=== PATIENT | female | born 1935 | race American Indian/Alaskan Native ===

== ENCOUNTER 2018-02-15 08:33 | Day surgery (SDC) | payer BC, MEDICARE ==
[2018-01-19 13:34] VITALS: BMI 29.8
[~2018-02-15 08:33] MED LIST: HEPARIN-NS 5,000 UNITS/500 ML 5,000 UNIT/500 ML BAG IV ONE; ceFAZolin IV 1 gm in Dextrose 2 GM/100 ML BAG IVPB ONE
[2018-02-15 10:13] LABS: CALCIUM 10.5 mg/dl (8.6-10.4)
[2018-02-15] MEDS ORDERED: Propofol 10 mg/ml Inj (20 ML) ONE (11:16)
[2018-02-15] MEDS ORDERED: Phenylephrine 10 mg/ml Inj ONE (11:21)
[2018-02-15] MEDS ORDERED: HYDROmorphone 0.5 mg/0.5 ml ISec IVP PRN (13:09)
--- NOTE | 2018-02-15 13:18 | PCM.SURG1 ---
Surgeon's Initial Post Op Note - Surgeon's Notes Surgeon: Courtney Balance Screwhead Polisher: PGY4, Gerry MS4 Type of Anesthesia: General LMA Pre-Operative Diagnosis: Chronic kidney disease (ESRD) Operative Findings: see op note Post-Operative Diagnosis: Chronic kidney disease (ESRD) Operation Performed: L arm arteriovenous fistula creation Specimen/Specimens Removed: n/a Estimated Blood Loss: EBL {In ML}: 20 Blood Products Given: N/A Drains Used: No Drains Post-Op Condition: Good Date of Surgery/Procedure: 02/15/18 Time of Surgery/Procedure: 10:55
[2018-02-15] MEDS ORDERED: Oxycodone/Acetaminophen 5/325 mg Tab PO ONE (13:20)
[2018-02-15 14:52] VITALS: BP 180/67; PULSE 90; RESP 20; TEMP 97; O2SAT 100
--- NOTE | 2018-02-16 00:23 | OP ---
PROCEDURE DATE: 02/15/2018 PREOPERATIVE DIAGNOSIS: Renal failure. POSTOPERATIVE DIAGNOSIS: Renal failure. PROCEDURE CARRIED OUT: Brachio-brachial fistula, left elbow. SURGEON: Demarcus Valdez Jr., MD RAGS LABORER: Aidan Chavez DO ANESTHESIOLOGIST: HISTORY: The patient is an 82-year-old woman with renal insufficiency, not yet requiring dialysis. OPERATIVE FINDINGS: The brachial vein was of adequate size at the elbow; however superiorly arm, it was severely narrowed. Cephalic vein was not evident in the operating room vein mapping. Because of this, we created a fistula from the brachial artery to the adjacent brachial vein, which was of good size and caliber. At the end of the procedure, we had a palpable pulse at the wrist and good flow to the fistula. DESCRIPTION OF PROCEDURE: The patient was given general anesthesia and intravenous antibiotics. Venodyne boots were applied. Using ultrasound, we marked out the arteries and veins. a functional end-to-side fistula between the brachial artery and the brachial veins just above the elbow. At the end of the procedure, there is a palpable pulse at the wrist and good flow to the fistula. Heparin was given and loupe magnification was given. The patient tolerated the procedure uneventfully. It is anticipated that this required mobilization in the future as it is one of the deep veins in the arm. Demarcus Valdez Jr., MD cc: 1. Josh Macedo MD 2. Dr. Kay
== END 2018-02-15 14:55 | disposition home or self-care (01) ==
LOC: C.SDS 08:33
PROVIDERS: ATTEND Surgery Vascular Surgery
DX: N28.9 Disorder of kidney and ureter, unspecified (principal)
CPT/HCPCS: 36415; 36556; 80048; 82948; J0690; J1644; J2370; J2405; J2704; J3010; J7030; J7040

== ENCOUNTER 2018-04-08 10:25 | Inpatient (IN) | payer BC, MEDICARE ==
[2018-04-08 10:25] VITALS: BMI 29.3
--- NOTE | 2018-04-08 11:44 | C.PDOC ---
History Of Present Illness 82 y/o female pt with hx of DM and HTN presents to the ER c/o pain to the left outer arm to elbow. Pt reports the pain started last night and denies of any trauma. Pt is currently getting ready to start dialysis treatment. Pt denies SOB, nausea, vomiting and fever. Time Seen by Provider: 04/08/18 11:02 Chief Complaint (Nursing): Vascular Access Device Problem History Per: Patient History/Exam Limitations: no limitations Onset/Duration Of Symptoms: Days (x1) Current Symptoms Are (Timing): Still Present Quality: "Pain" Past Medical History Reviewed: Historical Data, Nursing Documentation, Vital Signs Vital Signs: Last Vital Signs Temp 98.8 F 04/08/18 10:33 Pulse 118 H 04/08/18 11:05 Resp 16 04/08/18 11:05 BP 206/94 H 04/08/18 11:05 Pulse Ox 96 04/08/18 11:05 - Medical History PMH: Anemia, Diabetes, HTN, Hypercholesterolemia, Chronic Kidney Disease [facility] Procedures CLOSED [PERCUTANEOUS] [NEEDLE] BIOPSY OF LUNG (06/11/03) DX ULTRASOUND-HEART (06/11/03) INSERTION OF TOTALLY IMPLANTABLE VASC ACCESS DEVIC (05/03/03) PACKED CELL TRANSFUSION (06/11/03) SKIN INCIS & FB REMOVAL (06/11/03) Family History: States: No Known Family Hx - Social History Hx Alcohol Use: No Hx Substance Use: No - Immunization History Hx Tetanus Toxoid Vaccination: No Hx Influenza Vaccination: No Hx Pneumococcal Vaccination: No Review Of Systems Except As Marked, All Systems Reviewed And Found Negative. Constitutional: Negative for: Fever Respiratory: Negative for: Shortness of Breath Gastrointestinal: Negative for: Nausea, Vomiting Musculoskeletal: Positive for: Arm Pain (left outer upper arm to elbow) Physical Exam - Physical Exam Appears: Non-toxic, No Acute Distress Skin: Warm, Dry Head: Normacephalic Eye(s): bilateral: PERRL, EOMI, Conjunctiva Pale Chest: Symmetrical, No Deformity Cardiovascular: Rhythm Regular Respiratory: Normal Breath Sounds, No Rales, No Rhonchi, No Wheezing Gastrointestinal/Abdominal: Soft, No Tenderness Extremity: Normal ROM (x4), No Deformity, Swelling (left arm ), Other (warm area ) Pulses: Left Radial: Normal, Left Dorsalis Pedis: Normal, Right Dorsalis Pedis: Normal Neurological/Psych: Oriented x3, Normal Speech, Normal Motor, Normal Sensation ED Course And Treatment - Laboratory Results Result Diagrams: 04/08/18 12:40 ECG: Interpreted By Me, Viewed By Me Interpretation Of ECG: accelerated junction Rate From EC O2 Sat by Pulse Oximetry: 96 (RA) Pulse Ox Interpretation: Normal - Other Rad chest X-Ray: Read By Radiologist Interpretation: Accession No. : [id number]. Patient Name / ID : HIREN CARDENAS / [id number]. Exam Date : 04/08/2018 11:25:35 ( Approved ). Study Comment : Sex / Age : F / 82Y. Creator : Kristine Jay. Dictator : Victoria Vallejo MD. 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 Approver2 : Report Date : 04/08/2018 11:33:23. My Comment : . Date of service: 04/08/2018. HISTORY: Sepsis Patient. COMPARISON: 01/13/2018. FINDINGS: LUNGS: The lungs are well inflated. There is severe pulmonary venous congestion and mild interstitial pulmonary edema. PLEURA: No pleural effusions or pneumothorax. CARDIOVASCULAR: Severe cardiomegaly. Atherosclerotic aortic arch calcifications are present. OSSEOUS STRUCTURES: Within normal limits for the patient's age. 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 VISUALIZED UPPER ABDOMEN: Normal. OTHER FINDINGS: There are multiple surgical clips in the right axilla. IMPRESSION: Congestive heart failure. left elbow X-Ray: Read By Radiologist Interpretation: Accession No. : [id number]. Patient Name / ID : HIREN CARDENAS / [id number]. Exam Date : 04/08/2018 11:25:35 ( Approved ). Study Comment : Sex / Age : F / 82Y. Creator : Kristine Jay. Dictator : Victoria Vallejo MD. 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 Approver2 : Report Date : 04/08/2018 11:33:18. My Comment : . Date of service: 04/08/2018. PROCEDURE: Radiographs of the left elbow. HISTORY: Pain and swelling. COMPARISON: No prior. FINDINGS: BONES: There is no acute displaced fracture or bone destruction. Bone alignment is normal. There is periarticular bone demineralization. JOINTS: There is moderate degen erative osteoarthrosis in the elbow joint with reduced joint spaces and marginal spurring. SOFT TISSUES: Normal. JOINT EFFUSION: There is a small joint effusion. OTHER FINDINGS: None. IMPRESSION: No acute displaced fracture or dislocation. Please note occult fractures cannot be excluded on plain radiographs. If there is a persistent clinical concern, an MRI without intravenous contrast may be performed for further evaluation. Moderate degenerative osteoarthrosis and small joint effusion. - Physician Consult Information Physician Contacted: Demarcus Valdez Jr. Outcome Of Conversation: recommended to admit pt to hospital service Medical Decision Making Medical Decision Making: Plans: -- VBG -- EKG -- Chem labs -- blood work -- Left elbow XR Disposition Discussed With Dr.: Demarcus Valdez Jr. Counseled Patient/Family Regarding: Diagnosis - Disposition Disposition: HOSPITALIZED Disposition Time: 13:15 Condition: GUARDED Forms: [facility] ([place]auan) - POA Present On Arrival: None - Clinical Impression Clinical Impression: Cellulitis - Scribe Statement The provider has reviewed the documentation as recorded by the Keegan Roberts Do Provider Attestation: All medical record entries made by the Kimiblalitha were at my direction and personall y dictated by me. I have reviewed the chart and agree that the record accurately reflects my personal performance of the history, physical exam, medical decision making, and the department course for this patient. I have also personally directed, reviewed, and agree with the discharge instructions and disposition. Decision To Admit - Pt Status Changed To: Hospital Disposition Of: Observation - . Bed Request Type: Telemetry Admitting Physician: Cyndi Farr Patient Diagnosis: Cellulitis
--- NOTE | 2018-04-08 12:09 | RAD ---
Date of service: 04/08/2018 HISTORY: Sepsis Patient COMPARISON: 01/13/2018. FINDINGS: LUNGS: The lungs are well inflated. There is severe pulmonary venous congestion and mild interstitial pulmonary edema. PLEURA: No pleural effusions or pneumothorax. CARDIOVASCULAR: Severe cardiomegaly. Atherosclerotic aortic arch calcifications are present. OSSEOUS STRUCTURES: Within normal limits for the patient's age. 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 VISUALIZED UPPER ABDOMEN: Normal. OTHER FINDINGS: There are multiple surgical clips in the right axilla. IMPRESSION: Congestive heart failure.
--- NOTE | 2018-04-08 12:17 | RAD ---
Date of service: 04/08/2018 PROCEDURE: Radiographs of the left elbow. HISTORY: Pain and swelling COMPARISON: No prior. FINDINGS: BONES: There is no acute displaced fracture or bone destruction. Bone alignment is normal. There is periarticular bone demineralization. JOINTS: There is moderate degenerative osteoarthrosis in the elbow joint with reduced joint spaces and marginal spurring. SOFT TISSUES: Normal. JOINT EFFUSION: There is a small joint effusion. OTHER FINDINGS: None IMPRESSION: No acute displaced fracture or dislocation. Please note occult fractures cannot be excluded on plain radiographs. If there is a persistent clinical concern, an MRI without intravenous contrast may be performed for further evaluation. Moderate degenerative osteoarthrosis and small joint effusion.
[2018-04-08 12:34] LABS: VENOUS BLOOD GAS BASE EXCESS -1.4 mmol/L (0.0-2.0); VENOUS BLOOD GAS PCO2 36 mmHg (40-60); VENOUS BLOOD PH 7.41 (7.32-7.43)
[2018-04-08 12:47] LABS: BASO # 0.1 K/uL (0.0-0.2); BASO % 0.3 % (0.0-2.0); LYMPH % 5.6 % (20.0-40.0); MEAN CELL VOLUME 84.1 fL (81.0-99.0); MEAN CORPUSCULAR HEMOGLOBIN 26.3 pg (27.0-31.0); MEAN CORPUSCULAR HGB CONC 31.3 g/dL (33.0-37.0); MEAN PLATELET VOLUME 9.4 fL (7.2-11.7); MONO # 0.8 K/uL (0.0-0.8); MONO % 4.1 % (0.0-10.0); NEUT # 16.8 K/uL (1.8-7.0); NRBC % 0.1 % (0.0-2.0); PLATELET COUNT 235 K/uL (130-400); RED CELL DISTRIBUTION WIDTH 18.9 % (11.5-14.5)
[2018-04-08 13:04] LABS: HEMOGLOBIN 7.1 g/dL (11.0-16.0); WHITE BLOOD COUNT 18.6 K/uL (4.8-10.8)
[2018-04-08 13:29] LABS: ALB/GLOB RATIO 0.9 (1.0-2.1); ALBUMIN 3.3 g/dL (3.5-5.0); CALCIUM 9.4 mg/dl (8.6-10.4)
[2018-04-08] MEDS ORDERED: Vancomycin 1 GM 1 GM/250 ML BAG IVPB ONE (13:29)
[2018-04-08] MEDS ORDERED: Vancomycin 1 GM 1 GM/250 ML BAG IV SCH (13:30)
[2018-04-08 13:46] LABS: INR 1.2
[2018-04-08 13:50] LABS: ANISOCYTOSIS SLIGHT; HYPOCHROMIC MODERATE; LYMPHOCYTE 8 % (20-40); MONOCYTE 3 % (0-10); NEUTROPHIL 89 % (50-75); PLATELET ESTIMATE NORMAL (NORMAL); POIKILOCYTOSIS SLIGHT; TOTAL CELLS COUNTED 100
[2018-04-08 13:51] LABS: BURR CELLS SLIGHT; MICROCYTOSIS SLIGHT; OVALOCYTES SLIGHT
[2018-04-08 13:52] LABS: TEARDROP CELLS SLIGHT
[2018-04-08 14:09] LABS: SQUAMOUS EPITHIAL 1 /hpf (0-5); URINE BACTERIA RARE (<OCC); URINE BILIRUBIN NEGATIVE (NEGATIVE); URINE BLOOD NEGATIVE (NEGATIVE); URINE CLARITY Clear (Clear); URINE COLOR Yellow (YELLOW); URINE GLUCOSE (UA) NORMAL (Normal); URINE LEUKOCYTE ESTERASE NEG Leu/uL (Negative); URINE PROTEIN 3+ mg/dL (NEGATIVE); URINE UROBILINOGEN NORMAL mg/dL (0.2-1.0)
--- NOTE | 2018-04-08 14:40 | CP.PCM.HP ---
<Lillian Pardo - Last Filed: 04/08/18 23:34> History of Present Illness - History of Present Illness History of Present Illness: 82 year old female with history of HTN, DM, hyperlipidemia, breast cancer s/p partial lumpectomy, CKD s/p AVF not on dialysis presents to the ED today complains of right elbow pain. Patient reports her left elbow pain started last night suddenly. The pain is pressure like and radiates down to her forearm. Patient took over the counter Tylenol with no relief. She denies having injury to her elbow or any other parts of her body. Patient had AVF procedure with Dr. Valdez 2 months ago and is scheduled to have a revision surgery on 04/12/18. Patient denies having fever, chills, dizziness, headache, shortness of breath, chest pain, nausea, vomiting, abdominal pain, or urinary complaints. PMD: Dr. Macedo, Nephro: Dr. Kay, Vascular: Dr. Valdez PMHx: [place], DM, hyperlipidemia, breast cancer, CKD PSHx: L sided AVF, partial lumpectomy Social Hx: social alcohol consumption, formal smoker quit 30 years ago. 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 Allergy: NKDA Family History: none Medication: Lasix 40mg, clonidine 0.2mg TID, januvia 50mg, lantus solo star 10u daily, protonix 40mg Present on Admission - Present on Admission Any Indicators Present on Admission: No Review of Systems - Constitutional Constitutional: As Per HPI, Chills, Fever - EENT Eyes: As Per HPI. absent: Floaters, Irritation, Photophobia Ears: As Per HPI. absent: Disequilibrium, Dizziness Nose/Mouth/Throat: As Per HPI. absent: Epistaxis, Nasal Trauma, Nose Pain, Bleeding Gums - Breasts Breasts: As Per HPI. absent: Change in Shape, Nipple Inversion, Skin Changes - Cardiovascular Cardiovascular: As Per HPI. absent: Acrocyanosis, Chest Pain, Chest Pain with Activity, Claudication - Respiratory Respiratory: As Per HPI. absent: Cough, Pain on Inspiration, Excessive Mucous Production - Gastrointestinal Gastrointestinal: As Per HPI. absent: Abdominal Pain, Bloating, Diarrhea - Genitourinary Genitourinary: As Per HPI. absent: Change in Urinary Stream, Hematuria, Pyuria, Urinary Hesitance - Reproductive: Female Reproductive:Female: As Per HPI - Musculoskeletal Musculoskeletal: As Per HPI, Joint Swelling (left elbow). absent: Deformity - Integumentary Integumentary: As Per HPI, Acne. absent: Alopecia - Neurological Neurological: As Per HPI. absent: Syncope, Tingling, Tremor, Vertigo - Psychiatric Psychiatric: As Per HPI. absent: Anxiety, Confusion, Irritability - Endocrine Endocrine: As Per HPI - Hematologic/Lymphatic Hematologic: As Per HPI Past Patient History - Infectious Disease Hx of Infectious Diseases: None - Past Medical History & Family History Past Medical History?: Yes - Past Social History Smoking Status: Never Smoked - CARDIAC Hx Hypercholesterolemia: Yes Hx Hypertension: Yes - PULMONARY Hx Respiratory Disorders: No - NEUROLOGICAL Hx Neurological Disorder: No - HEENT Hx HEENT Problems: Yes Hx Cataracts: Yes (BILAT.) - RENAL Hx Chronic Kidney Disease: Yes - ENDOCRINE/METABOLIC Hx Endocrine Disorders: Yes Hx Diabetes Mellitus Type 2: Yes - HEMATOLOGICAL/ONCOLOGICAL Hx Anemia: Yes - INTEGUMENTARY Hx Dermatological Problems: Yes Other/Comment: HX: "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." - GASTROINTESTINAL Hx Gastrointestinal Disorders: No - GENITOURINARY/GYNECOLOGICAL Hx Genitourinary Disorders: No - PSYCHIATRIC Hx Substance Use: No - SURGICAL HISTORY Hx Appendectomy: Yes - ANESTHESIA Hx Anesthesia: Yes Hx Anesthesia Reactions: No Hx Malignant Hyperthermia: No Meds Allergies/Adverse Reactions: Allergies Allergy/AdvReac Type Severity Reaction Status Date / Time No Known Allergies Allergy Verified 01/13/18 09:55 Physical Exam - Constitutional Appears: Well, No Acute Distress - Head Exam Head Exam: ATRAUMATIC, NORMAL INSPECTION, NORMOCEPHALIC - Eye Exam Eye Exam: EOMI, Normal appearance, PERRL Pupil Exam: NORMAL ACCOMODATION, PERRL - ENT Exam ENT Exam: Mucous Membranes Moist, Normal Exam - Neck Exam Neck exam: Positive for: Normal Inspection - Respiratory Exam Respiratory Exam: Clear to Auscultation Bilateral, NORMAL BREATHING PATTERN. absent: Wheezes, Respiratory Distress - Cardiovascular Exam Cardiovascular Exam: REGULAR RHYTHM, +S1, +S2 - GI/Abdominal Exam GI & Abdominal Exam: Normal Bowel Sounds, Soft. absent: Tenderness - Extremities Exam Extremities exam: Positive for: normal capillary refill, pedal pulses present Additional comments: Left olecranon tenderness, surrounding soft tissue swelling and mildly erythematous, limited overall range of motion due to pain, medial forearm surgical scar - Back Exam Back exam: NORMAL INSPECTION - Neurological Exam Neurological exam: Alert, CN II-XII Intact, Oriented x3 - Psychiatric Exam Psychiatric exam: Normal Affect, Normal Mood - Skin Skin Exam: Dry, Intact, Warm Results - Vital Signs Recent Vital Signs: Last Vital Signs Temp 98.7 F 04/08/18 14:34 Pulse 69 04/08/18 14:34 Resp 18 04/08/18 14:34 BP 160/60 H 04/08/18 14:34 Pulse Ox 99 04/08/18 14:34 - Labs Result Diagrams: 04/08/18 12:40 04/08/18 12:40 Labs: Laboratory Results - last 24 hr 04/08/18 04/08/18 04/08/18 12:28 12:40 12:40 WBC 18.6 H D RBC 2.70 L Hgb 7.1 L D Hct 22.7 L MCV 84.1 MCH 26.3 L MCHC 31.3 L RDW 18.9 H Plt Count 235 MPV 9.4 Neut % (Auto) 90.0 H Lymph % (Auto) 5.6 L Sutton % (Auto) 4.1 Eos % (Auto) 0.0 Baso % (Auto) 0.3 Neut # (Auto) 16.8 H Lymph # (Auto) 1.0 Sutton # (Auto) 0.8 Eos # (Auto) 0.0 Baso # (Auto) 0.1 Neutrophils % (Manual) 89 H Lymphocytes % (Manual) 8 L Monocytes % (Manual) 3 Platelet Estimate Normal Hypochromasia (manual) Moderate Poikilocytosis (manual Slight Anisocytosis (manual) Slight Microcytosis (manual) Slight Tear Drop Cells Slight Ovalocytes Slight Lloyd Cells Slight PT INR VBG pH 7.41 VBG pCO2 36 L VBG Total CO2 23.9 VBG O2 Sat (Calc) 72.7 H VBG Base Excess -1.4 L VBG Potassium 4.0 Sodium 145.0 141 Chloride 114.0 H 109 H Glucose 183 H Lactate 1.2 Potassium 4.1 Carbon Dioxide 22 Anion Gap 14 BUN 70 H Creatinine 5.5 H Est GFR ( Amer) 9 Est GFR (Non-Af Amer) 7 Random Glucose 176 H Calcium 9.4 Total Bilirubin 0.5 AST 12 L ALT 13 Alkaline Phosphatase 59 NT-Pro-B Natriuret Pep Total Protein 6.9 Albumin 3.3 L Globulin 3.6 Albumin/Globulin Ratio 0.9 L Venous Blood Potassium 4.0 Urine Color Urine Clarity Urine pH Ur Specific Diagonal Urine Protein Urine Glucose (UA) Urine Ketones Urine Blood Urine Nitrate Urine Bilirubin Urine Urobilinogen Ur Leukocyte Esterase Urine WBC (Auto) Urine RBC (Auto) Ur Squamous Epith Cells Urine Bacteria 04/08/18 04/08/18 04/08/18 13:30 13:47 13:58 WBC RBC Hgb Hct MCV MCH MCHC RDW Plt Count MPV Neut % (Auto) Lymph % (Auto) Sutton % (Auto) Eos % (Auto) Baso % (Auto) Neut # (Auto) Lymph # (Auto) Sutton # (Auto) Eos # (Auto) Baso # (Auto) Neutrophils % (Manual) Lymphocytes % (Manual) Monocytes % (Manual) Platelet Estimate Hypochromasia (manual) Poikilocytosis (manual Anisocytosis (manual) Microcytosis (manual) Tear Drop Cells Ovalocytes Lloyd Cells PT 13.0 H INR 1.2 VBG pH VBG pCO2 VBG Total CO2 VBG O2 Sat (Calc) VBG Base Excess VBG Potassium Sodium Chloride Glucose Lactate Potassium Carbon Dioxide Anion Gap BUN Creatinine Est GFR ( Amer) Est GFR (Non-Af Amer) Random Glucose Calcium Total Bilirubin AST ALT Alkaline Phosphatase NT-Pro-B Natriuret Pep 34754 H Total Protein Albumin Globulin Albumin/Globulin Ratio Venous Blood Potassium Urine Color Yellow Urine Clarity Clear Urine pH 5.0 Ur Specific Diagonal 1.013 Urine Protein 3+ H Urine Glucose (UA) Normal Urine Ketones Negative Urine Blood Negative Urine Nitrate Negative Urine Bilirubin Negative Urine Urobilinogen Normal Ur Leukocyte Esterase Neg Urine WBC (Auto) 3 Urine RBC (Auto) 1 Ur Squamous Epith Cells 1 Urine Bacteria Rare Assessment & Plan - Assessment and Plan (Free Text) Assessment: Left elbow pain -secondary to olecranon bursitis vs septic arthritis vs cellulitis -Orthopedic consult, Dr. Jh Sheehan help appreciated -ID consulted, Dr. Paulino help appreciated -f/u Left elbow MRI w/o contrast -Left elbow xray shows no acute displaced fracture or dislocation and moderate degenerative osteoarthrosis and small joint effusion Leukocytosis -WBC 18.6, febrile -ID consulted, Dr. Paulino help appreciated -Zosyn IV 2.25gm Q8 -Received a dose of vancomycin in the ED, f/u level -Follow up urine and blood cultures Chronic Renal Failure -Cr stable -Nephrology consulted, Dr. Kay help appreciated -Calcitriol 0.25mcg -Phoslo, sodium bicarb Congested heart failure -elevated BNP 26215 -CXR shows venous congestion -Last echo 12/2017 shows systolic function mildly impaired -Cardiology consult, Dr. Craft help appreciated -Lasix 40mg PO daily DM -Januvia 25mg (Renal dosed) -Novolog 14 unit TID -ISS -Hypoglycemia protocol -Carb consistent diet HTN -Bystolic 20mg -Clonidine 0.2mg TID Prophylactic measures -Heparin 5000u BID SC -Protonix 40mg po -Tylenol prn Case discussed with attending Dr. Torres <Munira Torres - Last Filed: 04/12/18 16:56> Results - Vital Signs Recent Vital Signs: Last Vital Signs Temp 97.6 F 04/12/18 13:07 Pulse 66 04/12/18 13:07 Resp 20 04/12/18 13:07 BP 152/72 H 04/12/18 13:07 Pulse Ox 97 04/12/18 13:07 - Labs Result Diagrams: 04/12/18 07:01 04/12/18 07:01 Labs: Laboratory Results - last 24 hr 04/11/18 04/11/18 04/11/18 13:54 13:54 16:54 WBC RBC Hgb Hct MCV MCH MCHC RDW Plt Count MPV Neut % (Auto) Lymph % (Auto) Sutton % (Auto) Eos % (Auto) Baso % (Auto) Neut # (Auto) Lymph # (Auto) Sutton # (Auto) Eos # (Auto) Baso # (Auto) Neutrophils % (Manual) Band Neutrophils % Lymphocytes % (Manual) Monocytes % (Manual) Platelet Estimate Polychromasia Hypochromasia (manual) Anisocytosis (manual) Target Cells Ovalocytes Sodium Potassium Chloride Carbon Dioxide Anion Gap BUN Creatinine Est GFR ( Amer) Est GFR (Non-Af Amer) POC Glucose (mg/dL) 108 Random Glucose Calcium Phosphorus Magnesium Total Bilirubin AST ALT Alkaline Phosphatase Total Protein Albumin Globulin Albumin/Globulin Ratio Folate Cancelled PTH Intact Whole Molec 45 04/11/18 04/12/18 04/12/18 20:56 06:43 07:01 WBC 13.6 H RBC 3.12 L Hgb 8.3 L Hct 26.2 L MCV 83.9 MCH 26.6 L MCHC 31.7 L RDW 17.8 H Plt Count 292 MPV 9.9 Neut % (Auto) 89.0 H Lymph % (Auto) 9.0 L Sutton % (Auto) 1.8 Eos % (Auto) 0.0 Baso % (Auto) 0.2 Neut # (Auto) 12.1 H Lymph # (Auto) 1.2 Sutton # (Auto) 0.3 Eos # (Auto) 0.0 Baso # (Auto) 0.0 Neutrophils % (Manual) 89 H Band Neutrophils % 1 Lymphocytes % (Manual) 9 L Monocytes % (Manual) 1 Platelet Estimate Normal Polychromasia Slight Hypochromasia (manual) Slight Anisocytosis (manual) Slight Target Cells Slight Ovalocytes Slight Sodium Potassium Chloride Carbon Dioxide Anion Gap BUN Creatinine Est GFR ( Amer) Est GFR (Non-Af Amer) POC Glucose (mg/dL) 164 H 213 H Random Glucose Calcium Phosphorus Magnesium Total Bilirubin AST ALT Alkaline Phosphatase Total Protein Albumin Globulin Albumin/Globulin Ratio Folate PTH Intact Whole Molec 04/12/18 04/12/18 07:01 12:19 WBC RBC Hgb Hct MCV MCH MCHC RDW Plt Count MPV Neut % (Auto) Lymph % (Auto) Sutton % (Auto) Eos % (Auto) Baso % (Auto) Neut # (Auto) Lymph # (Auto) Sutton # (Auto) Eos # (Auto) Baso # (Auto) Neutrophils % (Manual) Band Neutrophils % Lymphocytes % (Manual) Monocytes % (Manual) Platelet Estimate Polychromasia Hypochromasia (manual) Anisocytosis (manual) Target Cells Ovalocytes Sodium 138 Potassium 4.7 Chloride 99 Carbon Dioxide 24 Anion Gap 19 BUN 74 H Creatinine 6.5 H Est GFR ( Amer) 7 Est GFR (Non-Af Amer) 6 POC Glucose (mg/dL) 171 H Random Glucose 209 H Calcium 10.6 H Phosphorus 4.8 H Magnesium 2.1 Total Bilirubin 0.5 AST 14 ALT 11 Alkaline Phosphatase 73 Total Protein 7.3 Albumin 3.3 L Globulin 4.0 H Albumin/Globulin Ratio 0.8 L Folate > 20.0 PTH Intact Whole Molec Attending/Attestation - Attestation I have personally seen and examined this patient.: Yes I have fully participated in the care of the patient.: Yes I have reviewed all pertinent clinical information: Yes Notes (Text): seen examined by me 1.Elbow cellulites,r/o bursitis and r/o septic arthritis 2.Chronic renal failure 3.DM 4.Breast ca 5.HTN Assessment and the plan discussed with the resident seen by surgery. As per surgery team her elbow swelling is unlikely We will get Dr Paulino for ID consult. start on Zosyna dn tyroneo Ortho consult ,nephrology consult requested
[2018-04-08] MEDS ORDERED: Dextrose 50% SYRINGE Inj (50 ml) IV PRN (14:57)
[2018-04-08] MEDS ORDERED: Glucagon Recombinant 1 mg Inj IM PRN (14:57)
--- NOTE | 2018-04-08 15:31 | CP.PCM.CON ---
History of Present Illness - History of Present Illness History of Present Illness: Vascular Surgery Consult For Dr. Valdez This is an 82F with a PMH of HTN, DM, HLD, breast CA, CKD s/p AVF formation on 02/15 on the left arm. She presents today due to left elbow pain that started last night after she twisted her elbow. This is the firs time it has happened. Nothing makes it better and nothimng makes it worse. She denies any pain over the fistula. She reports she was schedules to have a fistula superfiscialization this upcoming . Patient denies having fever, chills, dizziness, headache, shortness of breath, chest pain, nausea, vomiting, abdominal pain, or urinary complaints. PMHx: TN, DM, hyperlipidemia, breast cancer, CKD PSHx: L sided AVF, partial lumpectomy Social Hx: Denies Vices Allergy: NKDA Review of Systems - Review of Systems Review of Systems: 12 point reviewof symptoms negative except for elbow pain Past Patient History - Infectious Disease Hx of Infectious Diseases: None - Past Medical History & Family History Past Medical History?: Yes - Past Social History Smoking Status: Never Smoked - CARDIAC Hx Hypercholesterolemia: Yes Hx Hypertension: Yes - PULMONARY Hx Respiratory Disorders: No - NEUROLOGICAL Hx Neurological Disorder: No - HEENT Hx HEENT Problems: Yes Hx Cataracts: Yes (BILAT.) - RENAL Hx Chronic Kidney Disease: Yes - ENDOCRINE/METABOLIC Hx Endocrine Disorders: Yes Hx Diabetes Mellitus Type 2: Yes - HEMATOLOGICAL/ONCOLOGICAL Hx Anemia: Yes - INTEGUMENTARY Hx Dermatological Problems: Yes Other/Comment: HX: "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." - GASTROINTESTINAL Hx Gastrointestinal Disorders: No - GENITOURINARY/GYNECOLOGICAL Hx Genitourinary Disorders: No - PSYCHIATRIC Hx Substance Use: No - SURGICAL HISTORY Hx Appendectomy: Yes - ANESTHESIA Hx Anesthesia: Yes Hx Anesthesia Reactions: No Hx Malignant Hyperthermia: No Meds Allergies/Adverse Reactions: Allergies Allergy/AdvReac Type Severity Reaction Status Date / Time No Known Allergies Allergy Verified 01/13/18 09:55 - Medications Medications: Current Medications Calcitriol (Rocaltrol) 0.25 mcg PO DAILY [facility] Clonidine HCl (Catapres) 0.2 mg PO TID [facility] Dextrose (Dextrose 50% Inj) 0 ml IV STAT PRN; Protocol PRN Reason: Hypoglycemia Protocol Dextrose (Glutose 15) 0 gm PO ONCE PRN; Protocol PRN Reason: Hypoglycemia Protocol Glucagon (Glucagen Diagnostic Kit) 0 mg IM STAT PRN; Protocol PRN Reason: Hypoglycemia Protocol Heparin Sodium (Porcine) (Heparin) 5,000 units SC Q12 [facility] Home Med (Calcium Acetate [Phoslo]) 2 tab PO AC [facility] Home Med (Ergocalciferol (Vitamin D2) [Vitamin D2]) 2,000 iu PO DAILY [facility] Home Med (Insulin Lispro [Humalog Kwikpen U-100]) 14 unit SQ TID [facility] Hydralazine HCl (Apresoline) 30 mg PO TID [facility] Vancomycin HCl (Vancomycin 1gm In Normal Saline Addvantage) 1 gm in 250 mls @ 166.667 mls/hr IV STAT [facility]; Protocol Last Admin: 04/08/18 14:02 Dose: 166.667 mls/hr Dextrose (Dextrose 5% In Water 1000 Ml) 1,000 mls @ 0 mls/hr IV .Q0M PRN; Protocol PRN Reason: Hypoglycemia Protocol Piperacillin Sod/Tazobactam Sod (Zosyn 2.25 Gm Iv Premix) 2.25 gm in 50 mls @ 100 mls/hr IVPB Q8H [facility]; Protocol Insulin Human Regular (Novolin R) 0 unit SC ACHS [facility]; Protocol Nebivolol (Bystolic) 20 mg PO DAILY [facility] Pantoprazole Sodium (Protonix Ec Tab) 40 mg PO DAILY [facility] Sitagliptin Phosphate (Januvia) 50 mg PO DAILY [facility] Sodium Bicarbonate (Sodium Bicarbonate Tab) 650 mg PO BID [facility] Physical Exam - Constitutional Appears: Non-toxic, No Acute Distress - Head Exam Head Exam: ATRAUMATIC, NORMOCEPHALIC - Eye Exam Eye Exam: EOMI - ENT Exam ENT Exam: Mucous Membranes Moist - Respiratory Exam Respiratory Exam: NORMAL BREATHING PATTERN - Cardiovascular Exam Cardiovascular Exam: +S1, +S2 - Extremities Exam Additional comments: thrill present over AV. Elbow effusion. Tenderness to plapation and passive motion of the elbow. Results - Vital Signs Recent Vital Signs: Last Vital Signs Temp 98.7 F 04/08/18 14:34 Pulse 69 04/08/18 14:34 Resp 18 04/08/18 14:34 BP 160/60 H 04/08/18 14:34 Pulse Ox 99 04/08/18 14:34 - Labs Result Diagrams: 04/08/18 12:40 04/08/18 12:40 Labs: Laboratory Results - last 24 hr 04/08/18 04/08/18 04/08/18 12:28 12:40 12:40 WBC 18.6 H D RBC 2.70 L Hgb 7.1 L D Hct 22.7 L MCV 84.1 MCH 26.3 L MCHC 31.3 L RDW 18.9 H Plt Count 235 MPV 9.4 Neut % (Auto) 90.0 H Lymph % (Auto) 5.6 L Glenn % (Auto) 4.1 Eos % (Auto) 0.0 Baso % (Auto) 0.3 Neut # (Auto) 16.8 H Lymph # (Auto) 1.0 Glenn # (Auto) 0.8 Eos # (Auto) 0.0 Baso # (Auto) 0.1 Neutrophils % (Manual) 89 H Lymphocytes % (Manual) 8 L Monocytes % (Manual) 3 Platelet Estimate Normal Hypochromasia (manual) Moderate Poikilocytosis (manual Slight Anisocytosis (manual) Slight Microcytosis (manual) Slight Tear Drop Cells Slight Ovalocytes Slight Nada Cells Slight PT INR VBG pH 7.41 VBG pCO2 36 L VBG Total CO2 23.9 VBG O2 Sat (Calc) 72.7 H VBG Base Excess -1.4 L VBG Potassium 4.0 Sodium 145.0 141 Chloride 114.0 H 109 H Glucose 183 H Lactate 1.2 Potassium 4.1 Carbon Dioxide 22 Anion Gap 14 BUN 70 H Creatinine 5.5 H Est GFR ( Amer) 9 Est GFR (Non-Af Amer) 7 Random Glucose 176 H Calcium 9.4 Total Bilirubin 0.5 AST 12 L ALT 13 Alkaline Phosphatase 59 NT-Pro-B Natriuret Pep Total Protein 6.9 Albumin 3.3 L Globulin 3.6 Albumin/Globulin Ratio 0.9 L Venous Blood Potassium 4.0 Urine Color Urine Clarity Urine pH Ur Specific [place] Urine Protein Urine Glucose (UA) Urine Ketones Urine Blood Urine Nitrate Urine Bilirubin Urine Urobilinogen Ur Leukocyte Esterase Urine WBC (Auto) Urine RBC (Auto) Ur Squamous Epith Cells Urine Bacteria 04/08/18 04/08/18 04/08/18 13:30 13:47 13:58 WBC RBC Hgb Hct MCV MCH MCHC RDW Plt Count MPV Neut % (Auto) Lymph % (Auto) Glenn % (Auto) Eos % (Auto) Baso % (Auto) Neut # (Auto) Lymph # (Auto) Glenn # (Auto) Eos # (Auto) Baso # (Auto) Neutrophils % (Manual) Lymphocytes % (Manual) Monocytes % (Manual) Platelet Estimate Hypochromasia (manual) Poikilocytosis (manual Anisocytosis (manual) Microcytosis (manual) Tear Drop Cells Ovalocytes Lloyd Cells PT 13.0 H INR 1.2 VBG pH VBG pCO2 VBG Total CO2 VBG O2 Sat (Calc) VBG Base Excess VBG Potassium Sodium Chloride Glucose Lactate Potassium Carbon Dioxide Anion Gap BUN Creatinine Est GFR ( Amer) Est GFR (Non-Af Amer) Random Glucose Calcium Total Bilirubin AST ALT Alkaline Phosphatase NT-Pro-B Natriuret Pep 78689 H Total Protein Albumin Globulin Albumin/Globulin Ratio Venous Blood Potassium Urine Color Yellow Urine Clarity Clear Urine pH 5.0 Ur Specific [place] 1.013 Urine Protein 3+ H Urine Glucose (UA) Normal Urine Ketones Negative Urine Blood Negative Urine Nitrate Negative Urine Bilirubin Negative Urine Urobilinogen Normal Ur Leukocyte Esterase Neg Urine WBC (Auto) 3 Urine RBC (Auto) 1 Ur Squamous Epith Cells 1 Urine Bacteria Rare Assessment & Plan - Assessment and Plan (Free Text) Assessment: 82F with likely olecronon bursitis possible septic arthritis No active vascular issues recommend ortho consult continue medical management D/W Dr. Courtney Lugo PGY3
[2018-04-08] MEDS ORDERED: Vancomycin 1 GM 1 GM/250 ML BAG IV STA (15:37)
[2018-04-08 16:11] LABS: VENOUS BLOOD GAS BASE EXCESS -0.2 mmol/L (0.0-2.0); VENOUS BLOOD GAS PCO2 41 mmHg (40-60); VENOUS BLOOD PH 7.39 (7.32-7.43)
[2018-04-08] MEDS: Piperacill/Tazo 2.25gm in Dex 2.25 GM/50 ML BAG IVPB SCH ×2 (16:22→22:17)
[2018-04-08] MEDS: (Novolog) Insulin Aspart, Recombinant 100 u/ml 10 ml vial SC SCH (18:00)
[2018-04-08] MEDS: (Novolin R) Insulin Human Regular 100 units/ml vial SC SCH ×2 (18:43→21:46)
[2018-04-09] MEDS: Piperacill/Tazo 2.25gm in Dex 2.25 GM/50 ML BAG IVPB SCH ×3 (06:27→22:28)
[2018-04-09] MEDS: (Novolog) Insulin Aspart, Recombinant 100 u/ml 10 ml vial SC SCH ×2 (07:24→11:50)
[2018-04-09] MEDS: (Novolin R) Insulin Human Regular 100 units/ml vial SC SCH ×4 (07:26→22:03)
[2018-04-09 08:43] LABS: BASO % 0.2 % (0.0-2.0); EOS # 0.1 K/uL (0.0-0.7); EOS % 0.8 % (0.0-4.0); HEMOGLOBIN 6.8 g/dL (11.0-16.0); LYMPH # 1.9 K/uL (1.0-4.3); LYMPH % 14.5 % (20.0-40.0); MEAN CELL VOLUME 84.2 fL (81.0-99.0); MEAN CORPUSCULAR HEMOGLOBIN 26.9 pg (27.0-31.0); MEAN CORPUSCULAR HGB CONC 31.9 g/dL (33.0-37.0); MEAN PLATELET VOLUME 9.7 fL (7.2-11.7); MONO # 0.7 K/uL (0.0-0.8); NEUT # 10.5 K/uL (1.8-7.0); NEUT % 79.5 % (50.0-75.0); NRBC % 0.1 % (0.0-2.0); RBC 2.53 Mil/uL (3.80-5.20); RED CELL DISTRIBUTION WIDTH 18.8 % (11.5-14.5); WHITE BLOOD COUNT 13.3 K/uL (4.8-10.8)
[2018-04-09 08:59] LABS: ALB/GLOB RATIO 0.9 (1.0-2.1); ALBUMIN 3.2 g/dL (3.5-5.0); CALCIUM 9.4 mg/dl (8.6-10.4)
[2018-04-09] MEDS: Pantoprazole 40 mg EC Tab PO SCH (09:47)
[2018-04-09] MEDS ORDERED: Ergocalciferol 50,000 Intl Units Cap PO SCH (10:00)
[2018-04-09] MEDS ORDERED: Epoetin Alfa 10,000 unit/ml Dialysis SC ONE (10:19)
--- NOTE | 2018-04-09 10:21 | CP.PCM.PN ---
Subjective - Date & Time of Evaluation Date of Evaluation: 04/09/18 Time of Evaluation: 10:15 - Subjective Subjective: RENAL: Seen in observation S: 82 yo F w/ pmh of CKD 5 p/w L elbow pain. Seen by vascular not thought to be related to AVF and concerned for infection. Denies n/v/fever/chills. APpetite is good vs as below gen: nad sclera: anicteric op: clear neck: Supple no thyromegaly cv: +S1+s2 no rub abd: soft nt nd no organomegaly extP no edema lungs: CTA b/l neuro: A+OX3 no asterixis psych: nml affect skin: NO rash imp: CKD 5 / Anemia of renal disease/ Secondary hyperparathyroidism/ Hypertensive kidney disease / bursitis? / acidosis/ secondary hyperpara plan: CKD 5 - renal function at baseline no uremic sympotoms, hold off on hd for now Anemia: will give procrit 10,000 units today. Tsat was 12 as outpt but given ?? infection in elbow - will hold off on iv venofer and start oral iron secondary hyperpara: on calcitriol check phos level bp stable on oral bicarb dose abx for reduced eGFR Objective - Vital Signs/Intake and Output Vital Signs (last 24 hours): Temp Pulse Resp BP Pulse Ox 98.7 F 66 20 142/78 96 04/09/18 07:00 04/09/18 07:00 04/09/18 07:00 04/09/18 09:46 04/09/18 08:05 Intake and Output: 04/09/18 04/09/18 06:59 18:59 Intake Total 240 170 Balance 240 170 - Medications Medications: Current Medications Acetaminophen (Tylenol 325mg Tab) 650 mg PO Q6 PRN PRN Reason: Fever >100.4 F Calcitriol (Rocaltrol) 0.25 mcg PO DAILY [facility] Last Admin: 04/09/18 09:47 Dose: 0.25 mcg Calcium Acetate (Phoslo) 1,334 mg PO AC [facility] Last Admin: 04/09/18 07:52 Dose: 1,334 mg Clonidine HCl (Catapres) 0.2 mg PO TID [facility] Last Admin: 04/09/18 09:48 Dose: 0.2 mg Dextrose (Dextrose 50% Inj) 0 ml IV STAT PRN; Protocol PRN Reason: Hypoglycemia Protocol Dextrose (Glutose 15) 0 gm PO ONCE PRN; Protocol PRN Reason: Hypoglycemia Protocol Ergocalciferol (Drisdol 50,000 Intl Units Cap) 1 cap PO QWK [facility] Last Admin: 04/09/18 09:46 Dose: 1 cap Furosemide (Lasix) 40 mg PO DAILY [facility] Last Admin: 04/09/18 09:46 Dose: 40 mg Glucagon (Glucagen Diagnostic Kit) 0 mg IM STAT PRN; Protocol PRN Reason: Hypoglycemia Protocol Heparin Sodium (Porcine) (Heparin) 5,000 units SC Q12 [facility] Last Admin: 04/09/18 09:50 Dose: 5,000 units Hydralazine HCl (Apresoline) 30 mg PO TID [facility] Last Admin: 04/09/18 09:45 Dose: 30 mg Dextrose (Dextrose 5% In Water 1000 Ml) 1,000 mls @ 0 mls/hr IV .Q0M PRN; Protocol PRN Reason: Hypoglycemia Protocol Piperacillin Sod/Tazobactam Sod (Zosyn 2.25 Gm Iv Premix) 2.25 gm in 50 mls @ 100 mls/hr IVPB Q8H [facility]; Protocol Last Admin: 04/09/18 06:27 Dose: 100 mls/hr Insulin Aspart (Novolog) 14 unit SC TIDAC [facility] Last Admin: 04/09/18 07:24 Dose: Not Given Insulin Human Regular (Novolin R) 0 unit SC ACHS [facility]; Protocol Last Admin: 04/09/18 07:26 Dose: Not Given Nebivolol (Bystolic) 20 mg PO DAILY [facility] Last Admin: 04/09/18 09:47 Dose: 20 mg Pantoprazole Sodium (Protonix Ec Tab) 40 mg PO DAILY [facility] Last Admin: 04/09/18 09:47 Dose: 40 mg Sitagliptin Phosphate (Januvia) 25 mg PO DAILY [facility] Last Admin: 04/09/18 09:47 Dose: 25 mg Sodium Bicarbonate (Sodium Bicarbonate Tab) 650 mg PO BID [facility] Last Admin: 04/09/18 09:48 Dose: 650 mg - Labs Labs: 04/09/18 08:29 04/09/18 08:29 PT 13.0 SECONDS (9.7-12.2) H 04/08/18 13:30 INR 1.2 04/08/18 13:30
--- NOTE | 2018-04-09 10:45 | CP.PCM.PN ---
<Lillian Pardo - Last Filed: 04/09/18 20:38> Subjective - Date & Time of Evaluation Date of Evaluation: 04/09/18 Time of Evaluation: 07:10 - Subjective Subjective: Resident Medicine Progress Note Patient seen and examined at bedside. No acute events overnight. Patient is resting in bed comfortably. She reports the elbow pain improved from yesterday but still painful. Patient denies having fever, chills, headache, shortness of b reath, chest pain, nausea, vomiting, or abdominal pain. Objective - Vital Signs/Intake and Output Vital Signs (last 24 hours): Temp Pulse Resp BP Pulse Ox 98.7 F 66 20 142/78 96 04/09/18 07:00 04/09/18 07:00 04/09/18 07:00 04/09/18 09:46 04/09/18 08:05 Intake and Output: 04/09/18 04/09/18 06:59 18:59 Intake Total 240 170 Balance 240 170 - Medications Medications: Current Medications Acetaminophen (Tylenol 325mg Tab) 650 mg PO Q6 PRN PRN Reason: Fever >100.4 F Calcitriol (Rocaltrol) 0.25 mcg PO DAILY [facility] Last Admin: 04/09/18 09:47 Dose: 0.25 mcg Calcium Acetate (Phoslo) 1,334 mg PO AC [facility] Last Admin: 04/09/18 07:52 Dose: 1,334 mg Clonidine HCl (Catapres) 0.2 mg PO TID [facility] Last Admin: 04/09/18 09:48 Dose: 0.2 mg Dextrose (Dextrose 50% Inj) 0 ml IV STAT PRN; Protocol PRN Reason: Hypoglycemia Protocol Dextrose (Glutose 15) 0 gm PO ONCE PRN; Protocol PRN Reason: Hypoglycemia Protocol Ergocalciferol (Drisdol 50,000 Intl Units Cap) 1 cap PO QWK [facility] Last Admin: 04/09/18 09:46 Dose: 1 cap Ferrous Sulfate (Feosol) 325 mg PO TID [facility] Furosemide (Lasix) 40 mg PO DAILY [facility] Last Admin: 04/09/18 09:46 Dose: 40 mg Glucagon (Glucagen Diagnostic Kit) 0 mg IM STAT PRN; Protocol PRN Reason: Hypoglycemia Protocol Heparin Sodium (Porcine) (Heparin) 5,000 units SC Q12 [facility] Last Admin: 04/09/18 09:50 Dose: 5,000 units Hydralazine HCl (Apresoline) 30 mg PO TID [facility] Last Admin: 04/09/18 09:45 Dose: 30 mg Dextrose (Dextrose 5% In Water 1000 Ml) 1,000 mls @ 0 mls/hr IV .Q0M PRN; Protocol PRN Reason: Hypoglycemia Protocol Piperacillin Sod/Tazobactam Sod (Zosyn 2.25 Gm Iv Premix) 2.25 gm in 50 mls @ 100 mls/hr IVPB Q8H [facility]; Protocol Last Admin: 04/09/18 06:27 Dose: 100 mls/hr Insulin Aspart (Novolog) 14 unit SC TIDAC [facility] Last Admin: 04/09/18 07:24 Dose: Not Given Insulin Human Regular (Novolin R) 0 unit SC ACHS [facility]; Protocol Last Admin: 04/09/18 07:26 Dose: Not Given Nebivolol (Bystolic) 20 mg PO DAILY [facility] Last Admin: 04/09/18 09:47 Dose: 20 mg Pantoprazole Sodium (Protonix Ec Tab) 40 mg PO DAILY [facility] Last Admin: 04/09/18 09:47 Dose: 40 mg Sitagliptin Phosphate (Januvia) 25 mg PO DAILY [facility] Last Admin: 04/09/18 09:47 Dose: 25 mg Sodium Bicarbonate (Sodium Bicarbonate Tab) 650 mg PO BID [facility] Last Admin: 04/09/18 09:48 Dose: 650 mg - Labs Labs: 04/09/18 08:29 04/09/18 08:29 PT 13.0 SECONDS (9.7-12.2) H 04/08/18 13:30 INR 1.2 04/08/18 13:30 - Constitutional Appears: Well, Non-toxic - Head Exam Head Exam: ATRAUMATIC, NORMAL INSPECTION, NORMOCEPHALIC - Eye Exam Eye Exam: EOMI, Normal appearance, PERRL Pupil Exam: NORMAL ACCOMODATION - ENT Exam ENT Exam: Mucous Membranes Moist, Normal Exam - Neck Exam Neck Exam: Full ROM, Normal Inspection - Respiratory Exam Respiratory Exam: Clear to Ausculation Bilateral, NORMAL BREATHING PATTERN - Cardiovascular Exam Cardiovascular Exam: REGULAR RHYTHM, +S1, +S2. absent: Murmur - GI/Abdominal Exam GI & Abdominal Exam: Soft, Normal Bowel Sounds. absent: Tenderness - Extremities Exam Additional comments: Overall limited passive and active range of motion of the left elbow due to pain. Thrill present over AV. No active drainage or bleeding - Neurological Exam Neurological Exam: Alert, Awake, Oriented x3 - Psychiatric Exam Psychiatric exam: Normal Affect, Normal Mood - Skin Skin Exam: Dry, Normal Color, Warm Assessment and Plan - Assessment and Plan (Free Text) Assessment: Left elbow pain -secondary to cellulitis vs olecranon bursitis, doubt septic arthritis -Orthopedic consult, Dr. Jh Sheehan help appreciated -ID consulted, Dr. Paulino help appreciated -pending Left elbow MRI w/o contrast -Left elbow xray shows no acute displaced fracture or dislocation and moderate degenerative osteoarthrosis and small joint effusion Leukocytosis, improving -WBC 13.3, febrile -ID consulted, Dr. Paulino help appreciated -Zosyn IV 2.25gm Q8 -Received a dose of vancomycin in the ED, random vanco level 10.3 -Urine and blood cultures no growth after 24 hours -Stat dose Vancomycin given 04/09 Chronic Renal Failure -Cr stable -Nephrology consulted, Dr. Kay help appreciated -Calcitriol 0.25mcg -Phoslo, sodium bicarb -Procrit, Feosol Congested heart failure -elevated BNP 58637 -CXR shows venous congestion, repeat CXR shows CHF -Last echo 12/2017 shows systolic function mildly impaired -Cardiology consult, Dr. Craft help appreciated -Lasix 40mg PO daily DM -Januvia 25mg (Renal dosed) -Levemir 10u unit AC -ISS -Hypoglycemia protocol -Carb consistent diet HTN -Bystolic 20mg -Clonidine 0.2mg TID Prophylactic measures -Heparin 5000u BID SC -Protonix 40mg po -Tylenol prn Case discussed with attending Dr. Torres <Munira Torres - Last Filed: 04/12/18 08:33> Objective - Vital Signs/Intake and Output Vital Signs (last 24 hours): Temp Pulse Resp BP Pulse Ox 98.9 F 69 20 134/82 95 04/10/18 08:32 04/10/18 08:32 04/10/18 08:32 04/10/18 10:13 04/10/18 08:32 Intake and Output: 04/10/18 04/10/18 06:59 18:59 Intake Total 350 Balance 350 - Medications Medications: Current Medications Acetaminophen (Tylenol 325mg Tab) 650 mg PO Q6 PRN PRN Reason: Fever >100.4 F Calcitriol (Rocaltrol) 0.25 mcg PO DAILY [facility] Last Admin: 04/10/18 10:12 Dose: 0.25 mcg Calcium Acetate (Phoslo) 1,334 mg PO AC [facility] Last Admin: 04/10/18 07:49 Dose: 1,334 mg Clonidine HCl (Catapres) 0.2 mg PO TID [facility] Last Admin: 04/10/18 10:12 Dose: 0.2 mg Dextrose (Dextrose 50% Inj) 0 ml IV STAT PRN; Protocol PRN Reason: Hypoglycemia Protocol Dextrose (Glutose 15) 0 gm PO ONCE PRN; Protocol PRN Reason: Hypoglycemia Protocol Ergocalciferol (Drisdol 50,000 Intl Units Cap) 1 cap PO QWK [facility] Last Admin: 04/09/18 09:46 Dose: 1 cap Ferrous Sulfate (Feosol) 325 mg PO TID [facility] Last Admin: 04/10/18 10:12 Dose: 325 mg Furosemide (Lasix) 40 mg PO DAILY [facility] Last Admin: 04/10/18 10:13 Dose: 40 mg Glucagon (Glucagen Diagnostic Kit) 0 mg IM STAT PRN; Protocol PRN Reason: Hypoglycemia Protocol Heparin Sodium (Porcine) (Heparin) 5,000 units SC Q12 [facility] Last Admin: 04/10/18 10:16 Dose: 5,000 units Hydralazine HCl (Apresoline) 30 mg PO TID [facility] Last Admin: 04/10/18 10:11 Dose: 30 mg Dextrose (Dextrose 5% In Water 1000 Ml) 1,000 mls @ 0 mls/hr IV .Q0M PRN; Protocol PRN Reason: Hypoglycemia Protocol Piperacillin Sod/Tazobactam Sod (Zosyn 2.25 Gm Iv Premix) 2.25 gm in 50 mls @ 100 mls/hr IVPB Q8H [facility]; Protocol Last Admin: 04/10/18 06:32 Dose: 100 mls/hr Insulin Detemir (Levemir) 10 unit SC QAM [facility] Last Admin: 04/10/18 10:15 Dose: 10 unit Insulin Human Regular (Novolin R) 0 unit SC ACHS [facility]; Protocol Last Admin: 04/10/18 07:30 Dose: Not Given Nebivolol (Bystolic) 20 mg PO DAILY [facility] Last Admin: 04/10/18 10:12 Dose: 20 mg Pantoprazole Sodium (Protonix Ec Tab) 40 mg PO DAILY [facility] Last Admin: 04/10/18 10:17 Dose: 40 mg Sitagliptin Phosphate (Januvia) 25 mg PO DAILY [facility] Last Admin: 04/10/18 10:13 Dose: 25 mg Sodium Bicarbonate (Sodium Bicarbonate Tab) 650 mg PO BID [facility] Last Admin: 04/10/18 10:13 Dose: 650 mg - Labs Labs: 04/10/18 08:05 04/10/18 08:05 PT 13.0 SECONDS (9.7-12.2) H 04/08/18 13:30 INR 1.2 04/08/18 13:30 Attending/Attestation - Attestation I have personally seen and examined this patient.: Yes I have fully participated in the care of the patient.: Yes I have reviewed all pertinent clinical information, including history, physical exam and plan: Yes Notes (Text): seen and examined. Her elbow pain is little better 1.Elbow swelling,Cellulitis of Elbow,r/o Septic joint,possible elbow bursitis 2.Chronic renal failure 3.Chronic Systolic heart failure 4.DM 5.HTN I agree with the documentation of the resident' we will follow up with orthopedic surgeon and Dr Paulino Surgery resident saw her .Unlikely related to her Fistula
--- NOTE | 2018-04-09 11:23 | RAD ---
Date of service: 04/09/2018 HISTORY: CHF COMPARISON: 04 18. FINDINGS: LUNGS: The lungs are well inflated. There is moderate pulmonary venous congestion and mild interstitial pulmonary edema. There is linear atelectasis/scarring in the right upper lobe. PLEURA: No pleural effusions or pneumothorax. CARDIOVASCULAR: Persistent cardiomegaly. Atherosclerotic aortic arch calcifications are present. OSSEOUS STRUCTURES: Within normal limits for the patient's age. VISUALIZED UPPER ABDOMEN: Normal. OTHER FINDINGS: There are multiple surgical clips in the right axilla. IMPRESSION: Mild congestive heart failure.
[2018-04-09] MEDS ORDERED: EPOETIN ALFA 10,000 UNIT/ML ML SC ONE ×2 (12:15→13:30)
--- NOTE | 2018-04-09 13:47 | CP.PCM.CON ---
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 , olecranon bursitis Left arm , r/o OM Empiric IV antibiotics started PMHx: TN, DM, hyperlipidemia, breast cancer, CKD PSHx: L sided AVF, partial lumpectomy Social Hx: Denies Vices Allergy: NKDA Review of Systems - Review of Systems All systems: reviewed and no additional remarkable complaints except - Constitutional Constitutional: As Per HPI, Fever - EENT Eyes: absent: As Per HPI, Blind Spots, Blurred Vision, Change in Vision, Decreased Night Vision, Diplopia, Discharge, Dry Eye, Exophthalmos, Floaters, Irritation, Itchy Eyes, Loss of Peripheral Vision, Pain, Photophobia, Requires Corrective Lenses, Sees Flashes, Spots in Vision, Tunnel Vision, Other Visual Disturbances, Loss of Vision, Other Ears: absent: As Per HPI, Decreased Hearing, Ear Discharge, Ear Pain, Tinnitus, Abnormal Hearing, Disequilibrium, Dizziness, Other Nose/Mouth/Throat: absent: As Per HPI, Epistaxis, Nasal Congestion, Nasal Discharge, Nasal Obstruction, Nasal Trauma, Nose Pain, Post Nasal Drip, Sinus Pain, Sinus Pressure, Bleeding Gums, Change in Voice, Dental Pain, Dry Mouth, Dysphagia, Halitosis, Hoarsness, Lip Swelling, Mouth Lesions, Mouth Pain, Odynophagia, Sore Throat, Throat Swelling, Tongue Swelling, Facial Pain, Neck Pain, Neck Mass, Other - Cardiovascular Cardiovascular: As Per HPI - Respiratory Respiratory: absent: As Per HPI, Cough, Dyspnea, Hemoptysis, Dyspnea on Exertion, Wheezing, Snoring, Stridor, Pain on Inspiration, Chest Congestion, Excessive Mucous Production, Change in Mucous Color, Pain with Coughing, Other - Gastrointestinal Gastrointestinal: absent: As Per HPI, Abdominal Pain, Belching, Bloating, Change in Bowel Habits, Change in Stool Character, Coffee Ground Emesis, Constipation, Cramping, Diarrhea, Dyspepsia, Dysphagia, Early Satiety, Excessive Flatus, Fecal Incontinence, Heartburn, Hematemesis, Hematochezia, Loose Stools, Melena, Nausea, Odynophagia, Temesmus, Vomiting, Other - Genitourinary Genitourinary: absent: As Per HPI, Change in Urinary Stream, Difficulty Urinating, Dysuria, Flank Pain, Hematuria, Pyuria, Nocturia, Urinary Incontinence, Urinary Frequency, Urinary Hesitance, Urinary Urgency, Voiding Freq/Small Amts, Freq UTI, Hx Renal/Bladder Calculi, Hx /Renal Surgery, Bladder Distension, Other - Reproductive: Female Reproductive:Female: absent: As Per HPI, Amenorrhea, Amenorrhea/ Control, Currently Menstual, Cycle <21 Days, Cycle >35 Days, Cycle Variable, Menses 1-7 Days, Menses >/= 8 Days, Menses Variable, Cycle > 4 Weeks Between, No Menses for 6 Months, Heavy Menses, Light Menses, Normal Menses, Spotting Between Cycles, S/P Hysterectomy, Menopausal, Post Menopausal, Premenarche, Abnormal Vaginal Bleeding, Dysmenorrhea, Dyspareunia, Genital Lesions, Genital Pruritis, Pelvic Pain, Prolapse Symptoms, Sexual Dysfunction, Vaginal Discharge, Vaginal Dryness, Vaginal Odor, Vaginal Pruritis, Other - Menstruation Menstruation: absent: As Per HPI, Amenorrhea, Amenorrhea/ Control, Currently Menstual, Cycle <21 Days, Cycle >35 Days, Cycle Variable, Menses 1-7 Days, Menses >/= 8 Days, Menses Variable, Cycle > 4 Weeks Between, No Menses for 6 Months, Heavy Menses, Light Menses, Normal Menses, Spotting Between Cycles, S/P Hysterectomy, Menopausal, Post Menopausal, Premenarche, Abnormal Vaginal Bleeding, Dysmenorrhea, Other - Musculoskeletal Musculoskeletal: As Per HPI - Integumentary Integumentary: As Per HPI, Skin Pain - Neurological Neurological: absent: As Per HPI, Abnormal Gait, Abnormal Hearing, Abnormal Movements, Abnormal Speech, Behavioral Changes, Burning Sensations, Confusion, Convulsions, Disequilibrium, Dizziness, Numbness, Focal Weakness, Frequent Falls, Headaches, Lack of Coordination, Loss of Vision, Memory Loss, Paresthesias, Radicular Pain, Restless Legs, Sensory Deficit, Syncope, Tingling, Tremor, Vertigo, Weakness, Other Visual Disturbances, Other - Psychiatric Psychiatric: absent: As Per HPI, Abnormal Sleep Pattern, Anhedonia, Anxiety, Auditory Hallucinations, Behavioral Changes, Change in Appetite, Change in Libido, Confusion, Depression, Difficulty Concentrating, Hallucinations, Homicidal Ideation, Hopelessness, Irritability, Memory Loss, Mood Swings, Panic Attacks, Paranoia, Suicidal Ideation, Visual Hallucinations, Tactile Hallucinations, Other - Endocrine Endocrine: absent: As Per HPI, Change in Body Appearance, Change in Libido, Cold Intolorance, Deepening of Voice, Excessive Sweating, Fatigue, Flushing, Heat Intolorance, Increase in Ring/Shoe/Hat Size, Palpitations, Polydipsia, Polyphagia, Polyuria, Other - Hematologic/Lymphatic Hematologic: absent: As Per HPI, Easy Bleeding, Easy Bruising, Lymphadenopathy, Other Past Patient History - Infectious Disease Hx of Infectious Diseases: None - Past Medical History & Family History Past Medical History?: Yes - Past Social History Smoking Status: Never Smoked - CARDIAC Hx Hypercholesterolemia: Yes Hx Hypertension: Yes - PULMONARY Hx Respiratory Disorders: No - NEUROLOGICAL Hx Neurological Disorder: No - HEENT Hx HEENT Problems: Yes Hx Cataracts: Yes (BILAT.) - RENAL Hx Chronic Kidney Disease: Yes - ENDOCRINE/METABOLIC Hx Endocrine Disorders: Yes Hx Diabetes Mellitus Type 2: Yes - HEMATOLOGICAL/ONCOLOGICAL Hx Anemia: Yes - INTEGUMENTARY Hx Dermatological Problems: Yes Other/Comment: HX: "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." - GASTROINTESTINAL Hx Gastrointestinal Disorders: No - GENITOURINARY/GYNECOLOGICAL Hx Genitourinary Disorders: No - PSYCHIATRIC Hx Substance Use: No - SURGICAL HISTORY Hx Appendectomy: Yes - ANESTHESIA Hx Anesthesia: Yes Hx Anesthesia Reactions: No Hx Malignant Hyperthermia: No Meds Allergies/Adverse Reactions: Allergies Allergy/AdvReac Type Severity Reaction Status Date / Time No Known Allergies Allergy Verified 01/13/18 09:55 - Medications Medications: Current Medications Acetaminophen (Tylenol 325mg Tab) 650 mg PO Q6 PRN PRN Reason: Fever >100.4 F Calcitriol (Rocaltrol) 0.25 mcg PO DAILY [facility] Last Admin: 04/09/18 09:47 Dose: 0.25 mcg Calcium Acetate (Phoslo) 1,334 mg PO AC [facility] Last Admin: 04/09/18 12:06 Dose: 1,334 mg Clonidine HCl (Catapres) 0.2 mg PO TID [facility] Last Admin: 04/09/18 09:48 Dose: 0.2 mg Dextrose (Dextrose 50% Inj) 0 ml IV STAT PRN; Protocol PRN Reason: Hypoglycemia Protocol Dextrose (Glutose 15) 0 gm PO ONCE PRN; Protocol PRN Reason: Hypoglycemia Protocol Ergocalciferol (Drisdol 50,000 Intl Units Cap) 1 cap PO QWK [facility] Last Admin: 04/09/18 09:46 Dose: 1 cap Ferrous Sulfate (Feosol) 325 mg PO TID [facility] Furosemide (Lasix) 40 mg PO DAILY [facility] Last Admin: 04/09/18 09:46 Dose: 40 mg Glucagon (Glucagen Diagnostic Kit) 0 mg IM STAT PRN; Protocol PRN Reason: Hypoglycemia Protocol Heparin Sodium (Porcine) (Heparin) 5,000 units SC Q12 [facility] Last Admin: 04/09/18 09:50 Dose: 5,000 units Hydralazine HCl (Apresoline) 30 mg PO TID [facility] Last Admin: 04/09/18 09:45 Dose: 30 mg Dextrose (Dextrose 5% In Water 1000 Ml) 1,000 mls @ 0 mls/hr IV .Q0M PRN; Protocol PRN Reason: Hypoglycemia Protocol Piperacillin Sod/Tazobactam Sod (Zosyn 2.25 Gm Iv Premix) 2.25 gm in 50 mls @ 100 mls/hr IVPB Q8H [facility]; Protocol Last Admin: 04/09/18 06:27 Dose: 100 mls/hr Insulin Detemir (Levemir) 10 unit SC AC [facility] Insulin Human Regular (Novolin R) 0 unit SC ACHS [facility]; Protocol Last Admin: 04/09/18 12:06 Dose: 2 units Nebivolol (Bystolic) 20 mg PO DAILY [facility] Last Admin: 04/09/18 09:47 Dose: 20 mg Pantoprazole Sodium (Protonix Ec Tab) 40 mg PO DAILY [facility] Last Admin: 04/09/18 09:47 Dose: 40 mg Sitagliptin Phosphate (Januvia) 25 mg PO DAILY [facility] Last Admin: 04/09/18 09:47 Dose: 25 mg Sodium Bicarbonate (Sodium Bicarbonate Tab) 650 mg PO BID [facility] Last Admin: 04/09/18 09:48 Dose: 650 mg Physical Exam - Constitutional Appears: Non-toxic, No Acute Distress, Chronically Ill - Head Exam Head Exam: ATRAUMATIC, NORMAL INSPECTION, NORMOCEPHALIC - Eye Exam Eye Exam: PERRL. absent: Scleral icterus - ENT Exam ENT Exam: Mucous Membranes Dry, Normal External Ear Exam - Neck Exam Neck exam: Negative for: Thyromegaly - Respiratory Exam Respiratory Exam: Decreased Breath Sounds, Clear to Auscultation Bilateral - Cardiovascular Exam Cardiovascular Exam: REGULAR RHYTHM, +S1, +S2 - GI/Abdominal Exam GI & Abdominal Exam: Diminished Bowel Sounds, Distended, Soft. absent: Tenderness - Rectal Exam Rectal Exam: Deferred - Exam Exam: NORMAL INSPECTION - Extremities Exam Extremities exam: Positive for: pedal pulses present. Negative for: calf tenderness, pedal edema, tenderness Additional comments: + swelling / tender / warm left elbow av fistula + - Back Exam Back exam: absent: CVA tenderness (L), CVA tenderness (R), paraspinal tenderness - Neurological Exam Neurological exam: Alert, CN II-XII Intact, Oriented x3, Reflexes Normal - Psychiatric Exam Psychiatric exam: Normal Mood - Skin Skin Exam: Dry Results - Vital Signs Recent Vital Signs: Last Vital Signs Temp 98.7 F 04/09/18 07:00 Pulse 66 04/09/18 07:00 Resp 20 04/09/18 07:00 BP 142/78 04/09/18 09:46 Pulse Ox 96 04/09/18 08:05 - Labs Result Diagrams: 04/09/18 08:29 04/09/18 08:29 Labs: Laboratory Results - last 24 hr 04/08/18 04/08/18 04/08/18 12:40 13:47 13:58 WBC RBC Hgb Hct MCV MCH MCHC RDW Plt Count MPV Neut % (Auto) Lymph % (Auto) [place] % (Auto) Eos % (Auto) Baso % (Auto) Neut # (Auto) Lymph # (Auto) [place] # (Auto) Eos # (Auto) Baso # (Auto) Neutrophils % (Manual) 89 H Lymphocytes % (Manual) 8 L Monocytes % (Manual) 3 Platelet Estimate Normal Hypochromasia (manual) Moderate Poikilocytosis (manual Slight Anisocytosis (manual) Slight Microcytosis (manual) Slight Tear Drop Cells Slight Ovalocytes Slight [place] Cells Slight VBG pH VBG pCO2 VBG Total CO2 VBG O2 Sat (Calc) VBG Base Excess VBG Potassium Sodium Chloride Glucose Lactate Potassium Carbon Dioxide Anion Gap BUN Creatinine Est GFR ( Amer) Est GFR (Non-Af Amer) POC Glucose (mg/dL) Random Glucose Calcium Phosphorus Magnesium Total Bilirubin AST ALT Alkaline Phosphatase NT-Pro-B Natriuret Pep 46603 H Total Protein Albumin Globulin Albumin/Globulin Ratio Venous Blood Potassium Urine Color Yellow Urine Clarity Clear Urine pH 5.0 Ur Specific [place] 1.013 Urine Protein 3+ H Urine Glucose (UA) Normal Urine Ketones Negative Urine Blood Negative Urine Nitrate Negative Urine Bilirubin Negative Urine Urobilinogen Normal Ur Leukocyte Esterase Neg Urine WBC (Auto) 3 Urine RBC (Auto) 1 Ur Squamous Epith Cells 1 Urine Bacteria Rare Random Vancomycin Blood Type Antibody Screen 04/08/18 04/08/18 04/08/18 16:05 17:59 21:32 WBC RBC Hgb Hct MCV MCH MCHC RDW Plt Count MPV Neut % (Auto) Lymph % (Auto) [place] % (Auto) Eos % (Auto) Baso % (Auto) Neut # (Auto) Lymph # (Auto) [place] # (Auto) Eos # (Auto) Baso # (Auto) Neutrophils % (Manual) Lymphocytes % (Manual) Monocytes % (Manual) Platelet Estimate Hypochromasia (manual) Poikilocytosis (manual Anisocytosis (manual) Microcytosis (manual) Tear Drop Cells Ovalocytes Lloyd Cells VBG pH 7.39 VBG pCO2 41 VBG Total CO2 26.1 VBG O2 Sat (Calc) 73.1 H VBG Base Excess -0.2 L VBG Potassium 5.9 H Sodium 143.0 Chloride 110.0 H Glucose 230 H Lactate 1.6 Potassium Carbon Dioxide Anion Gap BUN Creatinine Est GFR ( Amer) Est GFR (Non-Af Amer) POC Glucose (mg/dL) 210 H 128 H Random Glucose Calcium Phosphorus Magnesium Total Bilirubin AST ALT Alkaline Phosphatase NT-Pro-B Natriuret Pep Total Protein Albumin Globulin Albumin/Globulin Ratio Venous Blood Potassium 5.9 H Urine Color Urine Clarity Urine pH Ur Specific [place] Urine Protein Urine Glucose (UA) Urine Ketones Urine Blood Urine Nitrate Urine Bilirubin Urine Urobilinogen Ur Leukocyte Esterase Urine WBC (Auto) Urine RBC (Auto) Ur Squamous Epith Cells Urine Bacteria Random Vancomycin Blood Type Antibody Screen 04/09/18 04/09/18 04/09/18 06:33 08:29 08:29 WBC 13.3 H RBC 2.53 L Hgb 6.8 L Hct 21.3 L MCV 84.2 MCH 26.9 L MCHC 31.9 L RDW 18.8 H Plt Count 235 MPV 9.7 Neut % (Auto) 79.5 H Lymph % (Auto) 14.5 L [place] % (Auto) 5.0 Eos % (Auto) 0.8 Baso % (Auto) 0.2 Neut # (Auto) 10.5 H Lymph # (Auto) 1.9 [place] # (Auto) 0.7 Eos # (Auto) 0.1 Baso # (Auto) 0.0 Neutrophils % (Manual) Lymphocytes % (Manual) Monocytes % (Manual) Platelet Estimate Hypochromasia (manual) Poikilocytosis (manual Anisocytosis (manual) Microcytosis (manual) Tear Drop Cells Ovalocytes Lloyd Cells VBG pH VBG pCO2 VBG Total CO2 VBG O2 Sat (Calc) VBG Base Excess VBG Potassium Sodium Chloride Glucose Lactate Potassium Carbon Dioxide Anion Gap BUN Creatinine Est GFR ( Amer) Est GFR (Non-Af Amer) POC Glucose (mg/dL) 118 H Random Glucose Calcium Phosphorus Magnesium Total Bilirubin AST ALT Alkaline Phosphatase NT-Pro-B Natriuret Pep Total Protein Albumin Globulin Albumin/Globulin Ratio Venous Blood Potassium Urine Color Urine Clarity Urine pH Ur Specific [place] Urine Protein Urine Glucose (UA) Urine Ketones Urine Blood Urine Nitrate Urine Bilirubin Urine Urobilinogen Ur Leukocyte Esterase Urine WBC (Auto) Urine RBC (Auto) Ur Squamous Epith Cells Urine Bacteria Random Vancomycin 10.3 Blood Type Antibody Screen 04/09/18 04/09/18 04/09/18 08:29 08:29 11:18 WBC RBC Hgb Hct MCV MCH MCHC RDW Plt Count MPV Neut % (Auto) Lymph % (Auto) [place] % (Auto) Eos % (Auto) Baso % (Auto) Neut # (Auto) Lymph # (Auto) [place] # (Auto) Eos # (Auto) Baso # (Auto) Neutrophils % (Manual) Lymphocytes % (Manual) Monocytes % (Manual) Platelet Estimate Hypochromasia (manual) Poikilocytosis (manual Anisocytosis (manual) Microcytosis (manual) Tear Drop Cells Ovalocytes Lloyd Cells VBG pH VBG pCO2 VBG Total CO2 VBG O2 Sat (Calc) VBG Base Excess VBG Potassium Sodium 141 Chloride 107 Glucose Lactate Potassium 4.0 Carbon Dioxide 23 Anion Gap 15 BUN 67 H Creatinine 5.6 H Est GFR ( Amer) 9 Est GFR (Non-Af Amer) 7 POC Glucose (mg/dL) 191 H Random Glucose 149 H Calcium 9.4 Phosphorus 4.5 Magnesium 1.7 Total Bilirubin 0.4 AST 11 L ALT 13 Alkaline Phosphatase 67 NT-Pro-B Natriuret Pep Total Protein 6.6 Albumin 3.2 L Globulin 3.5 Albumin/Globulin Ratio 0.9 L Venous Blood Potassium Urine Color Urine Clarity Urine pH Ur Specific [place] Urine Protein Urine Glucose (UA) Urine Ketones Urine Blood Urine Nitrate Urine Bilirubin Urine Urobilinogen Ur Leukocyte Esterase Urine WBC (Auto) Urine RBC (Auto) Ur Squamous Epith Cells Urine Bacteria Random Vancomycin Blood Type O POSITIVE Antibody Screen Negative Assessment & Plan (1) Cellulitis Status: Acute Comment: doubt OM. consider MRI. doubt septic joint- may need aspiration. await ortho eval - Assessment and Plan (Free Text) Assessment: Vanco stat dose given cont zosyn
[2018-04-09] MEDS ORDERED: Insulin Detemir 100 units/ml Vial (Levemir) SC SCH (16:30)
[2018-04-10] MEDS: Piperacill/Tazo 2.25gm in Dex 2.25 GM/50 ML BAG IVPB SCH ×3 (06:32→22:50)
[2018-04-10] MEDS: (Novolin R) Insulin Human Regular 100 units/ml vial SC SCH ×4 (07:30→22:58)
[2018-04-10 08:13] LABS: BASO # 0.1 K/uL (0.0-0.2); BASO % 0.5 % (0.0-2.0); EOS # 0.2 K/uL (0.0-0.7); EOS % 1.2 % (0.0-4.0); HEMOGLOBIN 6.6 g/dL (11.0-16.0); LYMPH # 1.9 K/uL (1.0-4.3); LYMPH % 13.6 % (20.0-40.0); MEAN CELL VOLUME 83.6 fL (81.0-99.0); MEAN CORPUSCULAR HEMOGLOBIN 26.6 pg (27.0-31.0); MEAN CORPUSCULAR HGB CONC 31.8 g/dL (33.0-37.0); MEAN PLATELET VOLUME 9.8 fL (7.2-11.7); MONO # 0.7 K/uL (0.0-0.8); MONO % 4.8 % (0.0-10.0); NEUT # 11.3 K/uL (1.8-7.0); NEUT % 79.9 % (50.0-75.0); NRBC % 0.1 % (0.0-2.0); RBC 2.47 Mil/uL (3.80-5.20); RED CELL DISTRIBUTION WIDTH 18.3 % (11.5-14.5); WHITE BLOOD COUNT 14.2 K/uL (4.8-10.8)
[2018-04-10 08:35] LABS: ALB/GLOB RATIO 0.8 (1.0-2.1); CALCIUM 9.5 mg/dl (8.6-10.4)
[2018-04-10] MEDS: Insulin Detemir 100 units/ml Vial (Levemir) SC SCH (10:15)
[2018-04-10] MEDS: Pantoprazole 40 mg EC Tab PO SCH (10:17)
--- NOTE | 2018-04-10 11:22 | CP.PCM.PN ---
<BowserBatool - Last Filed: 04/10/18 13:58> Subjective - Date & Time of Evaluation Date of Evaluation: 04/10/18 Time of Evaluation: 07:20 - Subjective Subjective: Patient examined at bedside. No acute overnight events. Patient reports improvement in left elbow pain swelling, pain, and mobility. Denies chest pain, fatigue, weakness, palpitations, SOB, abd pain Objective - Vital Signs/Intake and Output Vital Signs (last 24 hours): Temp Pulse Resp BP Pulse Ox 98.9 F 69 20 134/82 95 04/10/18 08:32 04/10/18 08:32 04/10/18 08:32 04/10/18 10:13 04/10/18 08:32 Intake and Output: 04/10/18 04/10/18 06:59 18:59 Intake Total 350 Balance 350 - Medications Medications: Current Medications Acetaminophen (Tylenol 325mg Tab) 650 mg PO Q6 PRN PRN Reason: Fever >100.4 F Calcitriol (Rocaltrol) 0.25 mcg PO DAILY [facility] Last Admin: 04/10/18 10:12 Dose: 0.25 mcg Calcium Acetate (Phoslo) 1,334 mg PO AC [facility] Last Admin: 04/10/18 07:49 Dose: 1,334 mg Clonidine HCl (Catapres) 0.2 mg PO TID [facility] Last Admin: 04/10/18 10:12 Dose: 0.2 mg Dextrose (Dextrose 50% Inj) 0 ml IV STAT PRN; Protocol PRN Reason: Hypoglycemia Protocol Dextrose (Glutose 15) 0 gm PO ONCE PRN; Protocol PRN Reason: Hypoglycemia Protocol Ergocalciferol (Drisdol 50,000 Intl Units Cap) 1 cap PO QWK [facility] Last Admin: 04/09/18 09:46 Dose: 1 cap Ferrous Sulfate (Feosol) 325 mg PO TID [facility] Last Admin: 04/10/18 10:12 Dose: 325 mg Furosemide (Lasix) 40 mg PO DAILY [facility] Last Admin: 04/10/18 10:13 Dose: 40 mg Glucagon (Glucagen Diagnostic Kit) 0 mg IM STAT PRN; Protocol PRN Reason: Hypoglycemia Protocol Heparin Sodium (Porcine) (Heparin) 5,000 units SC Q12 [facility] Last Admin: 04/10/18 10:16 Dose: 5,000 units Hydralazine HCl (Apresoline) 30 mg PO TID [facility] Last Admin: 04/10/18 10:11 Dose: 30 mg Dextrose (Dextrose 5% In Water 1000 Ml) 1,000 mls @ 0 mls/hr IV .Q0M PRN; Beatriz col PRN Reason: Hypoglycemia Protocol Piperacillin Sod/Tazobactam Sod (Zosyn 2.25 Gm Iv Premix) 2.25 gm in 50 mls @ 100 mls/hr IVPB Q8H [facility]; Protocol Last Admin: 04/10/18 06:32 Dose: 100 mls/hr Insulin Detemir (Levemir) 10 unit SC QAM [facility] Last Admin: 04/10/18 10:15 Dose: 10 unit Insulin Human Regular (Novolin R) 0 unit SC ACHS [facility]; Protocol Last Admin: 04/10/18 07:30 Dose: Not Given Nebivolol (Bystolic) 20 mg PO DAILY [facility] Last Admin: 04/10/18 10:12 Dose: 20 mg Pantoprazole Sodium (Protonix Ec Tab) 40 mg PO DAILY [facility] Last Admin: 04/10/18 10:17 Dose: 40 mg Sitagliptin Phosphate (Januvia) 25 mg PO DAILY [facility] Last Admin: 04/10/18 10:13 Dose: 25 mg Sodium Bicarbonate (Sodium Bicarbonate Tab) 650 mg PO BID [facility] Last Admin: 04/10/18 10:13 Dose: 650 mg - Labs Labs: 04/10/18 08:05 04/10/18 08:05 PT 13.0 SECONDS (9.7-12.2) H 04/08/18 13:30 INR 1.2 04/08/18 13:30 - Constitutional Appears: Non-toxic, No Acute Distress - Head Exam Head Exam: ATRAUMATIC, NORMAL INSPECTION, NORMOCEPHALIC - Eye Exam Eye Exam: EOMI, Normal appearance - ENT Exam ENT Exam: Mucous Membranes Moist, Normal Exam - Neck Exam Neck Exam: Normal Inspection - Respiratory Exam Respiratory Exam: Clear to Ausculation Bilateral, NORMAL BREATHING PATTERN - Cardiovascular Exam Cardiovascular Exam: REGULAR RHYTHM, +S1, +S2 - GI/Abdominal Exam GI & Abdominal Exam: Soft. absent: Tenderness - Extremities Exam Extremities Exam: Normal Inspection. absent: Calf Tenderness, Pedal Edema - Neurological Exam Neurological Exam: Alert, Awake, Normal Gait, Oriented x3 Neuro motor strength exam: Left Upper Extremity: 5 - Psychiatric Exam Psychiatric exam: Normal Affect, Normal Mood - Skin Skin Exam: Dry, Intact, Normal Color, Warm Additional comments: LUE: 5/5 muscled strength. Sensation intact. 2+ radial pulse. Hand warm to touch Elbow edematous, warm to touch. Non tender to palpation. No erythema. Elbow flexion/extension WNL. AVF with palpable thrill Assessment and Plan - Assessment and Plan (Free Text) Assessment: 82 year old female with HTN, HLD, CHF, CKD(not yet on HD) DM2, breast cancer s/p right lumpectomy admitted for evaluation and treatment of acute onset left elbow pain/edema Plan: Left elbow pain/edema -f/u LUE CT -f/u MRI -pain control prn, tylenol -zosyn -ID consult, Dr. Paulino -ortho consult, Dr. Hills - Anemia, likely chronic 2/2 to disease -transfuse 1U PRBC -f/u am H/H CKD -no HD currently -LUE AVF placed -sx consult, Dr. Valdez -procrit, feosol -nephro consult, Dr. Kay DM2 -januvia, levemir -hypoglycemia protocol -accuchecks achs HTN -clonidine, lasix, hydralazine CHF -nebivolol Ppx -DVT ppx, heparin 5000 sc q12 -GI ppx, protonix 40mg qd Discussed with Dr. Echevarria -Batolo Bowser, PGY-1 <Spike Echevarria H - Last Filed: 04/10/18 15:23> Objective - Vital Signs/Intake and Output Vital Signs (last 24 hours): Temp Pulse Resp BP Pulse Ox 98.9 F 69 20 134/82 95 04/10/18 08:32 04/10/18 08:32 04/10/18 08:32 04/10/18 10:13 04/10/18 08:32 Intake and Output: 04/10/18 04/10/18 06:59 18:59 Intake Total 350 Balance 350 - Medications Medications: Current Medications Acetaminophen (Tylenol 325mg Tab) 650 mg PO Q6 PRN PRN Reason: Fever >100.4 F Calcitriol (Rocaltrol) 0.25 mcg PO DAILY [facility] Last Admin: 04/10/18 10:12 Dose: 0.25 mcg Calcium Acetate (Phoslo) 1,334 mg PO AC [facility] Last Admin: 04/10/18 07:49 Dose: 1,334 mg Clonidine HCl (Catapres) 0.2 mg PO TID [facility] Last Admin: 04/10/18 14:23 Dose: 0.2 mg Dextrose (Dextrose 50% Inj) 0 ml IV STAT PRN; Protocol PRN Reason: Hypoglycemia Protocol Dextrose (Glutose 15) 0 gm PO ONCE PRN; Protocol PRN Reason: Hypoglycemia Protocol Ergocalciferol (Drisdol 50,000 Intl Units Cap) 1 cap PO QWK [facility] Last Admin: 04/09/18 09:46 Dose: 1 cap Ferrous Sulfate (Feosol) 325 mg PO TID [facility] Last Admin: 04/10/18 10:12 Dose: 325 mg Furosemide (Lasix) 40 mg PO DAILY [facility] Last Admin: 04/10/18 10:13 Dose: 40 mg Glucagon (Glucagen Diagnostic Kit) 0 mg IM STAT PRN; Protocol PRN Reason: Hypoglycemia Protocol Heparin Sodium (Porcine) (Heparin) 5,000 units SC Q12 [facility] Last Admin: 04/10/18 10:16 Dose: 5,000 units Hydralazine HCl (Apresoline) 30 mg PO TID [facility] Last Admin: 04/10/18 14:23 Dose: 30 mg Dextrose (Dextrose 5% In Water 1000 Ml) 1,000 mls @ 0 mls/hr IV .Q0M PRN; Protocol PRN Reason: Hypoglycemia Protocol Piperacillin Sod/Tazobactam Sod (Zosyn 2.25 Gm Iv Premix) 2.25 gm in 50 mls @ 100 mls/hr IVPB Q8H [facility]; Protocol Last Admin: 04/10/18 14:23 Dose: 100 mls/hr Insulin Detemir (Levemir) 10 unit SC QAM [facility] Last Admin: 04/10/18 10:15 Dose: 10 unit Insulin Human Regular (Novolin R) 0 unit SC ACHS [facility]; Protocol Last Admin: 04/10/18 12:25 Dose: 2 units Nebivolol (Bystolic) 20 mg PO DAILY [facility] Last Admin: 04/10/18 10:12 Dose: 20 mg Pantoprazole Sodium (Protonix Ec Tab) 40 mg PO DAILY [facility] Last Admin: 04/10/18 10:17 Dose: 40 mg Sitagliptin Phosphate (Januvia) 25 mg PO DAILY [facility] Last Admin: 04/10/18 10:13 Dose: 25 mg Sodium Bicarbonate (Sodium Bicarbonate Tab) 650 mg PO BID [facility] Last Admin: 04/10/18 10:13 Dose: 650 mg - Labs Labs: 04/10/18 08:05 04/10/18 08:05 PT 13.0 SECONDS (9.7-12.2) H 04/08/18 13:30 INR 1.2 04/08/18 13:30 Attending/Attestation - Attestation I have personally seen and examined this patient.: Yes I have fully participated in the care of the patient.: Yes I have reviewed all pertinent clinical information, including history, physical exam and plan: Yes Notes (Text): 04/10/18 15:23 Medical attending: Patient was seen and examined by me, agree with the above note by the medical safety director. Patient was not in any acute distress when he came and saw her. She was able to flex and extend her elbow. She said she had some tenderness when doing this however she had full range of motion she says that her elbow has improved significantly since coming to the hospital. There is pending an MRI as of this morning The patient does have a history of chronic kidney disease, she really has AV fistula. She at this time has not been started on hemodialysis yet. Her bicarbonate remained stable, her potassium is also stable as well. The patient does have a low hemoglobin this may be secondary to anemia of chronic disease/kidney disease The hemoglobin came down to 6.6 today, working transfuse 1 unit of PRBCs Thank you very much, Spike Echevarria
--- NOTE | 2018-04-10 11:27 | CP.PCM.PN ---
Subjective - Date & Time of Evaluation Date of Evaluation: 04/10/18 Time of Evaluation: 08:00 - Subjective Subjective: swelling pain and decreased ROM improving Objective - Vital Signs/Intake and Output Vital Signs (last 24 hours): Temp Pulse Resp BP Pulse Ox 98.9 F 69 20 134/82 95 04/10/18 08:32 04/10/18 08:32 04/10/18 08:32 04/10/18 10:13 04/10/18 08:32 Intake and Output: 04/10/18 04/10/18 06:59 18:59 Intake Total 350 Balance 350 - Medications Medications: Current Medications Acetaminophen (Tylenol 325mg Tab) 650 mg PO Q6 PRN PRN Reason: Fever >100.4 F Calcitriol (Rocaltrol) 0.25 mcg PO DAILY [facility] Last Admin: 04/10/18 10:12 Dose: 0.25 mcg Calcium Acetate (Phoslo) 1,334 mg PO AC [facility] Last Admin: 04/10/18 07:49 Dose: 1,334 mg Clonidine HCl (Catapres) 0.2 mg PO TID [facility] Last Admin: 04/10/18 10:12 Dose: 0.2 mg Dextrose (Dextrose 50% Inj) 0 ml IV STAT PRN; Protocol PRN Reason: Hypoglycemia Protocol Dextrose (Glutose 15) 0 gm PO ONCE PRN; Protocol PRN Reason: Hypoglycemia Protocol Ergocalciferol (Drisdol 50,000 Intl Units Cap) 1 cap PO QWK [facility] Last Admin: 04/09/18 09:46 Dose: 1 cap Ferrous Sulfate (Feosol) 325 mg PO TID [facility] Last Admin: 04/10/18 10:12 Dose: 325 mg Furosemide (Lasix) 40 mg PO DAILY [facility] Last Admin: 04/10/18 10:13 Dose: 40 mg Glucagon (Glucagen Diagnostic Kit) 0 mg IM STAT PRN; Protocol PRN Reason: Hypoglycemia Protocol Heparin Sodium (Porcine) (Heparin) 5,000 units SC Q12 [facility] Last Admin: 04/10/18 10:16 Dose: 5,000 units Hydralazine HCl (Apresoline) 30 mg PO TID [facility] Last Admin: 04/10/18 10:11 Dose: 30 mg Dextrose (Dextrose 5% In Water 1000 Ml) 1,000 mls @ 0 mls/hr IV .Q0M PRN; Protocol PRN Reason: Hypoglycemia Protocol Piperacillin Sod/Tazobactam Sod (Zosyn 2.25 Gm Iv Premix) 2.25 gm in 50 mls @ 100 mls/hr IVPB Q8H [facility]; Protocol Last Admin: 04/10/18 06:32 Dose: 100 mls/hr Insulin Detemir (Levemir) 10 unit SC QAM [facility] Last Admin: 04/10/18 10:15 Dose: 10 unit Insulin Human Regular (Novolin R) 0 unit SC ACHS [facility]; Protocol Last Admin: 04/10/18 07:30 Dose: Not Given Nebivolol (Bystolic) 20 mg PO DAILY [facility] Last Admin: 04/10/18 10:12 Dose: 20 mg Pantoprazole Sodium (Protonix Ec Tab) 40 mg PO DAILY [facility] Last Admin: 04/10/18 10:17 Dose: 40 mg Sitagliptin Phosphate (Januvia) 25 mg PO DAILY [facility] Last Admin: 04/10/18 10:13 Dose: 25 mg Sodium Bicarbonate (Sodium Bicarbonate Tab) 650 mg PO BID [facility] Last Admin: 04/10/18 10:13 Dose: 650 mg - Labs Labs: 04/10/18 08:05 04/10/18 08:05 PT 13.0 SECONDS (9.7-12.2) H 04/08/18 13:30 INR 1.2 04/08/18 13:30 - Constitutional Appears: Non-toxic, Chronically Ill - Head Exam Head Exam: NORMOCEPHALIC - Eye Exam Eye Exam: absent: Scleral icterus - ENT Exam ENT Exam: Mucous Membranes Dry - Neck Exam Neck Exam: absent: Lymphadenopathy - Respiratory Exam Respiratory Exam: Decreased Breath Sounds - Cardiovascular Exam Cardiovascular Exam: REGULAR RHYTHM - GI/Abdominal Exam GI & Abdominal Exam: Distended Assessment and Plan (1) Cellulitis Status: Acute - Assessment and Plan (Free Text) Assessment: iv rx reordered
--- NOTE | 2018-04-10 13:02 | CP.PCM.CON ---
History of Present Illness - History of Present Illness History of Present Illness: Orthopedic consultation Dr. Ferguson 82F complains of severe left elbow pain and swelling. She says when she came to the hospital, pain was severe and she was unable to move her elbow at all. She says it is much better now. She was scheduled for shunt to left arm, and recently had fistula to that arm. She has history of gout, but in her great toe, no other joints involved. She denies any trauma or fall. Denies prior pain in arm. Denies fever/chills. Denies CP/SOb/dizzinessn/v Review of Systems - Review of Systems All systems: reviewed and no additional remarkable complaints except - Cardiovascular Cardiovascular: As Per HPI - Respiratory Respiratory: As Per HPI - Gastrointestinal Gastrointestinal: As Per HPI - Musculoskeletal Musculoskeletal: As Per HPI - Integumentary Integumentary: As Per HPI - Neurological Neurological: As Per HPI - Hematologic/Lymphatic Hematologic: As Per HPI Past Patient History - Infectious Disease Hx of Infectious Diseases: None - Past Medical History & Family History Past Medical History?: Yes Past Family History: Reviewed and not pertinent - Past Social History Smoking Status: Never Smoked - CARDIAC Hx Hypercholesterolemia: Yes Hx Hypertension: Yes - PULMONARY Hx Respiratory Disorders: No - NEUROLOGICAL Hx Neurological Disorder: No - HEENT Hx HEENT Problems: Yes Hx Cataracts: Yes (BILAT.) - RENAL Hx Chronic Kidney Disease: Yes - ENDOCRINE/METABOLIC Hx Endocrine Disorders: Yes Hx Diabetes Mellitus Type 2: Yes - HEMATOLOGICAL/ONCOLOGICAL Hx Anemia: Yes - INTEGUMENTARY Hx Dermatological Problems: Yes Other/Comment: HX: "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." - MUSCULOSKELETAL/RHEUMATOLOGICAL Hx Gout: Yes (great toe) - GASTROINTESTINAL Hx Gastrointestinal Disorders: No - GENITOURINARY/GYNECOLOGICAL Hx Genitourinary Disorders: No - PSYCHIATRIC Hx Substance Use: No - SURGICAL HISTORY Hx Appendectomy: Yes - ANESTHESIA Hx Anesthesia: Yes Hx Anesthesia Reactions: No Hx Malignant Hyperthermia: No Meds Allergies/Adverse Reactions: Allergies Allergy/AdvReac Type Severity Reaction Status Date / Time No Known Allergies Allergy Verified 01/13/18 09:55 - Medications Medications: Current Medications Acetaminophen (Tylenol 325mg Tab) 650 mg PO Q6 PRN PRN Reason: Fever >100.4 F Calcitriol (Rocaltrol) 0.25 mcg PO DAILY [facility] Last Admin: 04/10/18 10:12 Dose: 0.25 mcg Calcium Acetate (Phoslo) 1,334 mg PO AC [facility] Last Admin: 04/10/18 07:49 Dose: 1,334 mg Clonidine HCl (Catapres) 0.2 mg PO TID [facility] Last Admin: 04/10/18 10:12 Dose: 0.2 mg Dextrose (Dextrose 50% Inj) 0 ml IV STAT PRN; Protocol PRN Reason: Hypoglycemia Protocol Dextrose (Glutose 15) 0 gm PO ONCE PRN; Protocol PRN Reason: Hypoglycemia Protocol Ergocalciferol (Drisdol 50,000 Intl Units Cap) 1 cap PO QWK [facility] Last Admin: 04/09/18 09:46 Dose: 1 cap Ferrous Sulfate (Feosol) 325 mg PO TID [facility] Last Admin: 04/10/18 10:12 Dose: 325 mg Furosemide (Lasix) 40 mg PO DAILY [facility] Last Admin: 04/10/18 10:13 Dose: 40 mg Glucagon (Glucagen Diagnostic Kit) 0 mg IM STAT PRN; Protocol PRN Reason: Hypoglycemia Protocol Heparin Sodium (Porcine) (Heparin) 5,000 units SC Q12 [facility] Last Admin: 04/10/18 10:16 Dose: 5,000 units Hydralazine HCl (Apresoline) 30 mg PO TID [facility] Last Admin: 04/10/18 10:11 Dose: 30 mg Dextrose (Dextrose 5% In Water 1000 Ml) 1,000 mls @ 0 mls/hr IV .Q0M PRN; Protocol PRN Reason: Hypoglycemia Protocol Piperacillin Sod/Tazobactam Sod (Zosyn 2.25 Gm Iv Premix) 2.25 gm in 50 mls @ 100 mls/hr IVPB Q8H [facility]; Protocol Last Admin: 04/10/18 06:32 Dose: 100 mls/hr Insulin Detemir (Levemir) 10 unit SC QAM [facility] Last Admin: 04/10/18 10:15 Dose: 10 unit Insulin Human Regular (Novolin R) 0 unit SC ACHS [facility]; Protocol Last Admin: 04/10/18 12:25 Dose: 2 units Nebivolol (Bystolic) 20 mg PO DAILY [facility] Last Admin: 04/10/18 10:12 Dose: 20 mg Pantoprazole Sodium (Protonix Ec Tab) 40 mg PO DAILY [facility] Last Admin: 04/10/18 10:17 Dose: 40 mg Sitagliptin Phosphate (Januvia) 25 mg PO DAILY [facility] Last Admin: 04/10/18 10:13 Dose: 25 mg Sodium Bicarbonate (Sodium Bicarbonate Tab) 650 mg PO BID [facility] Last Admin: 04/10/18 10:13 Dose: 650 mg Physical Exam - Constitutional Appears: Well, No Acute Distress - Head Exam Head Exam: ATRAUMATIC - Neck Exam Neck exam: Positive for: Full Rom, Normal Inspection - Respiratory Exam Respiratory Exam: NORMAL BREATHING PATTERN - Cardiovascular Exam Additional comments: LUE +radial pulse - Expanded Upper Extremities Exam Left Elbow exam: full ROM (painfree ROM full, flex/ext/pronosupination, minimal TTP left elbow, no obvious swelling or effusion noted, no swelling or tenderness over olecranon) Neuro motor exam: finger 2-5 abduction intact, thumb abduction, thumb IP flexion intact, thumb opposition intact, wrist extension intact Neurosensory exam: median nerve intact, radial nerve intact, ulnar nerve intact Vascular exam: radial pulse - Neurological Exam Neurological exam: Alert, Oriented x3 - Psychiatric Exam Psychiatric exam: Normal Affect, Normal Mood - Skin Skin Exam: Dry, Intact, Normal Color, Warm Additional comments: skin intact left elbow mildly warm no erythema Results - Vital Signs Recent Vital Signs: Last Vital Signs Temp 98.9 F 04/10/18 08:32 Pulse 69 04/10/18 08:32 Resp 20 04/10/18 08:32 BP 134/82 04/10/18 10:13 Pulse Ox 95 04/10/18 08:32 - Labs Result Diagrams: 04/10/18 08:05 04/10/18 08:05 Labs: Laboratory Results - last 24 hr 04/09/18 04/09/18 04/10/18 17:22 21:49 06:31 WBC RBC Hgb Hct MCV MCH MCHC RDW Plt Count MPV Neut % (Auto) Lymph % (Auto) [place] % (Auto) Eos % (Auto) Baso % (Auto) Neut # (Auto) Lymph # (Auto) [place] # (Auto) Eos # (Auto) Baso # (Auto) Sodium Potassium Chloride Carbon Dioxide Anion Gap BUN Creatinine Est GFR ( Amer) Est GFR (Non-Af Amer) POC Glucose (mg/dL) 116 H 163 H 139 H Random Glucose Calcium Phosphorus Magnesium Total Bilirubin AST ALT Alkaline Phosphatase Total Protein Albumin Globulin Albumin/Globulin Ratio Random Vancomycin 12/10/18 12/10/18 12/10/18 08:05 08:05 08:05 WBC 14.2 H RBC 2.47 L Hgb 6.6 L Hct 20.7 L MCV 83.6 MCH 26.6 L MCHC 31.8 L RDW 18.3 H Plt Count 245 MPV 9.8 Neut % (Auto) 79.9 H Lymph % (Auto) 13.6 L [place] % (Auto) 4.8 Eos % (Auto) 1.2 Baso % (Auto) 0.5 Neut # (Auto) 11.3 H Lymph # (Auto) 1.9 [place] # (Auto) 0.7 Eos # (Auto) 0.2 Baso # (Auto) 0.1 Sodium 136 Potassium 4.2 Chloride 102 Carbon Dioxide 24 Anion Gap 14 BUN 70 H Creatinine 6.0 H Est GFR ( Amer) 8 Est GFR (Non-Af Amer) 7 POC Glucose (mg/dL) Random Glucose 143 H Calcium 9.5 Phosphorus 4.2 Magnesium 1.9 Total Bilirubin 0.4 AST 12 L ALT 13 Alkaline Phosphatase 56 Total Protein 6.6 Albumin 3.0 L Globulin 3.6 Albumin/Globulin Ratio 0.8 L Random Vancomycin 19.2 04/10/18 11:09 WBC RBC Hgb Hct MCV MCH MCHC RDW Plt Count MPV Neut % (Auto) Lymph % (Auto) [place] % (Auto) Eos % (Auto) Baso % (Auto) Neut # (Auto) Lymph # (Auto) [place] # (Auto) Eos # (Auto) Baso # (Auto) Sodium Potassium Chloride Carbon Dioxide Anion Gap BUN Creatinine Est GFR ( Amer) Est GFR (Non-Af Amer) POC Glucose (mg/dL) 189 H Random Glucose Calcium Phosphorus Magnesium Total Bilirubin AST ALT Alkaline Phosphatase Total Protein Albumin Globulin Albumin/Globulin Ratio Random Vancomycin - Impressions Impression: Patient Name / ID : HIREN CARDENAS / [id number] Exam Date : 04/08/2018 11:25:35 ( Approved ) Study Comment : Sex / Age : F / 82Y Creator : Kristine Jay RT Dictator : Victoria Vallejo MD Wedding Consultant : Salvage Worker : Victoria Vallejo MD Approver2 : Report Date : 04/08/2018 11:33:18 My Comment : Date of service: 04/08/2018 PROCEDURE: Radiographs of the left elbow. HISTORY: Pain and swelling COMPARISON: No prior. FINDINGS: BONES: There is no acute displaced fracture or bone destruction. Bone alignment is normal. There is periarticular bone demineralization. JOINTS: There is moderate degenerative osteoarthrosis in the elbow joint with reduced joint spaces and marginal spurring. SOFT TISSUES: Normal. JOINT EFFUSION: There is a small joint effusion. OTHER FINDINGS: None IMPRESSION: No acute displaced fracture or dislocation. Please note occult fractures cannot be excluded on plain radiographs. If there is a persistent clinical concern, an MRI without intravenous contrast may be performed for further evaluation. Moderate degenerative osteoarthrosis and small joint effusion. Assessment & Plan (1) Acute gout of left elbow Assessment and Plan: at this time, patient is markedly improved from initial presentation per chart and per patient no significant pain or effusion to suggest septic arthritis, suspect acute gout attack, as patient improving and no significant effusion arthrocentesis not indicated at this time, will continue to monitor significant DJD on xrays, flare less likely CT/MRI per Dr. Ferguson, will follow up serum uric acid no orthopedic intervention indicated at this time d/w Dr. 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
--- NOTE | 2018-04-10 15:04 | CARD ---
APPROVED REPORT Date of service: 04/08/2018 EKG Measurement Heart [id number] <Conclusion> Sinus rhythm with 1st degree AV block Moderate voltage criteria for LVH, may be normal variant Nonspecific T wave abnormality Abnormal ECG
--- NOTE | 2018-04-10 15:05 | CARD ---
APPROVED REPORT Date of service: 04/08/2018 EKG Measurement Heart [id number] <Conclusion> Accelerated Junctional rhythm Left ventricular hypertrophy with repolarization abnormality Abnormal ECG
--- NOTE | 2018-04-10 15:52 | CP.PCM.PN ---
Subjective - Date & Time of Evaluation Date of Evaluation: 04/10/18 Time of Evaluation: 15:50 - Subjective Subjective: RENAL: remains on observation pain improved vs as below gen: nad sclera: anicteric op: clear neck: Supple no thyromegaly cv: +S1+s2 no rub abd: soft nt nd no organomegaly extP no edema lungs: CTA b/l neuro: A+OX3 no asterixis psych: nml affect skin: NO rash imp: CKD 5 / Anemia of renal disease/ Secondary hyperparathyroidism/ Hyp ertensive kidney disease / bursitis? / acidosis/ secondary hyperpara plan: CKD 5 - renal function at baseline no uremic sympotoms, hold off on hd for now Anemia: procrit 10,000 units given on 04/08 - continue oral iron avoiding iv given infection, recc tranfsusion consider GI evaluation secondary hyperpara: on calcitriol check phos level bp stable on oral bicarb - stable dose abx for reduced eGFR f/u ortho Objective - Vital Signs/Intake and Output Vital Signs (last 24 hours): Temp Pulse Resp BP Pulse Ox 98.9 F 69 20 134/82 95 04/10/18 08:32 04/10/18 08:32 04/10/18 08:32 04/10/18 10:13 04/10/18 08:32 Intake and Output: 04/10/18 04/10/18 06:59 18:59 Intake Total 350 Balance 350 - Medications Medications: Current Medications Acetaminophen (Tylenol 325mg Tab) 650 mg PO Q6 PRN PRN Reason: Fever >100.4 F Calcitriol (Rocaltrol) 0.25 mcg PO DAILY [facility] Last Admin: 04/10/18 10:12 Dose: 0.25 mcg Calcium Acetate (Phoslo) 1,334 mg PO AC [facility] Last Admin: 04/10/18 07:49 Dose: 1,334 mg Clonidine HCl (Catapres) 0.2 mg PO TID [facility] Last Admin: 04/10/18 14:23 Dose: 0.2 mg Dextrose (Dextrose 50% Inj) 0 ml IV STAT PRN; Protocol PRN Reason: Hypoglycemia Protocol Dextrose (Glutose 15) 0 gm PO ONCE PRN; Protocol PRN Reason: Hypoglycemia Protocol Ergocalciferol (Drisdol 50,000 Intl Units Cap) 1 cap PO QWK [facility] Last Admin: 04/09/18 09:46 Dose: 1 cap Ferrous Sulfate (Feosol) 325 mg PO TID [facility] Last Admin: 04/10/18 10:12 Dose: 325 mg Furosemide (Lasix) 40 mg PO DAILY [facility] Last Admin: 04/10/18 10:13 Dose: 40 mg Glucagon (Glucagen Diagnostic Kit) 0 mg IM STAT PRN; Protocol PRN Reason: Hypoglycemia Protocol Heparin Sodium (Porcine) (Heparin) 5,000 units SC Q12 [facility] Last Admin: 04/10/18 10:16 Dose: 5,000 units Hydralazine HCl (Apresoline) 30 mg PO TID [facility] Last Admin: 04/10/18 14:23 Dose: 30 mg Dextrose (Dextrose 5% In Water 1000 Ml) 1,000 mls @ 0 mls/hr IV .Q0M PRN; Protocol PRN Reason: Hypoglycemia Protocol Piperacillin Sod/Tazobactam Sod (Zosyn 2.25 Gm Iv Premix) 2.25 gm in 50 mls @ 100 mls/hr IVPB Q8H [facility]; Protocol Last Admin: 04/10/18 14:23 Dose: 100 mls/hr Insulin Detemir (Levemir) 10 unit SC QAM [facility] Last Admin: 04/10/18 10:15 Dose: 10 unit Insulin Human Regular (Novolin R) 0 unit SC ACHS [facility]; Protocol Last Admin: 04/10/18 12:25 Dose: 2 units Nebivolol (Bystolic) 20 mg PO DAILY [facility] Last Admin: 04/10/18 10:12 Dose: 20 mg Pantoprazole Sodium (Protonix Ec Tab) 40 mg PO DAILY [facility] Last Admin: 04/10/18 10:17 Dose: 40 mg Sitagliptin Phosphate (Januvia) 25 mg PO DAILY [facility] Last Admin: 04/10/18 10:13 Dose: 25 mg Sodium Bicarbonate (Sodium Bicarbonate Tab) 650 mg PO BID [facility] Last Admin: 04/10/18 10:13 Dose: 650 mg - Labs Labs: 04/10/18 08:05 04/10/18 08:05 PT 13.0 SECONDS (9.7-12.2) H 04/08/18 13:30 INR 1.2 04/08/18 13:30
--- NOTE | 2018-04-10 17:13 | CT ---
Date of service: 04/10/2018 PROCEDURE: LEFT ELBOW CT WITHOUT CONTRAST HISTORY: Left Elbow swelling COMPARISON: left elbow radiographs 04/08/2018. TECHNIQUE: A volumetric CT acquisition of the left elbow was performed without intravenous contrast as requested. Reformatted data sets have been provided. FINDINGS: A joint effusion is appreciated at the left elbow as well as prominent dermal thickening at the dorsal elbow soft tissues and gross reticular changes suggests of cellulitis. Trace fluid is seen deep to the dermal thickening without emphysematous changes. This is nonspecific. Small abscess is not completely excluded. No prominent fluid collections appreciate that would require drainage procedure at this time. Advanced osteoarthritis is seen at the left elbow joint diffusely. There is a tiny chip or avulsion fracture affecting the coronary process of the proximal ulna, minimally comminuted. No large fracture is evident there is no subluxation or dislocation. IMPRESSION: 1. Findings most compatible with prominent cellulitis of indeterminate origin affecting dorsal left elbow soft tissues with limited underlying fluid. A small abscess is not completely excluded. No definite drainable fluid collection is appreciable at this time. Joint effusion is nonspecific and may reflect degenerative related fluid collection or be related to the cellulitis and clinical correlation is advised. 2. Tiny comminuted chip or avulsion fracture coronary process proximal left ulna. Advanced osteoarthritis is seen throughout the left elbow joint.
[2018-04-11] MEDS: Piperacill/Tazo 2.25gm in Dex 2.25 GM/50 ML BAG IVPB SCH ×3 (06:29→22:40)
[2018-04-11 07:22] LABS: BASO # 0.1 K/uL (0.0-0.2); BASO % 0.6 % (0.0-2.0); EOS # 0.2 K/uL (0.0-0.7); EOS % 2.1 % (0.0-4.0); HEMOGLOBIN 7.5 g/dL (11.0-16.0); LYMPH # 1.8 K/uL (1.0-4.3); LYMPH % 17.1 % (20.0-40.0); MEAN CORPUSCULAR HEMOGLOBIN 26.3 pg (27.0-31.0); MEAN CORPUSCULAR HGB CONC 32.1 g/dL (33.0-37.0); MEAN PLATELET VOLUME 9.6 fL (7.2-11.7); MONO # 0.6 K/uL (0.0-0.8); MONO % 5.9 % (0.0-10.0); NEUT % 74.3 % (50.0-75.0); NRBC % 0.6 % (0.0-2.0); RBC 2.85 Mil/uL (3.80-5.20); RED CELL DISTRIBUTION WIDTH 17.4 % (11.5-14.5); WHITE BLOOD COUNT 10.8 K/uL (4.8-10.8)
[2018-04-11 07:47] LABS: ALB/GLOB RATIO 0.8 (1.0-2.1); ALBUMIN 2.9 g/dL (3.5-5.0); CALCIUM 9.9 mg/dl (8.6-10.4)
[2018-04-11] MEDS: (Novolin R) Insulin Human Regular 100 units/ml vial SC SCH ×4 (07:56→21:22)
[2018-04-11] MEDS: Pantoprazole 40 mg EC Tab PO SCH (10:24)
[2018-04-11] MEDS: Insulin Detemir 100 units/ml Vial (Levemir) SC SCH (10:28)
[2018-04-11] MEDS: MethylPREDNISolone 40 mg Vial IVP SCH ×2 (10:42→18:43)
--- NOTE | 2018-04-11 12:20 | CP.PCM.PN ---
Subjective - Date & Time of Evaluation Date of Evaluation: 04/11/18 Time of Evaluation: 09:00 - Subjective Subjective: cellulitis less iv rx renewed Objective - Vital Signs/Intake and Output Vital Signs (last 24 hours): Temp Pulse Resp BP Pulse Ox 98.2 F 66 20 130/80 97 04/11/18 08:25 04/11/18 08:25 04/11/18 08:25 04/11/18 10:25 04/11/18 08:25 Intake and Output: 04/11/18 04/11/18 06:59 18:59 Intake Total 50 Balance 50 - Medications Medications: Current Medications Acetaminophen (Tylenol 325mg Tab) 650 mg PO Q6 PRN PRN Reason: Fever >100.4 F Allopurinol (Zyloprim) 100 mg PO Q2D [facility] Calcitriol (Rocaltrol) 0.25 mcg PO DAILY [facility] Last Admin: 04/11/18 10:42 Dose: 0.25 mcg Calcium Acetate (Phoslo) 1,334 mg PO AC [facility] Last Admin: 04/11/18 07:48 Dose: 1,334 mg Clonidine HCl (Catapres) 0.2 mg PO TID [facility] Last Admin: 04/11/18 10:26 Dose: 0.2 mg Dextrose (Dextrose 50% Inj) 0 ml IV STAT PRN; Protocol PRN Reason: Hypoglycemia Protocol Dextrose (Glutose 15) 0 gm PO ONCE PRN; Protocol PRN Reason: Hypoglycemia Protocol Ergocalciferol (Drisdol 50,000 Intl Units Cap) 1 cap PO QWK [facility] Last Admin: 04/09/18 09:46 Dose: 1 cap Ferrous Sulfate (Feosol) 325 mg PO TID [facility] Last Admin: 04/10/18 18:21 Dose: 325 mg Furosemide (Lasix) 40 mg PO DAILY [facility] Last Admin: 04/11/18 10:25 Dose: 40 mg Glucagon (Glucagen Diagnostic Kit) 0 mg IM STAT PRN; Protocol PRN Reason: Hypoglycemia Protocol Heparin Sodium (Porcine) (Heparin) 5,000 units SC Q12 [facility] Last Admin: 04/11/18 10:27 Dose: 5,000 units Hydralazine HCl (Apresoline) 30 mg PO TID [facility] Last Admin: 04/11/18 10:22 Dose: 30 mg Dextrose (Dextrose 5% In Water 1000 Ml) 1,000 mls @ 0 mls/hr IV .Q0M PRN; Protocol PRN Reason: Hypoglycemia Protocol Piperacillin Sod/Tazobactam Sod (Zosyn 2.25 Gm Iv Premix) 2.25 gm in 50 mls @ 100 mls/hr IVPB Q8H [facility]; Protocol Last Admin: 04/11/18 06:29 Dose: 100 mls/hr Insulin Detemir (Levemir) 10 unit SC QAM [facility] Last Admin: 04/11/18 10:28 Dose: 10 unit Insulin Human Regular (Novolin R) 0 unit SC ACHS [facility]; Protocol Last Admin: 04/11/18 07:56 Dose: Not Given Methylprednisolone (Solu-Medrol) 20 mg IVP BID [facility] Last Admin: 04/11/18 10:42 Dose: 20 mg Nebivolol (Bystolic) 20 mg PO DAILY [facility] Last Admin: 04/11/18 10:25 Dose: 20 mg Pantoprazole Sodium (Protonix Ec Tab) 40 mg PO DAILY [facility] Last Admin: 04/11/18 10:24 Dose: 40 mg Sitagliptin Phosphate (Januvia) 25 mg PO DAILY [facility] Last Admin: 04/11/18 10:24 Dose: 25 mg Sodium Bicarbonate (Sodium Bicarbonate Tab) 650 mg PO BID [facility] Last Admin: 04/11/18 10:23 Dose: 650 mg - Labs Labs: 04/11/18 07:03 04/11/18 07:03 PT 13.0 SECONDS (9.7-12.2) H 04/08/18 13:30 INR 1.2 04/08/18 13:30 - Constitutional Appears: Non-toxic, Chronically Ill - Head Exam Head Exam: NORMOCEPHALIC - Eye Exam Eye Exam: absent: Scleral icterus - ENT Exam ENT Exam: Mucous Membranes Dry - Neck Exam Neck Exam: absent: Lymphadenopathy - Respiratory Exam Respiratory Exam: Decreased Breath Sounds - Cardiovascular Exam Cardiovascular Exam: REGULAR RHYTHM - GI/Abdominal Exam GI & Abdominal Exam: Distended Assessment and Plan (1) Cellulitis Status: Acute
--- NOTE | 2018-04-11 12:55 | CP.PCM.PN ---
Subjective - Date & Time of Evaluation Date of Evaluation: 04/11/18 Time of Evaluation: 12:54 - Subjective Subjective: RENAL: left elbow pain and swelling better no n/v or SOB. no uremic symptoms vs as below gen: nad sclera: anicteric op: clear neck: Supple no thyromegaly cv: +S1+s2 no rub abd: soft nt nd no organomegaly extP no edema lungs: CTA b/l with few bsal cracles neuro: A+OX3 no asterixis psych: nml affect skin: NO rash left AVF maturing imp: CKD 5 / Anemia of renal disease/ Secondary hyperparathyroidism/ Hypertensive kidney disease / bursitis? / acidosis/ secondary hyperpara plan: CKD 5 - renal function at baseline no uremic sympotoms, hold off on hd for now. Anemia: procrit TTS - continue oral iron avoiding iv given infection, recc tranfsusion consider GI evaluation secondary hyperpara: on calcitriol check phos level bp stable on oral bicarb - stable dose abx for reduced eGFR increased lasix 40 bid f/u ortho Objective - Vital Signs/Intake and Output Vital Signs (last 24 hours): Temp Pulse Resp BP Pulse Ox 98.2 F 66 20 130/80 97 04/11/18 08:25 04/11/18 08:25 04/11/18 08:25 04/11/18 10:25 04/11/18 08:25 Intake and Output: 04/11/18 04/11/18 06:59 18:59 Intake Total 50 Balance 50 - Medications Medications: Current Medications Acetaminophen (Tylenol 325mg Tab) 650 mg PO Q6 PRN PRN Reason: Fever >100.4 F Allopurinol (Zyloprim) 100 mg PO Q2D [facility] Last Admin: 04/11/18 12:23 Dose: 100 mg Calcitriol (Rocaltrol) 0.25 mcg PO DAILY [facility] Last Admin: 04/11/18 10:42 Dose: 0.25 mcg Calcium Acetate (Phoslo) 1,334 mg PO AC [facility] Last Admin: 04/11/18 12:23 Dose: 1,334 mg Clonidine HCl (Catapres) 0.2 mg PO TID [facility] Last Admin: 04/11/18 10:26 Dose: 0.2 mg Dextrose (Dextrose 50% Inj) 0 ml IV STAT PRN; Protocol PRN Reason: Hypoglycemia Protocol Dextrose (Glutose 15) 0 gm PO ONCE PRN; Protocol PRN Reason: Hypoglycemia Protocol Ergocalciferol (Drisdol 50,000 Intl Units Cap) 1 cap PO QWK [facility] Last Admin: 04/09/18 09:46 Dose: 1 cap Ferrous Sulfate (Feosol) 325 mg PO TID [facility] Last Admin: 04/11/18 10:28 Dose: 325 mg Furosemide (Lasix) 40 mg PO DAILY [facility] Last Admin: 04/11/18 10:25 Dose: 40 mg Glucagon (Glucagen Diagnostic Kit) 0 mg IM STAT PRN; Protocol PRN Reason: Hypoglycemia Protocol Heparin Sodium (Porcine) (Heparin) 5,000 units SC Q12 [facility] Last Admin: 04/11/18 10:27 Dose: 5,000 units Hydralazine HCl (Apresoline) 30 mg PO TID [facility] Last Admin: 04/11/18 10:22 Dose: 30 mg Dextrose (Dextrose 5% In Water 1000 Ml) 1,000 mls @ 0 mls/hr IV .Q0M PRN; Protocol PRN Reason: Hypoglycemia Protocol Piperacillin Sod/Tazobactam Sod (Zosyn 2.25 Gm Iv Premix) 2.25 gm in 50 mls @ 100 mls/hr IVPB Q8H [facility]; Protocol Last Admin: 04/11/18 06:29 Dose: 100 mls/hr Insulin Detemir (Levemir) 10 unit SC QAM [facility] Last Admin: 04/11/18 10:28 Dose: 10 unit Insulin Human Regular (Novolin R) 0 unit SC ACHS [facility]; Protocol Last Admin: 04/11/18 12:24 Dose: 2 units Methylprednisolone (Solu-Medrol) 20 mg IVP BID [facility] Last Admin: 04/11/18 10:42 Dose: 20 mg Nebivolol (Bystolic) 20 mg PO DAILY [facility] Last Admin: 04/11/18 10:25 Dose: 20 mg Pantoprazole Sodium (Protonix Ec Tab) 40 mg PO DAILY [facility] Last Admin: 04/11/18 10:24 Dose: 40 mg Sitagliptin Phosphate (Januvia) 25 mg PO DAILY [facility] Last Admin: 04/11/18 10:24 Dose: 25 mg Sodium Bicarbonate (Sodium Bicarbonate Tab) 650 mg PO BID [facility] Last Admin: 04/11/18 10:23 Dose: 650 mg - Labs Labs: 04/11/18 07:03 04/11/18 07:03 PT 13.0 SECONDS (9.7-12.2) H 04/08/18 13:30 INR 1.2 04/08/18 13:30
--- NOTE | 2018-04-11 13:10 | MRI ---
MRI left elbow History: Bursitis. Evaluate for septic arthritis. Comparison: CT scan dated 04/10/2018 Technique: Multi-echo multiplanar sequences were performed through the left elbow without the use of intravenous contrast. Findings: Limited study particularly of the osseous detail and anatomy given prominent patient motion. Reticulation and edema seen in the posterior and lateral subcutaneous soft tissues suggestive for an underlying cellulitis. At the level the olecranon bursa, there is a 1.6 x .6 x 2.0 centimeter fluid intensity signal collection which may represent a focalized bursitis versus small developing abscess collection. Clinical correlation. This appears to abut the posterior cortex of the olecranon without gross signal abnormality within the olecranon. Large elbow joint effusion. This is nonspecific. If there is concern for superimposed acute infectious and or inflammatory changes and or septic arthritis correlation with joint aspiration and culture biopsy is recommended. Prominent degenerative changes noted at the radiocarpal articulation with subchondral sclerosis and osteophytosis particularly at the level of the radial head. Suggestion of a small avulsion injury at the tip of the coronoid process measuring 4 millimeters with adjacent bony spurring and hypertrophy at the remainder of the coronoid process. Mild reactive edema at that level. Punctate ossific density measuring 2 millimeters seen within the posterior aspect of the elbow joint space which may represent a small loose osteochondral body. Biceps and brachialis tendon insertions are preserved. Triceps tendon insertion is preserved. Increased signal seen within the proximal attachment of the common extensor tendon suggestive for a moderate lateral epicondylitis. Fraying with increased signal seen at the proximal attachments of the radial collateral and lateral ulnar collateral ligaments suggestive for partial tearing. Increased signal seen within the proximal attachment the common flexor tendon suggestive a moderate medial epicondylitis. Mild increased signal seen within the proximal attachment of the ulnar collateral ligament suggestive for low grade sprain. Reactive edema seen within the posterior musculature including the triceps muscle as well as the musculature at the level of the proximal ulna and radius. Impression: Limited study particularly of the osseous detail and anatomy given prominent patient motion. 1. Reticulation and edema seen in the posterior and lateral subcutaneous soft tissues suggestive for an underlying cellulitis. 2. At the level the olecranon bursa, there is a 1.6 x .6 x 2.0 centimeter fluid intensity signal collection which may represent a focalized bursitis versus small developing abscess collection. Clinical correlation. This appears to abut the posterior cortex of the olecranon without gross signal abnormality within the olecranon. 3. Large elbow joint effusion. This is nonspecific. If there is concern for superimposed acute infectious and or inflammatory changes and or septic arthritis correlation with joint aspiration and culture biopsy is recommended. 4. Prominent degenerative changes noted at the radiocarpal articulation with subchondral sclerosis and osteophytosis particularly at the level of the radial head. 5. Suggestion of a small avulsion injury at the tip of the coronoid process measuring 4 millimeters with adjacent bony spurring and hypertrophy at the remainder of the coronoid process. Mild reactive edema at that level. 6. Punctate ossific density measuring 2 millimeters seen within the posterior aspect of the elbow joint space which may represent a small loose osteochondral body. 7. Increased signal seen within the proximal attachment of the common extensor tendon suggestive for a moderate lateral epicondylitis. 8. Fraying with increased signal seen at the proximal attachments of the radial collateral and lateral ulnar collateral ligaments suggestive for partial tearing. 9. Increased signal seen within the proximal attachment the common flexor tendon suggestive a moderate medial epicondylitis. Mild increased signal seen within the proximal attachment of the ulnar collateral ligament suggestive for low grade sprain. 10. Reactive edema seen within the posterior musculature including the triceps muscle as well as the musculature at the level of the proximal ulna and radius.
[2018-04-11] MEDS ORDERED: EPOETIN ALFA 10,000 UNIT/ML ML SC SCH (14:00)
[2018-04-11] MEDS: Epoetin Alfa 4000 UNIT/ML Inj SC SCH (14:17)
--- NOTE | 2018-04-11 14:22 | CP.PCM.PN ---
<Batool Bowser - Last Filed: 04/11/18 15:07> Subjective - Date & Time of Evaluation Date of Evaluation: 04/11/18 Time of Evaluation: 07:35 - Subjective Subjective: Patient examined at bedside. No acute overnight events. Pt reports improvement in energy and strength s/p 1u PRBC yesterday. Pt reports improvement in left elbow pain and mobility. Denies chest pain, SOB, abd pain, nausea, extremity parasthesias or numbness. Objective - Vital Signs/Intake and Output Vital Signs (last 24 hours): Temp Pulse Resp BP Pulse Ox 98.2 F 66 20 130/80 98 04/11/18 08:25 04/11/18 08:25 04/11/18 08:25 04/11/18 10:25 04/11/18 13:22 Intake and Output: 04/11/18 04/11/18 06:59 18:59 Intake Total 50 Balance 50 - Medications Medications: Current Medications Acetaminophen (Tylenol 325mg Tab) 650 mg PO Q6 PRN PRN Reason: Fever >100.4 F Allopurinol (Zyloprim) 100 mg PO Q2D [facility] Last Admin: 04/11/18 12:23 Dose: 100 mg Calcitriol (Rocaltrol) 0.25 mcg PO DAILY [facility] Last Admin: 04/11/18 10:42 Dose: 0.25 mcg Calcium Acetate (Phoslo) 1,334 mg PO AC [facility] Last Admin: 04/11/18 12:23 Dose: 1,334 mg Clonidine HCl (Catapres) 0.2 mg PO TID [facility] Last Admin: 04/11/18 14:19 Dose: 0.2 mg Dextrose (Dextrose 50% Inj) 0 ml IV STAT PRN; Protocol PRN Reason: Hypoglycemia Protocol Dextrose (Glutose 15) 0 gm PO ONCE PRN; Protocol PRN Reason: Hypoglycemia Protocol Epoetin Spenser (Procrit) 10,000 unit SC TTS [facility] Epoetin Spenser (Procrit) 4,000 unit SC TTS [facility] Last Admin: 04/11/18 14:17 Dose: 4,000 unit Ergocalciferol (Drisdol 50,000 Intl Units Cap) 1 cap PO QWK [facility] Last Admin: 04/09/18 09:46 Dose: 1 cap Ferrous Sulfate (Feosol) 325 mg PO TID [facility] Last Admin: 04/11/18 14:19 Dose: 325 mg Furosemide (Lasix) 40 mg PO BID [facility] Glucagon (Glucagen Diagnostic Kit) 0 mg IM STAT PRN; Protocol PRN Reason: Hypoglycemia Protocol Heparin Sodium (Porcine) (Heparin) 5,000 units SC Q12 [facility] Last Admin: 04/11/18 10:27 Dose: 5,000 units Hydralazine HCl (Apresoline) 30 mg PO TID [facility] Last Admin: 04/11/18 14:20 Dose: 30 mg Dextrose (Dextrose 5% In Water 1000 Ml) 1,000 mls @ 0 mls/hr IV .Q0M PRN; Protocol PRN Reason: Hypoglycemia Protocol Piperacillin Sod/Tazobactam Sod (Zosyn 2.25 Gm Iv Premix) 2.25 gm in 50 mls @ 100 mls/hr IVPB Q8H [facility]; Protocol Last Admin: 04/11/18 14:21 Dose: 100 mls/hr Insulin Detemir (Levemir) 10 unit SC QAM [facility] Last Admin: 04/11/18 10:28 Dose: 10 unit Insulin Human Regular (Novolin R) 0 unit SC ACHS [facility]; Protocol Last Admin: 04/11/18 12:24 Dose: 2 units Methylprednisolone (Solu-Medrol) 20 mg IVP BID [facility] Last Admin: 04/11/18 10:42 Dose: 20 mg Nebivolol (Bystolic) 20 mg PO DAILY [facility] Last Admin: 04/11/18 10:25 Dose: 20 mg Pantoprazole Sodium (Protonix Ec Tab) 40 mg PO DAILY [facility] Last Admin: 04/11/18 10:24 Dose: 40 mg Sitagliptin Phosphate (Januvia) 25 mg PO DAILY [facility] Last Admin: 04/11/18 10:24 Dose: 25 mg Sodium Bicarbonate (Sodium Bicarbonate Tab) 650 mg PO BID [facility] Last Admin: 04/11/18 10:23 Dose: 650 mg - Labs Labs: 04/11/18 07:03 04/11/18 07:03 PT 13.0 SECONDS (9.7-12.2) H 04/08/18 13:30 INR 1.2 04/08/18 13:30 - Constitutional Appears: Non-toxic, No Acute Distress - Head Exam Head Exam: ATRAUMATIC, NORMAL INSPECTION, NORMOCEPHALIC - Eye Exam Eye Exam: EOMI, Normal appearance - ENT Exam ENT Exam: Mucous Membranes Moist, Normal Exam - Neck Exam Neck Exam: Full ROM, Normal Inspection - Respiratory Exam Respiratory Exam: Clear to Ausculation Bilateral, NORMAL BREATHING PATTERN. absent: Respiratory Distress - Cardiovascular Exam Cardiovascular Exam: REGULAR RHYTHM, +S1, +S2. absent: Tachycardia - GI/Abdominal Exam GI & Abdominal Exam: Soft, Normal Bowel Sounds. absent: Distended - Extremities Exam Extremities Exam: absent: Calf Tenderness, Normal Inspection, Pedal Edema Additional comments: LUE: 5/5 muscled strength. Sensation intact. 2+ radial pulse. Hand warm to touch Elbow edematous, warm to touch. Non tender to palpation. No erythema. Elbow flexion/extension WNL. AVF with palpable thrill - Neurological Exam Neurological Exam: Alert, Awake, Normal Gait, Oriented x3 - Psychiatric Exam Psychiatric exam: Normal Affect, Normal Mood - Skin Skin Exam: Dry, Intact, Normal Color, Warm Assessment and Plan - Assessment and Plan (Free Text) Assessment: 82 year old female with HTN, HLD, CHF, CKD(not yet on HD) DM2, breast cancer s/p right lumpectomy admitted for evaluation and treatment of acute onset left elbow pain/edema Plan: Left elbow pain/edema -04/09: LUE CT, no acute fractures -04/09 MRI: findings of small fluid collection; bursitis vs abscess. Large elbow effusion. Soft tissue reticulation and edema -pain control prn, tylenol -zosyn -ID consult, Dr. Paulino -ortho consult, Dr. Hills -discuss aspiration of effusion for culture and pain relief Anemia, likely chronic 2/2 to disease -transfused 1U PRBC 10 -am hgb up 7.5 from 6.6 yesterday CKD -worsening renal function on labs. Pt still producing urine. -no HD currently -LUE AVF placed -sx consult, Dr. Valdez -procriamaris, feosol -nephro consult, Dr. Kay DM2 -januvla levemir -hypoglycemia protocol -accuchecks achs HTN -clonidine, lasix, hydralazine CHF -nebivolol Ppx -DVT ppx, heparin 5000 sc q12 -GI ppx, protonix 40mg qd Discussed with Dr. Echevarria -Batool Bowser, PGY-1 <Echevarria,Peter H - Last Filed: 04/11/18 15:26> Objective - Vital Signs/Intake and Output Vital Signs (last 24 hours): Temp Pulse Resp BP Pulse Ox 98.2 F 66 20 130/80 98 04/11/18 08:25 04/11/18 08:25 04/11/18 08:25 04/11/18 10:25 04/11/18 13:22 Intake and Output: 04/11/18 04/11/18 06:59 18:59 Intake Total 50 Balance 50 - Medications Medications: Current Medications Acetaminophen (Tylenol 325mg Tab) 650 mg PO Q6 PRN PRN Reason: Fever >100.4 F Allopurinol (Zyloprim) 100 mg PO Q2D [facility] Last Admin: 04/11/18 12:23 Dose: 100 mg Calcitriol (Rocaltrol) 0.25 mcg PO DAILY [facility] Last Admin: 04/11/18 10:42 Dose: 0.25 mcg Calcium Acetate (Phoslo) 1,334 mg PO AC [facility] Last Admin: 04/11/18 12:23 Dose: 1,334 mg Clonidine HCl (Catapres) 0.2 mg PO TID [facility] Last Admin: 04/11/18 14:19 Dose: 0.2 mg Dextrose (Dextrose 50% Inj) 0 ml IV STAT PRN; Protocol PRN Reason: Hypoglycemia Protocol Dextrose (Glutose 15) 0 gm PO ONCE PRN; Protocol PRN Reason: Hypoglycemia Protocol Epoetin Spenser (Procrit) 10,000 unit SC TTS [facility] Epoetin Spenser (Procrit) 4,000 unit SC TTS [facility] Last Admin: 04/11/18 14:17 Dose: 4,000 unit Ergocalciferol (Drisdol 50,000 Intl Units Cap) 1 cap PO QWK [facility] Last Admin: 04/09/18 09:46 Dose: 1 cap Ferrous Sulfate (Feosol) 325 mg PO TID [facility] Last Admin: 04/11/18 14:19 Dose: 325 mg Furosemide (Lasix) 40 mg PO BID [facility] Glucagon (Glucagen Diagnostic Kit) 0 mg IM STAT PRN; Protocol PRN Reason: Hypoglycemia Protocol Heparin Sodium (Porcine) (Heparin) 5,000 units SC Q12 [facility] Last Admin: 04/11/18 10:27 Dose: 5,000 units Hydralazine HCl (Apresoline) 30 mg PO TID [facility] Last Admin: 04/11/18 14:20 Dose: 30 mg Dextrose (Dextrose 5% In Water 1000 Ml) 1,000 mls @ 0 mls/hr IV .Q0M PRN; Protocol PRN Reason: Hypoglycemia Protocol Piperacillin Sod/Tazobactam Sod (Zosyn 2.25 Gm Iv Premix) 2.25 gm in 50 mls @ 100 mls/hr IVPB Q8H [facility]; Protocol Last Admin: 04/11/18 14:21 Dose: 100 mls/hr Insulin Detemir (Levemir) 10 unit SC QAM [facility] Last Admin: 04/11/18 10:28 Dose: 10 unit Insulin Human Regular (Novolin R) 0 unit SC ACHS [facility]; Protocol Last Admin: 04/11/18 12:24 Dose: 2 units Methylprednisolone (Solu-Medrol) 20 mg IVP BID [facility] Last Admin: 04/11/18 10:42 Dose: 20 mg Nebivolol (Bystolic) 20 mg PO DAILY [facility] Last Admin: 04/11/18 10:25 Dose: 20 mg Pantoprazole Sodium (Protonix Ec Tab) 40 mg PO DAILY [facility] Last Admin: 04/11/18 10:24 Dose: 40 mg Sitagliptin Phosphate (Januvia) 25 mg PO DAILY [facility] Last Admin: 04/11/18 10:24 Dose: 25 mg Sodium Bicarbonate (Sodium Bicarbonate Tab) 650 mg PO BID [facility] Last Admin: 04/11/18 10:23 Dose: 650 mg - Labs Labs: 04/11/18 07:03 04/11/18 07:03 PT 13.0 SECONDS (9.7-12.2) H 04/08/18 13:30 INR 1.2 04/08/18 13:30 Attending/Attestation - Attestation I have personally seen and examined this patient.: Yes I have fully participated in the care of the patient.: Yes I have reviewed all pertinent clinical information, including history, physical exam and plan: Yes Notes (Text): 04/11/18 15:21 Medical attending: Patient was seen and examined by me as well - the patient was not in any acute distress when I came and saw her. Yesterday had one unit of PRBC, she reports that she noticed a difference and that she does feel better. This morning we were pending the MRI of the elbow. Currently there was a high uric acid level, added on solumedrol 20 IV BID The pain is much less today, she is flexing and extending the elbow As mentioned previously she does have CKD and already has a AVF but has not yet required HD Spike Echevarria
[2018-04-12] MEDS: Piperacill/Tazo 2.25gm in Dex 2.25 GM/50 ML BAG IVPB SCH ×3 (06:22→23:00)
--- NOTE | 2018-04-12 07:07 | CP.PCM.PN ---
<Yuri Beasley - Last Filed: 04/12/18 14:55> Subjective - Date & Time of Evaluation Date of Evaluation: 04/12/18 Time of Evaluation: 09:00 - Subjective Subjective: PGY1 Medicine Progress note for Dr. Echevarria. Patient seen and examined at bedside. No overnight events reported. Patient states her elbow pain is much more improved. Patient states she still feels like her arm is warm. Patient has no further complaints. Patient denies chest pain, SOB, abdominal pain, nausea, vomiting, headaches, vision changes. Objective - Vital Signs/Intake and Output Vital Signs (last 24 hours): Temp Pulse Resp BP Pulse Ox 97.5 F L 65 20 167/69 H 96 04/11/18 23:35 04/12/18 04:00 04/11/18 23:35 04/11/18 23:35 04/11/18 23:35 Intake and Output: 04/12/18 04/12/18 06:59 18:59 Intake Total 50 Balance 50 - Medications Medications: Current Medications Acetaminophen (Tylenol 325mg Tab) 650 mg PO Q6 PRN PRN Reason: Fever >100.4 F Allopurinol (Zyloprim) 100 mg PO Q2D [facility] Last Admin: 04/11/18 12:23 Dose: 100 mg Calcitriol (Rocaltrol) 0.25 mcg PO DAILY [facility] Last Admin: 04/11/18 10:42 Dose: 0.25 mcg Calcium Acetate (Phoslo) 1,334 mg PO AC [facility] Last Admin: 04/11/18 18:42 Dose: 1,334 mg Clonidine HCl (Catapres) 0.2 mg PO TID [facility] Last Admin: 04/11/18 18:41 Dose: 0.2 mg Dextrose (Dextrose 50% Inj) 0 ml IV STAT PRN; Protocol PRN Reason: Hypoglycemia Protocol Dextrose (Glutose 15) 0 gm PO ONCE PRN; Protocol PRN Reason: Hypoglycemia Protocol Epoetin Spenser (Procrit) 10,000 unit SC TTS [facility] Epoetin Spenser (Procrit) 4,000 unit SC TTS [facility] Last Admin: 04/11/18 14:17 Dose: 4,000 unit Ergocalciferol (Drisdol 50,000 Intl Units Cap) 1 cap PO QWK [facility] Last Admin: 04/09/18 09:46 Dose: 1 cap Ferrous Sulfate (Feosol) 325 mg PO TID [facility] Last Admin: 04/11/18 18:41 Dose: 325 mg Furosemide (Lasix) 40 mg PO BID [facility] Last Admin: 04/11/18 18:42 Dose: 40 mg Glucagon (Glucagen Diagnostic Kit) 0 mg IM STAT PRN; Protocol PRN Reason: Hypoglycemia Protocol Heparin Sodium (Porcine) (Heparin) 5,000 units SC Q12 [facility] Last Admin: 04/11/18 21:38 Dose: 5,000 units Hydralazine HCl (Apresoline) 30 mg PO TID [facility] Last Admin: 04/11/18 18:41 Dose: 30 mg Dextrose (Dextrose 5% In Water 1000 Ml) 1,000 mls @ 0 mls/hr IV .Q0M PRN; Protocol PRN Reason: Hypoglycemia Protocol Piperacillin Sod/Tazobactam Sod (Zosyn 2.25 Gm Iv Premix) 2.25 gm in 50 mls @ 100 mls/hr IVPB Q8H [facility]; Protocol Last Admin: 04/12/18 06:22 Dose: 100 mls/hr Insulin Detemir (Levemir) 10 unit SC QAM [facility] Last Admin: 04/11/18 10:28 Dose: 10 unit Insulin Human Regular (Novolin R) 0 unit SC ACHS [facility]; Protocol Last Admin: 04/11/18 21:22 Dose: Not Given Methylprednisolone (Solu-Medrol) 20 mg IVP BID [facility] Last Admin: 04/11/18 18:43 Dose: 20 mg Nebivolol (Bystolic) 20 mg PO DAILY [facility] Last Admin: 04/11/18 10:25 Dose: 20 mg Pantoprazole Sodium (Protonix Ec Tab) 40 mg PO DAILY [facility] Last Admin: 04/11/18 10:24 Dose: 40 mg Sitagliptin Phosphate (Januvia) 25 mg PO DAILY [facility] Last Admin: 04/11/18 10:24 Dose: 25 mg Sodium Bicarbonate (Sodium Bicarbonate Tab) 650 mg PO BID [facility] Last Admin: 04/11/18 18:43 Dose: 650 mg - Labs Labs: 04/11/18 07:03 04/11/18 07:03 PT 13.0 SECONDS (9.7-12.2) H 04/08/18 13:30 INR 1.2 04/08/18 13:30 - Constitutional Appears: Non-toxic, No Acute Distress - Head Exam Head Exam: NORMAL INSPECTION - Eye Exam Eye Exam: Normal appearance Pupil Exam: NORMAL ACCOMODATION - ENT Exam ENT Exam: Mucous Membranes Moist - Respiratory Exam Respiratory Exam: Clear to Ausculation Bilateral, NORMAL BREATHING PATTERN. absent: Rales, Rhonchi, Wheezes - Cardiovascular Exam Cardiovascular Exam: +S1, +S2. absent: Murmur - GI/Abdominal Exam GI & Abdominal Exam: Soft, Normal Bowel Sounds - Extremities Exam Additional comments: Left elbow warm on palpation, tenderness on palpation, less tender than previous days Elbow flexion/extension WNL. AVF with palpable thrill LUE: 5/5 muscled strength. Sensation intact. - Back Exam Back Exam: absent: CVA tenderness (L), CVA tenderness (R) - Neurological Exam Neurological Exam: Alert, Awake, Oriented x3 - Psychiatric Exam Psychiatric exam: Normal Affect, Normal Mood - Skin Skin Exam: Dry, Intact, Normal Color, Warm Assessment and Plan - Assessment and Plan (Free Text) Assessment: 82 year old female with HTN, HLD, CHF, CKD(not yet on HD) DM2, breast cancer s/p right lumpectomy admitted for evaluation and treatment of acute onset left elbow pain/edema Plan: Left elbow pain/edema -04/09: LUE CT, no acute fractures -04/09 MRI: findings of small fluid collection; bursitis vs abscess. Large elbow effusion. Soft tissue reticulation and edema -pain control prn, tylenol -zosyn 2.25 Q8H -ID consult, Dr. Paulino -ortho consult, Dr. Hills - plan for joint aspiration 04/12 & culture Anemia, likely chronic 2/2 to disease -transfused 1U PRBC 04/10 -am hgb up 7.5 from 6.6 yesterday CKD -worsening renal function on labs. Pt still producing urine. -no HD currently -LUE AVF placed -sx consult, Dr. Valdez -procrit, feosol -nephro consult, Dr. Kay DM2 -januvia, levemir -hypoglycemia protocol -accuchecks achs HTN -clonidine, lasix, hydralazine CHF -nebivolol Ppx -DVT ppx, heparin 5000 sc q12 -GI ppx, protonix 40mg qd Dispo: Pt scheduled for joint aspiration today 04/12. Will likely stay until 04/14 for pending culturs <EchevarriaSpike watters H - Last Filed: 04/12/18 17:06> Objective - Vital Signs/Intake and Output Vital Signs (last 24 hours): Temp Pulse Resp BP Pulse Ox 97.6 F 66 20 152/72 H 97 04/12/18 13:07 04/12/18 13:07 04/12/18 13:07 04/12/18 13:07 04/12/18 13:07 Intake and Output: 04/12/18 04/12/18 06:59 18:59 Intake Total 50 150 Balance 50 150 - Medications Medications: Current Medications Acetaminophen (Tylenol 325mg Tab) 650 mg PO Q6 PRN PRN Reason: Fever >100.4 F Allopurinol (Zyloprim) 100 mg PO Q2D [facility] Last Admin: 04/11/18 12:23 Dose: 100 mg Calcitriol (Rocaltrol) 0.25 mcg PO DAILY [facility] Last Admin: 04/12/18 10:10 Dose: Not Given Clonidine HCl (Catapres) 0.2 mg PO TID [facility] Last Admin: 04/12/18 13:01 Dose: Not Given Dextrose (Dextrose 50% Inj) 0 ml IV STAT PRN; Protocol PRN Reason: Hypoglycemia Protocol Dextrose (Glutose 15) 0 gm PO ONCE PRN; Protocol PRN Reason: Hypoglycemia Protocol Epoetin Spenser (Procrit) 10,000 unit SC TTS [facility] Epoetin Spenser (Procrit) 4,000 unit SC TTS [facility] Last Admin: 04/11/18 14:17 Dose: 4,000 unit Ferrous Sulfate (Feosol) 325 mg PO TID [facility] Last Admin: 04/12/18 13:02 Dose: Not Given Furosemide (Lasix) 40 mg PO BID [facility] Last Admin: 04/12/18 10:09 Dose: Not Given Glucagon (Glucagen Diagnostic Kit) 0 mg IM STAT PRN; Protocol PRN Reason: Hypoglycemia Protocol Heparin Sodium (Porcine) (Heparin) 5,000 units SC Q12 [facility] Last Admin: 04/11/18 21:38 Dose: 5,000 units Hydralazine HCl (Apresoline) 50 mg PO Q8 [facility] Last Admin: 04/12/18 13:01 Dose: Not Given Hydromorphone HCl (Dilaudid) 0.5 mg IVP Q15M PRN PRN Reason: Pain, moderate (4-7) Stop: 04/12/18 17:58 Last Admin: 04/12/18 16:15 Dose: 0.5 mg Dextrose (Dextrose 5% In Water 1000 Ml) 1,000 mls @ 0 mls/hr IV .Q0M PRN; Protocol PRN Reason: Hypoglycemia Protocol Piperacillin Sod/Tazobactam Sod (Zosyn 2.25 Gm Iv Premix) 2.25 gm in 50 mls @ 100 mls/hr IVPB Q8H [facility]; Protocol Last Admin: 04/12/18 06:22 Dose: 100 mls/hr Insulin Detemir (Levemir) 10 unit SC QAM [facility] Last Admin: 04/12/18 10:09 Dose: Not Given Insulin Human Regular (Novolin R) 0 unit SC ACHS [facility]; Protocol Last Admin: 04/12/18 11:33 Dose: Not Given Methylprednisolone (Solu-Medrol) 20 mg IVP BID [facility] Last Admin: 04/12/18 10:11 Dose: 20 mg Metoclopramide HCl (Reglan) 10 mg IVP ONCE PRN PRN Reason: Nausea/Vomiting Stop: 04/12/18 17:58 Nebivolol (Bystolic) 20 mg PO DAILY [facility] Last Admin: 04/12/18 10:09 Dose: Not Given Ondansetron HCl (Zofran Inj) 4 mg IVP ONCE PRN PRN Reason: Nausea/Vomiting Stop: 04/12/18 17:58 Pantoprazole Sodium (Protonix Ec Tab) 40 mg PO DAILY [facility] Last Admin: 04/12/18 10:10 Dose: Not Given Sevelamer Carbonate (Renvela) 800 mg PO TIDCC [facility] Last Admin: 04/12/18 11:34 Dose: Not Given Sitagliptin Phosphate (Januvia) 25 mg PO DAILY [facility] Last Admin: 04/12/18 10:09 Dose: Not Given Sodium Bicarbonate (Sodium Bicarbonate Tab) 650 mg PO BID [facility] Last Admin: 04/12/18 10:10 Dose: Not Given - Labs Labs: 04/12/18 07:01 04/12/18 07:01 PT 13.0 SECONDS (9.7-12.2) H 04/08/18 13:30 INR 1.2 04/08/18 13:30 Attending/Attestation - Attestation I have personally seen and examined this patient.: Yes I have fully participated in the care of the patient.: Yes I have reviewed all pertinent clinical information, including history, physical exam and plan: Yes Notes (Text): 04/12/18 17:04 Medical attending: Patient was seen and examined by me - agree with the above note by the resident The patient was not in any cute distress at this time. She reported pain was controlled and she was able to flexa nd extend elbow. The patient last night I spoke with orthopedics and we discussed. The patient is pending joint aspiration and that we should wait on the fluid cultures Spike Echevarria
[2018-04-12 07:14] LABS: BASO % 0.2 % (0.0-2.0); HEMOGLOBIN 8.3 g/dL (11.0-16.0); LYMPH # 1.2 K/uL (1.0-4.3); MEAN CELL VOLUME 83.9 fL (81.0-99.0); MEAN CORPUSCULAR HEMOGLOBIN 26.6 pg (27.0-31.0); MEAN CORPUSCULAR HGB CONC 31.7 g/dL (33.0-37.0); MEAN PLATELET VOLUME 9.9 fL (7.2-11.7); MONO # 0.3 K/uL (0.0-0.8); MONO % 1.8 % (0.0-10.0); NEUT # 12.1 K/uL (1.8-7.0); NRBC % 0.6 % (0.0-2.0); PLATELET COUNT 292 K/uL (130-400); RBC 3.12 Mil/uL (3.80-5.20); RED CELL DISTRIBUTION WIDTH 17.8 % (11.5-14.5); WHITE BLOOD COUNT 13.6 K/uL (4.8-10.8)
[2018-04-12 07:44] LABS: ALB/GLOB RATIO 0.8 (1.0-2.1); ALBUMIN 3.3 g/dL (3.5-5.0); ALT/SGPT 11 U/L (9-52); AST/SGOT 14 U/L (14-36); BLOOD UREA NITROGEN 74 mg/dL (7-17); CALCIUM 10.6 mg/dl (8.6-10.4); GFR NON-AFRICAN AMERICAN 6
[2018-04-12] MEDS: (Novolin R) Insulin Human Regular 100 units/ml vial SC SCH ×4 (08:21→22:00)
[2018-04-12 08:32] LABS: BANDS 1 % (0-2); LYMPHOCYTE 9 % (20-40); MONOCYTE 1 % (0-10); NEUTROPHIL 89 % (50-75); TOTAL CELLS COUNTED 100
[2018-04-12 08:33] LABS: ANISOCYTOSIS SLIGHT; HYPOCHROMIC SLIGHT; PLATELET ESTIMATE NORMAL (NORMAL); POLYCHROMIC SLIGHT
[2018-04-12 08:34] LABS: OVALOCYTES SLIGHT; TARGET CELLS SLIGHT
[2018-04-12 09:33] LABS: FOLATE > 20.0 ng/mL
[2018-04-12] MEDS: Insulin Detemir 100 units/ml Vial (Levemir) SC SCH (10:09)
[2018-04-12] MEDS: Pantoprazole 40 mg EC Tab PO SCH (10:10)
[2018-04-12] MEDS: MethylPREDNISolone 40 mg Vial IVP SCH ×2 (10:11→18:44)
[2018-04-12] MEDS ORDERED: Labetalol 5mg/ml (4ml) IVP STA ×2 (10:53→11:53)
--- NOTE | 2018-04-12 11:06 | CP.PCM.PN ---
Subjective - Date & Time of Evaluation Date of Evaluation: 04/12/18 Time of Evaluation: 11:05 - Subjective Subjective: will schedule for revision of avf when wbc and readmit as needed Objective - Vital Signs/Intake and Output Vital Signs (last 24 hours): Temp Pulse Resp BP Pulse Ox 97.9 F 65 20 195/66 H 96 04/12/18 08:56 04/12/18 08:56 04/12/18 08:56 04/12/18 08:56 04/12/18 08:56 Intake and Output: 04/12/18 04/12/18 06:59 18:59 Intake Total 50 Balance 50 - Medications Medications: Current Medications Acetaminophen (Tylenol 325mg Tab) 650 mg PO Q6 PRN PRN Reason: Fever >100.4 F Allopurinol (Zyloprim) 100 mg PO Q2D [facility] Last Admin: 04/11/18 12:23 Dose: 100 mg Calcitriol (Rocaltrol) 0.25 mcg PO DAILY [facility] Last Admin: 04/12/18 10:10 Dose: Not Given Clonidine HCl (Catapres) 0.2 mg PO TID [facility] Last Admin: 04/12/18 10:09 Dose: Not Given Dextrose (Dextrose 50% Inj) 0 ml IV STAT PRN; Protocol PRN Reason: Hypoglycemia Protocol Dextrose (Glutose 15) 0 gm PO ONCE PRN; Protocol PRN Reason: Hypoglycemia Protocol Epoetin Spenser (Procrit) 10,000 unit SC TTS [facility] Epoetin Spenser (Procrit) 4,000 unit SC TTS [facility] Last Admin: 04/11/18 14:17 Dose: 4,000 unit Ferrous Sulfate (Feosol) 325 mg PO TID [facility] Last Admin: 04/12/18 10:09 Dose: Not Given Furosemide (Lasix) 40 mg PO BID [facility] Last Admin: 04/12/18 10:09 Dose: Not Given Glucagon (Glucagen Diagnostic Kit) 0 mg IM STAT PRN; Protocol PRN Reason: Hypoglycemia Protocol Heparin Sodium (Porcine) (Heparin) 5,000 units SC Q12 [facility] Last Admin: 04/11/18 21:38 Dose: 5,000 units Hydralazine HCl (Apresoline) 50 mg PO Q8 [facility] Dextrose (Dextrose 5% In Water 1000 Ml) 1,000 mls @ 0 mls/hr IV .Q0M PRN; Protocol PRN Reason: Hypoglycemia Protocol Piperacillin Sod/Tazobactam Sod (Zosyn 2.25 Gm Iv Premix) 2.25 gm in 50 mls @ 100 mls/hr IVPB Q8H [facility]; Protocol Last Admin: 04/12/18 06:22 Dose: 100 mls/hr Insulin Detemir (Levemir) 10 unit SC QAM [facility] Last Admin: 04/12/18 10:09 Dose: Not Given Insulin Human Regular (Novolin R) 0 unit SC ACHS [facility]; Protocol Last Admin: 04/12/18 08:21 Dose: Not Given Methylprednisolone (Solu-Medrol) 20 mg IVP BID [facility] Last Admin: 04/12/18 10:11 Dose: 20 mg Nebivolol (Bystolic) 20 mg PO DAILY [facility] Last Admin: 04/12/18 10:09 Dose: Not Given Pantoprazole Sodium (Protonix Ec Tab) 40 mg PO DAILY [facility] Last Admin: 04/12/18 10:10 Dose: Not Given Sevelamer Carbonate (Renvela) 800 mg PO TIDCC [facility] Sitagliptin Phosphate (Januvia) 25 mg PO DAILY [facility] Last Admin: 04/12/18 10:09 Dose: Not Given Sodium Bicarbonate (Sodium Bicarbonate Tab) 650 mg PO BID [facility] Last Admin: 04/12/18 10:10 Dose: Not Given - Labs Labs: 04/12/18 07:01 04/12/18 07:01 PT 13.0 SECONDS (9.7-12.2) H 04/08/18 13:30 INR 1.2 04/08/18 13:30
[2018-04-12] MEDS ORDERED: Bupivacaine Liposomal Inj 20 ml INFIL ONE (13:37)
[2018-04-12] MEDS ORDERED: Bacitracin 150,000 UNIT in Sodium Chloride 0.9% Irrig 3,000 ML IR SCH ×2 (13:39→15:30)
[2018-04-12] MEDS ORDERED: ceFAZolin IV 1 gm in Dextrose 0 GM/0 ML BAG IVPB ONE (13:52)
[2018-04-12] MEDS ORDERED: Propofol 10 mg/ml Inj (20 ML) ONE (14:15)
[2018-04-12] MEDS ORDERED: ceFAZolin 1 gm FROZEN Premix 2 GM/100 ML ML IVPB ONE (14:17)
[2018-04-12] MEDS ORDERED: Sodium Chloride 0.9% 0 ML IV ONE (14:44)
--- NOTE | 2018-04-12 15:54 | CP.PCM.PN ---
Subjective - Date & Time of Evaluation Date of Evaluation: 04/12/18 Time of Evaluation: 15:53 - Subjective Subjective: RENAL: left elbow pain and swelling better no n/v or SOB. no uremic symptoms vs as below gen: nad sclera: anicteric op: clear neck: Supple no thyromegaly cv: +S1+s2 no rub abd: soft nt nd no organomegaly extP no edema lungs: CTA b/l with clear b/l equal neuro: A+OX3 no asterixis psych: nml affect skin: NO rash left AVF maturing imp: CKD 5 / Anemia of renal disease/ Secondary hyperparathyroidism/ Hypertensive kidney disease / bursitis? / acidosis/ secondary hyperpara plan: CKD 5 - renal function at baseline no uremic sympotoms, hold off on hd for now. Anemia: procrit TTS - continue oral iron avoiding iv given infection, recc tranfsusion as needed consider GI evaluation secondary hyperpara: on calcitriol d/c vit D and switch phoslo to renvela as serum Ca high side bp stable on oral bicarb - stable dose abx for reduced eGFR increased lasix 40 bid f/u ortho Objective - Vital Signs/Intake and Output Vital Signs (last 24 hours): Temp Pulse Resp BP Pulse Ox 97.6 F 66 20 152/72 H 97 04/12/18 13:07 04/12/18 13:07 04/12/18 13:07 04/12/18 13:07 04/12/18 13:07 Intake and Output: 04/12/18 04/12/18 06:59 18:59 Intake Total 50 150 Balance 50 150 - Medications Medications: Current Medications Acetaminophen (Tylenol 325mg Tab) 650 mg PO Q6 PRN PRN Reason: Fever >100.4 F Allopurinol (Zyloprim) 100 mg PO Q2D [facility] Last Admin: 04/11/18 12:23 Dose: 100 mg Calcitriol (Rocaltrol) 0.25 mcg PO DAILY [facility] Last Admin: 04/12/18 10:10 Dose: Not Given Clonidine HCl (Catapres) 0.2 mg PO TID [facility] Last Admin: 04/12/18 13:01 Dose: Not Given Dextrose (Dextrose 50% Inj) 0 ml IV STAT PRN; Protocol PRN Reason: Hypoglycemia Protocol Dextrose (Glutose 15) 0 gm PO ONCE PRN; Protocol PRN Reason: Hypoglycemia Protocol Epoetin Spenser (Procrit) 10,000 unit SC TTS [facility] Epoetin Spenser (Procrit) 4,000 unit SC TTS [facility] Last Admin: 04/11/18 14:17 Dose: 4,000 unit Ferrous Sulfate (Feosol) 325 mg PO TID [facility] Last Admin: 04/12/18 13:02 Dose: Not Given Furosemide (Lasix) 40 mg PO BID [facility] Last Admin: 04/12/18 10:09 Dose: Not Given Glucagon (Glucagen Diagnostic Kit) 0 mg IM STAT PRN; Protocol PRN Reason: Hypoglycemia Protocol Heparin Sodium (Porcine) (Heparin) 5,000 units SC Q12 [facility] Last Admin: 04/11/18 21:38 Dose: 5,000 units Hydralazine HCl (Apresoline) 50 mg PO Q8 [facility] Last Admin: 04/12/18 13:01 Dose: Not Given Dextrose (Dextrose 5% In Water 1000 Ml) 1,000 mls @ 0 mls/hr IV .Q0M PRN; Protocol PRN Reason: Hypoglycemia Protocol Piperacillin Sod/Tazobactam Sod (Zosyn 2.25 Gm Iv Premix) 2.25 gm in 50 mls @ 100 mls/hr IVPB Q8H [facility]; Protocol Last Admin: 04/12/18 06:22 Dose: 100 mls/hr Bacitracin 150,000 unit/ (Sodium Chloride) 3,000 mls @ 3,000 mls/hr IR .Q1H [facility]; Protocol Stop: 04/12/18 16:29 Insulin Detemir (Levemir) 10 unit SC QAM [facility] Last Admin: 04/12/18 10:09 Dose: Not Given Insulin Human Regular (Novolin R) 0 unit SC ACHS [facility]; Protocol Last Admin: 04/12/18 11:33 Dose: Not Given Methylprednisolone (Solu-Medrol) 20 mg IVP BID [facility] Last Admin: 04/12/18 10:11 Dose: 20 mg Nebivolol (Bystolic) 20 mg PO DAILY [facility] Last Admin: 04/12/18 10:09 Dose: Not Given Pantoprazole Sodium (Protonix Ec Tab) 40 mg PO DAILY [facility] Last Admin: 04/12/18 10:10 Dose: Not Given Sevelamer Carbonate (Renvela) 800 mg PO TIDCC [facility] Last Admin: 04/12/18 11:34 Dose: Not Given Sitagliptin Phosphate (Januvia) 25 mg PO DAILY [facility] Last Admin: 04/12/18 10:09 Dose: Not Given Sodium Bicarbonate (Sodium Bicarbonate Tab) 650 mg PO BID [facility] Last Admin: 04/12/18 10:10 Dose: Not Given - Labs Labs: 04/12/18 07:01 04/12/18 07:01 PT 13.0 SECONDS (9.7-12.2) H 04/08/18 13:30 INR 1.2 04/08/18 13:30
[2018-04-12] MEDS: HYDROmorphone 0.5 mg/0.5 ml ISec IVP PRN ×3 (16:15→17:45)
[2018-04-12 17:39] VITALS: RESP 20
[2018-04-12] MEDS: Oxycodone/Acetaminophen 5/325 mg Tab PO PRN (20:39)
[2018-04-13] MEDS: Piperacill/Tazo 2.25gm in Dex 2.25 GM/50 ML BAG IVPB SCH ×3 (06:35→23:33)
--- NOTE | 2018-04-13 07:17 | CP.PCM.PN ---
<Batool Bowser - Last Filed: 04/13/18 11:14> Subjective - Date & Time of Evaluation Date of Evaluation: 04/13/18 Time of Evaluation: 07:00 - Subjective Subjective: Patient examined at bedside. No acute overnight events. Pt reportrs she is s/p left elbow aspiration with Dr. Singh yesterday. Pt reports she is occasionally in minimal pain, but tolerable and relieved with pain medication as needed. Pt has been eating, ambulating, urinating and having BMs. Denies further complaint Objective - Vital Signs/Intake and Output Vital Signs (last 24 hours): Temp Pulse Resp BP Pulse Ox 98.2 F 61 20 147/56 L 66 L 04/12/18 23:40 04/13/18 06:00 04/12/18 23:40 04/13/18 06:05 04/13/18 06:05 - Medications Medications: Current Medications Acetaminophen (Tylenol 325mg Tab) 650 mg PO Q6 PRN PRN Reason: Fever >100.4 F Allopurinol (Zyloprim) 100 mg PO Q2D [facility] Last Admin: 04/11/18 12:23 Dose: 100 mg Calcitriol (Rocaltrol) 0.25 mcg PO DAILY [facility] Last Admin: 04/12/18 10:10 Dose: Not Given Clonidine HCl (Catapres) 0.2 mg PO TID [facility] Last Admin: 04/12/18 18:39 Dose: 0.2 mg Dextrose (Dextrose 50% Inj) 0 ml IV STAT PRN; Protocol PRN Reason: Hypoglycemia Protocol Dextrose (Glutose 15) 0 gm PO ONCE PRN; Protocol PRN Reason: Hypoglycemia Protocol Epoetin Spenser (Procrit) 10,000 unit SC TTS [facility] Epoetin Spenser (Procrit) 4,000 unit SC TTS [facility] Last Admin: 04/11/18 14:17 Dose: 4,000 unit Ferrous Sulfate (Feosol) 325 mg PO TID [facility] Last Admin: 04/12/18 18:00 Dose: Not Given Furosemide (Lasix) 40 mg PO BID [facility] Last Admin: 04/12/18 18:42 Dose: 40 mg Glucagon (Glucagen Diagnostic Kit) 0 mg IM STAT PRN; Protocol PRN Reason: Hypoglycemia Protocol Heparin Sodium (Porcine) (Heparin) 5,000 units SC Q12 [facility] Last Admin: 04/11/18 21:38 Dose: 5,000 units Hydralazine HCl (Apresoline) 50 mg PO Q8 [facility] Last Admin: 04/13/18 06:04 Dose: 50 mg Dextrose (Dextrose 5% In Water 1000 Ml) 1,000 mls @ 0 mls/hr IV .Q0M PRN; Protocol PRN Reason: Hypoglycemia Protocol Piperacillin Sod/Tazobactam Sod (Zosyn 2.25 Gm Iv Premix) 2.25 gm in 50 mls @ 100 mls/hr IVPB Q8H [facility]; Protocol Last Admin: 04/13/18 06:35 Dose: 100 mls/hr Insulin Detemir (Levemir) 10 unit SC QAM [facility] Last Admin: 04/12/18 10:09 Dose: Not Given Insulin Human Regular (Novolin R) 0 unit SC ACHS [facility]; Protocol Last Admin: 04/12/18 22:00 Dose: Not Given Methylprednisolone (Solu-Medrol) 20 mg IVP BID [facility] Last Admin: 04/12/18 18:44 Dose: 20 mg Nebivolol (Bystolic) 20 mg PO DAILY [facility] Last Admin: 04/12/18 10:09 Dose: Not Given Oxycodone/Acetaminophen (Percocet 5/325 Mg Tab) 2 tab PO Q4H PRN PRN Reason: pain Stop: 04/15/18 19:14 Last Admin: 04/12/18 20:39 Dose: 2 tab Pantoprazole Sodium (Protonix Ec Tab) 40 mg PO DAILY [facility] Last Admin: 04/12/18 10:10 Dose: Not Given Sevelamer Carbonate (Renvela) 800 mg PO TIDCC [facility] Last Admin: 04/12/18 18:00 Dose: Not Given Sitagliptin Phosphate (Januvia) 25 mg PO DAILY [facility] Last Admin: 04/12/18 10:09 Dose: Not Given Sodium Bicarbonate (Sodium Bicarbonate Tab) 650 mg PO BID [facility] Last Admin: 04/12/18 18:00 Dose: Not Given - Labs Labs: 04/12/18 07:01 04/12/18 07:01 PT 13.0 SECONDS (9.7-12.2) H 04/08/18 13:30 INR 1.2 04/08/18 13:30 - Constitutional Appears: Non-toxic, No Acute Distress - Head Exam Head Exam: ATRAUMATIC, NORMAL INSPECTION, NORMOCEPHALIC - Eye Exam Eye Exam: EOMI, Normal appearance - ENT Exam ENT Exam: Mucous Membranes Moist, Normal Exam - Neck Exam Neck Exam: Normal Inspection - Respiratory Exam Respiratory Exam: Clear to Ausculation Bilateral, NORMAL BREATHING PATTERN - Cardiovascular Exam Cardiovascular Exam: REGULAR RHYTHM. absent: Tachycardia - GI/Abdominal Exam GI & Abdominal Exam: Soft. absent: Tenderness - Extremities Exam Extremities Exam: absent: Calf Tenderness, Pedal Edema Additional comments: Left upper extremity bandaged, clean/dry/intact. Hand is warm, sensation intact. 5/5 muscle strength. - Neurological Exam Neurological Exam: Alert, Awake, Oriented x3 - Psychiatric Exam Psychiatric exam: Normal Affect, Normal Mood - Skin Skin Exam: Dry, Intact, Normal Color, Warm Assessment and Plan - Assessment and Plan (Free Text) Assessment: 82 year old female with HTN, HLD, CHF, CKD(not yet on HD) DM2, breast cancer s/p right lumpectomy admitted for evaluation and treatment of acute onset left elbow pain/edema Plan: Left elbow pain/edema -s/p left elbow aspiration with fluid culture -no organisms visualized -pain control prn, tylenol, percocet -zosyn -solu-medrol -allopurinol added for hyperuricemia -ID consult, Dr. Paulino -ortho consult, Dr. Hills Anemia, likely chronic 2/2 to disease -transfused 1U PRBC 12/10 -am hgb stable of 7.5 CKD -worsening renal function on labs. Pt still producing urine. -no HD currently -LUE AVF placed, palpable thrill -sx consult, Dr. Valdez -procrit, feosol -nephro consult, Dr. Kay DM2 -januvia, levemir -hypoglycemia protocol -accuchecks achs HTN -clonidine, lasix, hydralazine CHF -nebivolol Ppx -DVT ppx, heparin 5000 sc q12 -GI ppx, protonix 40mg qd Discussed with Dr. Echevarria -Batool Bowser, PGY-1 <Spike Echevarria - Last Filed: 04/13/18 15:51> Objective - Vital Signs/Intake and Output Vital Signs (last 24 hours): Temp Pulse Resp BP Pulse Ox 98.2 F 62 20 150/78 94 L 04/13/18 09:03 04/13/18 09:03 04/13/18 09:03 04/13/18 09:51 04/13/18 09:03 Intake and Output: 04/13/18 04/13/18 06:59 18:59 Intake Total 290 500 Balance 290 500 - Medications Medications: Current Medications Acetaminophen (Tylenol 325mg Tab) 650 mg PO Q6 PRN PRN Reason: Fever >100.4 F Allopurinol (Zyloprim) 100 mg PO Q2D [facility] Last Admin: 04/13/18 09:51 Dose: 100 mg Calcitriol (Rocaltrol) 0.25 mcg PO DAILY [facility] Last Admin: 04/13/18 09:51 Dose: 0.25 mcg Clonidine HCl (Catapres) 0.2 mg PO TID [facility] Last Admin: 04/13/18 14:06 Dose: 0.2 mg Dextrose (Dextrose 50% Inj) 0 ml IV STAT PRN; Protocol PRN Reason: Hypoglycemia Protocol Dextrose (Glutose 15) 0 gm PO ONCE PRN; Protocol PRN Reason: Hypoglycemia Protocol Epoetin Spenser (Procrit) 10,000 unit SC TTS [facility] Last Admin: 04/13/18 14:06 Dose: 10,000 unit Epoetin Spenser (Procrit) 4,000 unit SC TTS [facility] Last Admin: 04/13/18 14:07 Dose: 4,000 unit Ferrous Sulfate (Feosol) 325 mg PO TID [facility] Last Admin: 04/13/18 14:13 Dose: 325 mg Furosemide (Lasix) 40 mg PO BID [facility] Last Admin: 04/13/18 09:51 Dose: 40 mg Glucagon (Glucagen Diagnostic Kit) 0 mg IM STAT PRN; Protocol PRN Reason: Hypoglycemia Protocol Heparin Sodium (Porcine) (Heparin) 5,000 units SC Q12 [facility] Last Admin: 04/11/18 21:38 Dose: 5,000 units Hydralazine HCl (Apresoline) 50 mg PO Q8 [facility] Last Admin: 04/13/18 14:06 Dose: 50 mg Dextrose (Dextrose 5% In Water 1000 Ml) 1,000 mls @ 0 mls/hr IV .Q0M PRN; Protocol PRN Reason: Hypoglycemia Protocol Piperacillin Sod/Tazobactam Sod (Zosyn 2.25 Gm Iv Premix) 2.25 gm in 50 mls @ 100 mls/hr IVPB Q8H [facility]; Protocol Last Admin: 04/13/18 14:15 Dose: 100 mls/hr Insulin Detemir (Levemir) 10 unit SC QAM [facility] Last Admin: 04/13/18 09:52 Dose: 10 unit Insulin Human Regular (Novolin R) 0 unit SC ACHS [facility]; Protocol Last Admin: 04/13/18 12:37 Dose: 2 units Methylprednisolone (Solu-Medrol) 20 mg IVP BID [facility] Last Admin: 04/13/18 09:56 Dose: 20 mg Nebivolol (Bystolic) 20 mg PO DAILY [facility] Last Admin: 04/13/18 10:01 Dose: 20 mg Oxycodone/Acetaminophen (Percocet 5/325 Mg Tab) 2 tab PO Q4H PRN PRN Reason: pain Stop: 04/15/18 19:14 Last Admin: 04/13/18 14:24 Dose: 2 tab Pantoprazole Sodium (Protonix Ec Tab) 40 mg PO DAILY [facility] Last Admin: 04/13/18 09:52 Dose: 40 mg Sevelamer Carbonate (Renvela) 800 mg PO TIDCC [facility] Last Admin: 04/13/18 13:41 Dose: Not Given Sitagliptin Phosphate (Januvia) 25 mg PO DAILY [facility] Last Admin: 04/13/18 09:51 Dose: 25 mg Sodium Bicarbonate (Sodium Bicarbonate Tab) 650 mg PO BID [facility] Last Admin: 04/13/18 09:51 Dose: 650 mg - Labs Labs: 04/13/18 09:30 04/13/18 09:30 PT 13.0 SECONDS (9.7-12.2) H 04/08/18 13:30 INR 1.2 04/08/18 13:30 Attending/Attestation - Attestation I have personally seen and examined this patient.: Yes I have fully participated in the care of the patient.: Yes I have reviewed all pertinent clinical information, including history, physical exam and plan: Yes Notes (Text): 04/13/18 15:50 Medical attending: Patient was seen and examined by me. Agree with the above note by the resident The patient's elbow is currently wrapped and in a sling. It was tender now, but the the pain was controlled. We are pending on the cultures of the elbow at this time. She denied fevers and denied chills. Spike Echevarria
[2018-04-13] MEDS: Oxycodone/Acetaminophen 5/325 mg Tab PO PRN ×2 (08:12→14:24)
[2018-04-13 09:22] LABS: CRYSTAL TYPE CalciumPyrophosphate; FLUID CRYSTALS POSITIVE (NEGATIVE)
[2018-04-13 09:37] LABS: BASO % 0.3 % (0.0-2.0); EOS % 0.2 % (0.0-4.0); HEMOGLOBIN 7.5 g/dL (11.0-16.0); LYMPH # 1.7 K/uL (1.0-4.3); LYMPH % 13.1 % (20.0-40.0); MEAN CELL VOLUME 83.8 fL (81.0-99.0); MEAN CORPUSCULAR HEMOGLOBIN 26.3 pg (27.0-31.0); MEAN CORPUSCULAR HGB CONC 31.4 g/dL (33.0-37.0); MEAN PLATELET VOLUME 9.4 fL (7.2-11.7); MONO # 0.9 K/uL (0.0-0.8); MONO % 6.6 % (0.0-10.0); NEUT # 10.6 K/uL (1.8-7.0); NEUT % 79.8 % (50.0-75.0); NRBC % 0.9 % (0.0-2.0); RBC 2.87 Mil/uL (3.80-5.20); RED CELL DISTRIBUTION WIDTH 17.8 % (11.5-14.5); WHITE BLOOD COUNT 13.3 K/uL (4.8-10.8)
[2018-04-13] MEDS: Pantoprazole 40 mg EC Tab PO SCH (09:52)
[2018-04-13] MEDS: Insulin Detemir 100 units/ml Vial (Levemir) SC SCH (09:52)
[2018-04-13] MEDS: (Novolin R) Insulin Human Regular 100 units/ml vial SC SCH ×4 (09:54→21:28)
[2018-04-13] MEDS: MethylPREDNISolone 40 mg Vial IVP SCH ×2 (09:56→17:13)
[2018-04-13 10:01] LABS: ALB/GLOB RATIO 0.9 (1.0-2.1); ALBUMIN 3.2 g/dL (3.5-5.0); CALCIUM 9.7 mg/dl (8.6-10.4)
--- NOTE | 2018-04-13 10:57 | CARD ---
APPROVED REPORT Date of service: 04/12/2018 EKG Measurement Heart [id number] MI [id number] <Conclusion> Normal sinus rhythm Left ventricular hypertrophy with repolarization abnormality Abnormal ECG
--- NOTE | 2018-04-13 11:04 | CP.PCM.PN ---
Subjective - Date & Time of Evaluation Date of Evaluation: 04/13/18 Time of Evaluation: 11:02 - Subjective Subjective: Patient states she is having a little pain in her elbow after the surgery. Denies numbness/tingling. Objective - Vital Signs/Intake and Output Vital Signs (last 24 hours): Temp Pulse Resp BP Pulse Ox 98.2 F 62 20 150/78 94 L 04/13/18 09:03 04/13/18 09:03 04/13/18 09:03 04/13/18 09:51 04/13/18 09:03 Intake and Output: 04/13/18 04/13/18 06:59 18:59 Intake Total 290 Balance 290 - Medications Medications: Current Medications Acetaminophen (Tylenol 325mg Tab) 650 mg PO Q6 PRN PRN Reason: Fever >100.4 F Allopurinol (Zyloprim) 100 mg PO Q2D [facility] Last Admin: 04/13/18 09:51 Dose: 100 mg Calcitriol (Rocaltrol) 0.25 mcg PO DAILY [facility] Last Admin: 04/13/18 09:51 Dose: 0.25 mcg Clonidine HCl (Catapres) 0.2 mg PO TID [facility] Last Admin: 04/13/18 09:51 Dose: 0.2 mg Dextrose (Dextrose 50% Inj) 0 ml IV STAT PRN; Protocol PRN Reason: Hypoglycemia Protocol Dextrose (Glutose 15) 0 gm PO ONCE PRN; Protocol PRN Reason: Hypoglycemia Protocol Epoetin Spenser (Procrit) 10,000 unit SC TTS [facility] Epoetin Spenser (Procrit) 4,000 unit SC TTS [facility] Last Admin: 04/11/18 14:17 Dose: 4,000 unit Ferrous Sulfate (Feosol) 325 mg PO TID [facility] Last Admin: 04/13/18 09:51 Dose: 325 mg Furosemide (Lasix) 40 mg PO BID [facility] Last Admin: 04/13/18 09:51 Dose: 40 mg Glucagon (Glucagen Diagnostic Kit) 0 mg IM STAT PRN; Protocol PRN Reason: Hypoglycemia Protocol Heparin Sodium (Porcine) (Heparin) 5,000 units SC Q12 [facility] Last Admin: 04/11/18 21:38 Dose: 5,000 units Hydralazine HCl (Apresoline) 50 mg PO Q8 [facility] Last Admin: 04/13/18 06:04 Dose: 50 mg Dextrose (Dextrose 5% In Water 1000 Ml) 1,000 mls @ 0 mls/hr IV .Q0M PRN; Protocol PRN Reason: Hypoglycemia Protocol Piperacillin Sod/Tazobactam Sod (Zosyn 2.25 Gm Iv Premix) 2.25 gm in 50 mls @ 100 mls/hr IVPB Q8H [facility]; Protocol Last Admin: 04/13/18 06:35 Dose: 100 mls/hr Insulin Detemir (Levemir) 10 unit SC QAM [facility] Last Admin: 04/13/18 09:52 Dose: 10 unit Insulin Human Regular (Novolin R) 0 unit SC ACHS [facility]; Protocol Last Admin: 04/13/18 09:54 Dose: 2 units Methylprednisolone (Solu-Medrol) 20 mg IVP BID [facility] Last Admin: 04/13/18 09:56 Dose: 20 mg Nebivolol (Bystolic) 20 mg PO DAILY [facility] Last Admin: 04/13/18 10:01 Dose: 20 mg Oxycodone/Acetaminophen (Percocet 5/325 Mg Tab) 2 tab PO Q4H PRN PRN Reason: pain Stop: 04/15/18 19:14 Last Admin: 04/13/18 08:12 Dose: 2 tab Pantoprazole Sodium (Protonix Ec Tab) 40 mg PO DAILY [facility] Last Admin: 04/13/18 09:52 Dose: 40 mg Sevelamer Carbonate (Renvela) 800 mg PO TIDCC [facility] Last Admin: 04/13/18 08:11 Dose: 800 mg Sitagliptin Phosphate (Januvia) 25 mg PO DAILY [facility] Last Admin: 04/13/18 09:51 Dose: 25 mg Sodium Bicarbonate (Sodium Bicarbonate Tab) 650 mg PO BID [facility] Last Admin: 04/13/18 09:51 Dose: 650 mg - Labs Labs: 04/13/18 09:30 04/13/18 09:30 PT 13.0 SECONDS (9.7-12.2) H 04/08/18 13:30 INR 1.2 04/08/18 13:30 - Extremities Exam Additional comments: Left elbow: +ROM fingers, wrist, sensation itnact to rad/med/ulnar nerve distrib, dressing intact Assessment and Plan (1) Acute gout of left elbow Assessment & Plan: POD#1 s/p I&D of left olecranon bursa and of elbow joint intraop joint aspirate of synovial fluid +crystals CPPD f/u cultures intraarticular and of bursa plan d/c home tomorrow if cultures negative and continues to improve as per Dr. 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
--- NOTE | 2018-04-13 12:16 | CP.PCM.PN ---
Subjective - Date & Time of Evaluation Date of Evaluation: 04/13/18 Time of Evaluation: 12:16 - Subjective Subjective: RENAL: left elbow pain and swelling better s/p I & D no n/v or SOB. no uremic symptoms vs as below gen: nad sclera: anicteric op: clear neck: Supple no thyromegaly cv: +S1+s2 no rub abd: soft nt nd no organomegaly extP no edema lungs: CTA b/l with clear b/l equal neuro: A+OX3 no asterixis psych: nml affect skin: NO rash left AVF maturing imp: CKD 5 / Anemia of renal disease/ Secondary hyperparathyroidism/ Hypertensive kidney disease / bursitis? / acidosis/ secondary hyperpara plan: CKD 5 - renal function at baseline no uremic sympotoms, hold off on hd for now. Anemia: procrit TTS - continue oral iron avoiding iv given infection, recc tranfsusion as needed consider GI evaluation secondary hyperpara: on calcitriol d/c vit D and switch phoslo to renvela as serum Ca high side bp stable on oral bicarb - stable dose abx for reduced eGFR increased lasix 40 bid f/u ortho Objective - Vital Signs/Intake and Output Vital Signs (last 24 hours): Temp Pulse Resp BP Pulse Ox 98.2 F 62 20 150/78 94 L 04/13/18 09:03 04/13/18 09:03 04/13/18 09:03 04/13/18 09:51 04/13/18 09:03 Intake and Output: 04/13/18 04/13/18 06:59 18:59 Intake Total 290 Balance 290 - Medications Medications: Current Medications Acetaminophen (Tylenol 325mg Tab) 650 mg PO Q6 PRN PRN Reason: Fever >100.4 F Allopurinol (Zyloprim) 100 mg PO Q2D [facility] Last Admin: 04/13/18 09:51 Dose: 100 mg Calcitriol (Rocaltrol) 0.25 mcg PO DAILY [facility] Last Admin: 04/13/18 09:51 Dose: 0.25 mcg Clonidine HCl (Catapres) 0.2 mg PO TID [facility] Last Admin: 04/13/18 09:51 Dose: 0.2 mg Dextrose (Dextrose 50% Inj) 0 ml IV STAT PRN; Protocol PRN Reason: Hypoglycemia Protocol Dextrose (Glutose 15) 0 gm PO ONCE PRN; Protocol PRN Reason: Hypoglycemia Protocol Epoetin Spenser (Procrit) 10,000 unit SC TTS [facility] Epoetin Spenser (Procrit) 4,000 unit SC TTS [facility] Last Admin: 04/11/18 14:17 Dose: 4,000 unit Ferrous Sulfate (Feosol) 325 mg PO TID [facility] Last Admin: 04/13/18 09:51 Dose: 325 mg Furosemide (Lasix) 40 mg PO BID [facility] Last Admin: 04/13/18 09:51 Dose: 40 mg Glucagon (Glucagen Diagnostic Kit) 0 mg IM STAT PRN; Protocol PRN Reason: Hypoglycemia Protocol Heparin Sodium (Porcine) (Heparin) 5,000 units SC Q12 [facility] Last Admin: 04/11/18 21:38 Dose: 5,000 units Hydralazine HCl (Apresoline) 50 mg PO Q8 [facility] Last Admin: 04/13/18 06:04 Dose: 50 mg Dextrose (Dextrose 5% In Water 1000 Ml) 1,000 mls @ 0 mls/hr IV .Q0M PRN; Protocol PRN Reason: Hypoglycemia Protocol Piperacillin Sod/Tazobactam Sod (Zosyn 2.25 Gm Iv Premix) 2.25 gm in 50 mls @ 100 mls/hr IVPB Q8H [facility]; Protocol Last Admin: 04/13/18 06:35 Dose: 100 mls/hr Insulin Detemir (Levemir) 10 unit SC QAM [facility] Last Admin: 04/13/18 09:52 Dose: 10 unit Insulin Human Regular (Novolin R) 0 unit SC ACHS [facility]; Protocol Last Admin: 04/13/18 09:54 Dose: 2 units Methylprednisolone (Solu-Medrol) 20 mg IVP BID [facility] Last Admin: 04/13/18 09:56 Dose: 20 mg Nebivolol (Bystolic) 20 mg PO DAILY [facility] Last Admin: 04/13/18 10:01 Dose: 20 mg Oxycodone/Acetaminophen (Percocet 5/325 Mg Tab) 2 tab PO Q4H PRN PRN Reason: pain Stop: 04/15/18 19:14 Last Admin: 04/13/18 08:12 Dose: 2 tab Pantoprazole Sodium (Protonix Ec Tab) 40 mg PO DAILY [facility] Last Admin: 04/13/18 09:52 Dose: 40 mg Sevelamer Carbonate (Renvela) 800 mg PO TIDCC [facility] Last Admin: 04/13/18 08:11 Dose: 800 mg Sitagliptin Phosphate (Januvia) 25 mg PO DAILY [facility] Last Admin: 04/13/18 09:51 Dose: 25 mg Sodium Bicarbonate (Sodium Bicarbonate Tab) 650 mg PO BID [facility] Last Admin: 04/13/18 09:51 Dose: 650 mg - Labs Labs: 04/13/18 09:30 04/13/18 09:30 PT 13.0 SECONDS (9.7-12.2) H 04/08/18 13:30 INR 1.2 04/08/18 13:30
[2018-04-13] MEDS: Epoetin Alfa 4000 UNIT/ML Inj SC SCH (14:07)
--- NOTE | 2018-04-13 17:57 | CP.PCM.PN ---
Subjective - Date & Time of Evaluation Date of Evaluation: 04/13/18 Time of Evaluation: 07:00 - Subjective Subjective: afebrile alert less pain left arm swelling decreased Objective - Vital Signs/Intake and Output Vital Signs (last 24 hours): Temp Pulse Resp BP Pulse Ox 98.4 F 61 20 160/57 H 95 04/13/18 15:51 04/13/18 15:51 04/13/18 15:51 04/13/18 17:14 04/13/18 15:51 Intake and Output: 04/13/18 04/13/18 06:59 18:59 Intake Total 290 500 Balance 290 500 - Medications Medications: Current Medications Acetaminophen (Tylenol 325mg Tab) 650 mg PO Q6 PRN PRN Reason: Fever >100.4 F Allopurinol (Zyloprim) 100 mg PO Q2D [facility] Last Admin: 04/13/18 09:51 Dose: 100 mg Calcitriol (Rocaltrol) 0.25 mcg PO DAILY [facility] Last Admin: 04/13/18 09:51 Dose: 0.25 mcg Clonidine HCl (Catapres) 0.2 mg PO TID [facility] Last Admin: 04/13/18 17:14 Dose: 0.2 mg Dextrose (Dextrose 50% Inj) 0 ml IV STAT PRN; Protocol PRN Reason: Hypoglycemia Protocol Dextrose (Glutose 15) 0 gm PO ONCE PRN; Protocol PRN Reason: Hypoglycemia Protocol Epoetin Spenser (Procrit) 10,000 unit SC TTS [facility] Last Admin: 04/13/18 14:06 Dose: 10,000 unit Epoetin Spenser (Procrit) 4,000 unit SC TTS [facility] Last Admin: 04/13/18 14:07 Dose: 4,000 unit Ferrous Sulfate (Feosol) 325 mg PO TID [facility] Last Admin: 04/13/18 17:15 Dose: 325 mg Furosemide (Lasix) 40 mg PO BID [facility] Last Admin: 04/13/18 17:14 Dose: 40 mg Glucagon (Glucagen Diagnostic Kit) 0 mg IM STAT PRN; Protocol PRN Reason: Hypoglycemia Protocol Heparin Sodium (Porcine) (Heparin) 5,000 units SC Q12 [facility] Last Admin: 04/11/18 21:38 Dose: 5,000 units Hydralazine HCl (Apresoline) 50 mg PO Q8 [facility] Last Admin: 04/13/18 14:06 Dose: 50 mg Dextrose (Dextrose 5% In Water 1000 Ml) 1,000 mls @ 0 mls/hr IV .Q0M PRN; Protocol PRN Reason: Hypoglycemia Protocol Piperacillin Sod/Tazobactam Sod (Zosyn 2.25 Gm Iv Premix) 2.25 gm in 50 mls @ 100 mls/hr IVPB Q8H [facility]; Protocol Last Admin: 04/13/18 14:15 Dose: 100 mls/hr Insulin Detemir (Levemir) 10 unit SC QAM [facility] Last Admin: 04/13/18 09:52 Dose: 10 unit Insulin Human Regular (Novolin R) 0 unit SC ACHS [facility]; Protocol Last Admin: 04/13/18 17:15 Dose: 2 units Methylprednisolone (Solu-Medrol) 20 mg IVP BID [facility] Last Admin: 04/13/18 17:13 Dose: 20 mg Nebivolol (Bystolic) 20 mg PO DAILY [facility] Last Admin: 04/13/18 10:01 Dose: 20 mg Oxycodone/Acetaminophen (Percocet 5/325 Mg Tab) 2 tab PO Q4H PRN PRN Reason: pain Stop: 04/15/18 19:14 Last Admin: 04/13/18 14:24 Dose: 2 tab Pantoprazole Sodium (Protonix Ec Tab) 40 mg PO DAILY [facility] Last Admin: 04/13/18 09:52 Dose: 40 mg Sevelamer Carbonate (Renvela) 800 mg PO TIDCC [facility] Last Admin: 04/13/18 17:14 Dose: 800 mg Sitagliptin Phosphate (Januvia) 25 mg PO DAILY [facility] Last Admin: 04/13/18 09:51 Dose: 25 mg Sodium Bicarbonate (Sodium Bicarbonate Tab) 650 mg PO BID [facility] Last Admin: 04/13/18 17:14 Dose: 650 mg - Labs Labs: 04/13/18 09:30 04/13/18 09:30 PT 13.0 SECONDS (9.7-12.2) H 04/08/18 13:30 INR 1.2 04/08/18 13:30 - Constitutional Appears: Non-toxic, Chronically Ill - Head Exam Head Exam: NORMOCEPHALIC - Eye Exam Eye Exam: absent: Scleral icterus - ENT Exam ENT Exam: Mucous Membranes Dry - Neck Exam Neck Exam: absent: Lymphadenopathy - Respiratory Exam Respiratory Exam: Decreased Breath Sounds - Cardiovascular Exam Cardiovascular Exam: REGULAR RHYTHM - GI/Abdominal Exam GI & Abdominal Exam: Distended, Soft - Rectal Exam Rectal Exam: Deferred - Exam Exam: NORMAL INSPECTION - Extremities Exam Extremities Exam: absent: Pedal Edema - Back Exam Back Exam: absent: CVA tenderness (L), CVA tenderness (R) - Neurological Exam Neurological Exam: Alert, Awake, Oriented x3 - Psychiatric Exam Psychiatric exam: Normal Mood - Skin Skin Exam: Dry Assessment and Plan (1) Cellulitis Status: Acute - Assessment and Plan (Free Text) Assessment: s/p I and D left olecranon bursitis cultures so far neg cont IV antibiotics and wound care
[2018-04-14] MEDS: Oxycodone/Acetaminophen 5/325 mg Tab PO PRN (06:30)
[2018-04-14] MEDS: Piperacill/Tazo 2.25gm in Dex 2.25 GM/50 ML BAG IVPB SCH (06:31)
[2018-04-14] MEDS: (Novolin R) Insulin Human Regular 100 units/ml vial SC SCH ×2 (07:45→12:39)
[2018-04-14 08:18] VITALS: BP 172/63; PULSE 63; TEMP 98.2; O2SAT 98
[2018-04-14] MEDS: Pantoprazole 40 mg EC Tab PO SCH (10:01)
[2018-04-14] MEDS: MethylPREDNISolone 40 mg Vial IVP SCH (10:02)
--- NOTE | 2018-04-14 10:11 | CP.PCM.PN ---
Subjective - Date & Time of Evaluation Date of Evaluation: 04/14/18 Time of Evaluation: 10:09 - Subjective Subjective: Patient states pain is a little better today. Denies numbness/tingling. Objective - Vital Signs/Intake and Output Vital Signs (last 24 hours): Temp Pulse Resp BP Pulse Ox 98.2 F 63 20 172/63 H 98 04/14/18 07:00 04/14/18 07:00 04/14/18 07:00 04/14/18 10:01 04/14/18 07:00 - Medications Medications: Current Medications Acetaminophen (Tylenol 325mg Tab) 650 mg PO Q6 PRN PRN Reason: Fever >100.4 F Allopurinol (Zyloprim) 100 mg PO Q2D [facility] Last Admin: 04/13/18 09:51 Dose: 100 mg Calcitriol (Rocaltrol) 0.25 mcg PO DAILY [facility] Last Admin: 04/14/18 10:02 Dose: 0.25 mcg Clonidine HCl (Catapres) 0.2 mg PO TID [facility] Last Admin: 04/14/18 10:01 Dose: 0.2 mg Dextrose (Dextrose 50% Inj) 0 ml IV STAT PRN; Protocol PRN Reason: Hypoglycemia Protocol Dextrose (Glutose 15) 0 gm PO ONCE PRN; Protocol PRN Reason: Hypoglycemia Protocol Epoetin Spenser (Procrit) 10,000 unit SC TTS [facility] Last Admin: 04/13/18 14:06 Dose: 10,000 unit Epoetin Spenser (Procrit) 4,000 unit SC TTS [facility] Last Admin: 04/13/18 14:07 Dose: 4,000 unit Ferrous Sulfate (Feosol) 325 mg PO TID [facility] Last Admin: 04/14/18 10:03 Dose: 325 mg Furosemide (Lasix) 40 mg PO BID [facility] Last Admin: 04/14/18 10:01 Dose: 40 mg Glucagon (Glucagen Diagnostic Kit) 0 mg IM STAT PRN; Protocol PRN Reason: Hypoglycemia Protocol Hydralazine HCl (Apresoline) 50 mg PO Q8 [facility] Last Admin: 04/14/18 06:27 Dose: 50 mg Dextrose (Dextrose 5% In Water 1000 Ml) 1,000 mls @ 0 mls/hr IV .Q0M PRN; Protocol PRN Reason: Hypoglycemia Protocol Piperacillin Sod/Tazobactam Sod (Zosyn 2.25 Gm Iv Premix) 2.25 gm in 50 mls @ 100 mls/hr IVPB Q8H [facility]; Protocol Last Admin: 04/14/18 06:31 Dose: 100 mls/hr Insulin Detemir (Levemir) 10 unit SC QAM [facility] Last Admin: 04/13/18 09:52 Dose: 10 unit Insulin Human Regular (Novolin R) 0 unit SC ACHS [facility]; Protocol Last Admin: 04/14/18 07:45 Dose: Not Given Methylprednisolone (Solu-Medrol) 20 mg IVP BID [facility] Last Admin: 04/14/18 10:02 Dose: 20 mg Nebivolol (Bystolic) 20 mg PO DAILY [facility] Last Admin: 04/14/18 10:02 Dose: 20 mg Oxycodone/Acetaminophen (Percocet 5/325 Mg Tab) 2 tab PO Q4H PRN PRN Reason: pain Stop: 04/15/18 19:14 Last Admin: 04/14/18 06:30 Dose: 2 tab Pantoprazole Sodium (Protonix Ec Tab) 40 mg PO DAILY [facility] Last Admin: 04/14/18 10:01 Dose: 40 mg Sevelamer Carbonate (Renvela) 800 mg PO TIDCC [facility] Last Admin: 04/14/18 08:30 Dose: 800 mg Sitagliptin Phosphate (Januvia) 25 mg PO DAILY [facility] Last Admin: 04/14/18 10:02 Dose: 25 mg Sodium Bicarbonate (Sodium Bicarbonate Tab) 650 mg PO BID [facility] Last Admin: 04/14/18 10:02 Dose: 650 mg - Labs Labs: 04/13/18 09:30 04/13/18 09:30 PT 13.0 SECONDS (9.7-12.2) H 04/08/18 13:30 INR 1.2 04/08/18 13:30 - Extremities Exam Additional comments: Left elbow: incisions intact, mod serosang drainage, no erythema, no increased swelling. +ROM fingers/wrist, sensation intact Assessment and Plan (1) Acute gout of left elbow Assessment & Plan: POD#2 s/p I&D +CPPD intraarticular cx neg prelim ortho stable for d/c home and f/u in office within 1 week return to ER for worsening of sx d/w Dr. 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
[2018-04-14] MEDS: Insulin Detemir 100 units/ml Vial (Levemir) SC SCH (10:12)
--- NOTE | 2018-04-14 14:10 | CP.PCM.DIS ---
Provider - Provider Date of Admission: 04/11/18 18:29 Attending physician: Spike Echevarria DO Consults: 04/08/18 14:33 Infectious Disease Consult Routine Comment: Consulting Provider: Carlos A Paulino Consulting Physician: Carlos A Paulino Reason for Consult: cellulitis,r/o septic arthritis/bursitis Orthopedic Consult Routine Comment: Consulting Provider: Richard Hills Consulting Physician: Richard Hills Reason for Consult: r/o septic arthritis 04/08/18 14:34 General Surgery Consult Routine Comment: Consulting Provider: Demarcus Valdez Jr. Consulting Physician: Demarcus Valdez Jr. Reason for Consult: hx of recent AVF, painful elbow 04/08/18 14:40 Nephrology Consult Routine Comment: Consulting Provider: Jaspreet Kay Consulting Physician: Jaspreet Kay Reason for Consult: CKD 04/11/18 20:23 Social Work Referral Routine Comment: routine Physician Instructions: referral Reason For Exam: zoraida score 9 Time Spent in preparation of Discharge (in minutes): 29 Diagnosis - Discharge Diagnosis (1) Acute gout of left elbow Status: Acute Hospital Course - Lab Results Lab Results: Micro Results 04/12/18 Unknown Other: Please Indicate Gram Stain - Final 04/12/18 Unknown Other: Please Indicate Tissue Culture - Preliminary NO GROWTH AFTER 48 HOURS 04/12/18 18:13 Elbow - Left Gram Stain - Final 04/12/18 18:13 Elbow - Left Wound Culture - Preliminary No growth. 04/12/18 18:13 Elbow - Left Gram Stain - Final 04/12/18 18:13 Elbow - Left Wound Culture - Preliminary No growth. 04/12/18 Unknown Other: Please Indicate Gram Stain - Final 04/12/18 Unknown Other: Please Indicate Tissue Culture - Preliminary NO GROWTH AFTER 48 HOURS 04/12/18 18:13 Elbow - Left Gram Stain - Final 04/12/18 18:13 Elbow - Left Wound Culture - Preliminary No growth. 04/08/18 12:10 Blood Blood Culture - Final NO GROWTH AFTER 5 DAYS 04/08/18 12:10 Blood Gram Stain - Final TEST NOT PERFORMED 04/08/18 12:40 Blood Blood Culture - Final NO GROWTH AFTER 5 DAYS 04/08/18 12:40 Blood Gram Stain - Final TEST NOT PERFORMED 04/12/18 Unknown Synovial Fluid Gram Stain - Final 04/08/18 13:58 Urine,Clean Catch Urine Culture - Final No Growth (<1,000 CFU/ML) Most Recent Lab Values WBC 13.3 K/uL (4.8-10.8) H 04/13/18 09:30 RBC 2.87 Mil/uL (3.80-5.20) L 04/13/18 09:30 Hgb 7.5 g/dL (11.0-16.0) L 04/13/18 09:30 Hct 24.0 % (34.0-47.0) L 04/13/18 09:30 MCV 83.8 fL (81.0-99.0) 04/13/18 09:30 MCH 26.3 pg (27.0-31.0) L 04/13/18 09:30 MCHC 31.4 g/dL (33.0-37.0) L 04/13/18 09:30 RDW 17.8 % (11.5-14.5) H 04/13/18 09:30 Plt Count 300 K/uL (130-400) 04/13/18 09:30 MPV 9.4 fL (7.2-11.7) 04/13/18 09:30 Neut % (Auto) 79.8 % (50.0-75.0) H 04/13/18 09:30 Lymph % (Auto) 13.1 % (20.0-40.0) L 04/13/18 09:30 [place] % (Auto) 6.6 % (0.0-10.0) 04/13/18 09:30 Eos % (Auto) 0.2 % (0.0-4.0) 04/13/18 09:30 Baso % (Auto) 0.3 % (0.0-2.0) 04/13/18 09:30 Neut # (Auto) 10.6 K/uL (1.8-7.0) H 04/13/18 09:30 Lymph # (Auto) 1.7 K/uL (1.0-4.3) 04/13/18 09:30 [place] # (Auto) 0.9 K/uL (0.0-0.8) H 04/13/18 09:30 Eos # (Auto) 0.0 K/uL (0.0-0.7) 04/13/18 09:30 Baso # (Auto) 0.0 K/uL (0.0-0.2) 04/13/18 09:30 Neutrophils % (Manual) 89 % (50-75) H 04/12/18 07:01 Band Neutrophils % 1 % (0-2) 04/12/18 07:01 Lymphocytes % (Manual) 9 % (20-40) L 04/12/18 07:01 Monocytes % (Manual) 1 % (0-10) 04/12/18 07:01 Platelet Estimate Normal (NORMAL) 04/12/18 07:01 Polychromasia Slight 04/12/18 07:01 Hypochromasia (manual) Slight 04/12/18 07:01 Poikilocytosis (manual Slight 04/08/18 12:40 Anisocytosis (manual) Slight 04/12/18 07:01 Microcytosis (manual) Slight 04/08/18 12:40 Target Cells Slight 04/12/18 07:01 Tear Drop Cells Slight 04/08/18 12:40 Ovalocytes Slight 04/12/18 07:01 [place] Cells Slight 04/08/18 12:40 PT 13.0 SECONDS (9.7-12.2) H 04/08/18 13:30 INR 1.2 04/08/18 13:30 VBG pH 7.39 (7.32-7.43) 04/08/18 16:05 VBG pCO2 41 mmHg (40-60) 04/08/18 16:05 VBG Total CO2 26.1 mmol/L (22-28) 04/08/18 16:05 VBG O2 Sat (Calc) 73.1 % (40-65) H 04/08/18 16:05 VBG Base Excess -0.2 mmol/L (0.0-2.0) L 04/08/18 16:05 VBG Potassium 5.9 mmol/L (3.6-5.2) H 04/08/18 16:05 Sodium 143.0 mmol/l (132-148) 04/08/18 16:05 Chloride 110.0 mmol/L (98-107) H 04/08/18 16:05 Glucose 230 mg/dl (65-105) H 04/08/18 16:05 Lactate 1.6 mmol/L (0.7-2.1) 04/08/18 16:05 Sodium 137 mmol/L (132-148) 04/13/18 09:30 Potassium 4.1 mmol/L (3.6-5.2) 04/13/18 09:30 Chloride 101 mmol/L (98-107) 04/13/18 09:30 Carbon Dioxide 27 mmol/L (22-30) 04/13/18 09:30 Anion Gap 14 (10-20) 04/13/18 09:30 BUN 71 mg/dL (7-17) H 04/13/18 09:30 Creatinine 6.5 mg/dL (0.7-1.2) H 04/13/18 09:30 Est GFR ( Amer) 7 04/13/18 09:30 Est GFR (Non-Af Amer) 6 04/13/18 09:30 POC Glucose (mg/dL) 191 mg/dL (65-110) H 04/14/18 11:40 Random Glucose 149 mg/dL (65-105) H 04/13/18 09:30 Uric Acid 10.0 mg/dL (2.2-7.5) H 04/10/18 16:27 Calcium 9.7 mg/dl (8.6-10.4) 04/13/18 09:30 Phosphorus 5.5 mg/dL (2.5-4.5) H 04/13/18 09:30 Magnesium 2.2 mg/dL (1.6-2.3) 04/13/18 09:30 Iron 40 ug/dL (37-170) 04/11/18 13:54 TIBC 196 ug/dL (250-450) L 04/11/18 13:54 % Saturation 20 (20-55) 04/11/18 13:54 Ferritin 145.0 ng/mL 04/11/18 13:54 Total Bilirubin 0.3 mg/dL (0.2-1.3) 04/13/18 09:30 AST 9 U/L (14-36) L D 04/13/18 09:30 ALT 13 U/L (9-52) 04/13/18 09:30 Alkaline Phosphatase 67 U/L (38-126) 04/13/18 09:30 NT-Pro-B Natriuret Pep 01863 pg/mL (0-900) H 04/08/18 13:47 Total Protein 6.9 g/dL (6.3-8.3) 04/13/18 09:30 Albumin 3.2 g/dL (3.5-5.0) L 04/13/18 09:30 Globulin 3.7 gm/dL (2.2-3.9) 04/13/18 09:30 Albumin/Globulin Ratio 0.9 (1.0-2.1) L 04/13/18 09:30 Vitamin B12 617 pg/mL (239-931) 04/11/18 13:54 25-OH Vitamin D Total 28.3 NG/ML (30.0-100.0) L 04/11/18 13:54 Folate > 20.0 ng/mL 04/12/18 07:01 Calcitonin <2 pg/mL (<=5) 04/09/18 08:29 PTH Intact Whole Molec 45 pg/mL (14-64) 04/11/18 13:54 Venous Blood Potassium 5.9 mmol/L (3.6-5.2) H 04/08/18 16:05 Urine Color Yellow (YELLOW) 04/08/18 13:58 Urine Clarity Clear (Clear) 04/08/18 13:58 Urine pH 5.0 (5.0-8.0) 04/08/18 13:58 Ur Specific [place] 1.013 (1.003-1.030) 04/08/18 13:58 Urine Protein 3+ mg/dL (NEGATIVE) H 04/08/18 13:58 Urine Glucose (UA) Normal mg/dL (Normal) 04/08/18 13:58 Urine Ketones Negative mg/dL (NEGATIVE) 04/08/18 13:58 Urine Blood Negative (NEGATIVE) 04/08/18 13:58 Urine Nitrate Negative (NEGATIVE) 04/08/18 13:58 Urine Bilirubin Negative (NEGATIVE) 04/08/18 13:58 Urine Urobilinogen Normal mg/dL (0.2-1.0) 04/08/18 13:58 Ur Leukocyte Esterase Neg [place]/uL (Negative) 04/08/18 13:58 Urine WBC (Auto) 3 /hpf (0-5) 04/08/18 13:58 Urine RBC (Auto) 1 /hpf (0-3) 04/08/18 13:58 Ur Squamous Epith Cells 1 /hpf (0-5) 04/08/18 13:58 Urine Bacteria Rare (<OCC) 04/08/18 13:58 Fluid Crystals Positive (NEGATIVE) H 18 18:24 Synovial Crystal Type Calciumpyrophosphate 04/12/18 18:24 Random Vancomycin 19.2 ug/mL 04/10/18 08:05 Blood Type O POSITIVE 04/09/18 08:29 Antibody Screen Negative 04/09/18 08:29 - Hospital Course Hospital Course: Patient is an 82 year old female who presented to the ED with right elbow pain. Elbow x-ray, LUE CT and MRI showed effusion of left elbow. Dr. Singh, orthopedics was consulted to evaluate. Patient was treated with IV Abx, and leukocytosis improved. Pt was taken to OR for aspiration of effusion with fluid culture and analysis. Pt started on allopurinol for hyperuricemia. Pt's pain improved and cultures were negative. Patient discharged to follow up with Dr. Singh. HPI on admission: 82 year old female with history of HTN, DM, hyperlipidemia, breast cancer s/p partial lumpectomy, CKD s/p AVF not on dialysis presents to the ED today complains of right elbow pain. Patient reports her left elbow pain started last night suddenly. The pain is pressure like and radiates down to her forearm. Patient took over the counter Tylenol with no relief. She denies having injury to her elbow or any other parts of her body. Patient had AVF procedure with Dr. Valdez 2 months ago and is scheduled to have a revision surgery on 04/12/18. Patient denies having fever, chills, dizziness, headache, shortness of breath, chest pain, nausea, vomiting, abdominal pain, or urinary complaints. For further details, refer to EMR Discharge Exam - Head Exam Head Exam: ATRAUMATIC, NORMAL INSPECTION, NORMOCEPHALIC - Eye Exam Eye Exam: EOMI, Normal appearance - ENT Exam ENT Exam: Mucous Membranes Moist - Neck Exam Neck exam: Normal Inspection - Respiratory Exam Respiratory Exam: NORMAL BREATHING PATTERN, UNREMARKABLE - Cardiovascular Exam Cardiovascular Exam: REGULAR RHYTHM, +S1, +S2 - GI/Abdominal Exam GI & Abdominal Exam: Normal Bowel Sounds, Unremarkable - Extremities Exam Extremities exam: normal inspection (left AVF with palpable thrill), pedal pulses present - Neurological Exam Neurological exam: Alert, Oriented x3 - Psychiatric Exam Psychiatric exam: Normal Affect, Normal Mood - Skin Skin Exam: Dry, Normal Color - Additional Findings Additional findings: Left elbow bandaged, clean/dry/intact. Tender to palpation. Limited but improved ROM. 5/5 muscle strength in LUE Discharge Plan - Follow Up Plan Condition: GUARDED Disposition: HOME/ ROUTINE Instructions: Dialysis Diet , Heart Failure, Adult (DC), Cellulitis (Skin Infection), Adult (DC), Upper GI Endoscopy (DC), Wound Incision and Drainage (DC) Additional Instructions: Patient is stable for discharge home. Patient is instructed to follow up with her PMD within 2 weeks of discharge, and to follow up with Dr. Singh within 1 week of discharge. Patient is instructed to take Tylenol for pain, to be used as directed. Patient should resume all home meds. Patient instructed to return to ED with any worsening of symptoms such as fever >100.4 or purulent drainage from wound, or pain uncontrolled with medications amongst others Referrals: Richard Hills MD [Staff Provider] -
--- NOTE | 2018-04-14 14:40 | CP.PCM.PN ---
Subjective - Date & Time of Evaluation Date of Evaluation: 04/14/18 Time of Evaluation: 14:39 - Subjective Subjective: RENAL NOTE: left elbow pain and swelling better s/p I & D no n/v or SOB. no uremic symptoms vs as below gen: nad sclera: anicteric op: clear neck: Supple no thyromegaly cv: +S1+s2 no rub abd: soft nt nd no organomegaly extP no edema lungs: CTA b/l with clear b/l equal neuro: A+OX3 no asterixis psych: nml affect skin: NO rash left AVF maturing imp: CKD 5 / Anemia of renal disease/ Secondary hyperparathyroidism/ Hypertensive kidney disease / bursitis? / acidosis/ secondary hyperpara plan: CKD 5 - renal function at baseline no uremic sympotoms, hold off on hd for now. Anemia: procrit TTS - continue oral iron avoiding iv given infection, recc tranfsusion as needed may consider GI evaluation secondary hyperpara: on calcitriol d/c vit D and switch phoslo to renvela as serum Ca high side bp stable on oral bicarb - stable dose abx for reduced eGFR increased lasix 40 bid HTN resume norvasc 10 mg/d pt has appt with Dr Kay on Objective - Vital Signs/Intake and Output Vital Signs (last 24 hours): Temp Pulse Resp BP Pulse Ox 98.2 F 63 20 172/63 H 98 04/14/18 07:00 04/14/18 09:00 04/14/18 07:00 04/14/18 10:01 04/14/18 07:00 - Medications Medications: Current Medications Acetaminophen (Tylenol 325mg Tab) 650 mg PO Q6 PRN PRN Reason: Fever >100.4 F Allopurinol (Zyloprim) 100 mg PO Q2D [facility] Last Admin: 04/13/18 09:51 Dose: 100 mg Amlodipine Besylate (Norvasc) 10 mg PO DAILY [facility] Last Admin: 04/14/18 13:48 Dose: 10 mg Calcitriol (Rocaltrol) 0.25 mcg PO DAILY [facility] Last Admin: 04/14/18 10:02 Dose: 0.25 mcg Clonidine HCl (Catapres) 0.2 mg PO TID [facility] Last Admin: 04/14/18 13:48 Dose: 0.2 mg Dextrose (Dextrose 50% Inj) 0 ml IV STAT PRN; Protocol PRN Reason: Hypoglycemia Protocol Dextrose (Glutose 15) 0 gm PO ONCE PRN; Protocol PRN Reason: Hypoglycemia Protocol Epoetin Spenser (Procrit) 10,000 unit SC TTS [facility] Last Admin: 04/13/18 14:06 Dose: 10,000 unit Epoetin Spenser (Procrit) 4,000 unit SC TTS [facility] Last Admin: 04/13/18 14:07 Dose: 4,000 unit Ferrous Sulfate (Feosol) 325 mg PO TID [facility] Last Admin: 04/14/18 13:48 Dose: 325 mg Furosemide (Lasix) 40 mg PO BID [facility] Last Admin: 04/14/18 10:01 Dose: 40 mg Glucagon (Glucagen Diagnostic Kit) 0 mg IM STAT PRN; Protocol PRN Reason: Hypoglycemia Protocol Hydralazine HCl (Apresoline) 50 mg PO Q8 [facility] Last Admin: 04/14/18 13:48 Dose: 50 mg Dextrose (Dextrose 5% In Water 1000 Ml) 1,000 mls @ 0 mls/hr IV .Q0M PRN; Protocol PRN Reason: Hypoglycemia Protocol Piperacillin Sod/Tazobactam Sod (Zosyn 2.25 Gm Iv Premix) 2.25 gm in 50 mls @ 100 mls/hr IVPB Q8H [facility]; Protocol Last Admin: 04/14/18 06:31 Dose: 100 mls/hr Insulin Detemir (Levemir) 10 unit SC QAM [facility] Last Admin: 04/14/18 10:12 Dose: 10 unit Insulin Human Regular (Novolin R) 0 unit SC ACHS [facility]; Protocol Last Admin: 04/14/18 12:39 Dose: 2 units Methylprednisolone (Solu-Medrol) 20 mg IVP BID [facility] Last Admin: 04/14/18 10:02 Dose: 20 mg Nebivolol (Bystolic) 20 mg PO DAILY [facility] Last Admin: 04/14/18 10:02 Dose: 20 mg Oxycodone/Acetaminophen (Percocet 5/325 Mg Tab) 2 tab PO Q4H PRN PRN Reason: pain Stop: 04/15/18 19:14 Last Admin: 04/14/18 06:30 Dose: 2 tab Pantoprazole Sodium (Protonix Ec Tab) 40 mg PO DAILY [facility] Last Admin: 04/14/18 10:01 Dose: 40 mg Sevelamer Carbonate (Renvela) 800 mg PO TIDCC [facility] Last Admin: 04/14/18 12:39 Dose: 800 mg Sitagliptin Phosphate (Januvia) 25 mg PO DAILY [facility] Last Admin: 04/14/18 10:02 Dose: 25 mg Sodium Bicarbonate (Sodium Bicarbonate Tab) 650 mg PO BID [facility] Last Admin: 04/14/18 10:02 Dose: 650 mg - Labs Labs: 04/13/18 09:30 04/13/18 09:30 PT 13.0 SECONDS (9.7-12.2) H 04/08/18 13:30 INR 1.2 04/08/18 13:30
== END 2018-04-14 15:21 | disposition home or self-care (01) | DRG 554 ==
LOC: C.ER 10:25 → C.9E 13:16 → C.6T 16:19 → OBSVTOIN 04-11 18:29
PROVIDERS: ADMIT Hospitalist; ATTEND Hospitalist
PROC: 30233N1 Transfusion of Nonautologous Red Blood Cells into Peripheral Vein, Percutaneous Approach (ICD-10-PCS; principal; 2018-04-11)
DX: M10.9 Gout, unspecified (principal); E87.2 Acidosis; I13.2 Hypertensive heart and chronic kidney disease with heart failure and with stage 5 chronic kidney disease, or end stage renal disease; I50.22 Chronic systolic (congestive) heart failure; L03.114 Cellulitis of left upper limb; M70.22 Olecranon bursitis, left elbow; M00.9 Pyogenic arthritis, unspecified; N25.81 Secondary hyperparathyroidism of renal origin; M19.022 Primary osteoarthritis, left elbow; N18.5 Chronic kidney disease, stage 5; D63.1 Anemia in chronic kidney disease; E11.22 Type 2 diabetes mellitus with diabetic chronic kidney disease; E78.00 Pure hypercholesterolemia, unspecified; Z79.4 Long term (current) use of insulin; Z85.3 Personal history of malignant neoplasm of breast

== ENCOUNTER 2018-05-10 16:14 | Inpatient (IN) | payer BC, MEDICARE ==
[2018-05-10 16:25] VITALS: BMI 28.2
[2018-05-10 17:11] LABS: BASO # 0.1 K/uL (0.0-0.2); BASO % 0.7 % (0.0-2.0); EOS % 0.3 % (0.0-4.0); LYMPH # 1.4 K/uL (1.0-4.3); MEAN CORPUSCULAR HEMOGLOBIN 26.6 pg (27.0-31.0); MEAN CORPUSCULAR HGB CONC 30.6 g/dL (33.0-37.0); MEAN PLATELET VOLUME 8.9 fL (7.2-11.7); MONO # 0.5 K/uL (0.0-0.8); MONO % 4.6 % (0.0-10.0); NEUT # 9.4 K/uL (1.8-7.0); NEUT % 82.4 % (50.0-75.0); NRBC % 0.1 % (0.0-2.0); PROTHROMBIN TIME 11.1 SECONDS (9.7-12.2); RBC 3.74 Mil/uL (3.80-5.20); RED CELL DISTRIBUTION WIDTH 21.1 % (11.5-14.5); WHITE BLOOD COUNT 11.4 K/uL (4.8-10.8)
[2018-05-10 17:14] LABS: ARTERIAL BLOOD GAS PCO2 39 mm/Hg (35-45); ARTERIAL BLOOD GAS PH 7.37 (7.35-7.45); ARTERIAL BLOOD GAS PO2 342 mm/Hg (80-100); ARTERIAL BLOOD GAS TCO2 23.7 mmol/L (22-28)
[2018-05-10 17:16] LABS: ALB/GLOB RATIO 0.9 (1.0-2.1); ALBUMIN 3.8 g/dL (3.5-5.0); CALCIUM 10.1 mg/dl (8.6-10.4)
[2018-05-10 17:32] LABS: TROPONIN I 0.042 ng/mL (0.00-0.120)
--- NOTE | 2018-05-10 18:20 | RAD ---
HISTORY: SOB COMPARISON: Chest x-ray performed 04/09/18 TECHNIQUE: Chest, one view. FINDINGS: LUNGS: Bilateral central vascular prominence. Moderate to severe pulmonary venous congestion. Small bilateral pleural effusions. No definite pneumothorax. CARDIOVASCULAR: Cardiomegaly. Atherosclerotic calcifications. OSSEOUS STRUCTURES: Osseous demineralization. Degenerative changes. VISUALIZED UPPER ABDOMEN: Unremarkable. OTHER FINDINGS: Right axillary clips. IMPRESSION: Cardiomegaly. Bilateral central vascular prominence. Moderate to severe pulmonary venous congestion. Small bilateral pleural effusions.
--- NOTE | 2018-05-10 19:38 | CP.PCM.HP ---
<Batool Bowser - Last Filed: 05/11/18 02:23> History of Present Illness - History of Present Illness History of Present Illness: CC: SOB Patient is an 83 year old female with medical history of HTN, DM2, HLD, gout, breast cancer s/p partial lumpectomy, CKD s/p AVF not on dialys is, who presents to ED with complaints of SOB, wheezing, diaphoresis. Patient reports symptom onset this morning, after having a flare of gout in her left elbow. Symptoms progressed throughout the day, prompting her to seek evaluation and treatment. Pt denies headache, dizziness, chest pain, recent illness, cough, nausea, diarrhea. Pt is s/p left elbow aspiration of effusion on 04/14 PMD: Dr. Macedo, Nephro: Dr. Kay, Vascular: Dr. Valdez PMHx: HTN, DM2, HLD, breast cancer, CKD, gout PSHx: L sided AVF, partial lumpectomy, left elbow effusion aspiration Social Hx: social alcohol consumption, formal smoker quit 30 years ago. 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 Allergy: NKDA Family History: none Medication: Lasix 40mg, clonidine 0.2mg TID, januvia 50mg, lantus solo star 10u daily, protonix 40mg Present on Admission - Present on Admission Any Indicators Present on Admission: No Review of Systems - Cardiovascular Cardiovascular: Diaphoresis, Dyspnea. absent: Chest Pain - Respiratory Respiratory: Dyspnea, Wheezing - Gastrointestinal Gastrointestinal: absent: Abdominal Pain, Nausea - Genitourinary Genitourinary: absent: Dysuria - Neurological Neurological: absent: Dizziness, Syncope Past Patient History - Infectious Disease Hx of Infectious Diseases: None - Past Medical History & Family History Past Medical History?: Yes - Past Social History Smoking Status: Never Smoked - CARDIAC Hx Hypercholesterolemia: Yes Hx Hypertension: Yes - PULMONARY Hx Respiratory Disorders: No - NEUROLOGICAL Hx Neurological Disorder: No - HEENT Hx HEENT Problems: Yes - RENAL Hx Chronic Kidney Disease: Yes Hx Renal Failure: Yes - ENDOCRINE/METABOLIC Hx Endocrine Disorders: Yes Hx Diabetes Mellitus Type 2: Yes - HEMATOLOGICAL/ONCOLOGICAL Hx Cancer: Yes (right breast cancer) Hx Chemotherapy: (+ radiation tx) - INTEGUMENTARY Hx Dermatological Problems: Yes Other/Comment: HX: "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." - MUSCULOSKELETAL/RHEUMATOLOGICAL Hx Falls: No Hx Gout: Yes (great toe) - GASTROINTESTINAL Hx Gastrointestinal Disorders: No - GENITOURINARY/GYNECOLOGICAL Hx Genitourinary Disorders: No - PSYCHIATRIC Hx Psychophysiologic Disorder: No Hx Substance Use: No - SURGICAL HISTORY Hx Arteriovenous Shunt: Yes (left arm 02-15-2018) Hx Cataract Extraction: Yes Other/Comment: right breast lumpectomy - ANESTHESIA Hx Anesthesia: Yes Hx Anesthesia Reactions: No Hx Malignant Hyperthermia: No Meds Allergies/Adverse Reactions: Allergies Allergy/AdvReac Type Severity Reaction Status Date / Time No Known Allergies Allergy Verified 05/10/18 18:45 Physical Exam - Constitutional Appears: Non-toxic, No Acute Distress - Head Exam Head Exam: ATRAUMATIC, NORMAL INSPECTION, NORMOCEPHALIC - Eye Exam Eye Exam: EOMI, Normal appearance Pupil Exam: PERRL - ENT Exam ENT Exam: Mucous Membranes Moist, Normal Exam - Neck Exam Neck exam: Positive for: Normal Inspection - Respiratory Exam Respiratory Exam: Rales, NORMAL BREATHING PATTERN. absent: Rhonchi, Wheezes, Respiratory Distress Additional comments: B/L lower lobes - Cardiovascular Exam Cardiovascular Exam: REGULAR RHYTHM. absent: Tachycardia - GI/Abdominal Exam GI & Abdominal Exam: Normal Bowel Sounds, Soft. absent: Tenderness - Extremities Exam Extremities exam: Positive for: normal inspection, pedal edema. Negative for: calf tenderness - Neurological Exam Neurological exam: Alert, Oriented x3 - Psychiatric Exam Psychiatric exam: Normal Affect, Normal Mood - Skin Skin Exam: Dry, Intact, Normal Color, Warm Results - Vital Signs Recent Vital Signs: Last Vital Signs Temp 98.1 F 05/10/18 16:32 Pulse 60 05/10/18 19:14 Resp 19 05/10/18 19:14 BP 128/51 L 05/10/18 19:14 Pulse Ox 97 05/10/18 19:14 - Labs Result Diagrams: 05/10/18 16:56 05/10/18 16:56 Labs: Laboratory Results - last 24 hr 05/10/18 05/10/18 05/10/18 16:18 16:56 16:56 WBC 11.4 H RBC 3.74 L Hgb 10.0 L D Hct 32.5 L MCV 87.0 D MCH 26.6 L MCHC 30.6 L RDW 21.1 H Plt Count 288 MPV 8.9 Neut % (Auto) 82.4 H Lymph % (Auto) 12.0 L [place] % (Auto) 4.6 Eos % (Auto) 0.3 Baso % (Auto) 0.7 Neut # (Auto) 9.4 H Lymph # (Auto) 1.4 [place] # (Auto) 0.5 Eos # (Auto) 0.0 Baso # (Auto) 0.1 PT 11.1 INR 1.0 APTT 30 Puncture Site pCO2 pO2 HCO3 ABG pH ABG Total CO2 ABG O2 Saturation ABG Base Excess Trent Test ABG Potassium A-a O2 Difference Respiratory Index Glucose Lactate Vent Mode FiO2 Inspiratory BiPAP Expiratory BiPAP Sodium Potassium Chloride Carbon Dioxide Anion Gap BUN Creatinine Est GFR ( Amer) Est GFR (Non-Af Amer) POC Glucose (mg/dL) 202 H Random Glucose Calcium Total Bilirubin AST ALT Alkaline Phosphatase Troponin I NT-Pro-B Natriuret Pep Total Protein Albumin Globulin Albumin/Globulin Ratio Arterial Blood Potassium 05/10/18 05/10/18 16:56 17:11 WBC RBC Hgb Hct MCV MCH MCHC RDW Plt Count MPV Neut % (Auto) Lymph % (Auto) [place] % (Auto) Eos % (Auto) Baso % (Auto) Neut # (Auto) Lymph # (Auto) [place] # (Auto) Eos # (Auto) Baso # (Auto) PT INR APTT Puncture Site Rba pCO2 39 pO2 342 H HCO3 23.0 ABG pH 7.37 ABG Total CO2 23.7 ABG O2 Saturation 99.0 H ABG Base Excess -2.5 L Trent Test Na ABG Potassium 3.6 A-a O2 Difference 322.0 Respiratory Index 0.9 Glucose 186 H Lactate 1.1 Vent Mode Bipap FiO2 100.0 Inspiratory BiPAP 12 Expiratory BiPAP 6 Sodium 138 143.0 Potassium 4.6 Chloride 108 H 111.0 H Carbon Dioxide 19 L Anion Gap 16 BUN 64 H Creatinine 5.2 H Est GFR ( Amer) 10 Est GFR (Non-Af Amer) 8 POC Glucose (mg/dL) Random Glucose 200 H D Calcium 10.1 Total Bilirubin 0.8 AST 34 ALT 9 D Alkaline Phosphatase 69 Troponin I 0.0420 NT-Pro-B Natriuret Pep 40783 H Total Protein 8.0 Albumin 3.8 Globulin 4.2 H Albumin/Globulin Ratio 0.9 L Arterial Blood Potassium 3.6 Assessment & Plan - Assessment and Plan (Free Text) Assessment: 83 year old female with pmhx of HTN, DM2, HLD, gout, breast cancer, CKD Plan: SOB; likely 2/2 CHF exacerbation -echo 12/2017 shows LVEF of 46% -CXR shows cardiomegaly and B/L central vascular prominence, moderate to severe pulmonary venous congestion. Small B/L pleural effusions -Diurese, lasix 60mg ivp q12 -O2, NC as tolerated -consider repeat echo/cardio eval if no improvement DM2 -continue lantus -januvia 50mg po qd -novolog 14u TIDAC -hypoglycemia protocol HTN -continue home meds CKD, not on dialysis -renal diet -continue home meds -avoid nephrotoxic drugs Ppx -GI ppx, pepcid -VTE ppx, heparin Discussed with Dr. Adams -Batool Bowser, PGY-1 <Sergio Adams - Last Filed: 05/11/18 06:48> Results - Vital Signs Recent Vital Signs: Last Vital Signs Temp 98.1 F 05/10/18 21:02 Pulse 58 L 05/11/18 05:40 Resp 16 05/11/18 05:40 BP 161/55 H 05/11/18 05:40 Pulse Ox 98 05/11/18 05:40 - Labs Result Diagrams: 05/11/18 05:24 05/11/18 05:24 Labs: Laboratory Results - last 24 hr 05/10/18 05/10/18 05/10/18 16:18 16:56 16:56 WBC 11.4 H RBC 3.74 L Hgb 10.0 L D Hct 32.5 L MCV 87.0 D MCH 26.6 L MCHC 30.6 L RDW 21.1 H Plt Count 288 MPV 8.9 Neut % (Auto) 82.4 H Lymph % (Auto) 12.0 L [place] % (Auto) 4.6 Eos % (Auto) 0.3 Baso % (Auto) 0.7 Neut # (Auto) 9.4 H Lymph # (Auto) 1.4 [place] # (Auto) 0.5 Eos # (Auto) 0.0 Baso # (Auto) 0.1 PT 11.1 INR 1.0 APTT 30 Puncture Site pCO2 pO2 HCO3 ABG pH ABG Total CO2 ABG O2 Saturation ABG Base Excess Trent Test ABG Potassium A-a O2 Difference Respiratory Index Glucose Lactate Vent Mode FiO2 Inspiratory BiPAP Expiratory BiPAP Sodium Potassium Chloride Carbon Dioxide Anion Gap BUN Creatinine Est GFR ( Amer) Est GFR (Non-Af Amer) POC Glucose (mg/dL) 202 H Random Glucose Calcium Total Bilirubin AST ALT Alkaline Phosphatase Troponin I NT-Pro-B Natriuret Pep Total Protein Albumin Globulin Albumin/Globulin Ratio Arterial Blood Potassium 05/10/18 05/10/18 05/11/18 16:56 17:11 05:24 WBC 6.6 RBC 3.14 L Hgb 8.4 L Hct 27.1 L MCV 86.4 MCH 26.7 L MCHC 31.0 L RDW 20.5 H Plt Count 226 MPV 8.0 Neut % (Auto) 65.0 Lymph % (Auto) 26.3 [place] % (Auto) 5.7 Eos % (Auto) 0.8 Baso % (Auto) 2.2 H Neut # (Auto) 4.3 Lymph # (Auto) 1.7 [place] # (Auto) 0.4 Eos # (Auto) 0.1 Baso # (Auto) 0.1 PT INR APTT Puncture Site Rba pCO2 39 pO2 342 H HCO3 23.0 ABG pH 7.37 ABG Total CO2 23.7 ABG O2 Saturation 99.0 H ABG Base Excess -2.5 L Trent Test Na ABG Potassium 3.6 A-a O2 Difference 322.0 Respiratory Index 0.9 Glucose 186 H Lactate 1.1 Vent Mode Bipap FiO2 100.0 Inspiratory BiPAP 12 Expiratory BiPAP 6 Sodium 138 143.0 Potassium 4.6 Chloride 108 H 111.0 H Carbon Dioxide 19 L Anion Gap 16 BUN 64 H Creatinine 5.2 H Est GFR ( Amer) 10 Est GFR (Non-Af Amer) 8 POC Glucose (mg/dL) Random Glucose 200 H D Calcium 10.1 Total Bilirubin 0.8 AST 34 ALT 9 D Alkaline Phosphatase 69 Troponin I 0.0420 NT-Pro-B Natriuret Pep 36609 H Total Protein 8.0 Albumin 3.8 Globulin 4.2 H Albumin/Globulin Ratio 0.9 L Arterial Blood Potassium 3.6 05/11/18 05:24 WBC RBC Hgb Hct MCV MCH MCHC RDW Plt Count MPV Neut % (Auto) Lymph % (Auto) [place] % (Auto) Eos % (Auto) Baso % (Auto) Neut # (Auto) Lymph # (Auto) [place] # (Auto) Eos # (Auto) Baso # (Auto) PT INR APTT Puncture Site pCO2 pO2 HCO3 ABG pH ABG Total CO2 ABG O2 Saturation ABG Base Excess Trent Test ABG Potassium A-a O2 Difference Respiratory Index Glucose Lactate Vent Mode FiO2 Inspiratory BiPAP Expiratory BiPAP Sodium 141 Potassium 3.8 Chloride 108 H Carbon Dioxide 26 Anion Gap 10 BUN 66 H Creatinine 5.5 H Est GFR ( Amer) 9 Est GFR (Non-Af Amer) 7 POC Glucose (mg/dL) Random Glucose 115 H D Calcium 9.6 Total Bilirubin 0.5 AST 20 ALT 16 Alkaline Phosphatase 60 Troponin I NT-Pro-B Natriuret Pep Total Protein 6.5 Albumin 3.1 L Globulin 3.5 Albumin/Globulin Ratio 0.9 L Arterial Blood Potassium Attending/Attestation - Attestation I have personally seen and examined this patient.: Yes I have fully participated in the care of the patient.: Yes I have reviewed all pertinent clinical information: Yes Notes (Text): 05/11/18 06:41 I saw, examined and discussed this patient with Dr Bowser. I agree with the assessment and plan outlined which reflect my direct input. This is an 83 years old female with hx of ESRD , AV fistula in place, comes with SOB with inspiratory expiratory crackles in both lung welch, with elevated Pro BNP and Chest X ray showing Bilateral pulmonary congestion. We will consult Cardiology and Nephrology and treat for Acute CHF systolic dysfunction while Nephrology is considering Hemodialysis. Treat Diabetes and Hyperetensin, Sergio Adams MD.
--- NOTE | 2018-05-10 20:24 | C.PDOC ---
History Of Present Illness 83 y/o female comes in complaining of moderate to severe respiratory distress that started this morning. Denies chest pain, fever, or cough. Patient has been compliant with her medications. Denies recent travel. Time Seen by Provider: 05/10/18 16:20 Chief Complaint (Nursing): Shortness Of Breath History Per: Patient History/Exam Limitations: no limitations Onset/Duration Of Symptoms: Hrs Current Symptoms Are (Timing): Still Present Past Medical History Reviewed: Historical Data, Nursing Documentation, Vital Signs Vital Signs: Last Vital Signs Temp 98.1 F 05/10/18 16:32 Pulse 60 05/10/18 19:14 Resp 19 05/10/18 19:14 BP 128/51 L 05/10/18 19:14 Pulse Ox 97 05/10/18 19:14 - Medical History PMH: Anemia, Diabetes, HTN, Hypercholesterolemia, Chronic Kidney Disease Surgical History: Appendectomy - [facility] Procedures CLOSED [PERCUTANEOUS] [NEEDLE] BIOPSY OF LUNG (06/11/03) DRAINAGE OF LEFT ELBOW JOINT, OPEN APPROACH, DIAGNOSTIC (04/11/18) DX ULTRASOUND-HEART (06/11/03) EXCISION OF LEFT ELBOW BURSA AND LIGAMENT, OPEN APPROACH (04/11/18) EXTRACTION OF LEFT ELBOW BURSA AND LIGAMENT, OPEN APPROACH (04/11/18) INSERTION OF TOTALLY IMPLANTABLE VASC ACCESS DEVIC (05/03/03) PACKED CELL TRANSFUSION (06/11/03) SKIN INCIS & FB REMOVAL (06/11/03) TRANSFUSE NONAUT RED BLOOD CELLS IN PERIPH VEIN, PERC (04/11/18) Family History: States: No Known Family Hx - Social History Hx Alcohol Use: No Hx Substance Use: No - Immunization History Hx Tetanus Toxoid Vaccination: No Hx Influenza Vaccination: Yes Hx Pneumococcal Vaccination: No Review Of Systems Except As Marked, All Systems Reviewed And Found Negative. Constitutional: Negative for: Fever Cardiovascular: Negative for: Chest Pain Respiratory: Positive for: Shortness of Breath. Negative for: Cough Gastrointestinal: Negative for: Nausea, Vomiting Skin: Negative for: Rash Physical Exam - Physical Exam Appears: Non-toxic, In Acute Distress (moderate to severe distress) Skin: Warm, Diaphoretic Head: Atraumatic, Normacephalic Eye(s): bilateral: Normal Inspection Oral Mucosa: Moist Neck: Supple Cardiovascular: Rhythm Regular, No Murmur Respiratory: Rales (bilaterally), Other (Tachypnic) Gastrointestinal/Abdominal: Soft, No Tenderness Extremity: Other (Bilateral 2+ edema in lower extremity) Extremity: Bilateral: Normal Color And Temperature, Normal ROM Neurological/Psych: Oriented x3, Normal Speech ED Course And Treatment - Laboratory Results Result Diagrams: 05/10/18 16:56 05/10/18 16:56 Lab Results: Puncture Site Rba 05/10/18 17:11 pCO2 39 mm/Hg (35-45) 05/10/18 17:11 pO2 342 mm/Hg (80-100) H 05/10/18 17:11 HCO3 23.0 mmol/L (21-28) 05/10/18 17:11 ABG pH 7.37 (7.35-7.45) 05/10/18 17:11 ABG Total CO2 23.7 mmol/L (22-28) 05/10/18 17:11 ABG O2 Saturation 99.0 % (95-98) H 05/10/18 17:11 ABG Base Excess -2.5 mmol/L (-2.0-3.0) L 05/10/18 17:11 Trent Test Na 05/10/18 17:11 ABG Potassium 3.6 mmol/L (3.6-5.2) 05/10/18 17:11 A-a O2 Difference 322.0 mm/Hg 05/10/18 17:11 Respiratory Index 0.9 05/10/18 17:11 Sodium 143.0 mmol/l (132-148) 05/10/18 17:11 Chloride 111.0 mmol/L (98-107) H 05/10/18 17:11 Glucose 186 mg/dl (65-105) H 05/10/18 17:11 Lactate 1.1 mmol/L (0.7-2.1) 05/10/18 17:11 Vent Mode Bipap 05/10/18 17:11 FiO2 100.0 % 05/10/18 17:11 Inspiratory BiPAP 12 05/10/18 17:11 Expiratory BiPAP 6 05/10/18 17:11 PT 11.1 SECONDS (9.7-12.2) 05/10/18 16:56 INR 1.0 05/10/18 16:56 APTT 30 SECONDS (21-34) 05/10/18 16:56 Troponin I 0.0420 ng/mL (0.00-0.120) 05/10/18 16:56 NT-Pro-B Natriuret Pep 31223 pg/mL (0-900) H 05/10/18 16:56 Total Bilirubin 0.8 mg/dL (0.2-1.3) 05/10/18 16:56 AST 34 U/L (14-36) 05/10/18 16:56 ALT 9 U/L (9-52) D 05/10/18 16:56 Alkaline Phosphatase 69 U/L (38-126) 05/10/18 16:56 Total Protein 8.0 g/dL (6.3-8.3) 05/10/18 16:56 Albumin 3.8 g/dL (3.5-5.0) 05/10/18 16:56 Globulin 4.2 gm/dL (2.2-3.9) H 05/10/18 16:56 Albumin/Globulin Ratio 0.9 (1.0-2.1) L 05/10/18 16:56 ECG: Interpreted By Me, Viewed By Me ECG Rhythm: Sinus Tachycardia Interpretation Of ECG: LVH and strain pattern Rate From EC O2 Sat by Pulse Oximetry: 97 (RA) Pulse Ox Interpretation: Normal - Other Rad CXR X-Ray: Read By Radiologist Interpretation: FINDINGS: LUNGS: Bilateral central vascular prominence. Moderate to severe pulmonary venous congestion. Small bilateral pleural effusions. No definite pneumothorax. CARDIOVASCULAR: Cardiomegaly. Atherosclerotic calcifications. OSSEOUS STRUCTURES: Osseous demineralization. Degenerative changes. VISUALIZED UPPER ABDOMEN: Unremarkable. OTHER FINDINGS: Right axillary clips. IMPRESSION: Cardiomegaly. Bilateral central vascular prominence. Moderate to severe pulmonary venous congestion. Small bilateral pleural effusions. Critical Care Time - Critical Care Note Total Time (in mins): 60 Documented critical care: time excludes all time spent performing seperately billable procedures. Progress - Re-Evaluation Re-evaluation Note: Patient immediately placed on BIPAP. Patient improved to point where she was placed on nasal cannula. Lasix 40mg and Clonidine 0.3 mg given with decrease of blood pressure. Spoke to Dr. Adams, hospitalist. Patient admitted to telemetry for CHF. Medical Decision Making Medical Decision Making: Plan: --EKG --Labs --Chest XR --Apresoline 10 mg IV --Catapres 0.3 mg PO --Lasix 40 mg IV Disposition - Disposition Disposition Time: 18:50 Condition: FAIR - Clinical Impression Clinical Impression: Respiratory distress, Acute CHF (congestive heart failure) - Scribe Statement The provider has reviewed the documentation as recorded by the Kimiblalitha Diaz Provider Attestation: All medical record entries made by the Kimiblalitha were at my direction and personally dictated by me. I have reviewed the chart and agree that the record accurately reflects my personal performance of the history, physical exam, medical decision making, and the department course for this patient. I have also personally directed, reviewed, and agree with the discharge instructions and disposition.
[2018-05-10] MEDS ORDERED: Dextrose 50% SYRINGE Inj (50 ml) IV PRN (21:31)
[2018-05-10] MEDS ORDERED: Glucagon Recombinant 1 mg Inj IM PRN (21:31)
[2018-05-11 05:27] LABS: BASO # 0.1 K/uL (0.0-0.2); BASO % 2.2 % (0.0-2.0); EOS # 0.1 K/uL (0.0-0.7); EOS % 0.8 % (0.0-4.0); HEMOGLOBIN 8.4 g/dL (11.0-16.0); LYMPH # 1.7 K/uL (1.0-4.3); LYMPH % 26.3 % (20.0-40.0); MEAN CELL VOLUME 86.4 fL (81.0-99.0); MEAN CORPUSCULAR HEMOGLOBIN 26.7 pg (27.0-31.0); MONO # 0.4 K/uL (0.0-0.8); MONO % 5.7 % (0.0-10.0); NEUT # 4.3 K/uL (1.8-7.0); NRBC % 0.2 % (0.0-2.0); RBC 3.14 Mil/uL (3.80-5.20); RED CELL DISTRIBUTION WIDTH 20.5 % (11.5-14.5); WHITE BLOOD COUNT 6.6 K/uL (4.8-10.8)
[2018-05-11 06:14] LABS: ALB/GLOB RATIO 0.9 (1.0-2.1); ALBUMIN 3.1 g/dL (3.5-5.0); CALCIUM 9.6 mg/dl (8.6-10.4)
[2018-05-11] MEDS: (Novolog) Insulin Aspart, Recombinant 100 u/ml 10 ml vial SC SCH ×3 (08:00→17:29)
[2018-05-11] MEDS ORDERED: Home Med 1 UNIT (Febuxostat [Uloric] 80 MG) PO SCH (10:00)
[2018-05-11] MEDS ORDERED: Ergocalciferol 50,000 Intl Units Cap PO SCH (10:00)
[2018-05-11] MEDS ORDERED: CHLORTHALIDONE PO SCH (10:00)
[2018-05-11] MEDS ORDERED: (Lantus) Insulin Glargine, Recombinant SC SCH (10:00)
[2018-05-11] MEDS ORDERED: AZILSARTAN MED PO SCH (10:00)
[2018-05-11] MEDS: (Lantus) Insulin Glargine, Recombinant SC SCH (11:24)
[2018-05-11] MEDS: Pantoprazole 40 mg EC Tab PO SCH (11:40)
[2018-05-11] MEDS ORDERED: Ferric Sodium Gluconat Complex 62.5 mg/5 ml Vial IVPB SCH (11:45)
[2018-05-11] MEDS ORDERED: Ergocalciferol 50,000 Intl Units Cap PO ONE (12:15)
--- NOTE | 2018-05-11 14:29 | PCM.RRT ---
[employer]TING [employer]ACHINE TENDER Nurses Assessment - Situation Date: 05/11/18 Time [employer] C[employer]TING MACHINE TENDER was called: 12:31 [employer]TING [employer]ACHINE TENDER Responder Arrival Time:: 12:33 [employer]TING [employer]END[employer] Location:: Med/Surg Room Number: 558A [employer] Reason for Call: Hypertension, Respiratory Distress, O2 Saturation below 90%, Looks Sicker [employer]D C[employer]TING MACHINE TENDER Called By: RN - IV IV Inserted during ALMOND CUTTING MACHINE TENDER?: Yes - Respiratory [employer] C[employer]TING MACHINE TENDER Delivery Method: BiPAP @% Received Nebulizer Treatments: No Was the Patient Ventilated with Bag/Mask 100% O2?: No Secretions Suctioned?: No Was the Patient Intubated?: No Was the Patient Placed on a Ventilator?: No - Ventilator Settings FIO2 (% Oxygen): 100 - Medication Medications Administered During [employer]D C[employer]TING MACHINE TENDER: clonidine patch - Diagnostic Test Ordered EKG: Yes Chest X-Ray: Yes - Stat Labs Ordered [employer] MACHINE TENDER Stat Labs Ordered: TROPONIN CPR started during [employer]D C[employer]TING MACHINE TENDER?: No - Vital Signs Vital Signs: Rapid Response Vital Sign Blood Pressure 229/149 Pulse Rate 78 Respiratory Rate 28 - [place] Coma Scale Coma Scale Eye Opening: Spontaneous Coma Scale Motor: Obeys Commands Movement Coma Scale Verbal: Oriented Coma Scale Total: 15 - Time [employer]TING MACHINE TENDER Ended Time [employer] C[employer]TING MACHINE TENDER Ended: 13:12 - Vital Signs at end of [employer]ACHINE TENDER Vital Signs at end of [employer]TING MACHINE TENDER: Rapid Response End Vital Sign Blood Pressure 259/111 - Recommendations Notifications: Attending Physician I.Reason for [employer]TING MACHINE TENDER - A) Acute Change in Patient: Subjective: AL[employer]D C[employer]TING MACHINE TENDER was called at 12:31pm for respiratory distress, diaphoresis and hypoxia. Patient was placed on 2L NC and saturating at 90%. Patient was then placed on Bipap was saturation went up to 100%. BP was 229/149. Patient was unable to receive IV mediations due to no IV access. Clonidine patch was ordered. Patient was also given Lasix 80mg PO x 1. STAT CXR, JOSE RAUL panel and EKG ordered. General surgery was contacted for possible shiley placement as patient is in need of dialysis. Patient transferred to the ICU for closer monitoring. Family members were at the bedside and are aware of the events and plan. - Respiratory Oxygen Delivery Method: BiPAP @% - Constitutional Appears: In Acute Distress - Head Head Exam: ATRAUMATIC, NORMAL INSPECTION - Eyes Eye Exam: EOMI, Normal appearance - Respiratory Exam Respiratory Exam: Accessory Muscle Use, Decreased Breath Sounds, Rales, Respiratory Distress - Cardiovascular Exam Cardiovascular Exam: REGULAR RHYTHM, +S1, +S2 - GI/Abdominal Exam GI & Abdominal Exam: Soft. absent: Guarding, Rigid, Tenderness - Neurological Exam Neurological Exam: Alert, Awake, Oriented x3 (Left AVF) - Extremities Exam Extremities Exam: Pedal Edema (+1 bilaterally) Additional comments: Left AVF Plan - Assessment of Findings&Treatment Plan Patient is an 83 year old female with past medical history of CHF, CKD, gout, HTN who was admitted for shortness of breath and wheezing. AL[employer] C[employer]TING MACHINE TENDER was called for hypoxia, shortness of breath and diaphoresis. - Clonidine patch ordered - Lasix 80mg PO x 1 given - STAT EKG and CXR ordered - F/U troponins - Continue bipap - Discussed case with General surgery who will take patient for permacath placement today - Patient to be transferred to the ICU for further monitoring - Plan discussed with Dr Giovanny Carey DO PGY-2
--- NOTE | 2018-05-11 14:33 | CP.PCM.CON ---
History of Present Illness - History of Present Illness History of Present Illness: Vascular Surgery: Dr. Valdez Pt is an 83F with PMHx significant for HTN, DM, CKD, HLD, Breast Cancer s/p partial mastectomy/chemo & gout who presented to for complaints of SOB. Pt reports pain in her left elbow as well as episodes of diaphoresis. States symptoms started earlier last night and progressed so she decided to come to the hospital. While admitted to the hospital pt had an POLE PEELER called for SOB, found to be hypertensive and fluid overloaded. Pt has never been on HD but recently had an AVF placed in the L arm which is not matured yet. Vascular surgery called to place access for HD which pt may need sooner than anticipated. PMHx: as listed above PSHx: L AVF, partial lumpectomy, port-a-cath SocialHx: former smoker, social EtOH, denies drugs NKDA Review of Systems - Review of Systems All systems: reviewed and no additional remarkable complaints except (as per HPI) Past Patient History - Infectious Disease Hx of Infectious Diseases: None - Past Medical History & Family History Past Medical History?: Yes - Past Social History Smoking Status: Former Smoker Alcohol: Occasional - CARDIAC Hx Hypercholesterolemia: Yes Hx Hypertension: Yes - PULMONARY Hx Respiratory Disorders: No - NEUROLOGICAL Hx Neurological Disorder: No - HEENT Hx HEENT Problems: Yes - RENAL Hx Chronic Kidney Disease: Yes Hx Renal Failure: Yes - ENDOCRINE/METABOLIC Hx Endocrine Disorders: Yes Hx Diabetes Mellitus Type 2: Yes - HEMATOLOGICAL/ONCOLOGICAL Hx Cancer: Yes (right breast cancer) Hx Chemotherapy: (+ radiation tx) - INTEGUMENTARY Hx Dermatological Problems: Yes - MUSCULOSKELETAL/RHEUMATOLOGICAL Hx Falls: No Hx Gout: Yes (great toe) - GASTROINTESTINAL Hx Gastrointestinal Disorders: No - GENITOURINARY/GYNECOLOGICAL Hx Genitourinary Disorders: No - PSYCHIATRIC Hx Psychophysiologic Disorder: No Hx Substance Use: No - SURGICAL HISTORY Hx Arteriovenous Shunt: Yes (left arm 02-15-2018) Hx Cataract Extraction: Yes Other/Comment: right breast lumpectomy - ANESTHESIA Hx Anesthesia: Yes Hx Anesthesia Reactions: No Hx Malignant Hyperthermia: No Meds Allergies/Adverse Reactions: Allergies Allergy/AdvReac Type Severity Reaction Status Date / Time No Known Allergies Allergy Verified 05/10/18 18:45 - Medications Medications: Current Medications Amlodipine Besylate (Norvasc) 10 mg PO DAILY [facility] Last Admin: 05/11/18 11:17 Dose: 10 mg Clonidine HCl (Catapres) 0.2 mg PO TID [facility] Last Admin: 05/11/18 11:18 Dose: 0.2 mg Clonidine HCl (Catapres Tts1 0.1 Mg/24 Hr) 1 patch TD QWK [facility] Last Admin: 05/11/18 13:29 Dose: 1 patch Dextrose (Dextrose 50% Inj) 0 ml IV STAT PRN; Protocol PRN Reason: Hypoglycemia Protocol Dextrose (Glutose 15) 0 gm PO ONCE PRN; Protocol PRN Reason: Hypoglycemia Protocol Epoetin Spenser (Procrit) 10,000 unit SC MWF [facility] Famotidine (Pepcid) 20 mg PO DAILY [facility] Furosemide (Lasix) 60 mg IVP Q12 [facility] Last Admin: 05/10/18 21:42 Dose: 60 mg Glucagon (Glucagen Diagnostic Kit) 0 mg IM STAT PRN; Protocol PRN Reason: Hypoglycemia Protocol Heparin Sodium (Porcine) (Heparin) 5,000 units SC Q12 [facility] Last Admin: 05/11/18 11:20 Dose: 5,000 units Home Med (Febuxostat [Uloric]) 80 mg PO DAILY [facility] Hydralazine HCl (Apresoline) 100 mg PO BID [facility] Dextrose (Dextrose 5% In Water 1000 Ml) 1,000 mls @ 0 mls/hr IV .Q0M PRN; Protocol PRN Reason: Hypoglycemia Protocol Ferric Sodium Gluconate Complex 125 mg/ Sodium Chloride 110 mls @ 110 mls/hr IVPB DAILY [facility] Stop: 05/20/18 10:01 Insulin Aspart (Novolog) 14 unit SC TIDAC [facility] Last Admin: 05/11/18 12:18 Dose: Not Given Insulin Glargine (Lantus) 10 unit SC QAM [facility] Last Admin: 05/11/18 11:24 Dose: 10 unit Metolazone (Zaroxolyn) 5 mg PO BID [facility] Stop: 05/14/18 11:46 Nebivolol (Bystolic) 20 mg PO DAILY [facility] Last Admin: 05/11/18 11:17 Dose: 20 mg Pantoprazole Sodium (Protonix Ec Tab) 40 mg PO DAILY [facility] Last Admin: 05/11/18 11:40 Dose: Not Given Sevelamer Carbonate (Renvela) 800 mg PO TIDCC [facility] Sitagliptin Phosphate (Januvia) 25 mg PO DAILY [facility] Sodium Bicarbonate (Sodium Bicarbonate Tab) 650 mg PO BID [facility] Last Admin: 05/11/18 11:17 Dose: 650 mg Vitamin B Complex/Vit C/Folic Acid (Nephro-Monie) 1 tab PO 0800 [facility] Physical Exam - Constitutional Appears: No Acute Distress - Head Exam Head Exam: ATRAUMATIC, NORMOCEPHALIC - Eye Exam Eye Exam: Normal appearance - ENT Exam ENT Exam: Mucous Membranes Moist - Respiratory Exam Respiratory Exam: Rales (b/l lung welch ) - Cardiovascular Exam Cardiovascular Exam: Tachycardia - GI/Abdominal Exam GI & Abdominal Exam: Soft. absent: Distended - Neurological Exam Neurological exam: Alert, Oriented x3 - Skin Skin Exam: Dry, Warm Results - Vital Signs Recent Vital Signs: Last Vital Signs Temp 98 F 05/11/18 09:45 Pulse 102 H 05/11/18 12:40 Resp 20 05/11/18 09:45 BP 229/149 H 05/11/18 13:29 Pulse Ox 96 05/11/18 09:45 - Labs Result Diagrams: 05/11/18 05:24 05/11/18 05:24 Labs: Laboratory Results - last 24 hr 05/10/18 05/10/18 05/10/18 16:18 16:56 16:56 WBC 11.4 H RBC 3.74 L Hgb 10.0 L D Hct 32.5 L MCV 87.0 D MCH 26.6 L MCHC 30.6 L RDW 21.1 H Plt Count 288 MPV 8.9 Neut % (Auto) 82.4 H Lymph % (Auto) 12.0 L [place] % (Auto) 4.6 Eos % (Auto) 0.3 Baso % (Auto) 0.7 Neut # (Auto) 9.4 H Lymph # (Auto) 1.4 [place] # (Auto) 0.5 Eos # (Auto) 0.0 Baso # (Auto) 0.1 PT 11.1 INR 1.0 APTT 30 Puncture Site pCO2 pO2 HCO3 ABG pH ABG Total CO2 ABG O2 Saturation ABG Base Excess Trent Test ABG Potassium A-a O2 Difference Respiratory Index Glucose Lactate Vent Mode FiO2 Inspiratory BiPAP Expiratory BiPAP Sodium Potassium Chloride Carbon Dioxide Anion Gap BUN Creatinine Est GFR ( Amer) Est GFR (Non-Af Amer) POC Glucose (mg/dL) 202 H Random Glucose Calcium Total Bilirubin AST ALT Alkaline Phosphatase Troponin I NT-Pro-B Natriuret Pep Total Protein Albumin Globulin Albumin/Globulin Ratio Arterial Blood Potassium 05/10/18 05/10/18 05/11/18 16:56 17:11 05:24 WBC 6.6 RBC 3.14 L Hgb 8.4 L Hct 27.1 L MCV 86.4 MCH 26.7 L MCHC 31.0 L RDW 20.5 H Plt Count 226 MPV 8.0 Neut % (Auto) 65.0 Lymph % (Auto) 26.3 [place] % (Auto) 5.7 Eos % (Auto) 0.8 Baso % (Auto) 2.2 H Neut # (Auto) 4.3 Lymph # (Auto) 1.7 [place] # (Auto) 0.4 Eos # (Auto) 0.1 Baso # (Auto) 0.1 PT INR APTT Puncture Site Rba pCO2 39 pO2 342 H HCO3 23.0 ABG pH 7.37 ABG Total CO2 23.7 ABG O2 Saturation 99.0 H ABG Base Excess -2.5 L Trent Test Na ABG Potassium 3.6 A-a O2 Difference 322.0 Respiratory Index 0.9 Glucose 186 H Lactate 1.1 Vent Mode Bipap FiO2 100.0 Inspiratory BiPAP 12 Expiratory BiPAP 6 Sodium 138 143.0 Potassium 4.6 Chloride 108 H 111.0 H Carbon Dioxide 19 L Anion Gap 16 BUN 64 H Creatinine 5.2 H Est GFR ( Amer) 10 Est GFR (Non-Af Amer) 8 POC Glucose (mg/dL) Random Glucose 200 H D Calcium 10.1 Total Bilirubin 0.8 AST 34 ALT 9 D Alkaline Phosphatase 69 Troponin I 0.0420 NT-Pro-B Natriuret Pep 15460 H Total Protein 8.0 Albumin 3.8 Globulin 4.2 H Albumin/Globulin Ratio 0.9 L Arterial Blood Potassium 3.6 05/11/18 05/11/18 05/11/18 05:24 07:22 11:44 WBC RBC Hgb Hct MCV MCH MCHC RDW Plt Count MPV Neut % (Auto) Lymph % (Auto) [place] % (Auto) Eos % (Auto) Baso % (Auto) Neut # (Auto) Lymph # (Auto) [place] # (Auto) Eos # (Auto) Baso # (Auto) PT INR APTT Puncture Site pCO2 pO2 HCO3 ABG pH ABG Total CO2 ABG O2 Saturation ABG Base Excess Trent Test ABG Potassium A-a O2 Difference Respiratory Index Glucose Lactate Vent Mode FiO2 Inspiratory BiPAP Expiratory BiPAP Sodium 141 Potassium 3.8 Chloride 108 H Carbon Dioxide 26 Anion Gap 10 BUN 66 H Creatinine 5.5 H Est GFR ( Amer) 9 Est GFR (Non-Af Amer) 7 POC Glucose (mg/dL) 116 H 151 H Random Glucose 115 H D Calcium 9.6 Total Bilirubin 0.5 AST 20 ALT 16 Alkaline Phosphatase 60 Troponin I NT-Pro-B Natriuret Pep Total Protein 6.5 Albumin 3.1 L Globulin 3.5 Albumin/Globulin Ratio 0.9 L Arterial Blood Potassium 05/11/18 12:37 WBC RBC Hgb Hct MCV MCH MCHC RDW Plt Count MPV Neut % (Auto) Lymph % (Auto) [place] % (Auto) Eos % (Auto) Baso % (Auto) Neut # (Auto) Lymph # (Auto) [place] # (Auto) Eos # (Auto) Baso # (Auto) PT INR APTT Puncture Site pCO2 pO2 HCO3 ABG pH ABG Total CO2 ABG O2 Saturation ABG Base Excess [place] Test ABG Potassium A-a O2 Difference Respiratory Index Glucose Lactate Vent Mode FiO2 Inspiratory BiPAP Expiratory BiPAP Sodium Potassium Chloride Carbon Dioxide Anion Gap BUN Creatinine Est GFR ( Amer) Est GFR (Non-Af Amer) POC Glucose (mg/dL) 241 H Random Glucose Calcium Total Bilirubin AST ALT Alkaline Phosphatase Troponin I NT-Pro-B Natriuret Pep Total Protein Albumin Globulin Albumin/Globulin Ratio Arterial Blood Potassium Assessment & Plan - Assessment and Plan (Free Text) Assessment: 83F with CKD; eval for HD access Plan: - plan for permacath in AM - keep NPO after midnight - d/w Dr. Courtney Estrada
--- NOTE | 2018-05-11 14:52 | CP.PCM.CON ---
History of Present Illness - History of Present Illness History of Present Illness: Nephrology Consultation Note: Assessment: critical HTN emergency with pulm edema Diabetic chronic Kidney Disease (E11.22) Hypertensive Chronic Kidney Disease (I12.0) CKD 5 Anemia (D64.9), Hyperphosphatemia (E83.39), Secondary Hyperparathyroidism (E21.1), HTN (I12.0) Plan: attempting diuresis with lasix and metolazone dialysis initiation is indicated. Will plan for HD today as ordered. Will plan for dialysis tomorrow also. Continue with Nephrovite 1 tab/day. PRBC as needed for anemia. on [place] with dialysis as last Hb 8.4. added IV iron as TSAT 20% ferritin 145 Continue with phos binders, last phos level: check discontinue with calcitriol as last PTH 45. once monthly vit D supplement as last level 28 BP control with meds as ordered. Patient not on RAAS elisa as with advanced CKD Glycemic control, Dialysis consistent diet Further work up/management as per primary team Dose meds/antibiotics (if needed) for ESRD status. Avoid fleets enema/magnesium based laxatives. SW for outpt HD placement. Thanks for allowing me to participate in care of your patient. Will follow patient with you. Please call if any Qs. had d/w team Dr Dino Paredes Office: [phone] Chief Complaint;shortness of breath HPI: Pt is a 83 F with hx ofCKF 5 with maturing AVF, chronic anemia, hyperphosphatemia, secondary hyperparathyroidism, Diabetes Mellitus, hypertension presented with complaints of worsening SOB and found to have HTN emergency with pulm edema Renal consult requested for CKD 5 management. pt c/o SOB on exertion. has mild cough. able to make urine normal appetite. no fever ROS: Cardiovascular: No chest pain. Pulmonary: c/o shortness of breath Gastrointestinal: denies abdominal pain No nausea. No vomiting. Genitourinary: No pain while urinating. Denies blood in urine. All other negative except as mentioned in HPI Physical Examination: General Appearance: Comfortable, in no acute respiratory distress, co-operative . Vitals reviewed and noted as below Head; Atraumatic, normocephalic ENT: no ulcers no thrush. Tongue is midline. Oropharynx: no rash or ulcers. EYES: Pupils are equal, round and reactive to light accommodation. Eye muscles and extraocular movement intact. Sclera is anicteric. Neck; supple no lymphadenopathy, no thyromegaly or bruit Lungs: Increased respiratory rate/effort. Breath sounds bilateral reduced at bases with crackles Heart: Normal rate. s1s2 normal. No rub or gallop. Extremities: 1+ edema. No varicose veins Neurological: Patient is alert, awake and oriented to person, place and time. No focal deficit. Strength bilateral appropriate and equal Skin: Warm and dry. Normal turgor. No rash. Palpitation: Normal elasticity for age Abdomen: Abdomen is soft. Bowel sounds +. There is no abdominal tenderness, no guarding/rigidity or organomegaly Psych: normal insight and normal affect/mood MSK: no joint tenderness or swelling. Digits and nails normal, no deformity : kidney or bladder not palpable Access: left arm AVF maturing Labs/imaging reviewed. Past medical history, past surgical history, family history, social history, allergy reviewed and noted as below Family Hx: no hx of CKD. Non contributory Past Patient History - Infectious Disease Hx of Infectious Diseases: None - Past Medical History & Family History Past Medical History?: Yes - Past Social History Smoking Status: Never Smoked - CARDIAC Hx Hypercholesterolemia: Yes Hx Hypertension: Yes - PULMONARY Hx Respiratory Disorders: No - NEUROLOGICAL Hx Neurological Disorder: No - HEENT Hx HEENT Problems: Yes - RENAL Hx Chronic Kidney Disease: Yes Hx Renal Failure: Yes - ENDOCRINE/METABOLIC Hx Endocrine Disorders: Yes Hx Diabetes Mellitus Type 2: Yes - HEMATOLOGICAL/ONCOLOGICAL Hx Cancer: Yes (right breast cancer) Hx Chemotherapy: (+ radiation tx) - INTEGUMENTARY Hx Dermatological Problems: Yes Other/Comment: HX: "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." - MUSCULOSKELETAL/RHEUMATOLOGICAL Hx Falls: No Hx Gout: Yes (great toe) - GASTROINTESTINAL Hx Gastrointestinal Disorders: No - GENITOURINARY/GYNECOLOGICAL Hx Genitourinary Disorders: No - PSYCHIATRIC Hx Psychophysiologic Disorder: No Hx Substance Use: No - SURGICAL HISTORY Hx Arteriovenous Shunt: Yes (left arm 02-15-2018) Hx Cataract Extraction: Yes Other/Comment: right breast lumpectomy - ANESTHESIA Hx Anesthesia: Yes Hx Anesthesia Reactions: No Hx Malignant Hyperthermia: No Meds Allergies/Adverse Reactions: Allergies Allergy/AdvReac Type Severity Reaction Status Date / Time No Known Allergies Allergy Verified 05/10/18 18:45 - Medications Medications: Current Medications Amlodipine Besylate (Norvasc) 10 mg PO DAILY [facility] Last Admin: 05/11/18 11:17 Dose: 10 mg Clonidine HCl (Catapres) 0.2 mg PO TID [facility] Last Admin: 05/11/18 11:18 Dose: 0.2 mg Clonidine HCl (Catapres Tts1 0.1 Mg/24 Hr) 1 patch TD QWK [facility] Last Admin: 05/11/18 13:29 Dose: 1 patch Dextrose (Dextrose 50% Inj) 0 ml IV STAT PRN; Protocol PRN Reason: Hypoglycemia Protocol Dextrose (Glutose 15) 0 gm PO ONCE PRN; Protocol PRN Reason: Hypoglycemia Protocol Epoetin Spenser (Procrit) 10,000 unit SC MWF [facility] Famotidine (Pepcid) 20 mg PO DAILY [facility] Furosemide (Lasix) 60 mg IVP Q12 [facility] Last Admin: 05/10/18 21:42 Dose: 60 mg Glucagon (Glucagen Diagnostic Kit) 0 mg IM STAT PRN; Protocol PRN Reason: Hypoglycemia Protocol Heparin Sodium (Porcine) (Heparin) 5,000 units SC Q12 [facility] Last Admin: 05/11/18 11:20 Dose: 5,000 units Home Med (Febuxostat [Uloric]) 80 mg PO DAILY [facility] Hydralazine HCl (Apresoline) 100 mg PO BID [facility] Dextrose (Dextrose 5% In Water 1000 Ml) 1,000 mls @ 0 mls/hr IV .Q0M PRN; Protocol PRN Reason: Hypoglycemia Protocol Ferric Sodium Gluconate Complex 125 mg/ Sodium Chloride 110 mls @ 110 mls/hr IVPB DAILY [facility] Stop: 05/20/18 10:01 Insulin Aspart (Novolog) 14 unit SC TIDAC [facility] Last Admin: 05/11/18 12:18 Dose: Not Given Insulin Glargine (Lantus) 10 unit SC QAM [facility] Last Admin: 05/11/18 11:24 Dose: 10 unit Metolazone (Zaroxolyn) 5 mg PO BID [facility] Stop: 05/14/18 11:46 Nebivolol (Bystolic) 20 mg PO DAILY [facility] Last Admin: 05/11/18 11:17 Dose: 20 mg Pantoprazole Sodium (Protonix Ec Tab) 40 mg PO DAILY [facility] Last Admin: 05/11/18 11:40 Dose: Not Given Sevelamer Carbonate (Renvela) 800 mg PO TIDCC [facility] Sitagliptin Phosphate (Januvia) 25 mg PO DAILY [facility] Sodium Bicarbonate (Sodium Bicarbonate Tab) 650 mg PO BID [facility] Last Admin: 05/11/18 11:17 Dose: 650 mg Vitamin B Complex/Vit C/Folic Acid (Nephro-Monie) 1 tab PO 0800 [facility] Results - Vital Signs Recent Vital Signs: Last Vital Signs Temp 98 F 05/11/18 09:45 Pulse 102 H 05/11/18 14:35 Resp 20 05/11/18 09:45 BP 229/149 H 05/11/18 13:29 Pulse Ox 96 05/11/18 09:45 - Labs Result Diagrams: 05/11/18 05:24 05/11/18 05:24 Labs: Laboratory Results - last 24 hr 05/10/18 05/10/18 05/10/18 16:18 16:56 16:56 WBC 11.4 H RBC 3.74 L Hgb 10.0 L D Hct 32.5 L MCV 87.0 D MCH 26.6 L MCHC 30.6 L RDW 21.1 H Plt Count 288 MPV 8.9 Neut % (Auto) 82.4 H Lymph % (Auto) 12.0 L [place] % (Auto) 4.6 Eos % (Auto) 0.3 Baso % (Auto) 0.7 Neut # (Auto) 9.4 H Lymph # (Auto) 1.4 [place] # (Auto) 0.5 Eos # (Auto) 0.0 Baso # (Auto) 0.1 PT 11.1 INR 1.0 APTT 30 Puncture Site pCO2 pO2 HCO3 ABG pH ABG Total CO2 ABG O2 Saturation ABG Base Excess Trent Test ABG Potassium A-a O2 Difference Respiratory Index Glucose Lactate Vent Mode FiO2 Inspiratory BiPAP Expiratory BiPAP Sodium Potassium Chloride Carbon Dioxide Anion Gap BUN Creatinine Est GFR ( Amer) Est GFR (Non-Af Amer) POC Glucose (mg/dL) 202 H Random Glucose Calcium Total Bilirubin AST ALT Alkaline Phosphatase Total Creatine Kinase Troponin I NT-Pro-B Natriuret Pep Total Protein Albumin Globulin Albumin/Globulin Ratio Arterial Blood Potassium 05/10/18 05/10/18 05/11/18 16:56 17:11 05:24 WBC 6.6 RBC 3.14 L Hgb 8.4 L Hct 27.1 L MCV 86.4 MCH 26.7 L MCHC 31.0 L RDW 20.5 H Plt Count 226 MPV 8.0 Neut % (Auto) 65.0 Lymph % (Auto) 26.3 [place] % (Auto) 5.7 Eos % (Auto) 0.8 Baso % (Auto) 2.2 H Neut # (Auto) 4.3 Lymph # (Auto) 1.7 [place] # (Auto) 0.4 Eos # (Auto) 0.1 Baso # (Auto) 0.1 PT INR APTT Puncture Site Rba pCO2 39 pO2 342 H HCO3 23.0 ABG pH 7.37 ABG Total CO2 23.7 ABG O2 Saturation 99.0 H ABG Base Excess -2.5 L Trent Test Na ABG Potassium 3.6 A-a O2 Difference 322.0 Respiratory Index 0.9 Glucose 186 H Lactate 1.1 Vent Mode Bipap FiO2 100.0 Inspiratory BiPAP 12 Expiratory BiPAP 6 Sodium 138 143.0 Potassium 4.6 Chloride 108 H 111.0 H Carbon Dioxide 19 L Anion Gap 16 BUN 64 H Creatinine 5.2 H Est GFR ( Amer) 10 Est GFR (Non-Af Amer) 8 POC Glucose (mg/dL) Random Glucose 200 H D Calcium 10.1 Total Bilirubin 0.8 AST 34 ALT 9 D Alkaline Phosphatase 69 Total Creatine Kinase Troponin I 0.0420 NT-Pro-B Natriuret Pep 59066 H Total Protein 8.0 Albumin 3.8 Globulin 4.2 H Albumin/Globulin Ratio 0.9 L Arterial Blood Potassium 3.6 05/11/18 05/11/18 05/11/18 05:24 07:22 11:44 WBC RBC Hgb Hct MCV MCH MCHC RDW Plt Count MPV Neut % (Auto) Lymph % (Auto) [place] % (Auto) Eos % (Auto) Baso % (Auto) Neut # (Auto) Lymph # (Auto) [place] # (Auto) Eos # (Auto) Baso # (Auto) PT INR APTT Puncture Site pCO2 pO2 HCO3 ABG pH ABG Total CO2 ABG O2 Saturation ABG Base Excess [place] Test ABG Potassium A-a O2 Difference Respiratory Index Glucose Lactate Vent Mode FiO2 Inspiratory BiPAP Expiratory BiPAP Sodium 141 Potassium 3.8 Chloride 108 H Carbon Dioxide 26 Anion Gap 10 BUN 66 H Creatinine 5.5 H Est GFR ( Amer) 9 Est GFR (Non-Af Amer) 7 POC Glucose (mg/dL) 116 H 151 H Random Glucose 115 H D Calcium 9.6 Total Bilirubin 0.5 AST 20 ALT 16 Alkaline Phosphatase 60 Total Creatine Kinase Troponin I NT-Pro-B Natriuret Pep Total Protein 6.5 Albumin 3.1 L Globulin 3.5 Albumin/Globulin Ratio 0.9 L Arterial Blood Potassium 05/11/18 05/11/18 12:37 14:15 WBC RBC Hgb Hct MCV MCH MCHC RDW Plt Count MPV Neut % (Auto) Lymph % (Auto) [place] % (Auto) Eos % (Auto) Baso % (Auto) Neut # (Auto) Lymph # (Auto) [place] # (Auto) Eos # (Auto) Baso # (Auto) PT INR APTT Puncture Site pCO2 pO2 HCO3 ABG pH ABG Total CO2 ABG O2 Saturation ABG Base Excess [place] Test ABG Potassium A-a O2 Difference Respiratory Index Glucose Lactate Vent Mode FiO2 Inspiratory BiPAP Expiratory BiPAP Sodium Potassium Chloride Carbon Dioxide Anion Gap BUN Creatinine Est GFR ( Amer) Est GFR (Non-Af Amer) POC Glucose (mg/dL) 241 H Random Glucose Calcium Total Bilirubin AST ALT Alkaline Phosphatase Total Creatine Kinase 37 Troponin I NT-Pro-B Natriuret Pep Total Protein Albumin Globulin Albumin/Globulin Ratio Arterial Blood Potassium
[2018-05-11 14:54] LABS: CK-MB 2.72 ng/mL (0.0-3.38)
[2018-05-11] MEDS: Ferric Sodium Gluconat Complex 125 MG in Sodium Chloride 0.9% 100 ML IVPB SCH (15:02)
[2018-05-11] MEDS: metOLazone 5 MG TAB PO SCH ×2 (15:02→17:15)
[2018-05-11 15:26] LABS: TROPONIN I 1.36 ng/mL (0.00-0.120)
--- NOTE | 2018-05-11 15:58 | CP.PCM.PN ---
Subjective - Date & Time of Evaluation Date of Evaluation: 05/11/18 Time of Evaluation: 15:52 - Subjective Subjective: PGY-1 Medicine Progress Note for Dr. Baltazar Patient seen and examined at bedside earlier this AM, resting comfortably on NC in no acute distress. Patient endorsed improved sob. She denied any chest pain, palpitations, cough, abdominal pain, n/v/d/c. Pt has never been on HD but recently had an AVF placed in the L arm which is not matured yet. 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 Pt was on 2L NC, saturating 90%. Pt placed on BiPaP, saturating at 100%. BP 229/149. Unable to give IV medications due to no IV access. Pt was unable to receive IV mediations due to poor IV access. Clonidine patch was ordered. Patient was also given Lasix 80mg PO x 1. STAT CXR, JOSE RAUL panel and EKG ordered. General surgery was paged STAT for possible shiley placement as patient is in need of dialysis. Patient transferred to the ICU for closer monitoring. Family members were at the bedside and are aware of the events and plan. Objective - Vital Signs/Intake and Output Vital Signs (last 24 hours): Temp Pulse Resp BP Pulse Ox 98 F 102 H 20 229/149 H 96 05/11/18 09:45 05/11/18 14:35 05/11/18 09:45 05/11/18 13:29 05/11/18 09:45 - Medications Medications: Current Medications Amlodipine Besylate (Norvasc) 10 mg PO DAILY [facility] Last Admin: 05/11/18 11:17 Dose: 10 mg Clonidine HCl (Catapres) 0.2 mg PO TID [facility] Last Admin: 05/11/18 15:02 Dose: 0.2 mg Clonidine HCl (Catapres Tts1 0.1 Mg/24 Hr) 1 patch TD QWK [facility] Last Admin: 05/11/18 13:29 Dose: 1 patch Dextrose (Dextrose 50% Inj) 0 ml IV STAT PRN; Protocol PRN Reason: Hypoglycemia Protocol Dextrose (Glutose 15) 0 gm PO ONCE PRN; Protocol PRN Reason: Hypoglycemia Protocol Epoetin Spenser (Procrit) 10,000 unit IV TTS [facility] Stop: 05/25/18 10:01 Famotidine (Pepcid) 20 mg PO DAILY [facility] Furosemide (Lasix) 60 mg IVP Q12 [facility] Last Admin: 05/10/18 21:42 Dose: 60 mg Glucagon (Glucagen Diagnostic Kit) 0 mg IM STAT PRN; Protocol PRN Reason: Hypoglycemia Protocol Heparin Sodium (Porcine) (Heparin) 5,000 units SC Q12 [facility] Last Admin: 05/11/18 11:20 Dose: 5,000 units Home Med (Febuxostat [Uloric]) 80 mg PO DAILY [facility] Hydralazine HCl (Apresoline) 100 mg PO BID [facility] Dextrose (Dextrose 5% In Water 1000 Ml) 1,000 mls @ 0 mls/hr IV .Q0M PRN; Protocol PRN Reason: Hypoglycemia Protocol Ferric Sodium Gluconate Complex 125 mg/ Sodium Chloride 110 mls @ 110 mls/hr IVPB DAILY [facility] Stop: 05/20/18 10:01 Last Admin: 05/11/18 15:02 Dose: 110 mls/hr Insulin Aspart (Novolog) 14 unit SC TIDAC [facility] Last Admin: 05/11/18 12:18 Dose: Not Given Insulin Glargine (Lantus) 10 unit SC QAM [facility] Last Admin: 05/11/18 11:24 Dose: 10 unit Metolazone (Zaroxolyn) 5 mg PO BID [facility] Stop: 05/14/18 11:46 Last Admin: 05/11/18 15:02 Dose: 5 mg Nebivolol (Bystolic) 20 mg PO DAILY [facility] Last Admin: 05/11/18 11:17 Dose: 20 mg Pantoprazole Sodium (Protonix Ec Tab) 40 mg PO DAILY [facility] Last Admin: 05/11/18 11:40 Dose: Not Given Sevelamer Carbonate (Renvela) 800 mg PO TIDCC [facility] Last Admin: 05/11/18 15:02 Dose: 800 mg Sitagliptin Phosphate (Januvia) 25 mg PO DAILY [facility] Vitamin B Complex/Vit C/Folic Acid (Nephro-Monie) 1 tab PO 0800 [facility] - Labs Labs: 05/11/18 05:24 05/11/18 05:24 PT 11.1 SECONDS (9.7-12.2) 05/10/18 16:56 INR 1.0 05/10/18 16:56 APTT 30 SECONDS (21-34) 05/10/18 16:56 - Constitutional Appears: In Acute Distress - Head Exam Head Exam: ATRAUMATIC, NORMAL INSPECTION, NORMOCEPHALIC - Eye Exam Eye Exam: EOMI, Normal appearance Pupil Exam: NORMAL ACCOMODATION - Neck Exam Neck Exam: Full ROM, Normal Inspection. absent: Tenderness - Respiratory Exam Respiratory Exam: Accessory Muscle Use, Decreased Breath Sounds, Respiratory Distress. absent: Rhonchi, Wheezes, Stridor - Cardiovascular Exam Cardiovascular Exam: REGULAR RHYTHM, +S1, +S2 - GI/Abdominal Exam GI & Abdominal Exam: Soft, Normal Bowel Sounds. absent: Distended, Firm, Guarding, Rigid, Tenderness, Organomegaly, Rebound - Extremities Exam Extremities Exam: Full ROM, Normal Capillary Refill, Normal Inspection, Pedal Edema. absent: Calf Tenderness Additional comments: L AVF - Back Exam Back Exam: NORMAL INSPECTION - Neurological Exam Neurological Exam: Alert, Awake, Oriented x3 - Skin Skin Exam: Dry, Intact, Normal Color, Warm Assessment and Plan - Assessment and Plan (Free Text) Assessment: 83 year old F with PMHx of CHF, CKD s/p AVF not on dialysis, gout, HTN who was admitted for shortness of breath and wheezing. 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 Plan: SOB likely 2/2 CHF exacerbation Acute respiratory distress, hypoxia likely 2/2 flash pulmonary edema -Clonidine patch ordered -Lasix 80mg PO x 1 given -STAT EKG and CXR ordered -F/U troponins -Continue bipap -Discussed case with General surgery who will take patient for permacath placement today -Patient to be transferred to the ICU for further monitoring HTN -Norvasc 10 mg PO daily -Clonidine 0.2 mg PO TID [facility] -Clonidine patch 1 patch TD QWK [facility] -Hydralazine 100 mg PO BID [facility] -Bystolic 20 mg PO Daily [facility] DM -continue lantus -januvia 50mg po qd -novolog 14u TIDAC -hypoglycemia protocol CKD, not on dialysis -Nephrology recs (Dr. Kay) appreciated -attempting diuresis with lasix and metolazone -dialysis initiation is indicated. Will plan for HD today as ordered. Will plan for dialysis tomorrow also. Continue with Nephrovite 1 tab/day. -PRBC as needed for anemia. on LAWSON with dialysis as last Hb 8.4. added IV iron as TSAT 20% ferritin 145 -d/c calcitriol as last PTH 45. once monthly vit D supplement as last level 28 -Surgical recs (Dr. Valdez) appreciated -plan for permacath in AM -NPO after midnight -continue home meds -avoid nephrotoxic drugs Ppx, Diet, Disposition -DVT ppx: heparin -GI ppx: pepcid -Diet: -Dispo: to be transferred to ICU for further monitoring Case discussed with Dr. Giovanny Rosas DO, PGY-1
--- NOTE | 2018-05-11 15:59 | RAD ---
HISTORY: SOB COMPARISON: Chest x-ray performed 04/09/18 and 05/10/18 TECHNIQUE: Chest, one view. FINDINGS: LUNGS: Moderate venous congestion. Central vascular prominence. Please note that chest x-ray has limited sensitivity for the detection of pulmonary masses. PLEURA: No significant pleural effusion identified. No definite pneumothorax . CARDIOVASCULAR: Cardiomegaly. No significant atherosclerotic calcification present. OSSEOUS STRUCTURES: Osseous demineralization. Degenerative changes. VISUALIZED UPPER ABDOMEN: Unremarkable. OTHER FINDINGS: Right axillary clips. Lobulated hypodensities projects over the soft tissues of the right breast, possibly calcifications. Correlate clinically. IMPRESSION: Moderate pulmonary venous congestion. Central vascular prominence. Cardiomegaly. Right axillary clips. Lobulated hyperdensities project over the soft tissues of the right breast, possibly calcifications. Correlate clinically.
--- NOTE | 2018-05-11 17:55 | CP.PCM.CON ---
<Thao Alegre - Last Filed: 05/11/18 17:51> History of Present Illness - History of Present Illness History of Present Illness: Critical Care Progress Note for Dr. Noonan's service CC: elevated blood pressure HPI: Patient is an 83 yo female w/ PMH HTN, DM2, HLD, gout, breast cancer s/p partial lumpectomy, CKD s/p AVF not on dialysis, admitted with complaints of S OB, wheezing, diaphoresis. ICU was consulted for emergent dialysis and elevated blood pressures and respiratory distress. Patient's blood pressure was 259/111 during rapid response. Patient pending permatcathc placement in AM with vascular team. Patient will need optimization so TLC will be inserted with dialysis access. Upon arrival, patient was on bipap tolerating well with no shortness of breath. Patient's blood pressure after transfer has been controlled. Patient will receive dialysis treatment as per nephrology prior to procedure in AM. Patient denies fevers, chills, chest pain, sob, n/v, constipation or diarrhea, and dysuria. PMD: Dr. Macedo, Nephro: Dr. Kay, Vascular: Dr. Valdez PMHx: HTN, DM2, HLD, breast cancer, CKD, gout PSHx: L sided AVF, partial lumpectomy, left elbow effusion aspiration Social Hx: social alcohol consumption, formal smoker quit 30 years ago. 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 Allergy: NKDA Family History: none Medication: Lasix 40mg, clonidine 0.2mg TID, januvia 50mg, lantus solo star 10u daily, protonix 40mg Review of Systems - Review of Systems Review of Systems: 12 point ROS obtained and noted as in HPI Past Patient History - Infectious Disease Hx of Infectious Diseases: None - Past Medical History & Family History Past Medical History?: Yes - Past Social History Smoking Status: Never Smoked - CARDIAC Hx Hypercholesterolemia: Yes Hx Hypertension: Yes - PULMONARY Hx Respiratory Disorders: No - NEUROLOGICAL Hx Neurological Disorder: No - HEENT Hx HEENT Problems: Yes - RENAL Hx Chronic Kidney Disease: Yes Hx Renal Failure: Yes - ENDOCRINE/METABOLIC Hx Endocrine Disorders: Yes Hx Diabetes Mellitus Type 2: Yes - HEMATOLOGICAL/ONCOLOGICAL Hx Cancer: Yes (right breast cancer) Hx Chemotherapy: (+ radiation tx) - INTEGUMENTARY Hx Dermatological Problems: Yes Other/Comment: HX: "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." - MUSCULOSKELETAL/RHEUMATOLOGICAL Hx Falls: No Hx Gout: Yes (great toe) - GASTROINTESTINAL Hx Gastrointestinal Disorders: No - GENITOURINARY/GYNECOLOGICAL Hx Genitourinary Disorders: No - PSYCHIATRIC Hx Psychophysiologic Disorder: No Hx Substance Use: No - SURGICAL HISTORY Hx Arteriovenous Shunt: Yes (left arm 02-15-2018) Hx Cataract Extraction: Yes Other/Comment: right breast lumpectomy - ANESTHESIA Hx Anesthesia: Yes Hx Anesthesia Reactions: No Hx Malignant Hyperthermia: No Meds Allergies/Adverse Reactions: Allergies Allergy/AdvReac Type Severity Reaction Status Date / Time No Known Allergies Allergy Verified 05/10/18 18:45 - Medications Medications: Current Medications Amlodipine Besylate (Norvasc) 10 mg PO DAILY [facility] Last Admin: 05/11/18 11:17 Dose: 10 mg Clonidine HCl (Catapres) 0.2 mg PO TID [facility] Last Admin: 05/11/18 17:15 Dose: 0.2 mg Clonidine HCl (Catapres Tts1 0.1 Mg/24 Hr) 1 patch TD QWK [facility] Last Admin: 05/11/18 13:29 Dose: 1 patch Dextrose (Dextrose 50% Inj) 0 ml IV STAT PRN; Protocol PRN Reason: Hypoglycemia Protocol Dextrose (Glutose 15) 0 gm PO ONCE PRN; Protocol PRN Reason: Hypoglycemia Protocol Epoetin Spenser (Procrit) 10,000 unit IV TTS [facility] Stop: 05/25/18 10:01 Famotidine (Pepcid) 20 mg PO DAILY [facility] Furosemide (Lasix) 60 mg IVP Q12 [facility] Last Admin: 05/10/18 21:42 Dose: 60 mg Glucagon (Glucagen Diagnostic Kit) 0 mg IM STAT PRN; Protocol PRN Reason: Hypoglycemia Protocol Heparin Sodium (Porcine) (Heparin) 5,000 units SC Q12 [facility] Last Admin: 05/11/18 11:20 Dose: 5,000 units Home Med (Febuxostat [Uloric]) 80 mg PO DAILY [facility] Hydralazine HCl (Apresoline) 100 mg PO BID [facility] Last Admin: 05/11/18 17:15 Dose: 100 mg Dextrose (Dextrose 5% In Water 1000 Ml) 1,000 mls @ 0 mls/hr IV .Q0M PRN; Protocol PRN Reason: Hypoglycemia Protocol Ferric Sodium Gluconate Complex 125 mg/ Sodium Chloride 110 mls @ 110 mls/hr IVPB DAILY [facility] Stop: 05/20/18 10:01 Last Admin: 05/11/18 15:02 Dose: 110 mls/hr Insulin Aspart (Novolog) 14 unit SC TIDAC [facility] Last Admin: 05/11/18 17:29 Dose: 14 unit Insulin Glargine (Lantus) 10 unit SC QAM [facility] Last Admin: 05/11/18 11:24 Dose: 10 unit Metolazone (Zaroxolyn) 5 mg PO BID [facility] Stop: 05/14/18 11:46 Last Admin: 05/11/18 17:15 Dose: 5 mg Nebivolol (Bystolic) 20 mg PO DAILY [facility] Last Admin: 05/11/18 11:17 Dose: 20 mg Pantoprazole Sodium (Protonix Ec Tab) 40 mg PO DAILY [facility] Last Admin: 05/11/18 11:40 Dose: Not Given Sevelamer Carbonate (Renvela) 800 mg PO TIDCC [facility] Last Admin: 05/11/18 17:15 Dose: 800 mg Sitagliptin Phosphate (Januvia) 25 mg PO DAILY [facility] Vitamin B Complex/Vit C/Folic Acid (Nephro-Monie) 1 tab PO 0800 [facility] Physical Exam - Constitutional Appears: Non-toxic, No Acute Distress - Head Exam Head Exam: NORMAL INSPECTION, NORMOCEPHALIC - Eye Exam Eye Exam: EOMI, Normal appearance. absent: Nystagmus, Scleral icterus - ENT Exam ENT Exam: Mucous Membranes Moist - Respiratory Exam Respiratory Exam: Decreased Breath Sounds, NORMAL BREATHING PATTERN. absent: Clear to Auscultation Bilateral, Rales, Rhonchi, Wheezes, Respiratory Distress - Cardiovascular Exam Cardiovascular Exam: REGULAR RHYTHM, +S1, +S2. absent: Tachycardia - GI/Abdominal Exam GI & Abdominal Exam: Normal Bowel Sounds, Soft. absent: Diminished Bowel Sounds, Distended, Firm, Guarding, Tenderness - Extremities Exam Extremities exam: Positive for: normal inspection. Negative for: calf tenderness, pedal edema - Neurological Exam Neurological exam: Alert, Oriented x3 - Psychiatric Exam Psychiatric exam: Normal Affect, Normal Mood - Skin Skin Exam: Dry, Intact, Normal Color Results - Vital Signs Recent Vital Signs: Last Vital Signs Temp 98 F 05/11/18 09:45 Pulse 56 L 05/11/18 16:30 Resp 20 05/11/18 09:45 BP 229/149 H 05/11/18 13:29 Pulse Ox 96 05/11/18 09:45 - Labs Result Diagrams: 05/11/18 05:24 05/11/18 05:24 Labs: Laboratory Results - last 24 hr 05/11/18 05/11/18 05/11/18 05:24 05:24 07:22 WBC 6.6 RBC 3.14 L Hgb 8.4 L Hct 27.1 L MCV 86.4 MCH 26.7 L MCHC 31.0 L RDW 20.5 H Plt Count 226 MPV 8.0 Neut % (Auto) 65.0 Lymph % (Auto) 26.3 Kent % (Auto) 5.7 Eos % (Auto) 0.8 Baso % (Auto) 2.2 H Neut # (Auto) 4.3 Lymph # (Auto) 1.7 Kent # (Auto) 0.4 Eos # (Auto) 0.1 Baso # (Auto) 0.1 Sodium 141 Potassium 3.8 Chloride 108 H Carbon Dioxide 26 Anion Gap 10 BUN 66 H Creatinine 5.5 H Est GFR ( Amer) 9 Est GFR (Non-Af Amer) 7 POC Glucose (mg/dL) 116 H Random Glucose 115 H D Calcium 9.6 Total Bilirubin 0.5 AST 20 ALT 16 Alkaline Phosphatase 60 Total Creatine Kinase CK-MB (Mass) Troponin I Total Protein 6.5 Albumin 3.1 L Globulin 3.5 Albumin/Globulin Ratio 0.9 L 05/11/18 05/11/18 05/11/18 11:44 12:37 14:15 WBC RBC Hgb Hct MCV MCH MCHC RDW Plt Count MPV Neut % (Auto) Lymph % (Auto) Kent % (Auto) Eos % (Auto) Baso % (Auto) Neut # (Auto) Lymph # (Auto) Kent # (Auto) Eos # (Auto) Baso # (Auto) Sodium Potassium Chloride Carbon Dioxide Anion Gap BUN Creatinine Est GFR ( Amer) Est GFR (Non-Af Amer) POC Glucose (mg/dL) 151 H 241 H Random Glucose Calcium Total Bilirubin AST ALT Alkaline Phosphatase Total Creatine Kinase 37 CK-MB (Mass) 2.72 Troponin I 1.3600 H* Total Protein Albumin Globulin Albumin/Globulin Ratio 05/11/18 17:27 WBC RBC Hgb Hct MCV MCH MCHC RDW Plt Count MPV Neut % (Auto) Lymph % (Auto) Kent % (Auto) Eos % (Auto) Baso % (Auto) Neut # (Auto) Lymph # (Auto) Kent # (Auto) Eos # (Auto) Baso # (Auto) Sodium Potassium Chloride Carbon Dioxide Anion Gap BUN Creatinine Est GFR ( Amer) Est GFR (Non-Af Amer) POC Glucose (mg/dL) 113 H Random Glucose Calcium Total Bilirubin AST ALT Alkaline Phosphatase Total Creatine Kinase CK-MB (Mass) Troponin I Total Protein Albumin Globulin Albumin/Globulin Ratio Assessment & Plan - Assessment and Plan (Free Text) Assessment: Patient is a 83 yo female w/ PMH HTN, DM2, HLD, gout, breast cancer s/p partial lumpectomy, CKD s/p AVF not on dialysis admitted to ICU for shortness of breath and elevated blood pressures. Neuro AAOx3 no active issues Pulm on Bipap; adjust as per ICU team/RT maintain spo2>92% 05-11-18 CXR: moderate pulmonary venous congestion CV TLC for IV meds and dialysis access Lasix Amlodipine Clonidine tid; Clonidine patch Nebivolol Metolazone Hydralazine Renal Emergent dialysis as per nephro; placing access for dialysis in groin Sevelamer Ferric Sodium drip Nephrovite Ergocalciferol EPO x 6 doses on TTS Endo Insulin Aspart Glargine Januvia ID no acute issues DVT ppx: Heparin GI ppx: Pepcid Dispostion: 1x dialysis session to optimize prior to permacatch; continue blood pressure meds via IV/oral and dialysis tonight; permacath in AM; further management as per nephro; Remove TLC after permacath; Continue bipap Medical Management discussed with Dr. Noonan PGY-1 Thao Alegre <Roly Noonan - Last Filed: 05/11/18 21:08> Meds - Medications Medications: Current Medications Amlodipine Besylate (Norvasc) 10 mg PO DAILY [facility] Last Admin: 05/11/18 11:17 Dose: 10 mg Clonidine HCl (Catapres) 0.2 mg PO TID [facility] Last Admin: 05/11/18 17:15 Dose: 0.2 mg Clonidine HCl (Catapres Tts1 0.1 Mg/24 Hr) 1 patch TD QWK [facility] Last Admin: 05/11/18 13:29 Dose: 1 patch Dextrose (Dextrose 50% Inj) 0 ml IV STAT PRN; Protocol PRN Reason: Hypoglycemia Protocol Dextrose (Glutose 15) 0 gm PO ONCE PRN; Protocol PRN Reason: Hypoglycemia Protocol Epoetin Spenser (Procrit) 10,000 unit IV TTS [facility] Stop: 05/25/18 10:01 Famotidine (Pepcid) 20 mg PO DAILY [facility] Furosemide (Lasix) 60 mg IVP Q12 [facility] Last Admin: 05/10/18 21:42 Dose: 60 mg Glucagon (Glucagen Diagnostic Kit) 0 mg IM STAT PRN; Protocol PRN Reason: Hypoglycemia Protocol Heparin Sodium (Porcine) (Heparin) 5,000 units SC Q12 [facility] Last Admin: 05/11/18 11:20 Dose: 5,000 units Home Med (Febuxostat [Uloric]) 80 mg PO DAILY [facility] Hydralazine HCl (Apresoline) 100 mg PO BID [facility] Last Admin: 05/11/18 17:15 Dose: 100 mg Dextrose (Dextrose 5% In Water 1000 Ml) 1,000 mls @ 0 mls/hr IV .Q0M PRN; Protocol PRN Reason: Hypoglycemia Protocol Ferric Sodium Gluconate Complex 125 mg/ Sodium Chloride 110 mls @ 110 mls/hr IVPB DAILY [facility] Stop: 05/20/18 10:01 Last Admin: 05/11/18 15:02 Dose: 110 mls/hr Insulin Aspart (Novolog) 14 unit SC TIDAC [facility] Last Admin: 05/11/18 17:29 Dose: 14 unit Insulin Glargine (Lantus) 10 unit SC QAM [facility] Last Admin: 05/11/18 11:24 Dose: 10 unit Metolazone (Zaroxolyn) 5 mg PO BID [facility] Stop: 05/14/18 11:46 Last Admin: 05/11/18 17:15 Dose: 5 mg Nebivolol (Bystolic) 20 mg PO DAILY [facility] Last Admin: 05/11/18 11:17 Dose: 20 mg Pantoprazole Sodium (Protonix Ec Tab) 40 mg PO DAILY [facility] Last Admin: 05/11/18 11:40 Dose: Not Given Sevelamer Carbonate (Renvela) 800 mg PO TIDCC [facility] Last Admin: 05/11/18 17:15 Dose: 800 mg Sitagliptin Phosphate (Januvia) 25 mg PO DAILY [facility] Vitamin B Complex/Vit C/Folic Acid (Nephro-Monie) 1 tab PO 0800 [facility] Results - Vital Signs Recent Vital Signs: Last Vital Signs Temp 98.1 F 05/11/18 20:20 Pulse 60 05/11/18 20:10 Resp 24 05/11/18 20:20 BP 156/54 H 05/11/18 21:01 Pulse Ox 99 05/11/18 20:20 - Labs Result Diagrams: 05/11/18 05:24 05/11/18 05:24 Labs: Laboratory Results - last 24 hr 05/11/18 05/11/18 05/11/18 05:24 05:24 07:22 WBC 6.6 RBC 3.14 L Hgb 8.4 L Hct 27.1 L MCV 86.4 MCH 26.7 L MCHC 31.0 L RDW 20.5 H Plt Count 226 MPV 8.0 Neut % (Auto) 65.0 Lymph % (Auto) 26.3 Kent % (Auto) 5.7 Eos % (Auto) 0.8 Baso % (Auto) 2.2 H Neut # (Auto) 4.3 Lymph # (Auto) 1.7 Kent # (Auto) 0.4 Eos # (Auto) 0.1 Baso # (Auto) 0.1 Sodium 141 Potassium 3.8 Chloride 108 H Carbon Dioxide 26 Anion Gap 10 BUN 66 H Creatinine 5.5 H Est GFR ( Amer) 9 Est GFR (Non-Af Amer) 7 POC Glucose (mg/dL) 116 H Random Glucose 115 H D Calcium 9.6 Total Bilirubin 0.5 AST 20 ALT 16 Alkaline Phosphatase 60 Total Creatine Kinase CK-MB (Mass) Troponin I Total Protein 6.5 Albumin 3.1 L Globulin 3.5 Albumin/Globulin Ratio 0.9 L 05/11/18 05/11/18 05/11/18 11:44 12:37 14:15 WBC RBC Hgb Hct MCV MCH MCHC RDW Plt Count MPV Neut % (Auto) Lymph % (Auto) Kent % (Auto) Eos % (Auto) Baso % (Auto) Neut # (Auto) Lymph # (Auto) Kent # (Auto) Eos # (Auto) Baso # (Auto) Sodium Potassium Chloride Carbon Dioxide Anion Gap BUN Creatinine Est GFR ( Amer) Est GFR (Non-Af Amer) POC Glucose (mg/dL) 151 H 241 H Random Glucose Calcium Total Bilirubin AST ALT Alkaline Phosphatase Total Creatine Kinase 37 CK-MB (Mass) 2.72 Troponin I 1.3600 H* Total Protein Albumin Globulin Albumin/Globulin Ratio 05/11/18 17:27 WBC RBC Hgb Hct MCV MCH MCHC RDW Plt Count MPV Neut % (Auto) Lymph % (Auto) Kent % (Auto) Eos % (Auto) Baso % (Auto) Neut # (Auto) Lymph # (Auto) Kent # (Auto) Eos # (Auto) Baso # (Auto) Sodium Potassium Chloride Carbon Dioxide Anion Gap BUN Creatinine Est GFR ( Amer) Est GFR (Non-Af Amer) POC Glucose (mg/dL) 113 H Random Glucose Calcium Total Bilirubin AST ALT Alkaline Phosphatase Total Creatine Kinase CK-MB (Mass) Troponin I Total Protein Albumin Globulin Albumin/Globulin Ratio Attending/Attestation - Attestation I have personally seen and examined this patient.: Yes I have fully participated in the care of the patient.: Yes I have reviewed all pertinent clinical information: Yes Notes (Text): 05/11/18 21:08 Today: May The Patient was seen and examined at the bedside, Medical records reviewed, and management issues were discussed and formulated with the house staff. I have reviewed all the relevant clinical, laboratory, hemodynamic, radiographic data and medications Events reviewed Pain issues, skin care, head of the bed elevation, glycemic control were addressed. Agree with above resident's assessment and treatment plans of care as transcribed in Dr. Alegre's note.
--- NOTE | 2018-05-11 21:10 | PCM.PROC ---
Procedures Attestation:: I certify that I have explained the specified Operation(s) or Procedure(s), risks, benefits and reasonable alternatives to the Patient and/or other person responsible. The opportunity was given to ask questions and all questions answered - Central Line Placement Right Femoral Triple Lumen Catheter Aseptic technique was employed throughout the procedure: Hand Hygiene done prior to procedure CVP Time Out Performed: Yes Pt. Placed on Pulse Ox Monitor: Yes Central Line Prep: Chlorhexidine-Alcohol Combination Local Anesthesia Used: Lidocaine 1% Ultrasound Used for Placement: Yes Central Line Lumen Inserted: triple Central Line Length: 20 cm Post Procedure: Sutured in Place, Good Blood Return, All Ports Aspirated, Flushed, Capped, Sterile Dressing Applied Secured by: Suture Post procedure dressing: Gauze, Clear vapor permeable, Chlorhexidine disc (Biopatch) Patient Tolerated Procedure: Well Immediate Complications: None
[2018-05-11 21:55] LABS: HEPATITIS B SURFACE AG Negative (NEGATIVE)
[2018-05-11 21:59] LABS: HEPATITIS B CORE AB NEGATIVE (NEGATIVE)
[2018-05-11 22:12] LABS: HEPATITIS C ANTIBODY NEGATIVE (NEGATIVE)
[2018-05-11] MEDS: Epoetin Alfa 10,000 unit/ml Dialysis IV SCH (23:06)
[2018-05-12 07:01] LABS: BASO % 0.6 % (0.0-2.0); EOS % 0.7 % (0.0-4.0); HEMOGLOBIN 9.1 g/dL (11.0-16.0); LYMPH # 1.8 K/uL (1.0-4.3); LYMPH % 26.3 % (20.0-40.0); MEAN CORPUSCULAR HEMOGLOBIN 27.5 pg (27.0-31.0); MEAN CORPUSCULAR HGB CONC 31.6 g/dL (33.0-37.0); MEAN PLATELET VOLUME 9.3 fL (7.2-11.7); MONO # 0.6 K/uL (0.0-0.8); MONO % 8.1 % (0.0-10.0); NEUT # 4.4 K/uL (1.8-7.0); NEUT % 64.3 % (50.0-75.0); NRBC % 0.3 % (0.0-2.0); RBC 3.3 Mil/uL (3.80-5.20); RED CELL DISTRIBUTION WIDTH 20.1 % (11.5-14.5); WHITE BLOOD COUNT 6.9 K/uL (4.8-10.8)
[2018-05-12 07:14] LABS: ALB/GLOB RATIO 0.9 (1.0-2.1); ALBUMIN 3.3 g/dL (3.5-5.0); CALCIUM 9.1 mg/dl (8.6-10.4)
[2018-05-12] MEDS: (Novolog) Insulin Aspart, Recombinant 100 u/ml 10 ml vial SC SCH ×3 (07:48→16:30)
[2018-05-12] MEDS: Multivitamin Vitamin B Complex (Nephro-Vite) Tab PO SCH ×2 (08:30→18:21)
[2018-05-12] MEDS ORDERED: Epoetin Alfa 10,000 unit/ml Dialysis SC SCH (09:00)
[2018-05-12] MEDS: (Lantus) Insulin Glargine, Recombinant SC SCH (10:10)
[2018-05-12] MEDS: Ferric Sodium Gluconat Complex 125 MG in Sodium Chloride 0.9% 100 ML IVPB SCH (10:12)
[2018-05-12] MEDS: metOLazone 5 MG TAB PO SCH (10:30)
[2018-05-12] MEDS: Pantoprazole 40 mg EC Tab PO SCH (11:16)
--- NOTE | 2018-05-12 14:03 | CP.PCM.PN ---
Subjective - Date & Time of Evaluation Date of Evaluation: 05/12/18 Time of Evaluation: 13:58 - Subjective Subjective: Nephrology Consultation Note: Assessment: stable HTN emergency with pulm edema Diabetic chronic Kidney Disease (E11.22) Hypertensive Chronic Kidney Disease (I12.0) CKD 5 Anemia (D64.9), Hyperphosphatemia (E83.39), Secondary Hyperparathyroidism (E21.1), HTN (I12.0) Plan: HD today as ordered. Will plan for dialysis tomorrow also. Continue with Nephrovite 1 tab/day. PRBC as needed for anemia. on [facility] with dialysis as last Hb 9.1. added IV iron as TSAT 20% ferritin 145 Continue with phos binders, last phos level: check discontinue with calcitriol as last PTH 45. once monthly vit D supplement as last level 28 BP control with meds as ordered. Patient not on RAAS elisa as with advanced CKD. will pkan to add soon. change lasix to 80 mg MWF orally. if BP stays low, can consider to taper clonidine Glycemic control, Dialysis consistent diet Further work up/management as per primary team Dose meds/antibiotics (if needed) for ESRD status. Avoid fleets enema/magnesium based laxatives. SW for outpt HD placement. pt planned for permacath placement by vascular surgery. remove femoral catheter thereafter Thanks for allowing me to participate in care of your patient. Will follow patient with you. Please call if any Qs. had d/w team Dr Dino Paredes Office: [phone] Chief Complaint;shortness of breath HPI: Pt is a 83 F with hx ofCKF 5 with maturing AVF, chronic anemia, hyperphosphatemia, secondary hyperparathyroidism, Diabetes Mellitus, hypertension presented with complaints of worsening SOB and found to have HTN emergency with pulm edema Renal consult requested for CKD 5 management. pt c/o SOB on exertion. has mild cough. able to make urine normal appetite. 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 started HD 05/11/18 with temp access Cardiovascular: No chest pain. Pulmonary: no shortness of breath Gastrointestinal: denies abdominal pain No nausea. No vomiting. Genitourinary: No pain while urinating. Denies blood in urine. All other negative except as mentioned in HPI Physical Examination: General Appearance: Comfortable, in no acute respiratory distress, co-operative . Vitals reviewed and noted as below Head; Atraumatic, normocephalic ENT: no ulcers no thrush. Tongue is midline. Oropharynx: no rash or ulcers. EYES: Pupils are equal, round and reactive to light accommodation. Eye muscles and extraocular movement intact. Sclera is anicteric. Neck; supple no lymphadenopathy, no thyromegaly or bruit Lungs: Increased respiratory rate/effort. Breath sounds bilateral improved at bases and clearer Heart: Normal rate. s1s2 normal. No rub or gallop. Extremities: no edema. No varicose veins Neurological: Patient is alert, awake and oriented to person, place and time. No focal deficit. Strength bilateral appropriate and equal Skin: Warm and dry. Normal turgor. No rash. Palpitation: Normal elasticity for age Abdomen: Abdomen is soft. Bowel sounds +. There is no abdominal tenderness, no guarding/rigidity or organomegaly Psych: normal insight and normal affect/mood MSK: no joint tenderness or swelling. Digits and nails normal, no deformity : kidney or bladder not palpable Access: left arm AVF maturing Labs/imaging reviewed. Past medical history, past surgical history, family history, social history, allergy reviewed and noted as below Family Hx: no hx of CKD. Non contributory Objective - Vital Signs/Intake and Output Vital Signs (last 24 hours): Temp Pulse Resp BP Pulse Ox 98.1 F 58 L 14 124/58 L 100 05/12/18 10:45 05/12/18 10:45 05/12/18 10:45 05/12/18 10:45 05/12/18 10:45 Intake and Output: 05/12/18 05/12/18 06:59 18:59 Intake Total 390 0 Output Total 500 0 Balance -110 0 - Medications Medications: Current Medications Amlodipine Besylate (Norvasc) 10 mg PO DAILY [facility] Last Admin: 05/12/18 11:00 Dose: Not Given Clonidine HCl (Catapres) 0.2 mg PO TID [facility] Last Admin: 05/12/18 10:54 Dose: Not Given Clonidine HCl (Catapres Tts1 0.1 Mg/24 Hr) 1 patch TD QWK [facility] Last Admin: 05/11/18 13:29 Dose: 1 patch Dextrose (Dextrose 50% Inj) 0 ml IV STAT PRN; Protocol PRN Reason: Hypoglycemia Protocol Dextrose (Glutose 15) 0 gm PO ONCE PRN; Protocol PRN Reason: Hypoglycemia Protocol Epoetin Spenser (Procrit) 10,000 unit IV TTS [facility] Stop: 05/23/18 10:01 Last Admin: 05/11/18 23:06 Dose: 10,000 unit Furosemide (Lasix) 60 mg IVP Q12 [facility] Last Admin: 05/12/18 10:30 Dose: Not Given Glucagon (Glucagen Diagnostic Kit) 0 mg IM STAT PRN; Protocol PRN Reason: Hypoglycemia Protocol Heparin Sodium (Porcine) (Heparin) 5,000 units SC Q12 [facility] Last Admin: 05/12/18 10:54 Dose: Not Given Home Med (Febuxostat [Uloric]) 80 mg PO DAILY [facility] Hydralazine HCl (Apresoline) 100 mg PO BID [facility] Last Admin: 05/12/18 10:53 Dose: Not Given Dextrose (Dextrose 5% In Water 1000 Ml) 1,000 mls @ 0 mls/hr IV .Q0M PRN; Protocol PRN Reason: Hypoglycemia Protocol Ferric Sodium Gluconate Complex 125 mg/ Sodium Chloride 110 mls @ 110 mls/hr IVPB DAILY [facility] Stop: 05/20/18 10:01 Last Admin: 05/12/18 10:12 Dose: 110 mls/hr Insulin Aspart (Novolog) 14 unit SC TIDAC [facility] Last Admin: 05/12/18 11:16 Dose: Not Given Insulin Glargine (Lantus) 10 unit SC QAM [facility] Last Admin: 05/12/18 10:10 Dose: Not Given Metolazone (Zaroxolyn) 5 mg PO BID [facility] Stop: 05/14/18 11:46 Last Admin: 05/12/18 10:30 Dose: Not Given Nebivolol (Bystolic) 20 mg PO DAILY [facility] Last Admin: 05/12/18 10:53 Dose: Not Given Pantoprazole Sodium (Protonix Ec Tab) 40 mg PO DAILY [facility] Last Admin: 05/12/18 11:16 Dose: Not Given Sevelamer Carbonate (Renvela) 800 mg PO TIDCC [facility] Last Admin: 05/12/18 11:17 Dose: Not Given Sitagliptin Phosphate (Januvia) 25 mg PO DAILY [facility] Last Admin: 05/12/18 10:54 Dose: Not Given Vitamin B Complex/Vit C/Folic Acid (Nephro-Monie) 1 tab PO 0800 [facility] Last Admin: 05/12/18 08:30 Dose: Not Given - Labs Labs: 05/12/18 06:54 05/12/18 06:54 PT 11.1 SECONDS (9.7-12.2) 05/10/18 16:56 INR 1.0 05/10/18 16:56 APTT 30 SECONDS (21-34) 05/10/18 16:56
[2018-05-12] MEDS ORDERED: Dextrose 5%/0.45% NS 1,000 ML IV SCH (15:30)
--- NOTE | 2018-05-12 15:52 | CP.CCUPN ---
<Thao Alegre - Last Filed: 05/12/18 15:43> CCU Subjective - Physician Review Subjective (Free Text): 05/12/18 15:43 Critical Care Progress Note for Dr. Maldonado's service Patient seen and examined at bedside. Patient offers no acute complaints. Patient denies headaches, fevers, chills, chest pain, sob, n/v, constipation or diarrhea, and dysuria. Critical Care Time Spent (in minutes): 35 CCU Objective - Vital Signs / Intake & Output Intake and Output (Last 8hrs): Intake & Output 05/12/18 05/12/18 05/12/18 06:59 14:59 22:59 Intake Total 120 0 0 Output Total 500 0 Balance -380 0 0 Weight 168 lb 0.13 oz Intake: Oral 120 0 0 Output: Urine 500 0 Urine, Voided 500 0 Other: # Voids Urine, Voided 1 - Physical Exam Head: Positive for: Atraumatic, Normocephalic Pupils: Positive for: PERRL Extroacular Muscles: Positive for: EOMI Mouth: Positive for: Moist Mucous Membranes Neck: Positive for: Normal Range of Motion Respiratory/Chest: Positive for: Clear to Auscultation, Good Air Exchange. Negative for: Respiratory Distress, Wheezes, Tachypneic Cardiovascular: Positive for: Regular Rate and Rhythm, Normal S1, S2. Negative for: Murmurs Abdomen: Positive for: Normal Bowel Sounds. Negative for: Tenderness, Distention Upper Extremity: Positive for: Normal Inspection Lower Extremity: Positive for: Normal Inspection Neurological: Positive for: GCS=15 Skin: Positive for: Warm, Normal Color, Other (TLC for dialysis access pending permacath placement) Psychiatric: Positive for: Alert, Oriented x 3, Normal Insight - Medications Active Medications: Active Medications Generic Name Dose Route Start Last Admin Trade Name Freq PRN Reason Stop Dose Admin Amlodipine Besylate 10 mg 05/11/18 10:00 05/12/18 11:00 Norvasc PO Not Given DAILY [facility] Clonidine HCl 1 patch 05/11/18 12:45 05/11/18 13:29 Catapres Tts1 0.1 Mg/24 Hr TD 1 patch QWK [facility] Administration Dextrose 0 ml 05/10/18 21:31 Dextrose 50% Inj IV STAT PRN Hypoglycemia Protocol Protocol Dextrose 0 gm 05/10/18 21:31 Glutose 15 PO ONCE PRN Hypoglycemia Protocol Protocol Epoetin Spenser 10,000 unit 05/11/18 22:38 05/11/18 23:06 Procrit IV 05/23/18 10:01 10,000 unit TTS [facility] Administration Furosemide 80 mg 05/15/18 09:00 Lasix PO MWF [facility] Glucagon 0 mg 05/10/18 21:31 Glucagen Diagnostic Kit IM STAT PRN Hypoglycemia Protocol Protocol Heparin Sodium (Porcine) 5,000 units 05/10/18 22:00 05/12/18 10:54 Heparin SC Not Given Q12 [facility] Home Med 80 mg 05/11/18 10:00 Febuxostat [Uloric] PO DAILY [facility] Hydralazine HCl 100 mg 05/11/18 18:00 05/12/18 10:53 Apresoline PO Not Given BID [facility] Dextrose 1,000 mls @ 0 mls/hr 05/10/18 21:31 Dextrose 5% In Water 1000 Ml IV .Q0M PRN Hypoglycemia Protocol Protocol Per Protocol Ferric Sodium Gluconate 110 mls @ 110 mls/hr 05/11/18 10:00 05/12/18 10:12 Complex 125 mg/ Sodium IVPB 05/20/18 10:01 110 mls/hr Chloride DAILY [facility] Administration Dextrose/Sodium Chloride 1,000 mls @ 50 mls/hr 05/12/18 15:30 Dextrose 5%/0.45% Ns 1000 Ml IV .Q20H [facility] Insulin Aspart 14 unit 05/11/18 07:30 05/12/18 11:16 Novolog SC Not Given TIDAC [facility] Insulin Glargine 10 unit 05/11/18 10:00 05/12/18 10:10 Lantus SC Not Given QAM [facility] Nebivolol 20 mg 05/11/18 10:00 05/12/18 15:32 Bystolic PO 20 mg DAILY [facility] Administration Pantoprazole Sodium 40 mg 05/11/18 10:00 05/12/18 11:16 Protonix Ec Tab PO Not Given DAILY [facility] Sevelamer Carbonate 800 mg 05/11/18 12:00 05/12/18 11:17 Renvela PO Not Given TIDCC [facility] Sitagliptin Phosphate 25 mg 05/12/18 10:00 05/12/18 10:54 Januvia PO Not Given DAILY [facility] Vitamin B Complex/Vit C/Folic Acid 1 tab 05/12/18 08:00 05/12/18 08:30 Nephro-Monie PO Not Given 0800 [facility] - Patient Studies Lab Studies: Microbiology Studies 05/11/18 14:15 MRSA Culture (Admit) - Final Nose Lab Studies 05/12/18 05/12/18 05/12/18 Range/Units 15:16 11:20 07:36 WBC (4.8-10.8) K/uL RBC (3.80-5.20) Mil/uL Hgb (11.0-16.0) g/dL Hct (34.0-47.0) % MCV (81.0-99.0) fL MCH (27.0-31.0) pg MCHC (33.0-37.0) g/dL RDW (11.5-14.5) % Plt Count (130-400) K/uL MPV (7.2-11.7) fL Neut % (Auto) (50.0-75.0) % Lymph % (Auto) (20.0-40.0) % Garden % (Auto) (0.0-10.0) % Eos % (Auto) (0.0-4.0) % Baso % (Auto) (0.0-2.0) % Neut # (Auto) (1.8-7.0) K/uL Lymph # (Auto) (1.0-4.3) K/uL Garden # (Auto) (0.0-0.8) K/uL Eos # (Auto) (0.0-0.7) K/uL Baso # (Auto) (0.0-0.2) K/uL Sodium (132-148) mmol/L Potassium (3.6-5.2) mmol/L Chloride (98-107) mmol/L Carbon Dioxide (22-30) mmol/L Anion Gap (10-20) BUN (7-17) mg/dL Creatinine (0.7-1.2) mg/dL Est GFR ( Amer) Est GFR (Non-Af Amer) POC Glucose (mg/dL) 108 119 H 89 (65-110) mg/dL Random Glucose (65-105) mg/dL Calcium (8.6-10.4) mg/dl Phosphorus (2.5-4.5) mg/dL Magnesium (1.6-2.3) mg/dL Total Bilirubin (0.2-1.3) mg/dL AST (14-36) U/L ALT (9-52) U/L Alkaline Phosphatase (38-126) U/L Total Protein (6.3-8.3) g/dL Albumin (3.5-5.0) g/dL Globulin (2.2-3.9) gm/dL Albumin/Globulin Ratio (1.0-2.1) Hep Bs Antigen (NEGATIVE) Hep Bs Antibody (NEGATIVE) Hep B Core IgM Ab (NEGATIVE) Hepatitis C Antibody (NEGATIVE) 05/12/18 05/12/18 05/11/18 Range/Units 06:54 06:54 22:08 WBC 6.9 (4.8-10.8) K/uL RBC 3.30 L (3.80-5.20) Mil/uL Hgb 9.1 L (11.0-16.0) g/dL Hct 28.7 L (34.0-47.0) % MCV 87.0 (81.0-99.0) fL MCH 27.5 (27.0-31.0) pg MCHC 31.6 L (33.0-37.0) g/dL RDW 20.1 H (11.5-14.5) % Plt Count 227 (130-400) K/uL MPV 9.3 (7.2-11.7) fL Neut % (Auto) 64.3 (50.0-75.0) % Lymph % (Auto) 26.3 (20.0-40.0) % Garden % (Auto) 8.1 (0.0-10.0) % Eos % (Auto) 0.7 (0.0-4.0) % Baso % (Auto) 0.6 (0.0-2.0) % Neut # (Auto) 4.4 (1.8-7.0) K/uL Lymph # (Auto) 1.8 (1.0-4.3) K/uL Garden # (Auto) 0.6 (0.0-0.8) K/uL Eos # (Auto) 0.0 (0.0-0.7) K/uL Baso # (Auto) 0.0 (0.0-0.2) K/uL Sodium 137 (132-148) mmol/L Potassium 3.5 L (3.6-5.2) mmol/L Chloride 103 (98-107) mmol/L Carbon Dioxide 26 (22-30) mmol/L Anion Gap 11 (10-20) BUN 46 H (7-17) mg/dL Creatinine 4.1 H (0.7-1.2) mg/dL Est GFR ( Amer) 13 Est GFR (Non-Af Amer) 10 POC Glucose (mg/dL) 115 H (65-110) mg/dL Random Glucose 86 D (65-105) mg/dL Calcium 9.1 (8.6-10.4) mg/dl Phosphorus 3.4 (2.5-4.5) mg/dL Magnesium 1.9 (1.6-2.3) mg/dL Total Bilirubin 0.4 (0.2-1.3) mg/dL AST 20 (14-36) U/L ALT 16 (9-52) U/L Alkaline Phosphatase 64 (38-126) U/L Total Protein 7.0 (6.3-8.3) g/dL Albumin 3.3 L (3.5-5.0) g/dL Globulin 3.6 (2.2-3.9) gm/dL Albumin/Globulin Ratio 0.9 L (1.0-2.1) Hep Bs Antigen (NEGATIVE) Hep Bs Antibody (NEGATIVE) Hep B Core IgM Ab (NEGATIVE) Hepatitis C Antibody (NEGATIVE) 05/11/18 05/11/18 05/11/18 Range/Units 21:05 21:05 17:27 WBC (4.8-10.8) K/uL RBC (3.80-5.20) Mil/uL Hgb (11.0-16.0) g/dL Hct (34.0-47.0) % MCV (81.0-99.0) fL MCH (27.0-31.0) pg MCHC (33.0-37.0) g/dL RDW (11.5-14.5) % Plt Count (130-400) K/uL MPV (7.2-11.7) fL Neut % (Auto) (50.0-75.0) % Lymph % (Auto) (20.0-40.0) % Garden % (Auto) (0.0-10.0) % Eos % (Auto) (0.0-4.0) % Baso % (Auto) (0.0-2.0) % Neut # (Auto) (1.8-7.0) K/uL Lymph # (Auto) (1.0-4.3) K/uL Garden # (Auto) (0.0-0.8) K/uL Eos # (Auto) (0.0-0.7) K/uL Baso # (Auto) (0.0-0.2) K/uL Sodium (132-148) mmol/L Potassium (3.6-5.2) mmol/L Chloride (98-107) mmol/L Carbon Dioxide (22-30) mmol/L Anion Gap (10-20) BUN (7-17) mg/dL Creatinine (0.7-1.2) mg/dL Est GFR ( Amer) Est GFR (Non-Af Amer) POC Glucose (mg/dL) 113 H (65-110) mg/dL Random Glucose (65-105) mg/dL Calcium (8.6-10.4) mg/dl Phosphorus (2.5-4.5) mg/dL Magnesium (1.6-2.3) mg/dL Total Bilirubin (0.2-1.3) mg/dL AST (14-36) U/L ALT (9-52) U/L Alkaline Phosphatase (38-126) U/L Total Protein (6.3-8.3) g/dL Albumin (3.5-5.0) g/dL Globulin (2.2-3.9) gm/dL Albumin/Globulin Ratio (1.0-2.1) Hep Bs Antigen Negative (NEGATIVE) Hep Bs Antibody Negative (NEGATIVE) Hep B Core IgM Ab Negative (NEGATIVE) Hepatitis C Antibody Negative (NEGATIVE) Laboratory Results - last 24 hr 05/11/18 05/11/18 05/11/18 17:27 21:05 21:05 WBC RBC Hgb Hct MCV MCH MCHC RDW Plt Count MPV Neut % (Auto) Lymph % (Auto) Garden % (Auto) Eos % (Auto) Baso % (Auto) Neut # (Auto) Lymph # (Auto) Garden # (Auto) Eos # (Auto) Baso # (Auto) Sodium Potassium Chloride Carbon Dioxide Anion Gap BUN Creatinine Est GFR ( Amer) Est GFR (Non-Af Amer) POC Glucose (mg/dL) 113 H Random Glucose Calcium Phosphorus Magnesium Total Bilirubin AST ALT Alkaline Phosphatase Total Protein Albumin Globulin Albumin/Globulin Ratio Hep Bs Antigen Negative Hep Bs Antibody Negative Hep B Core IgM Ab Negative Hepatitis C Antibody Negative 05/11/18 05/12/18 05/12/18 22:08 06:54 06:54 WBC 6.9 RBC 3.30 L Hgb 9.1 L Hct 28.7 L MCV 87.0 MCH 27.5 MCHC 31.6 L RDW 20.1 H Plt Count 227 MPV 9.3 Neut % (Auto) 64.3 Lymph % (Auto) 26.3 Garden % (Auto) 8.1 Eos % (Auto) 0.7 Baso % (Auto) 0.6 Neut # (Auto) 4.4 Lymph # (Auto) 1.8 Garden # (Auto) 0.6 Eos # (Auto) 0.0 Baso # (Auto) 0.0 Sodium 137 Potassium 3.5 L Chloride 103 Carbon Dioxide 26 Anion Gap 11 BUN 46 H Creatinine 4.1 H Est GFR ( Amer) 13 Est GFR (Non-Af Amer) 10 POC Glucose (mg/dL) 115 H Random Glucose 86 D Calcium 9.1 Phosphorus 3.4 Magnesium 1.9 Total Bilirubin 0.4 AST 20 ALT 16 Alkaline Phosphatase 64 Total Protein 7.0 Albumin 3.3 L Globulin 3.6 Albumin/Globulin Ratio 0.9 L Hep Bs Antigen Hep Bs Antibody Hep B Core IgM Ab Hepatitis C Antibody 05/12/18 05/12/18 05/12/18 07:36 11:20 15:16 WBC RBC Hgb Hct MCV MCH MCHC RDW Plt Count MPV Neut % (Auto) Lymph % (Auto) Garden % (Auto) Eos % (Auto) Baso % (Auto) Neut # (Auto) Lymph # (Auto) Garden # (Auto) Eos # (Auto) Baso # (Auto) Sodium Potassium Chloride Carbon Dioxide Anion Gap BUN Creatinine Est GFR ( Amer) Est GFR (Non-Af Amer) POC Glucose (mg/dL) 89 119 H 108 Random Glucose Calcium Phosphorus Magnesium Total Bilirubin AST ALT Alkaline Phosphatase Total Protein Albumin Globulin Albumin/Globulin Ratio Hep Bs Antigen Hep Bs Antibody Hep B Core IgM Ab Hepatitis C Antibody Radiology Impressions: Radiology Impressions Chest X-Ray 05/11/18 12:41 IMPRESSION: Moderate pulmonary venous congestion. Central vascular prominence. Cardiomegaly. Right axillary clips. Lobulated hyperdensities project over the soft tissues of the right breast, possibly calcifications. Correlate clinically. Fingerstick Blood Sugar Results: 119 Review of Systems - Review of Systems Review of Systems: 12 poin tROs obtained and noted as in HPI Critical Care Progress Note - Prophylaxis GI Prophylaxis GI: PPI - Prophylaxis DVT Prophylaxis DVT: Heparin SQ - Nutrition Nutrition: Nutrition Category Date Time Status NPO Diet [DIET] Diets 05/12/18 Breakfast Active Assessment/Plan - Assessment and Plan (Free Text) Assessment: Patient is a 83 yo female w/ PMH HTN, DM2, HLD, gout, breast cancer s/p partial lumpectomy, CKD s/p AVF not on dialysis admitted to ICU for shortness of breath and elevated blood pressures. Neuro AAOx3 no active issues Pulm on NC maintain spo2>92% 05-11-18 CXR: moderate pulmonary venous congestion CV TLC for IV meds and dialysis access Lasix (MWF) Amlodipine Clonidine patch Nebivolol Metolazone Hydralazine Renal Dialysis 1 x session yesterday through femoral TLC; pending permacath Sevelamer Ferric Sodium @ 100 D5/.45 NS @ 50 Nephrovite Ergocalciferol EPO x 6 doses on TTS Endo Insulin Aspart Glargine Januvia ID no acute issues DVT ppx: Heparin GI ppx: Protonix Dispostion: pending permacath placement; continue dialysis as per nephro; continue bp meds; remove TLC once dialysis permacath access Medical Management discussed with Dr. Maldonado PGY-1 [place] <Adán Maldonado - Last Filed: 05/12/18 18:12> CCU Objective - Vital Signs / Intake & Output Vital Signs (Last 4 hours): Vital Signs Temp Pulse Resp BP Pulse Ox 05/12/18 18:04 98.6 F 67 15 183/61 H 100 05/12/18 17:46 99.7 F H 05/12/18 17:45 67 13 05/12/18 17:36 84 19 158/100 H 05/12/18 17:31 89 05/12/18 17:30 98.4 F 05/12/18 16:30 68 13 100 05/12/18 16:15 66 18 100 05/12/18 16:01 65 18 156/48 H 100 05/12/18 16:00 65 16 100 05/12/18 15:45 66 22 99 05/12/18 15:30 66 20 99 05/12/18 15:15 69 16 100 05/12/18 15:01 64 17 158/40 H 98 05/12/18 15:00 65 17 100 05/12/18 14:45 63 23 99 05/12/18 14:30 61 21 100 05/12/18 14:15 60 19 98 Intake and Output (Last 8hrs): Intake & Output 05/12/18 05/12/18 05/12/18 06:59 14:59 22:59 Intake Total 120 0 150 Output Total 500 0 Balance -380 0 150 Weight 168 lb 0.13 oz Intake: IV 150 Oral 120 0 0 Output: Urine 500 0 Urine, Voided 500 0 Other: # Voids Urine, Voided 1 - Medications Active Medications: Active Medications Generic Name Dose Route Start Last Admin Trade Name Freq PRN Reason Stop Dose Admin Amlodipine Besylate 10 mg 05/11/18 10:00 05/12/18 11:00 Norvasc PO Not Given DAILY [facility] Clonidine HCl 1 patch 05/11/18 12:45 05/11/18 13:29 Catapres Tts1 0.1 Mg/24 Hr TD 1 patch QWK [facility] Administration Dextrose 0 ml 05/10/18 21:31 Dextrose 50% Inj IV STAT PRN Hypoglycemia Protocol Protocol Dextrose 0 gm 05/10/18 21:31 Glutose 15 PO ONCE PRN Hypoglycemia Protocol Protocol Epoetin Spenser 10,000 unit 05/11/18 22:38 05/11/18 23:06 Procrit IV 05/23/18 10:01 10,000 unit TTS ESTEBAN Administration Furosemide 80 mg 05/15/18 09:00 Lasix PO MWF [facility] Glucagon 0 mg 05/10/18 21:31 Glucagen Diagnostic Kit IM STAT PRN Hypoglycemia Protocol Protocol Heparin Sodium (Porcine) 5,000 units 05/10/18 22:00 05/12/18 10:54 Heparin SC Not Given Q12 [facility] Home Med 80 mg 05/11/18 10:00 Febuxostat [Uloric] PO DAILY [facility] Hydralazine HCl 100 mg 05/11/18 18:00 05/12/18 10:53 Apresoline PO Not Given BID [facility] Dextrose 1,000 mls @ 0 mls/hr 05/10/18 21:31 Dextrose 5% In Water 1000 Ml IV .Q0M PRN Hypoglycemia Protocol Protocol Per Protocol Ferric Sodium Gluconate 110 mls @ 110 mls/hr 05/11/18 10:00 05/12/18 10:12 Complex 125 mg/ Sodium IVPB 05/20/18 10:01 110 mls/hr Chloride DAILY [facility] Administration Dextrose/Sodium Chloride 1,000 mls @ 50 mls/hr 05/12/18 15:30 05/12/18 16:00 Dextrose 5%/0.45% Ns 1000 Ml IV 50 mls/hr .Q20H [facility] Administration Insulin Aspart 14 unit 05/11/18 07:30 05/12/18 11:16 Novolog SC Not Given TIDAC [facility] Insulin Glargine 10 unit 05/11/18 10:00 05/12/18 10:10 Lantus SC Not Given QAM [facility] Mupirocin 0.25 gm 05/12/18 18:15 Bactroban 2% Nasal DELTA BID [facility] Nebivolol 20 mg 05/11/18 10:00 05/12/18 15:32 Bystolic PO 20 mg DAILY [facility] Administration Oxycodone/Acetaminophen 1 tab 05/12/18 18:00 Percocet 5/325 Mg Tab PO 05/15/18 18:01 Q4H PRN Pain, Mild (1-3) Pantoprazole Sodium 40 mg 05/11/18 10:00 05/12/18 11:16 Protonix Ec Tab PO Not Given DAILY [facility] Sevelamer Carbonate 800 mg 05/11/18 12:00 05/12/18 11:17 Renvela PO Not Given TIDCC [facility] Sitagliptin Phosphate 25 mg 05/12/18 10:00 05/12/18 10:54 Januvia PO Not Given DAILY [facility] Vitamin B Complex/Vit C/Folic Acid 1 tab 05/12/18 08:00 05/12/18 08:30 Nephro-Monie PO Not Given 0800 [facility] - Patient Studies Lab Studies: Microbiology Studies 05/11/18 14:15 MRSA Culture (Admit) - Final Nose Lab Studies 05/12/18 05/12/18 05/12/18 Range/Units 16:08 15:16 11:20 WBC (4.8-10.8) K/uL RBC (3.80-5.20) Mil/uL Hgb (11.0-16.0) g/dL Hct (34.0-47.0) % MCV (81.0-99.0) fL MCH (27.0-31.0) pg MCHC (33.0-37.0) g/dL RDW (11.5-14.5) % Plt Count (130-400) K/uL MPV (7.2-11.7) fL Neut % (Auto) (50.0-75.0) % Lymph % (Auto) (20.0-40.0) % Garden % (Auto) (0.0-10.0) % Eos % (Auto) (0.0-4.0) % Baso % (Auto) (0.0-2.0) % Neut # (Auto) (1.8-7.0) K/uL Lymph # (Auto) (1.0-4.3) K/uL Garden # (Auto) (0.0-0.8) K/uL Eos # (Auto) (0.0-0.7) K/uL Baso # (Auto) (0.0-0.2) K/uL Sodium (132-148) mmol/L Potassium (3.6-5.2) mmol/L Chloride (98-107) mmol/L Carbon Dioxide (22-30) mmol/L Anion Gap (10-20) BUN (7-17) mg/dL Creatinine (0.7-1.2) mg/dL Est GFR ( Amer) Est GFR (Non-Af Amer) POC Glucose (mg/dL) 115 H 108 119 H (65-110) mg/dL Random Glucose (65-105) mg/dL Calcium (8.6-10.4) mg/dl Phosphorus (2.5-4.5) mg/dL Magnesium (1.6-2.3) mg/dL Total Bilirubin (0.2-1.3) mg/dL AST (14-36) U/L ALT (9-52) U/L Alkaline Phosphatase (38-126) U/L Total Protein (6.3-8.3) g/dL Albumin (3.5-5.0) g/dL Globulin (2.2-3.9) gm/dL Albumin/Globulin Ratio (1.0-2.1) Hep Bs Antigen (NEGATIVE) Hep Bs Antibody (NEGATIVE) Hep B Core IgM Ab (NEGATIVE) Hepatitis C Antibody (NEGATIVE) 05/12/18 05/12/18 05/12/18 Range/Units 07:36 06:54 06:54 WBC 6.9 (4.8-10.8) K/uL RBC 3.30 L (3.80-5.20) Mil/uL Hgb 9.1 L (11.0-16.0) g/dL Hct 28.7 L (34.0-47.0) % MCV 87.0 (81.0-99.0) fL MCH 27.5 (27.0-31.0) pg MCHC 31.6 L (33.0-37.0) g/dL RDW 20.1 H (11.5-14.5) % Plt Count 227 (130-400) K/uL MPV 9.3 (7.2-11.7) fL Neut % (Auto) 64.3 (50.0-75.0) % Lymph % (Auto) 26.3 (20.0-40.0) % Garden % (Auto) 8.1 (0.0-10.0) % Eos % (Auto) 0.7 (0.0-4.0) % Baso % (Auto) 0.6 (0.0-2.0) % Neut # (Auto) 4.4 (1.8-7.0) K/uL Lymph # (Auto) 1.8 (1.0-4.3) K/uL Garden # (Auto) 0.6 (0.0-0.8) K/uL Eos # (Auto) 0.0 (0.0-0.7) K/uL Baso # (Auto) 0.0 (0.0-0.2) K/uL Sodium 137 (132-148) mmol/L Potassium 3.5 L (3.6-5.2) mmol/L Chloride 103 (98-107) mmol/L Carbon Dioxide 26 (22-30) mmol/L Anion Gap 11 (10-20) BUN 46 H (7-17) mg/dL Creatinine 4.1 H (0.7-1.2) mg/dL Est GFR ( Amer) 13 Est GFR (Non-Af Amer) 10 POC Glucose (mg/dL) 89 (65-110) mg/dL Random Glucose 86 D (65-105) mg/dL Calcium 9.1 (8.6-10.4) mg/dl Phosphorus 3.4 (2.5-4.5) mg/dL Magnesium 1.9 (1.6-2.3) mg/dL Total Bilirubin 0.4 (0.2-1.3) mg/dL AST 20 (14-36) U/L ALT 16 (9-52) U/L Alkaline Phosphatase 64 (38-126) U/L Total Protein 7.0 (6.3-8.3) g/dL Albumin 3.3 L (3.5-5.0) g/dL Globulin 3.6 (2.2-3.9) gm/dL Albumin/Globulin Ratio 0.9 L (1.0-2.1) Hep Bs Antigen (NEGATIVE) Hep Bs Antibody (NEGATIVE) Hep B Core IgM Ab (NEGATIVE) Hepatitis C Antibody (NEGATIVE) 05/11/18 05/11/18 05/11/18 Range/Units 22:08 21:05 21:05 WBC (4.8-10.8) K/uL RBC (3.80-5.20) Mil/uL Hgb (11.0-16.0) g/dL Hct (34.0-47.0) % MCV (81.0-99.0) fL MCH (27.0-31.0) pg MCHC (33.0-37.0) g/dL RDW (11.5-14.5) % Plt Count (130-400) K/uL MPV (7.2-11.7) fL Neut % (Auto) (50.0-75.0) % Lymph % (Auto) (20.0-40.0) % Garden % (Auto) (0.0-10.0) % Eos % (Auto) (0.0-4.0) % Baso % (Auto) (0.0-2.0) % Neut # (Auto) (1.8-7.0) K/uL Lymph # (Auto) (1.0-4.3) K/uL Garden # (Auto) (0.0-0.8) K/uL Eos # (Auto) (0.0-0.7) K/uL Baso # (Auto) (0.0-0.2) K/uL Sodium (132-148) mmol/L Potassium (3.6-5.2) mmol/L Chloride (98-107) mmol/L Carbon Dioxide (22-30) mmol/L Anion Gap (10-20) BUN (7-17) mg/dL Creatinine (0.7-1.2) mg/dL Est GFR ( Amer) Est GFR (Non-Af Amer) POC Glucose (mg/dL) 115 H (65-110) mg/dL Random Glucose (65-105) mg/dL Calcium (8.6-10.4) mg/dl Phosphorus (2.5-4.5) mg/dL Magnesium (1.6-2.3) mg/dL Total Bilirubin (0.2-1.3) mg/dL AST (14-36) U/L ALT (9-52) U/L Alkaline Phosphatase (38-126) U/L Total Protein (6.3-8.3) g/dL Albumin (3.5-5.0) g/dL Globulin (2.2-3.9) gm/dL Albumin/Globulin Ratio (1.0-2.1) Hep Bs Antigen Negative (NEGATIVE) Hep Bs Antibody Negative (NEGATIVE) Hep B Core IgM Ab Negative (NEGATIVE) Hepatitis C Antibody Negative (NEGATIVE) Laboratory Results - last 24 hr 05/11/18 05/11/18 05/11/18 21:05 21:05 22:08 WBC RBC Hgb Hct MCV MCH MCHC RDW Plt Count MPV Neut % (Auto) Lymph % (Auto) Garden % (Auto) Eos % (Auto) Baso % (Auto) Neut # (Auto) Lymph # (Auto) Garden # (Auto) Eos # (Auto) Baso # (Auto) Sodium Potassium Chloride Carbon Dioxide Anion Gap BUN Creatinine Est GFR ( Amer) Est GFR (Non-Af Amer) POC Glucose (mg/dL) 115 H Random Glucose Calcium Phosphorus Magnesium Total Bilirubin AST ALT Alkaline Phosphatase Total Protein Albumin Globulin Albumin/Globulin Ratio Hep Bs Antigen Negative Hep Bs Antibody Negative Hep B Core IgM Ab Negative Hepatitis C Antibody Negative 05/12/18 05/12/18 05/12/18 06:54 06:54 07:36 WBC 6.9 RBC 3.30 L Hgb 9.1 L Hct 28.7 L MCV 87.0 MCH 27.5 MCHC 31.6 L RDW 20.1 H Plt Count 227 MPV 9.3 Neut % (Auto) 64.3 Lymph % (Auto) 26.3 Garden % (Auto) 8.1 Eos % (Auto) 0.7 Baso % (Auto) 0.6 Neut # (Auto) 4.4 Lymph # (Auto) 1.8 Garden # (Auto) 0.6 Eos # (Auto) 0.0 Baso # (Auto) 0.0 Sodium 137 Potassium 3.5 L Chloride 103 Carbon Dioxide 26 Anion Gap 11 BUN 46 H Creatinine 4.1 H Est GFR ( Amer) 13 Est GFR (Non-Af Amer) 10 POC Glucose (mg/dL) 89 Random Glucose 86 D Calcium 9.1 Phosphorus 3.4 Magnesium 1.9 Total Bilirubin 0.4 AST 20 ALT 16 Alkaline Phosphatase 64 Total Protein 7.0 Albumin 3.3 L Globulin 3.6 Albumin/Globulin Ratio 0.9 L Hep Bs Antigen Hep Bs Antibody Hep B Core IgM Ab Hepatitis C Antibody 05/12/18 05/12/18 05/12/18 11:20 15:16 16:08 WBC RBC Hgb Hct MCV MCH MCHC RDW Plt Count MPV Neut % (Auto) Lymph % (Auto) Garden % (Auto) Eos % (Auto) Baso % (Auto) Neut # (Auto) Lymph # (Auto) Garden # (Auto) Eos # (Auto) Baso # (Auto) Sodium Potassium Chloride Carbon Dioxide Anion Gap BUN Creatinine Est GFR ( Amer) Est GFR (Non-Af Amer) POC Glucose (mg/dL) 119 H 108 115 H Random Glucose Calcium Phosphorus Magnesium Total Bilirubin AST ALT Alkaline Phosphatase Total Protein Albumin Globulin Albumin/Globulin Ratio Hep Bs Antigen Hep Bs Antibody Hep B Core IgM Ab Hepatitis C Antibody Critical Care Progress Note - Nutrition Nutrition: Nutrition Category Date Time Status Heart Healthy Diet [DIET] Diets 05/12/18 Dinner Active Assessment/Plan - Assessment and Plan (Free Text) Plan: Above patient seen and examined at bedside. patietn remains hemodynamically stbale. -awaiting HD cath -will remove femoral HD cath. -patient remains hemodynamically stable - Date & Time Date: 05/12/18 Time: 18:12
--- NOTE | 2018-05-12 15:59 | CP.PCM.PN ---
Subjective - Date & Time of Evaluation Date of Evaluation: 05/12/18 Time of Evaluation: 15:56 - Subjective Subjective: NPO awaiting permacath got HD yesterday less sob today Objective - Vital Signs/Intake and Output Vital Signs (last 24 hours): Temp Pulse Resp BP Pulse Ox 98.1 F 58 L 14 124/58 L 100 05/12/18 10:45 05/12/18 10:45 05/12/18 10:45 05/12/18 10:45 05/12/18 10:45 Intake and Output: 05/12/18 05/12/18 06:59 18:59 Intake Total 390 0 Output Total 500 0 Balance -110 0 - Medications Medications: Current Medications Amlodipine Besylate (Norvasc) 10 mg PO DAILY [facility] Last Admin: 05/12/18 11:00 Dose: Not Given Clonidine HCl (Catapres Tts1 0.1 Mg/24 Hr) 1 patch TD QWK [facility] Last Admin: 05/11/18 13:29 Dose: 1 patch Dextrose (Dextrose 50% Inj) 0 ml IV STAT PRN; Protocol PRN Reason: Hypoglycemia Protocol Dextrose (Glutose 15) 0 gm PO ONCE PRN; Protocol PRN Reason: Hypoglycemia Protocol Epoetin Spenser (Procrit) 10,000 unit IV TTS [facility] Stop: 05/23/18 10:01 Last Admin: 05/11/18 23:06 Dose: 10,000 unit Furosemide (Lasix) 80 mg PO MWF [facility] Glucagon (Glucagen Diagnostic Kit) 0 mg IM STAT PRN; Protocol PRN Reason: Hypoglycemia Protocol Heparin Sodium (Porcine) (Heparin) 5,000 units SC Q12 [facility] Last Admin: 05/12/18 10:54 Dose: Not Given Home Med (Febuxostat [Uloric]) 80 mg PO DAILY [facility] Hydralazine HCl (Apresoline) 100 mg PO BID [facility] Last Admin: 05/12/18 10:53 Dose: Not Given Dextrose (Dextrose 5% In Water 1000 Ml) 1,000 mls @ 0 mls/hr IV .Q0M PRN; P rotocol PRN Reason: Hypoglycemia Protocol Ferric Sodium Gluconate Complex 125 mg/ Sodium Chloride 110 mls @ 110 mls/hr IVPB DAILY [facility] Stop: 05/20/18 10:01 Last Admin: 05/12/18 10:12 Dose: 110 mls/hr Dextrose/Sodium Chloride (Dextrose 5%/0.45% Ns 1000 Ml) 1,000 mls @ 50 mls/hr IV .Q20H [facility] Insulin Aspart (Novolog) 14 unit SC TIDAC [facility] Last Admin: 05/12/18 11:16 Dose: Not Given Insulin Glargine (Lantus) 10 unit SC QAM [facility] Last Admin: 05/12/18 10:10 Dose: Not Given Nebivolol (Bystolic) 20 mg PO DAILY [facility] Last Admin: 05/12/18 15:32 Dose: 20 mg Pantoprazole Sodium (Protonix Ec Tab) 40 mg PO DAILY [facility] Last Admin: 05/12/18 11:16 Dose: Not Given Sevelamer Carbonate (Renvela) 800 mg PO TIDCC [facility] Last Admin: 05/12/18 11:17 Dose: Not Given Sitagliptin Phosphate (Januvia) 25 mg PO DAILY [facility] Last Admin: 05/12/18 10:54 Dose: Not Given Vitamin B Complex/Vit C/Folic Acid (Nephro-Monie) 1 tab PO 0800 [facility] Last Admin: 05/12/18 08:30 Dose: Not Given - Labs Labs: 05/12/18 06:54 05/12/18 06:54 PT 11.1 SECONDS (9.7-12.2) 05/10/18 16:56 INR 1.0 05/10/18 16:56 APTT 30 SECONDS (21-34) 05/10/18 16:56 - Constitutional Appears: Well, Non-toxic, No Acute Distress - Head Exam Head Exam: NORMAL INSPECTION - ENT Exam ENT Exam: Mucous Membranes Moist - Respiratory Exam Respiratory Exam: NORMAL BREATHING PATTERN. absent: Accessory Muscle Use Additional comments: crackles at bases - GI/Abdominal Exam GI & Abdominal Exam: Soft, Normal Bowel Sounds. absent: Tenderness, Organomegaly - Neurological Exam Neurological Exam: Alert, Awake, Oriented x3 - Psychiatric Exam Psychiatric exam: Anxious Assessment and Plan - Assessment and Plan (Free Text) Assessment: 83 year old F with PMHx of CHF, CKD s/p AVF not on dialysis, gout, HTN who was admitted for shortness of breath and wheezing. 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 Plan: SOB likely 2/2 CHF exacerbation/fluid overload due to CKD stage 5 Acute respiratory distress, hypoxia likely 2/2 flash pulmonary edema -Discussed case with General surgery who will take patient for permacath placement today HTN -Norvasc 10 mg PO daily -Clonidine patch 1 patch TD QWK [facility] -Bystolic 20 mg PO Daily [facility] DM-2 -hypoglycemia protocol -d5w while NPO CKD stage 5 -Nephrology recs (Dr. Kay) appreciated -attempting diuresis with lasix and metolazone -dialysis initiation is indicated. Will plan for HD today as ordered. Will p teresa for dialysis tomorrow also. Continue with Nephrovite 1 tab/day. -PRBC as needed for anemia. on [place]SON with dialysis as last Hb 8.4. added IV iron as TSAT 20% ferritin 145 -d/c calcitriol as last PTH 45. once monthly vit D supplement as last level 28 -Surgical recs (Dr. Valdez) appreciated -plan for permacath in AM -NPO after midnight -continue home meds -avoid nephrotoxic drugs Ppx, Diet, Disposition -DVT ppx: heparin -GI ppx: pepcid
[2018-05-12] MEDS ORDERED: Propofol 10 mg/ml Inj (20 ML) ONE (16:27)
[2018-05-12] MEDS ORDERED: ceFAZolin 1 gm in NS 1 GM/100 ML BAG IVPB ONE (16:29)
[2018-05-12] MEDS ORDERED: Lidocaine Hydrochloride 10 ML INJ ONE ×2 (16:29→16:30)
[2018-05-12] MEDS ORDERED: Iohexol 240 (50 ml) ONE (16:30)
[2018-05-12] MEDS ORDERED: HEPARIN-NS 5,000 UNITS/500 ML 5,000 UNIT/500 ML BAG IV ONE (16:30)
--- NOTE | 2018-05-12 17:32 | CARD ---
APPROVED REPORT Date of service: 05/11/2018 EKG Measurement Heart [id number] <Conclusion> Normal sinus rhythm Left ventricular hypertrophy with repolarization abnormality Abnormal ECG
--- NOTE | 2018-05-12 17:34 | PCM.SURG1 ---
Surgeon's Initial Post Op Note - Surgeon's Notes Surgeon: shayne Integration Software Developer: o Type of Anesthesia: General LMA Anesthesia Administered By: tod Pre-Operative Diagnosis: renal failure Operative Findings: right jugular permacath Post-Operative Diagnosis: same Operation Performed: permacath right jugular Specimen/Specimens Removed: old femoral catheter discarded Estimated Blood Loss: EBL {In ML}: 10 Blood Products Given: N/A Drains Used: No Drains Post-Op Condition: Good Date of Surgery/Procedure: 05/12/18 Time of Surgery/Procedure: 17:34
[2018-05-12] MEDS ORDERED: Oxycodone/Acetaminophen 5/325 mg Tab PO PRN (18:00)
[2018-05-12] MEDS: Mupirocin 2% Ointment (NASAL) NAS SCH (20:12)
--- NOTE | 2018-05-13 02:49 | OP ---
PROCEDURE DATE: 05/12/2018 PREOPERATIVE DIAGNOSIS: Renal failure. POSTOPERATIVE DIAGNOSIS: Renal failure. PROCEDURES CARRIED OUT: PermCath right jugular vein, C-arm fluoroscopy, ultrasound-guided puncture, and micropuncture technique. SURGEON: Demarcus Valdez Jr., MD ASSISTANTS: None. ANESTHESIOLOGIST: Bon Sahu MD INDICATIONS OF PROCEDURE: The patient is an 83-year-old woman, just started on dialysis as an emergent basis last night. OPERATIVE FINDINGS: Jugular vein was small, measuring only approximately 10 mm. It slightly increased, however, when the patient is in dependent position. Catheter was inserted successfully via the right jugular vein. It originated on the right chest wall, went through the jugular vein in terminated on the superior vena cava. DESCRIPTION OF PROCEDURE: The patient was given general anesthesia. Using ultrasound guidance and micropuncture technique, the right jugular vein was cannulated. Under fluoroscopic control, guidewire was advanced centrally. This was exchanged for an 0.035 wire into the inferior vena cava. A sheath dilator was passed over this, and then the catheter was positioned appropriately, with the tip of the superior vena cava in right atrial junction and coming out of right chest wall. It was flushed with heparinized saline with excellent return. Blood loss of the procedure was 10 mL. OPERATIONS CARRIED OUT: PermCath, right jugular vein with C-arm fluoroscopy, and ultrasound-guided puncture. Ultrasound examination and x-ray of the vein which was approximately 10 mm in diameter, did increase in size slightly with dependency. The femoral catheter was removed at the end of the procedure. Demarcus Valdez Jr., MD
[2018-05-13] MEDS: (Novolog) Insulin Aspart, Recombinant 100 u/ml 10 ml vial SC SCH ×3 (07:30→17:13)
[2018-05-13] MEDS: Multivitamin Vitamin B Complex (Nephro-Vite) Tab PO SCH (08:27)
--- NOTE | 2018-05-13 08:57 | RAD ---
Date of service: 05/12/2018 HISTORY: permacath right jugular COMPARISON: 05/11/2018 FINDINGS: Right PermCath terminates in the right atrium. LUNGS: The lungs are well inflated and clear. There is interval improved aeration in both lungs with near complete resolution of pulmonary edema and improved pulmonary venous congestion. PLEURA: No pleural effusions or pneumothorax. CARDIOVASCULAR: The heart is normal in size. There are aortic atherosclerotic calcifications present. OSSEOUS STRUCTURES: Within normal limits for the patient's age. VISUALIZED UPPER ABDOMEN: Normal. OTHER FINDINGS: None. IMPRESSION: Right PermCath terminates in the right atrium. Interval resolution of pulmonary edema and significant improvement in pulmonary venous congestion.
[2018-05-13] MEDS: Pantoprazole 40 mg EC Tab PO SCH (09:14)
[2018-05-13] MEDS: (Lantus) Insulin Glargine, Recombinant SC SCH (09:22)
[2018-05-13] MEDS: Mupirocin 2% Ointment (NASAL) NAS SCH ×2 (09:23→17:12)
[2018-05-13] MEDS ORDERED: Epoetin Alfa 10,000 unit/ml Dialysis IV SCH (10:00)
[2018-05-13 10:20] LABS: BASO # 0.1 K/uL (0.0-0.2); BASO % 0.9 % (0.0-2.0); EOS # 0.1 K/uL (0.0-0.7); EOS % 0.8 % (0.0-4.0); HEMOGLOBIN 9.9 g/dL (11.0-16.0); LYMPH # 1.9 K/uL (1.0-4.3); MEAN CELL VOLUME 86.2 fL (81.0-99.0); MEAN CORPUSCULAR HEMOGLOBIN 27.3 pg (27.0-31.0); MEAN CORPUSCULAR HGB CONC 31.7 g/dL (33.0-37.0); MEAN PLATELET VOLUME 9.3 fL (7.2-11.7); MONO # 0.7 K/uL (0.0-0.8); MONO % 6.9 % (0.0-10.0); NEUT # 7.3 K/uL (1.8-7.0); NEUT % 72.4 % (50.0-75.0); NRBC % 0.2 % (0.0-2.0); RBC 3.61 Mil/uL (3.80-5.20); RED CELL DISTRIBUTION WIDTH 20.3 % (11.5-14.5); WHITE BLOOD COUNT 10.1 K/uL (4.8-10.8)
[2018-05-13 10:50] LABS: ALBUMIN 3.7 g/dL (3.5-5.0)
[2018-05-13] MEDS: Ferric Sodium Gluconat Complex 125 MG in Sodium Chloride 0.9% 100 ML IVPB SCH (11:00)
[2018-05-13] MEDS: Epoetin Alfa 10,000 unit/ml Dialysis IV SCH (11:00)
--- NOTE | 2018-05-13 14:22 | CP.PCM.PN ---
Subjective - Date & Time of Evaluation Date of Evaluation: 05/13/18 Time of Evaluation: 14:19 - Subjective Subjective: Vascular Surgery: Dr. Valdez Pt seen and examined. No acute overnight events. Pt states she feels a little nauseous after HD but otherwise denies complaints. She is tolerating her diet and denies vomiting. Pt states permacath was used for HD today w/o issues. Denies fevers/chills. Objective - Vital Signs/Intake and Output Vital Signs (last 24 hours): Temp Pulse Resp BP Pulse Ox 98 F 72 18 138/74 98 05/13/18 13:20 05/13/18 13:20 05/13/18 13:20 05/13/18 13:20 05/13/18 13:20 Intake and Output: 05/13/18 05/13/18 06:59 18:59 Intake Total 700 Output Total 600 Balance 100 - Medications Medications: Current Medications Amlodipine Besylate (Norvasc) 10 mg PO DAILY [facility] Last Admin: 05/13/18 09:19 Dose: Not Given Clonidine HCl (Catapres Tts1 0.1 Mg/24 Hr) 1 patch TD QWK [facility] Last Admin: 05/11/18 13:29 Dose: 1 patch Dextrose (Dextrose 50% Inj) 0 ml IV STAT PRN; Protocol PRN Reason: Hypoglycemia Protocol Dextrose (Glutose 15) 0 gm PO ONCE PRN; Protocol PRN Reason: Hypoglycemia Protocol Epoetin Spenser (Procrit) 10,000 unit IV TTS [facility] Stop: 05/23/18 10:01 Last Admin: 05/13/18 11:00 Dose: Not Given Furosemide (Lasix) 80 mg PO F [facility] Glucagon (Glucagen Diagnostic Kit) 0 mg IM STAT PRN; Protocol PRN Reason: Hypoglycemia Protocol Heparin Sodium (Porcine) (Heparin) 5,000 units SC Q12 [facility] Last Admin: 05/13/18 09:15 Dose: 5,000 units Home Med (Febuxostat [Uloric]) 80 mg PO DAILY [facility] Hydralazine HCl (Apresoline) 100 mg PO BID [facility] Last Admin: 05/13/18 09:18 Dose: 100 mg Dextrose (Dextrose 5% In Water 1000 Ml) 1,000 mls @ 0 mls/hr IV .Q0M PRN; Protocol PRN Reason: Hypoglycemia Protocol Ferric Sodium Gluconate Complex 125 mg/ Sodium Chloride 110 mls @ 110 mls/hr IVPB DAILY [facility] Stop: 05/20/18 10:01 Last Admin: 05/13/18 11:00 Dose: 110 mls/hr Insulin Aspart (Novolog) 14 unit SC TIDAC [facility] Last Admin: 05/13/18 11:30 Dose: Not Given Insulin Glargine (Lantus) 10 unit SC QAM [facility] Last Admin: 05/13/18 09:22 Dose: 10 unit Losartan Potassium (Cozaar) 50 mg PO QPM [facility] Mupirocin (Bactroban 2% Nasal) 0.25 gm DELTA BID [facility] Last Admin: 05/13/18 09:23 Dose: 0.25 gm Nebivolol (Bystolic) 20 mg PO DAILY [facility] Last Admin: 05/13/18 09:19 Dose: Not Given Oxycodone/Acetaminophen (Percocet 5/325 Mg Tab) 1 tab PO Q4H PRN PRN Reason: Pain, Mild (1-3) Stop: 05/15/18 18:01 Pantoprazole Sodium (Protonix Ec Tab) 40 mg PO DAILY [facility] Last Admin: 05/13/18 09:14 Dose: 40 mg Sevelamer Carbonate (Renvela) 800 mg PO TIDCC [facility] Last Admin: 05/13/18 13:21 Dose: 800 mg Sitagliptin Phosphate (Januvia) 25 mg PO DAILY [facility] Last Admin: 05/13/18 09:15 Dose: 25 mg Vitamin B Complex/Vit C/Folic Acid (Nephro-Monie) 1 tab PO 0800 [facility] Last Admin: 05/13/18 08:27 Dose: 1 tab - Labs Labs: 05/13/18 10:00 05/13/18 10:00 PT 11.1 SECONDS (9.7-12.2) 05/10/18 16:56 INR 1.0 05/10/18 16:56 APTT 30 SECONDS (21-34) 05/10/18 16:56 - Constitutional Appears: Well, No Acute Distress - Head Exam Head Exam: ATRAUMATIC, NORMOCEPHALIC - Eye Exam Eye Exam: Normal appearance - ENT Exam ENT Exam: Mucous Membranes Moist - Neck Exam Additional comments: R IJ permacath in place, dressing clean/dry/intact - Cardiovascular Exam Cardiovascular Exam: RRR - GI/Abdominal Exam GI & Abdominal Exam: Soft. absent: Tenderness - Neurological Exam Neurological Exam: Alert, Awake, Oriented x3 - Skin Skin Exam: Dry, Warm Assessment and Plan - Assessment and Plan (Free Text) Assessment: 83F s/p R IJ permacath insertion; POD#1 Plan: - permacath functioning well - no further vascular surgery intervention needed at this time - d/w Dr. Courtney Estrada
--- NOTE | 2018-05-13 18:06 | CP.PCM.PN ---
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 Continue with Nephrovite 1 tab/day. PRBC as needed for anemia. on [facility] with dialysis as last Hb 9.1. added IV iron as TSAT 20% ferritin 145 Continue with phos binders, last phos level: check discontinue with calcitriol as last PTH 45. once monthly vit D supplement as last level 28 BP control with meds as ordered. Patient not on RAAS elisa hence added losartan 50/d. change lasix to 80 mg MWF orally. if BP stays low, can consider to taper clonidine Glycemic control, Dialysis consistent diet Further work up/management as per primary team Dose meds/antibiotics (if needed) for ESRD status. Avoid fleets enema/magnesium based laxatives. SW for outpt HD placement. Thanks for allowing me to participate in care of your patient. Will follow patient with you. Please call if any Qs. had d/w team Dr Dino Paredes Office: [phone] Chief Complaint;shortness of breath HPI: Pt is a 83 F with hx ofCKF 5 with maturing AVF, chronic anemia, hyperphosphatemia, secondary hyperparathyroidism, Diabetes Mellitus, hypertension presented with complaints of worsening SOB and found to have HTN emergency with pulm edema Renal consult requested for CKD 5 management. pt c/o SOB on exertion. has mild cough. able to make urine normal appetite. 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 started HD 05/11/18 with temp access Cardiovascular: No chest pain. Pulmonary: no shortness of breath Gastrointestinal: denies abdominal pain No nausea. No vomiting. Genitourinary: No pain while urinating. Denies blood in urine. All other negative except as mentioned in HPI Physical Examination: General Appearance: Comfortable, in no acute respiratory distress, co-operative . Vitals reviewed and noted as below Head; Atraumatic, normocephalic ENT: no ulcers no thrush. Tongue is midline. Oropharynx: no rash or ulcers. EYES: Pupils are equal, round and reactive to light accommodation. Eye muscles and extraocular movement intact. Sclera is anicteric. Neck; supple no lymphadenopathy, no thyromegaly or bruit Lungs: Increased respiratory rate/effort. Breath sounds bilateral improved at bases and clearer Heart: Normal rate. s1s2 normal. No rub or gallop. Extremities: no edema. No varicose veins Neurological: Patient is alert, awake and oriented to person, place and time. No focal deficit. Strength bilateral appropriate and equal Skin: Warm and dry. Normal turgor. No rash. Palpitation: Normal elasticity for age Abdomen: Abdomen is soft. Bowel sounds +. There is no abdominal tenderness, no guarding/rigidity or organomegaly Psych: normal insight and normal affect/mood MSK: no joint tenderness or swelling. Digits and nails normal, no deformity : kidney or bladder not palpable Access: left arm AVF maturing PC now Labs/imaging reviewed. Past medical history, past surgical history, family history, social history, allergy reviewed and noted as below Family Hx: no hx of CKD. Non contributory Objective - Vital Signs/Intake and Output Vital Signs (last 24 hours): Temp Pulse Resp BP Pulse Ox 98 F 84 13 118/50 L 99 05/13/18 13:20 05/13/18 17:15 05/13/18 17:15 05/13/18 17:00 05/13/18 17:15 Intake and Output: 05/13/18 05/13/18 06:59 18:59 Intake Total 700 680 Output Total 600 0 Balance 100 680 - Medications Medications: Current Medications Amlodipine Besylate (Norvasc) 10 mg PO DAILY [facility] Last Admin: 05/13/18 09:19 Dose: Not Given Clonidine HCl (Catapres Tts1 0.1 Mg/24 Hr) 1 patch TD QWK [facility] Last Admin: 05/11/18 13:29 Dose: 1 patch Dextrose (Dextrose 50% Inj) 0 ml IV STAT PRN; Protocol PRN Reason: Hypoglycemia Protocol Dextrose (Glutose 15) 0 gm PO ONCE PRN; Protocol PRN Reason: Hypoglycemia Protocol Epoetin Spenser (Procrit) 10,000 unit IV TTS [facility] Stop: 05/23/18 10:01 Last Admin: 05/13/18 11:00 Dose: Not Given Furosemide (Lasix) 80 mg PO MWF [facility] Glucagon (Glucagen Diagnostic Kit) 0 mg IM STAT PRN; Protocol PRN Reason: Hypoglycemia Protocol Heparin Sodium (Porcine) (Heparin) 5,000 units SC Q12 [facility] Last Admin: 05/13/18 09:15 Dose: 5,000 units Home Med (Febuxostat [Uloric]) 80 mg PO DAILY [facility] Hydralazine HCl (Apresoline) 100 mg PO BID [facility] Last Admin: 05/13/18 17:17 Dose: Not Given Dextrose (Dextrose 5% In Water 1000 Ml) 1,000 mls @ 0 mls/hr IV .Q0M PRN; Protocol PRN Reason: Hypoglycemia Protocol Ferric Sodium Gluconate Complex 125 mg/ Sodium Chloride 110 mls @ 110 mls/hr IVPB DAILY [facility] Stop: 05/20/18 10:01 Last Admin: 05/13/18 11:00 Dose: 110 mls/hr Insulin Aspart (Novolog) 14 unit SC TIDAC [facility] Last Admin: 05/13/18 17:13 Dose: 14 unit Insulin Glargine (Lantus) 10 unit SC QAM [facility] Last Admin: 05/13/18 09:22 Dose: 10 unit Losartan Potassium (Cozaar) 50 mg PO QPM [facility] Last Admin: 05/13/18 17:17 Dose: Not Given Mupirocin (Bactroban 2% Nasal) 0.25 gm DELTA BID [facility] Last Admin: 05/13/18 17:12 Dose: 0.25 gm Nebivolol (Bystolic) 20 mg PO DAILY [facility] Last Admin: 05/13/18 09:19 Dose: Not Given Oxycodone/Acetaminophen (Percocet 5/325 Mg Tab) 1 tab PO Q4H PRN PRN Reason: Pain, Mild (1-3) Stop: 05/15/18 18:01 Pantoprazole Sodium (Protonix Ec Tab) 40 mg PO DAILY [facility] Last Admin: 05/13/18 09:14 Dose: 40 mg Sevelamer Carbonate (Renvela) 800 mg PO TIDCC [facility] Last Admin: 05/13/18 17:12 Dose: 800 mg Sitagliptin Phosphate (Januvia) 25 mg PO DAILY [facility] Last Admin: 05/13/18 09:15 Dose: 25 mg Vitamin B Complex/Vit C/Folic Acid (Nephro-Monie) 1 tab PO 0800 [facility] Last Admin: 05/13/18 08:27 Dose: 1 tab - Labs Labs: 05/13/18 10:00 05/13/18 10:00 PT 11.1 SECONDS (9.7-12.2) 05/10/18 16:56 INR 1.0 05/10/18 16:56 APTT 30 SECONDS (21-34) 05/10/18 16:56
--- NOTE | 2018-05-13 21:36 | CP.PCM.PN ---
Subjective - Date & Time of Evaluation Date of Evaluation: 05/13/17 Time of Evaluation: 13:15 - Subjective Subjective: Hospitalist Progress Note Patient was seen and examined at 1:15 PM 05/13/18 Very pleasant 83 year old female who was admitted on 05/10/17 for complaints of SOB/wheezing/diaphoresis. She was admitted for further evaluation and treatment of HFrEF Exacerbation. Please see Assessment and Plans below for further details. Upon FULL ROS: Has not moved bowels in the past 2 days but this is not unusual for her NO longer with SOB NO cough NO wheezing NO chest pain NO abdominal pain NO burning/pain upon urination NO other complaints upon FULL ROS General: AAOX3, NAD HEENT: NCA, EOMI, PERRLA, NO thyromegaly, NO pharyngeal erythema/exudate, NO cervical/supraclavicular/submandibular lymphadenopathy Cardio: Systolic Ejection Murmur heard on all welch Respiratory: CTA B/L, NO R/R/W GI: BSx4, Soft, ND, NT, NO HSM, NO guarding/rebound tenderness Ext: Pulses are strong and equal, Capillary Refill is 2 seconds, NO edema noted Neuro: CN II through XII are grossly intact Assessment and Plan: 1). Shortness of Breath Likely Secondary to Acute Sytolic Heart Failure Exacerbation Acute Respiratory Distress and Hypoxia Secondary to Pulmonary Edema Chest X Ray 05/11/18: moderate pulmonary congestion, cardiomegaly Echocardiogram 01/17: LV EF 46.1%, left ventricle is normal in size, borderline LV hypertrophy, Grade 1 abnormal relaxation pattern Lasix 80 mg IV -- Bystolic 20 mg PO 1x/day Cozaar 50 mg PO QHS 2). Hx HTN Norvasc 10 mg PO 1x/day Clonidine 0.1 mg TD QWK Hydralazine 100 mg PO 2x/day Bystolic 20 mg PO 1x/day 3). Hx DM 2 requiring Insulin Lantus 10 units SC AM Aspart 14 units SC ACMeals Januvia 25 mg PO 1x/day 4). Hx ESRD She was started on HD during this admission She has a Left Arm AVF that is not in use and will need to be repaired She had a Femoral Catheter and this was removed and Right Jugular Permacath was placed on 05/12/[address] Valdez HD as per Nephrology Dr. Reggie Remy 800 mg PO TID NephroVite 1x/day [employer] to arrange for outpatient HD 5). Hx Breast CA Chest X Ray 05/11/18 showed evidence of lobulated hyperdensity projection over the soft tissues of the right breast indicated possible calcification. Patient explained that she is being followed by her Oncologist Dr. Francois every 6 months and her next appointment is due this month. She will need to follow up with Dr. Francois for this issue as an outpatient. 6). Hx Anemia Chronic Disease Likely Secondary to ESRD Procrit 10,000 units IV T-Th-S Ferric Sodium 125 mg IV 1x/day 7). Hx Gout Uloric 80 mg PO 1x/day 8). MRSA (+) Mupirocin Ointment 0.25 gm intranasal BID from 05/12/18 through 05/17/18 Contact precautions 9). Prophylaxis Heparin 5,000 Units SC Q12H Protonix 40 mg PO 1x/day Jacob Maldonado D.O. Objective - Vital Signs/Intake and Output Vital Signs (last 24 hours): Temp Pulse Resp BP Pulse Ox 98 F 82 13 154/45 H 94 L 05/13/18 13:20 05/13/18 20:25 05/13/18 20:25 05/13/18 20:25 05/13/18 20:25 Intake and Output: 05/13/18 05/14/18 18:59 06:59 Intake Total 960 Output Total 280 0 Balance 680 0 - Medications Medications: Current Medications Amlodipine Besylate (Norvasc) 10 mg PO DAILY [facility] Last Admin: 05/13/18 09:19 Dose: Not Given Clonidine HCl (Catapres Tts1 0.1 Mg/24 Hr) 1 patch TD QWK [facility] Last Admin: 05/11/18 13:29 Dose: 1 patch Dextrose (Dextrose 50% Inj) 0 ml IV STAT PRN; Protocol PRN Reason: Hypoglycemia Protocol Dextrose (Glutose 15) 0 gm PO ONCE PRN; Protocol PRN Reason: Hypoglycemia Protocol Epoetin Spenser (Procrit) 10,000 unit IV TTS [facility] Stop: 05/23/18 10:01 Last Admin: 05/13/18 11:00 Dose: Not Given Furosemide (Lasix) 80 mg PO [facility] Glucagon (Glucagen Diagnostic Kit) 0 mg IM STAT PRN; Protocol PRN Reason: Hypoglycemia Protocol Heparin Sodium (Porcine) (Heparin) 5,000 units SC Q12 [facility] Last Admin: 05/13/18 09:15 Dose: 5,000 units Home Med (Febuxostat [Uloric]) 80 mg PO DAILY [facility] Hydralazine HCl (Apresoline) 100 mg PO BID [facility] Last Admin: 05/13/18 17:17 Dose: Not Given Dextrose (Dextrose 5% In Water 1000 Ml) 1,000 mls @ 0 mls/hr IV .Q0M PRN; Protocol PRN Reason: Hypoglycemia Protocol Ferric Sodium Gluconate Complex 125 mg/ Sodium Chloride 110 mls @ 110 mls/hr IV PB DAILY [facility] Stop: 05/20/18 10:01 Last Admin: 05/13/18 11:00 Dose: 110 mls/hr Insulin Aspart (Novolog) 14 unit SC TIDAC [facility] Last Admin: 05/13/18 17:13 Dose: 14 unit Insulin Glargine (Lantus) 10 unit SC QAM [facility] Last Admin: 05/13/18 09:22 Dose: 10 unit Losartan Potassium (Cozaar) 50 mg PO QPM [facility] Last Admin: 05/13/18 17:17 Dose: Not Given Mupirocin (Bactroban 2% Nasal) 0.25 gm DELTA BID [facility] Last Admin: 05/13/18 17:12 Dose: 0.25 gm Nebivolol (Bystolic) 20 mg PO DAILY [facility] Last Admin: 05/13/18 09:19 Dose: Not Given Oxycodone/Acetaminophen (Percocet 5/325 Mg Tab) 1 tab PO Q4H PRN PRN Reason: Pain, Mild (1-3) Stop: 05/15/18 18:01 Pantoprazole Sodium (Protonix Ec Tab) 40 mg PO DAILY [facility] Last Admin: 05/13/18 09:14 Dose: 40 mg Sevelamer Carbonate (Renvela) 800 mg PO TIDCC [facility] Last Admin: 05/13/18 17:12 Dose: 800 mg Sitagliptin Phosphate (Januvia) 25 mg PO DAILY [facility] Last Admin: 05/13/18 09:15 Dose: 25 mg Vitamin B Complex/Vit C/Folic Acid (Nephro-Monie) 1 tab PO 0800 [facility] Last Admin: 05/13/18 08:27 Dose: 1 tab - Labs Labs: 05/13/18 10:00 05/13/18 10:00 PT 11.1 SECONDS (9.7-12.2) 05/10/18 16:56 INR 1.0 05/10/18 16:56 APTT 30 SECONDS (21-34) 05/10/18 16:56
[2018-05-14] MEDS: (Novolog) Insulin Aspart, Recombinant 100 u/ml 10 ml vial SC SCH ×3 (07:59→16:00)
[2018-05-14] MEDS: Multivitamin Vitamin B Complex (Nephro-Vite) Tab PO SCH (08:39)
[2018-05-14] MEDS: Pantoprazole 40 mg EC Tab PO SCH (09:35)
[2018-05-14] MEDS: Mupirocin 2% Ointment (NASAL) NAS SCH ×2 (09:39→18:43)
[2018-05-14] MEDS: Ferric Sodium Gluconat Complex 125 MG in Sodium Chloride 0.9% 100 ML IVPB SCH (09:50)
[2018-05-14] MEDS: (Lantus) Insulin Glargine, Recombinant SC SCH (10:03)
--- NOTE | 2018-05-14 12:59 | CP.PCM.PN ---
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 Continue with Nephrovite 1 tab/day. PRBC as needed for anemia. on [facility] with dialysis as last Hb 9.1. added IV iron as TSAT 20% ferritin 145 Continue with phos binders, last phos level: 3.6 discontinue with calcitriol as last PTH 45. once monthly vit D supplement as last level 28 BP control with meds as ordered. Patient losartan increased 100/day. change lasix to 80 mg MWF orally. Glycemic control, Dialysis consistent diet Further work up/management as per primary team Dose meds/antibiotics (if needed) for ESRD status. Avoid fleets enema/magnesium based laxatives. for outpt HD placement. Thanks for allowing me to participate in care of your patient. Will follow patient with you. Please call if any Qs. had d/w team Dr Dino Paredes Office: [phone] Chief Complaint;shortness of breath HPI: Pt is a 83 F with hx ofCKF 5 with maturing AVF, chronic anemia, hyperphosphatemia, secondary hyperparathyroidism, Diabetes Mellitus, hypertension presented with complaints of worsening SOB and found to have HTN emergency with pulm edema Renal consult requested for CKD 5 management. pt c/o SOB on exertion. has mild cough. able to make urine normal appetite. no fever ROS: had FINGER COBBLER and transferred to ICU. started HD 05/11/18 with temp access Cardiovascular: No chest pain. Pulmonary: no shortness of breath Gastrointestinal: denies abdominal pain mild nausea. No vomiting. Genitourinary: No pain while urinating. Denies blood in urine. All other negative except as mentioned in HPI Physical Examination: General Appearance: Comfortable, in no acute respiratory distress, co-operative . Vitals reviewed and noted as below Head; Atraumatic, normocephalic ENT: no ulcers no thrush. Tongue is midline. Oropharynx: no rash or ulcers. EYES: Pupils are equal, round and reactive to light accommodation. Eye muscles and extraocular movement intact. Sclera is anicteric. Neck; supple no lymphadenopathy, no thyromegaly or bruit Lungs: Increased respiratory rate/effort. Breath sounds bilateral improved at bases and clearer Heart: Normal rate. s1s2 normal. No rub or gallop. Extremities: no edema. No varicose veins Neurological: Patient is alert, awake and oriented to person, place and time. No focal deficit. Strength bilateral appropriate and equal Skin: Warm and dry. Normal turgor. No rash. Palpitation: Normal elasticity for age Abdomen: Abdomen is soft. Bowel sounds +. There is no abdominal tenderness, no guarding/rigidity or organomegaly Psych: normal insight and normal affect/mood MSK: no joint tenderness or swelling. Digits and nails normal, no deformity : kidney or bladder not palpable Access: left arm AVF maturing PC now Labs/imaging reviewed. Past medical history, past surgical history, family history, social history, allergy reviewed and noted as below Family Hx: no hx of CKD. Non contributory Objective - Vital Signs/Intake and Output Vital Signs (last 24 hours): Temp Pulse Resp BP Pulse Ox 99.8 F H 80 17 167/63 H 96 05/14/18 00:00 05/14/18 11:00 05/14/18 11:00 05/14/18 10:59 05/14/18 08:00 Intake and Output: 05/14/18 05/14/18 06:59 18:59 Intake Total 250 Output Total 0 Balance 0 250 - Medications Medications: Current Medications Amlodipine Besylate (Norvasc) 10 mg PO DAILY [facility] Last Admin: 05/14/18 09:38 Dose: 10 mg Clonidine HCl (Catapres Tts1 0.1 Mg/24 Hr) 1 patch TD QWK [facility] Last Admin: 05/11/18 13:29 Dose: 1 patch Dextrose (Dextrose 50% Inj) 0 ml IV STAT PRN; Protocol PRN Reason: Hypoglycemia Protocol Dextrose (Glutose 15) 0 gm PO ONCE PRN; Protocol PRN Reason: Hypoglycemia Protocol Epoetin Spenser (Procrit) 10,000 unit IV TTS [facility] Stop: 05/23/18 10:01 Last Admin: 05/13/18 11:00 Dose: Not Given [facility] ([facility]ix) [facility] Glucagon (Glucagen Diagnostic Kit) 0 mg IM STAT PRN; Protocol PRN Reason: Hypoglycemia Protocol Home Med (Febuxostat [Uloric]) 80 mg PO DAILY [facility] Hydralazine HCl (Apresoline) 100 mg PO BID [facility] Last Admin: 05/14/18 09:38 Dose: 100 mg Hydralazine HCl (Apresoline) 25 mg PO Q4 PRN PRN Reason: Other Ferric Sodium Gluconate Complex 125 mg/ Sodium Chloride 110 mls @ 110 mls/hr IV PB DAILY [facility] Stop: 05/20/18 10:01 Last Admin: 05/14/18 09:50 Dose: 110 mls/hr Insulin Aspart (Novolog) 14 unit SC TIDAC [facility] Last Admin: 05/14/18 07:59 Dose: 14 unit Insulin Glargine (Lantus) 10 unit SC QAM [facility] Last Admin: 05/14/18 10:03 Dose: 10 unit Lactulose (Enulose) 20 gm PO ONCE ONE Stop: 05/14/18 12:24 Losartan Potassium (Cozaar) 100 mg PO DAILY [facility] Last Admin: 05/14/18 10:03 Dose: 100 mg Mupirocin (Bactroban 2% Nasal) 0.25 gm DELTA BID [facility] Last Admin: 05/14/18 09:39 Dose: 0.25 gm Nebivolol (Bystolic) 20 mg PO DAILY [facility] Last Admin: 05/14/18 09:39 Dose: 20 mg Ondansetron HCl (Zofran Inj) 4 mg IVP Q6H PRN PRN Reason: Nausea/Vomiting Oxycodone/Acetaminophen (Percocet 5/325 Mg Tab) 1 tab PO Q4H PRN PRN Reason: Pain, Mild (1-3) Stop: 05/15/18 18:01 Pantoprazole Sodium (Protonix Ec Tab) 40 mg PO DAILY [facility] Last Admin: 05/14/18 09:35 Dose: 40 mg Sevelamer Carbonate (Renvela) 800 mg PO TIDCC [facility] Last Admin: 05/14/18 08:57 Dose: 800 mg Sitagliptin Phosphate (Januvia) 25 mg PO DAILY [facility] Last Admin: 05/14/18 09:36 Dose: 25 mg Vitamin B Complex/Vit C/Folic Acid (Nephro-Monie) 1 tab PO 0800 [facility] Last Admin: 05/14/18 08:39 Dose: 1 tab - Labs Labs: 05/13/18 10:00 05/13/18 10:00 PT 11.1 SECONDS (9.7-12.2) 05/10/18 16:56 INR 1.0 05/10/18 16:56 APTT 30 SECONDS (21-34) 05/10/18 16:56
--- NOTE | 2018-05-14 22:29 | CP.PCM.PN ---
Subjective - Date & Time of Evaluation Date of Evaluation: 05/14/18 Time of Evaluation: 16:00 - Subjective Subjective: Hospitalist Progress Note Patient was seen and examined at 4:00 PM 05/14/18 Very pleasant 83 year old female who was admitted on 05/10/17 for complaints of SOB/wheezing/diaphoresis. She was admitted for further evaluation and treatment of HFrEF Exacerbation. Please see Assessment and Plans below for further details. Upon FULL ROS: Has not moved bowels in the past 3 days. She can have episodes where she will not move bowels for 2 days. She reveals today that she has not been eating much since her admission due to nausea but NO vomiting. She will just drink the juice that is given to her. She has been encouraged to at least drink the Glucerna shakes that have been ordered for her 3 times per day NO longer with SOB NO cough NO wheezing NO chest pain NO abdominal pain NO burning/pain upon urination NO other complaints upon FULL ROS General: AAOX3, NAD HEENT: NCA, EOMI, PERRLA, NO thyromegaly, NO pharyngeal erythema/exudate, NO cervical/supraclavicular/submandibular lymphadenopathy Cardio: Systolic Ejection Murmur heard on all welch Respiratory: CTA B/L, NO R/R/W GI: BSx4, Soft, ND, NT, NO HSM, NO guarding/rebound tenderness Ext: Pulses are strong and equal, Capillary Refill is 2 seconds, NO edema noted Neuro: CN II through XII are grossly intact Assessment and Plan: 1). Shortness of Breath Likely Secondary to Acute Sytolic Heart Failure Exacerbation Acute Respiratory Distress and Hypoxia Secondary to Pulmonary Edema Chest X Ray 05/11/18: moderate pulmonary congestion, cardiomegaly Echocardiogram 01/17: LV EF 46.1%, left ventricle is normal in size, borderline LV hypertrophy, Grade 1 abnormal relaxation pattern Lasix 80 mg IV -- Bystolic 20 mg PO 1x/day Cozaar 50 mg PO QHS 2). Hx HTN Norvasc 10 mg PO 1x/day Clonidine 0.1 mg TD QWK Hydralazine 100 mg PO 2x/day Hydralazine 25 mg PO Q4H PRN SBP >170 and/or DBP >110 Bystolic 20 mg PO 1x/day Consider increasing the Hydralazine 100 mg to 3x/day should the blood pressure not be better under control 3). Hx DM 2 requiring Insulin Lantus 10 units SC AM Aspart 14 units SC ACMeals Januvia 25 mg PO 1x/day 4). Hx ESRD She was started on HD during this admission She has a Left Arm AVF that is not in use and will need to be repaired She had a Femoral Catheter and this was removed and Right Jugular Permacath was placed on 05/12/[address] Valdez HD as per Nephrology Dr. Reggie Remy 800 mg PO TID NephroVite 1x/day [facility] Att[facility] to arrange for outpatient HD She is tentatively for Left Arm AVF repair on Tuesday05/16/[address] Valdez 5). Hx Breast CA Chest X Ray 05/11/18 showed evidence of lobulated hyperdensity projection over the soft tissues of the right breast indicated possible calcification. Patient explained that she is being followed by her Oncologist Dr. Francois every 6 months and her next appointment is due this month. She will need to follow up with Dr. Francois for this issue as an outpatient. 6). Hx Anemia Chronic Disease Likely Secondary to ESRD Procrit 10,000 units IV T-Th-S: 6 doses to be given Ferric Sodium 125 mg IV 1x/day 7). Hx Gout (Left Elbow) Uloric 80 mg PO 1x/day 8). MRSA (+) Mupirocin Ointment 0.25 gm intranasal BID from 05/12/18 through 05/17/18 Contact precautions 9). Prophylaxis Heparin 5,000 Units SC Q12H Bilateral SCDs Protonix 40 mg PO 1x/day Glucerna Shakes 3x/day: monitor and ask patient about her PO intake (please see ROS above) Jacob Maldonado D.O. Objective - Vital Signs/Intake and Output Vital Signs (last 24 hours): Temp Pulse Resp BP Pulse Ox 99.8 F H 124 H 25 H 143/68 92 L 05/14/18 00:00 05/14/18 20:00 05/14/18 20:00 05/14/18 19:59 05/14/18 20:00 Intake and Output: 05/14/18 05/15/18 18:59 06:59 Intake Total 950 Output Total 500 Balance 450 - Medications Medications: Current Medications Amlodipine Besylate (Norvasc) 10 mg PO DAILY [facility] Last Admin: 05/14/18 09:38 Dose: 10 mg Clonidine HCl (Catapres Tts1 0.1 Mg/24 Hr) 1 patch TD QWK [facility] Last Admin: 05/11/18 13:29 Dose: 1 patch Dextrose (Dextrose 50% Inj) 0 ml IV STAT PRN; Protocol PRN Reason: Hypoglycemia Protocol Dextrose (Glutose 15) 0 gm PO ONCE PRN; Protocol PRN Reason: Hypoglycemia Protocol Epoetin Spenser (Procrit) 10,000 unit IV TTS [facility] Stop: 05/23/18 10:01 Last Admin: 05/13/18 11:00 Dose: Not Given Furosemide (Lasix) 80 mg PO MWF [facility] Glucagon (Glucagen Diagnostic Kit) 0 mg IM STAT PRN; Protocol PRN Reason: Hypoglycemia Protocol Heparin Sodium (Porcine) (Heparin) 5,000 units SC Q12H [facility] Last Admin: 05/14/18 18:42 Dose: 5,000 units Home Med (Febuxostat [Uloric]) 80 mg PO DAILY [facility] Hydralazine HCl (Apresoline) 100 mg PO BID [facility] Last Admin: 05/14/18 18:42 Dose: 100 mg Hydralazine HCl (Apresoline) 25 mg PO Q4 PRN PRN Reason: Other Ferric Sodium Gluconate Complex 125 mg/ Sodium Chloride 110 mls @ 110 mls/hr IVPB DAILY [facility] Stop: 05/20/18 10:01 Last Admin: 05/14/18 09:50 Dose: 110 mls/hr Insulin Aspart (Novolog) 14 unit SC TIDAC [facility] Last Admin: 05/14/18 16:00 Dose: Not Given Insulin Glargine (Lantus) 10 unit SC QAM [facility] Last Admin: 05/14/18 10:03 Dose: 10 unit Losartan Potassium (Cozaar) 100 mg PO DAILY [facility] Last Admin: 05/14/18 10:03 Dose: 100 mg Mupirocin (Bactroban 2% Nasal) 0.25 gm DELTA BID [facility] Stop: 05/17/18 18:15 Last Admin: 05/14/18 18:43 Dose: 0.25 gm Nebivolol (Bystolic) 20 mg PO DAILY [facility] Last Admin: 05/14/18 09:39 Dose: 20 mg Ondansetron HCl (Zofran Inj) 4 mg IVP Q6H PRN PRN Reason: Nausea/Vomiting Last Admin: 05/14/18 13:08 Dose: 4 mg Oxycodone/Acetaminophen (Percocet 5/325 Mg Tab) 1 tab PO Q4H PRN PRN Reason: Pain, Mild (1-3) Stop: 05/15/18 18:01 Pantoprazole Sodium (Protonix Ec Tab) 40 mg PO DAILY [facility] Last Admin: 05/14/18 09:35 Dose: 40 mg Sevelamer Carbonate (Renvela) 800 mg PO TIDCC [facility] Last Admin: 05/14/18 17:40 Dose: 800 mg Sitagliptin Phosphate (Januvia) 25 mg PO DAILY [facility] Last Admin: 05/14/18 09:36 Dose: 25 mg Vitamin B Complex/Vit C/Folic Acid (Nephro-Monie) 1 tab PO 0800 [facility] Last Admin: 05/14/18 08:39 Dose: 1 tab - Labs Labs: 05/13/18 10:00 05/13/18 10:00 PT 11.1 SECONDS (9.7-12.2) 05/10/18 16:56 INR 1.0 05/10/18 16:56 APTT 30 SECONDS (21-34) 05/10/18 16:56
[2018-05-15 06:25] LABS: BASO # 0.1 K/uL (0.0-0.2); BASO % 1.1 % (0.0-2.0); EOS # 0.1 K/uL (0.0-0.7); EOS % 0.8 % (0.0-4.0); HEMOGLOBIN 11.6 g/dL (11.0-16.0); LYMPH # 2.3 K/uL (1.0-4.3); LYMPH % 21.3 % (20.0-40.0); MEAN CELL VOLUME 86.8 fL (81.0-99.0); MEAN CORPUSCULAR HEMOGLOBIN 27.7 pg (27.0-31.0); MEAN CORPUSCULAR HGB CONC 31.9 g/dL (33.0-37.0); MEAN PLATELET VOLUME 9.3 fL (7.2-11.7); MONO # 0.9 K/uL (0.0-0.8); NEUT # 7.3 K/uL (1.8-7.0); NEUT % 68.8 % (50.0-75.0); NRBC % 2.4 % (0.0-2.0); RBC 4.17 Mil/uL (3.80-5.20); RED CELL DISTRIBUTION WIDTH 20.3 % (11.5-14.5); WHITE BLOOD COUNT 10.6 K/uL (4.8-10.8)
[2018-05-15 06:37] LABS: ALBUMIN 4.1 g/dL (3.5-5.0); CALCIUM 9.6 mg/dl (8.6-10.4)
[2018-05-15] MEDS: (Novolog) Insulin Aspart, Recombinant 100 u/ml 10 ml vial SC SCH ×3 (07:30→17:04)
[2018-05-15] MEDS: Multivitamin Vitamin B Complex (Nephro-Vite) Tab PO SCH (08:08)
[2018-05-15] MEDS: Mupirocin 2% Ointment (NASAL) NAS SCH ×2 (10:15→17:12)
[2018-05-15] MEDS: Pantoprazole 40 mg EC Tab PO SCH (10:15)
[2018-05-15] MEDS: (Lantus) Insulin Glargine, Recombinant SC SCH (10:26)
[2018-05-15] MEDS: Ferric Sodium Gluconat Complex 125 MG in Sodium Chloride 0.9% 100 ML IVPB SCH (11:04)
--- NOTE | 2018-05-15 12:05 | RAD ---
Date of service: 05/12/2018 PROCEDURE: Intraoperative Fluoroscopy. HISTORY: RENAL FAILURE FINDINGS: Fluoroscopic assistance was provided for right-sided PermCath placement. Please refer to the operative report from [facility].
--- NOTE | 2018-05-15 15:14 | CP.PCM.PN ---
Subjective - Date & Time of Evaluation Date of Evaluation: 05/15/18 Time of Evaluation: 15:12 - Subjective Subjective: Nephrology Consultation Note: Assessment: stable HTN emergency with pulm edema Diabetic chronic Kidney Disease (E11.22) Hypertensive Chronic Kidney Disease (I12.0) CKD 5 now ESRD on HD via PC (TTS) Anemia (D64.9), Hyperphosphatemia (E83.39), Secondary Hyperparathyroidism (E21.1), HTN (I12.0) Plan: HD TTS schedule as ordered. Continue with Nephrovite 1 tab/day. PRBC as needed for anemia. not on [facility] with dialysis as last Hb 11.6. added IV iron as TSAT 20% ferritin 145 Continue with phos binders, last phos level: 3.6 discontinue with calcitriol as last PTH 45. once monthly vit D supplement as last level 28 BP control with meds as ordered. Patient losartan increased 100/day. change lasix to 80 mg MWF orally. Glycemic control, Dialysis consistent diet Further work up/management as per primary team Dose meds/antibiotics (if needed) for ESRD status. Avoid fleets enema/magnesium based laxatives. SW for outpt HD placement. dulcolax supp for constipation intermittent episodes of short lived tachycardia d/w primary team. pt on bystolic already Thanks for allowing me to participate in care of your patient. Will follow malu ent with you. Please call if any Qs. had d/w team Dr Dino Paredes Office: [phone] Chief Complaint;shortness of breath HPI: Pt is a 83 F with hx ofCKF 5 with maturing AVF, chronic anemia, hyperphosphatemia, secondary hyperparathyroidism, Diabetes Mellitus, hypertension presented with complaints of worsening SOB and found to have HTN emergency with pulm edema Renal consult requested for CKD 5 management. pt c/o SOB on exertion. has mild cough. able to make urine normal appetite. 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 started HD 05/11/18 with temp access Cardiovascular: No chest pain. Pulmonary: no shortness of breath Gastrointestinal: denies abdominal pain mild nausea. No vomiting. Genitourinary: No pain while urinating. Denies blood in urine. All other negative except as mentioned in HPI Physical Examination: General Appearance: Comfortable, in no acute respiratory distress, co-operative . Vitals reviewed and noted as below Head; Atraumatic, normocephalic ENT: no ulcers no thrush. Tongue is midline. Oropharynx: no rash or ulcers. EYES: Pupils are equal, round and reactive to light accommodation. Eye muscles and extraocular movement intact. Sclera is anicteric. Neck; supple no lymphadenopathy, no thyromegaly or bruit Lungs: Increased respiratory rate/effort. Breath sounds bilateral improved at bases and clearer Heart: Normal rate. s1s2 normal. No rub or gallop. Extremities: no edema. No varicose veins Neurological: Patient is alert, awake and oriented to person, place and time. No focal deficit. Strength bilateral appropriate and equal Skin: Warm and dry. Normal turgor. No rash. Palpitation: Normal elasticity for age Abdomen: Abdomen is soft. Bowel sounds +. There is no abdominal tenderness, no guarding/rigidity or organomegaly Psych: normal insight and normal affect/mood MSK: no joint tenderness or swelling. Digits and nails normal, no deformity : kidney or bladder not palpable Access: left arm AVF maturing PC now Labs/imaging reviewed. Past medical history, past surgical history, family history, social history, allergy reviewed and noted as below Family Hx: no hx of CKD. Non contributory Objective - Vital Signs/Intake and Output Vital Signs (last 24 hours): Temp Pulse Resp BP Pulse Ox 97.6 F 79 15 130/52 L 97 05/15/18 08:00 05/15/18 12:42 05/15/18 12:42 05/15/18 12:42 05/15/18 12:42 Intake and Output: 05/15/18 05/15/18 06:59 18:59 Output Total 130 Balance -130 - Medications Medications: Current Medications Amlodipine Besylate (Norvasc) 10 mg PO DAILY REPLACED BY [facility] Last Admin: 05/15/18 10:15 Dose: 10 mg Clonidine HCl (Catapres Tts1 0.1 Mg/24 Hr) 1 patch TD QWK REPLACED BY [facility] Last Admin: 05/11/18 13:29 Dose: 1 patch Dextrose (Dextrose 50% Inj) 0 ml IV STAT PRN; Protocol PRN Reason: Hypoglycemia Protocol Dextrose (Glutose 15) 0 gm PO ONCE PRN; Protocol PRN Reason: Hypoglycemia Protocol Furosemide (Lasix) 80 mg PO MWF REPLACED BY [facility] Last Admin: 05/15/18 08:20 Dose: 80 mg Glucagon (Glucagen Diagnostic Kit) 0 mg IM STAT PRN; Protocol PRN Reason: Hypoglycemia Protocol Heparin Sodium (Porcine) (Heparin) 5,000 units SC Q12H REPLACED BY [facility] Last Admin: 05/15/18 06:31 Dose: Not Given Home Med (Febuxostat [Uloric]) 80 mg PO DAILY REPLACED BY [facility] Hydralazine HCl (Apresoline) 100 mg PO BID REPLACED BY [facility] Last Admin: 05/15/18 10:25 Dose: 100 mg Hydralazine HCl (Apresoline) 25 mg PO Q4 PRN PRN Reason: Other Ferric Sodium Gluconate Complex 125 mg/ Sodium Chloride 110 mls @ 110 mls/hr IVPB DAILY REPLACED BY [facility] Stop: 05/20/18 10:01 Last Admin: 05/15/18 11:04 Dose: 110 mls/hr Insulin Aspart (Novolog) 14 unit SC TIDAC REPLACED BY [facility] Last Admin: 05/15/18 11:30 Dose: 14 unit Insulin Glargine (Lantus) 10 unit SC QAM REPLACED BY [facility] Last Admin: 05/15/18 10:26 Dose: 10 unit Isosorbide Mononitrate (Imdur) 60 mg PO Q24H REPLACED BY [facility] Losartan Potassium (Cozaar) 100 mg PO DAILY REPLACED BY [facility] Last Admin: 05/15/18 10:15 Dose: 100 mg Mupirocin (Bactroban 2% Nasal) 0.25 gm DELTA BID REPLACED BY [facility] Stop: 05/17/18 18:15 Last Admin: 05/15/18 10:15 Dose: 0.25 gm Nebivolol (Bystolic) 20 mg PO DAILY REPLACED BY [facility] Last Admin: 05/15/18 10:16 Dose: 20 mg Ondansetron HCl (Zofran Inj) 4 mg IVP Q6H PRN PRN Reason: Nausea/Vomiting Last Admin: 05/15/18 08:20 Dose: 4 mg Oxycodone/Acetaminophen (Percocet 5/325 Mg Tab) 1 tab PO Q4H PRN PRN Reason: Pain, Mild (1-3) Stop: 05/15/18 18:01 Pantoprazole Sodium (Protonix Ec Tab) 40 mg PO DAILY REPLACED BY [facility] Last Admin: 05/15/18 10:15 Dose: 40 mg Sevelamer Carbonate (Renvela) 800 mg PO TIDCC REPLACED BY [facility] Last Admin: 05/15/18 12:43 Dose: 800 mg Sitagliptin Phosphate (Januvia) 25 mg PO DAILY REPLACED BY [facility] Last Admin: 05/15/18 10:15 Dose: 25 mg Vitamin B Complex/Vit C/Folic Acid (Nephro-Monie) 1 tab PO 0800 REPLACED BY [facility] Last Admin: 05/15/18 08:08 Dose: 1 tab - Labs Labs: 05/15/18 06:15 05/15/18 06:15 PT 11.1 SECONDS (9.7-12.2) 05/10/18 16:56 INR 1.0 05/10/18 16:56 APTT 30 SECONDS (21-34) 05/10/18 16:56
--- NOTE | 2018-05-15 17:50 | CP.PCM.PN ---
Subjective - Date & Time of Evaluation Date of Evaluation: 05/15/18 Time of Evaluation: 17:15 - Subjective Subjective: Surgery Progress note. Dr. Valdez Pt seen and examined at bedside. No acute events overnight. No fevers or chills. c/o some nausea and decreased appetite. Agrees for OR tomorrow for superficialization of the AVF. Objective - Vital Signs/Intake and Output Vital Signs (last 24 hours): Temp Pulse Resp BP Pulse Ox 97.6 F 76 10 L 162/60 H 94 L 05/15/18 08:00 05/15/18 17:29 05/15/18 17:29 05/15/18 17:29 05/15/18 17:29 Intake and Output: 05/15/18 05/15/18 06:59 18:59 Output Total 130 Balance -130 - Medications Medications: Current Medications Amlodipine Besylate (Norvasc) 10 mg PO DAILY [facility] Last Admin: 05/15/18 10:15 Dose: 10 mg Clonidine HCl (Catapres Tts1 0.1 Mg/24 Hr) 1 patch TD QWK [facility] Last Admin: 05/11/18 13:29 Dose: 1 patch Dextrose (Dextrose 50% Inj) 0 ml IV STAT PRN; Protocol PRN Reason: Hypoglycemia Protocol Dextrose (Glutose 15) 0 gm PO ONCE PRN; Protocol PRN Reason: Hypoglycemia Protocol Furosemide (Lasix) 80 mg PO MWF [facility] Last Admin: 05/15/18 08:20 Dose: 80 mg Glucagon (Glucagen Diagnostic Kit) 0 mg IM STAT PRN; Protocol PRN Reason: Hypoglycemia Protocol Heparin Sodium (Porcine) (Heparin) 5,000 units SC Q12H [facility] Last Admin: 05/15/18 17:11 Dose: 5,000 units Home Med (Febuxostat [Uloric]) 80 mg PO DAILY [facility] Hydralazine HCl (Apresoline) 100 mg PO BID [facility] Last Admin: 05/15/18 17:43 Dose: 100 mg Hydralazine HCl (Apresoline) 25 mg PO Q4 PRN PRN Reason: Other Ferric Sodium Gluconate Complex 125 mg/ Sodium Chloride 110 mls @ 110 mls/hr IVPB DAILY [facility] Stop: 05/20/18 10:01 Last Admin: 05/15/18 11:04 Dose: 110 mls/hr Insulin Aspart (Novolog) 14 unit SC TIDAC [facility] Last Admin: 05/15/18 17:04 Dose: Not Given Insulin Glargine (Lantus) 10 unit SC QAM [facility] Last Admin: 05/15/18 10:26 Dose: 10 unit Isosorbide Mononitrate (Imdur) 60 mg PO Q24H [facility] Last Admin: 05/15/18 15:35 Dose: 60 mg Losartan Potassium (Cozaar) 100 mg PO DAILY [facility] Last Admin: 05/15/18 10:15 Dose: 100 mg Mupirocin (Bactroban 2% Nasal) 0.25 gm DELTA BID [facility] Stop: 05/17/18 18:15 Last Admin: 05/15/18 17:12 Dose: 0.25 gm Nebivolol (Bystolic) 20 mg PO DAILY [facility] Last Admin: 05/15/18 10:16 Dose: 20 mg Ondansetron HCl (Zofran Inj) 4 mg IVP Q6H PRN PRN Reason: Nausea/Vomiting Last Admin: 05/15/18 08:20 Dose: 4 mg Oxycodone/Acetaminophen (Percocet 5/325 Mg Tab) 1 tab PO Q4H PRN PRN Reason: Pain, Mild (1-3) Stop: 05/15/18 18:01 Pantoprazole Sodium (Protonix Ec Tab) 40 mg PO DAILY [facility] Last Admin: 05/15/18 10:15 Dose: 40 mg Sevelamer Carbonate (Renvela) 800 mg PO TIDCC [facility] Last Admin: 05/15/18 17:12 Dose: 800 mg Sitagliptin Phosphate (Januvia) 25 mg PO DAILY [facility] Last Admin: 05/15/18 10:15 Dose: 25 mg Vitamin B Complex/Vit C/Folic Acid (Nephro-Monie) 1 tab PO 0800 [facility] Last Admin: 05/15/18 08:08 Dose: 1 tab - Labs Labs: 05/15/18 06:15 05/15/18 06:15 PT 11.1 SECONDS (9.7-12.2) 05/10/18 16:56 INR 1.0 05/10/18 16:56 APTT 30 SECONDS (21-34) 05/10/18 16:56 - Constitutional Appears: Well, Non-toxic, No Acute Distress - Head Exam Head Exam: ATRAUMATIC, NORMAL INSPECTION, NORMOCEPHALIC - Eye Exam Eye Exam: EOMI, Normal appearance. absent: Scleral icterus - ENT Exam ENT Exam: Mucous Membranes Moist - Respiratory Exam Respiratory Exam: NORMAL BREATHING PATTERN. absent: Accessory Muscle Use, Respiratory Distress - Cardiovascular Exam Cardiovascular Exam: absent: JVD - GI/Abdominal Exam GI & Abdominal Exam: Soft. absent: Distended, Guarding, Tenderness, Rebound - Extremities Exam Additional comments: Right AVF with palpable thrill. - Neurological Exam Neurological Exam: Alert, Awake, Oriented x3 - Psychiatric Exam Psychiatric exam: Normal Affect, Normal Mood - Skin Skin Exam: Dry, Intact, Normal Color, Warm Assessment and Plan - Assessment and Plan (Free Text) Assessment: 83yo F with ESRD on HD. Plan: - Will plan for OR tomorrow, 05/16/18. Plan for AVF superficialization. - NPO past mn tonight Further recs as per Dr. Courtney Azar PGY2 surgery
--- NOTE | 2018-05-15 21:25 | CARD ---
APPROVED REPORT Date of service: 05/14/2018 EKG Measurement Heart [id number] <Conclusion> Normal sinus rhythm Left ventricular hypertrophy Nonspecific ST segment abnormality Abnormal ECG
--- NOTE | 2018-05-16 02:06 | CP.PCM.PN ---
Subjective - Date & Time of Evaluation Date of Evaluation: 05/15/18 Time of Evaluation: 18:30 - Subjective Subjective: Hospitalist Progress Note This is a late entry Patient was seen and examined at 6:30 PM 05/15/18 Very pleasant 83 year old female who was admitted on 05/10/17 for complaints of SOB/wheezing/diaphoresis. She was admitted for further evaluation and treatment of HFrEF Exacerbation. Please see Assessment and Plans below for further details. Patient is for Left AVF correction for morning 05/16/18 Upon FULL ROS: Has not moved bowels in the past 4 days. She can have episodes where she will not move bowels for 2 days. She has not been eating much since her admission due to nausea but NO vomiting. She will just drink the juice that is given to her. She has been encouraged to at least drink the Glucerna shakes that have been ordered for her 3 times per day however she is not driking these as all 3 were on the table next to her untouched. At time of exam on 05/15/18 she was tolerating chicke broth that her son was giving to her NO longer with SOB NO cough NO wheezing NO chest pain NO abdominal pain NO burning/pain upon urination NO other complaints upon FULL ROS General: AAOX3, NAD HEENT: NCA, EOMI, PERRLA, NO thyromegaly, NO pharyngeal erythema/exudate, NO cervical/supraclavicular/submandibular lymphadenopathy Cardio: Systolic Ejection Murmur heard on all welch Respiratory: CTA B/L, NO R/R/W GI: BSx4, Soft, ND, NT, NO HSM, NO guarding/rebound tenderness Ext: Pulses are strong and equal, Capillary Refill is 2 seconds, NO edema noted Neuro: CN II through XII are grossly intact Assessment and Plan: 1). Shortness of Breath Likely Secondary to Acute Sytolic Heart Failure Exacerbation Acute Respiratory Distress and Hypoxia Secondary to Pulmonary Edema Chest X Ray 05/11/18: moderate pulmonary congestion, cardiomegaly Echocardiogram 01/17: LV EF 46.1%, left ventricle is normal in size, borderline LV hypertrophy, Grade 1 abnormal relaxation pattern Lasix 80 mg IV -- Bystolic 20 mg PO 1x/day Cozaar 50 mg PO QHS 2). Hx HTN Norvasc 10 mg PO 1x/day at 10 AM Clonidine 0.1 mg TD QWK Hydralazine 100 mg PO 2x/day at 10 AM and 6 PM Hydralazine 25 mg PO Q4H PRN SBP >170 and/or DBP >110 Bystolic 20 mg PO 1x/day at 10 AM Losartan 100 mg PO 1x/day at 10 AM Spoke with Electric Car Operator Dr. Paredes and we have added Imdur ER 60 mg PO 1x/day at 2 PM 3). Hx DM 2 requiring Insulin Lantus 10 units SC AM Aspart 14 units SC ACMeals Januvia 25 mg PO 1x/day 4). Hx ESRD She was started on HD during this admission She has a Left Arm AVF that is not in use and will need to be repaired She had a Femoral Catheter and this was removed and Right Jugular Permacath was placed on 05/12/[address] Valdez HD as per Nephrology Dr. Paredes Revela 800 mg PO TID NephroVite 1x/day [facility] to arrange for outpatient HD She is for Left Arm AVF repair on Tuesday05/16/[address] Valdez 5). Hx Breast CA Chest X Ray 05/11/18 showed evidence of lobulated hyperdensity projection over the soft tissues of the right breast indicated possible calcification. Patient explained that she is being followed by her Oncologist Dr. Francois every 6 months and her next appointment is due this month. She will need to follow up with Dr. Francois for this issue as an outpatient. 6). Hx Anemia Chronic Disease Likely Secondary to ESRD Procrit 10,000 units IV T--: 6 doses to be given Ferric Sodium 125 mg IV 1x/day 7). Hx Gout (Left Elbow) Uloric 80 mg PO 1x/day 8). MRSA (+) Mupirocin Ointment 0.25 gm intranasal BID from 05/12/18 through 05/17/18 Contact precautions 9). Constipation GI exam is unremarkable Dulcolax x 1 dose given 05/15/18 but patient has not been eating much She is passing flatus F/U Obstruction Series ordered evening 05/15/18 10). Prophylaxis Heparin 5,000 Units SC Q12H is on HOLD for planned Left Arm AVF correction morning 05/16/18: please restart once cleared by Vascular Surgery Bilateral SCDs Protonix 40 mg PO 1x/day Glucerna Shakes 3x/day Jacob Maldonado D.O. Objective - Vital Signs/Intake and Output Vital Signs (last 24 hours): Temp Pulse Resp BP Pulse Ox 97.6 F 94 H 20 133/56 L 94 L 05/15/18 08:00 05/16/18 01:00 05/16/18 01:00 05/16/18 00:59 05/16/18 01:00 Intake and Output: 05/15/18 05/16/18 18:59 06:59 Output Total 130 Balance -130 - Medications Medications: Current Medications Amlodipine Besylate (Norvasc) 10 mg PO DAILY [facility] Last Admin: 05/15/18 10:15 Dose: 10 mg Clonidine HCl (Catapres Tts1 0.1 Mg/24 Hr) 1 patch TD QWK [facility] Last Admin: 05/11/18 13:29 Dose: 1 patch Dextrose (Dextrose 50% Inj) 0 ml IV STAT PRN; Protocol PRN Reason: Hypoglycemia Protocol Dextrose (Glutose 15) 0 gm PO ONCE PRN; Protocol PRN Reason: Hypoglycemia Protocol Furosemide (Lasix) 80 mg PO MWF [facility] Last Admin: 05/15/18 08:20 Dose: 80 mg Glucagon (Glucagen Diagnostic Kit) 0 mg IM STAT PRN; Protocol PRN Reason: Hypoglycemia Protocol Heparin Sodium (Porcine) (Heparin) 5,000 units SC Q12H [facility] Last Admin: 05/15/18 17:11 Dose: 5,000 units Home Med (Febuxostat [Uloric]) 80 mg PO DAILY [facility] Hydralazine HCl (Apresoline) 100 mg PO BID [facility] Last Admin: 05/15/18 17:43 Dose: 100 mg Hydralazine HCl (Apresoline) 25 mg PO Q4 PRN PRN Reason: Other Ferric Sodium Gluconate Complex 125 mg/ Sodium Chloride 110 mls @ 110 mls/hr IVPB DAILY [facility] Stop: 05/20/18 10:01 Last Admin: 05/15/18 11:04 Dose: 110 mls/hr Insulin Aspart (Novolog) 14 unit SC TIDAC [facility] Last Admin: 05/15/18 17:04 Dose: Not Given Insulin Glargine (Lantus) 10 unit SC QAM [facility] Last Admin: 05/15/18 10:26 Dose: 10 unit Isosorbide Mononitrate (Imdur) 60 mg PO Q24H [facility] Last Admin: 05/15/18 15:35 Dose: 60 mg Losartan Potassium (Cozaar) 100 mg PO DAILY [facility] Last Admin: 05/15/18 10:15 Dose: 100 mg Mupirocin (Bactroban 2% Nasal) 0.25 gm DELTA BID [facility] Stop: 05/17/18 18:15 Last Admin: 05/15/18 17:12 Dose: 0.25 gm Nebivolol (Bystolic) 20 mg PO DAILY [facility] Last Admin: 05/15/18 10:16 Dose: 20 mg Ondansetron HCl (Zofran Inj) 4 mg IVP Q6H PRN PRN Reason: Nausea/Vomiting Last Admin: 05/15/18 08:20 Dose: 4 mg Pantoprazole Sodium (Protonix Ec Tab) 40 mg PO DAILY [facility] Last Admin: 05/15/18 10:15 Dose: 40 mg Sevelamer Carbonate (Renvela) 800 mg PO TIDCC [facility] Last Admin: 05/15/18 17:12 Dose: 800 mg Sitagliptin Phosphate (Januvia) 25 mg PO DAILY [facility] Last Admin: 05/15/18 10:15 Dose: 25 mg Vitamin B Complex/Vit C/Folic Acid (Nephro-Monie) 1 tab PO 0800 [facility] Last Admin: 05/15/18 08:08 Dose: 1 tab - Labs Labs: 05/15/18 06:15 05/15/18 06:15 PT 11.1 SECONDS (9.7-12.2) 05/10/18 16:56 INR 1.0 05/10/18 16:56 APTT 30 SECONDS (21-34) 05/10/18 16:56
[2018-05-16 06:13] LABS: BASO # 0.1 K/uL (0.0-0.2); BASO % 1.3 % (0.0-2.0); EOS % 0.5 % (0.0-4.0); HEMOGLOBIN 11.5 g/dL (11.0-16.0); LYMPH # 1.6 K/uL (1.0-4.3); LYMPH % 17.6 % (20.0-40.0); MEAN CORPUSCULAR HEMOGLOBIN 27.9 pg (27.0-31.0); MEAN CORPUSCULAR HGB CONC 31.7 g/dL (33.0-37.0); MEAN PLATELET VOLUME 9.6 fL (7.2-11.7); MONO # 1.1 K/uL (0.0-0.8); MONO % 11.9 % (0.0-10.0); NEUT # 6.1 K/uL (1.8-7.0); NEUT % 68.7 % (50.0-75.0); NRBC % 0.9 % (0.0-2.0); RBC 4.12 Mil/uL (3.80-5.20); RED CELL DISTRIBUTION WIDTH 21.1 % (11.5-14.5); WHITE BLOOD COUNT 8.9 K/uL (4.8-10.8)
[2018-05-16 06:48] LABS: ALBUMIN 3.9 g/dL (3.5-5.0); CALCIUM 9.7 mg/dl (8.6-10.4)
[2018-05-16] MEDS: (Novolog) Insulin Aspart, Recombinant 100 u/ml 10 ml vial SC SCH ×3 (07:30→16:30)
--- NOTE | 2018-05-16 08:07 | RAD ---
Date of service: 05/16/2018 HISTORY: preop COMPARISON: 05/16/2018 FINDINGS: LUNGS: No active pulmonary disease. PLEURA: No significant pleural effusion identified, no pneumothorax apparent. CARDIOVASCULAR: There is presence of aortic atherosclerotic calcification on x-ray. Mild cardiomegaly-similar. Minimal pulmonary venous congestion-similar right PermCath terminates in the right atrium. OSSEOUS STRUCTURES: Thoraco lumbar spondylosis and bilateral shoulder arthrosis. VISUALIZED UPPER ABDOMEN: Unremarkable OTHER FINDINGS: Right axillary lymph node dissection clips-similar IMPRESSION: Mild cardiomegaly-and mild pulmonary venous congestion; both similar. Right PermCath terminates in the right atrium.
--- NOTE | 2018-05-16 08:54 | RAD ---
Date of service: 05/15/2018 PROCEDURE: Radiographs of the chest and abdomen (obstructive series) HISTORY: NO bowel movement 4 days with Nausea COMPARISON: No prior. TECHNIQUE: AP radiograph of the chest, with upright and supine radiographs of the abdomen. FINDINGS: CHEST: Lungs: Clear. Cardiovascular: Normal size heart. No pulmonary vascular congestion. No aortic atherosclerotic calcification present Pleura: No pleural fluid. No pneumothorax. Other findings: Right center venous dialysis catheter identified placed by an apparent right internal jugular approach with the tip terminating at the right atrium and atrial caval junction. ABDOMEN AND PELVIS: Bowel: Unremarkable bowel gas pattern. No evidence of mechanical obstruction. A moderate amount of retained fecal material scattered at the right greater than left hemicolon segments. Gas is seen not significantly distending numerous small bowel loops. Free air: None. Bones: Unremarkable. Other findings: Surgical clips identified at the pelvis soft tissues, left greater than right in vascular calcification identified at the pelvis and groin soft tissue regions as well. IMPRESSION: No acute cardiopulmonary disease identified in the frontal chest radiograph with nonobstructive bowel-gas series in the abdomen. Moderate amount of retained fecal material seen at the right greater than left hemicolon segments.
[2018-05-16] MEDS: Multivitamin Vitamin B Complex (Nephro-Vite) Tab PO SCH (09:27)
[2018-05-16] MEDS: Mupirocin 2% Ointment (NASAL) NAS SCH ×2 (10:00→17:43)
[2018-05-16] MEDS ORDERED: (Lantus) Insulin Glargine, Recombinant SC SCH (10:45)
--- NOTE | 2018-05-16 11:11 | CP.PCM.PN ---
Subjective - Date & Time of Evaluation Date of Evaluation: 05/16/18 Time of Evaluation: 11:10 - Subjective Subjective: Nephrology Consultation Note: Assessment: stable HTN emergency with pulm edema Diabetic chronic Kidney Disease (E11.22) Hypertensive Chronic Kidney Disease (I12.0) CKD 5 now ESRD on HD via PC (TTS) Anemia (D64.9), Hyperphosphatemia (E83.39), Secondary Hyperparathyroidism (E21.1), HTN (I12.0) Plan: HD TTS schedule as ordered. Continue with Nephrovite 1 tab/day. PRBC as needed for anemia. not on [facility] with dialysis as last Hb 11.6. added IV iron as TSAT 20% ferritin 145 Continue with phos binders, last phos level: 5.4 discontinue with calcitriol as last PTH 45. once monthly vit D supplement as last level 28 BP control with meds as ordered. Patient losartan increased 100/day. change lasix to 80 mg MWF orally. Glycemic control, Dialysis consistent diet Further work up/management as per primary team Dose meds/antibiotics (if needed) for ESRD status. Avoid fleets enema/magnesium based laxatives. SW for outpt HD placement. meds for constipation intermittent episodes of short lived tachycardia d/w primary team. pt on bystol ic already for AVF transposition soon Thanks for allowing me to participate in care of your patient. Will follow patient with you. Please call if any Qs. had d/w team Dr Dino Paredes Office: [phone] Chief Complaint;shortness of breath HPI: Pt is a 83 F with hx ofCKF 5 with maturing AVF, chronic anemia, hyperphosphatemia, secondary hyperparathyroidism, Diabetes Mellitus, hypertension presented with complaints of worsening SOB and found to have HTN emergency with pulm edema Renal consult requested for CKD 5 management. pt c/o SOB on exertion. has mild cough. able to make urine normal appetite. no fever ROS: had RESIDENT CARE SUPERVISOR and transferred to ICU. started HD 05/11/18 with temp access Cardiovascular: No chest pain. Pulmonary: no shortness of breath Gastrointestinal: denies abdominal pain mild nausea. No vomiting. decreased appetite and reports constipation Genitourinary: No pain while urinating. Denies blood in urine. All other negative except as mentioned in HPI Physical Examination: seen on HD General Appearance: Comfortable, in no acute respiratory distress, co-operative . Vitals reviewed and noted as below Head; Atraumatic, normocephalic ENT: no ulcers no thrush. Tongue is midline. Oropharynx: no rash or ulcers. EYES: Pupils are equal, round and reactive to light accommodation. Eye muscles and extraocular movement intact. Sclera is anicteric. Neck; supple no lymphadenopathy, no thyromegaly or bruit Lungs: kelly respiratory rate/effort. Breath sounds bilateral improved at bases and clearer Heart: Increased rate. s1s2 normal. No rub or gallop. Extremities: no edema. No varicose veins Neurological: Patient is alert, awake and oriented to person, place and time. No focal deficit. Strength bilateral appropriate and equal Skin: Warm and dry. Normal turgor. No rash. Palpitation: Normal elasticity for age Abdomen: Abdomen is soft. Bowel sounds +. There is no abdominal tenderness, no guarding/rigidity or organomegaly Psych: normal insight and normal affect/mood MSK: no joint tenderness or swelling. Digits and nails normal, no deformity : kidney or bladder not palpable Access: left arm AVF maturing PC now Labs/imaging reviewed. Past medical history, past surgical history, family history, social history, allergy reviewed and noted as below Family Hx: no hx of CKD. Non contributory Objective - Vital Signs/Intake and Output Vital Signs (last 24 hours): Temp Pulse Resp BP Pulse Ox 98.4 F 78 19 115/51 L 97 05/16/18 10:15 05/16/18 10:55 05/16/18 10:55 05/16/18 10:55 05/16/18 10:55 Intake and Output: 05/16/18 05/16/18 06:59 18:59 Intake Total 0 Output Total 100 Balance -100 - Medications Medications: Current Medications Amlodipine Besylate (Norvasc) 10 mg PO DAILY [facility] Last Admin: 05/15/18 10:15 Dose: 10 mg Clonidine HCl (Catapres Tts1 0.1 Mg/24 Hr) 1 patch TD QWK [facility] Last Admin: 05/11/18 13:29 Dose: 1 patch Dextrose (Dextrose 50% Inj) 0 ml IV STAT PRN; Protocol PRN Reason: Hypoglycemia Protocol Dextrose (Glutose 15) 0 gm PO ONCE PRN; Protocol PRN Reason: Hypoglycemia Protocol Furosemide (Lasix) 80 mg PO MWF [facility] Last Admin: 05/15/18 08:20 Dose: 80 mg Glucagon (Glucagen Diagnostic Kit) 0 mg IM STAT PRN; Protocol PRN Reason: Hypoglycemia Protocol Heparin Sodium (Porcine) (Heparin) 5,000 units SC Q12H [facility] Last Admin: 05/15/18 17:11 Dose: 5,000 units Home Med (Febuxostat [Uloric]) 80 mg PO DAILY [facility] Hydralazine HCl (Apresoline) 100 mg PO BID [facility] Last Admin: 05/15/18 17:43 Dose: 100 mg Hydralazine HCl (Apresoline) 25 mg PO Q4 PRN PRN Reason: Other Ferric Sodium Gluconate Complex 125 mg/ Sodium Chloride 110 mls @ 110 mls/hr IVPB DAILY [facility] Stop: 05/20/18 10:01 Last Admin: 05/15/18 11:04 Dose: 110 mls/hr Insulin Aspart (Novolog) 14 unit SC TIDAC [facility] Last Admin: 05/16/18 07:30 Dose: Not Given Insulin Glargine (Lantus) 10 unit SC QAM [facility] Last Admin: 05/15/18 10:26 Dose: 10 unit Insulin Glargine (Lantus) 10 unit SC QAM [facility] Isosorbide Mononitrate (Imdur) 60 mg PO Q24H [facility] Last Admin: 05/15/18 15:35 Dose: 60 mg Losartan Potassium (Cozaar) 100 mg PO DAILY [facility] Last Admin: 05/15/18 10:15 Dose: 100 mg Mupirocin (Bactroban 2% Nasal) 0.25 gm DELTA BID [facility] Stop: 05/17/18 18:15 Last Admin: 05/15/18 17:12 Dose: 0.25 gm Nebivolol (Bystolic) 20 mg PO DAILY [facility] Last Admin: 05/15/18 10:16 Dose: 20 mg Ondansetron HCl (Zofran Inj) 4 mg IVP Q6H PRN PRN Reason: Nausea/Vomiting Last Admin: 05/15/18 08:20 Dose: 4 mg Pantoprazole Sodium (Protonix Ec Tab) 40 mg PO DAILY [facility] Last Admin: 05/15/18 10:15 Dose: 40 mg Sevelamer Carbonate (Renvela) 800 mg PO TIDCC [facility] Last Admin: 05/16/18 08:00 Dose: Not Given Sitagliptin Phosphate (Januvia) 25 mg PO DAILY [facility] Last Admin: 05/15/18 10:15 Dose: 25 mg Vitamin B Complex/Vit C/Folic Acid (Nephro-Monie) 1 tab PO 0800 [facility] Last Admin: 05/16/18 09:27 Dose: Not Given - Labs Labs: 05/16/18 06:05 05/16/18 06:05 PT 11.1 SECONDS (9.7-12.2) 05/10/18 16:56 INR 1.0 05/10/18 16:56 APTT 30 SECONDS (21-34) 05/10/18 16:56
[2018-05-16] MEDS: Ferric Sodium Gluconat Complex 125 MG in Sodium Chloride 0.9% 100 ML IVPB SCH (14:21)
[2018-05-16] MEDS: Pantoprazole 40 mg EC Tab PO SCH (14:29)
--- NOTE | 2018-05-16 14:41 | CP.PCM.PN ---
<Thao Alegre - Last Filed: 05/16/18 14:38> Subjective - Date & Time of Evaluation Date of Evaluation: 05/16/18 Time of Evaluation: 14:38 - Subjective Subjective: PGY-[address] Farr's service Patient seen and examined at bedside during diaylsis. On EKG strip noted that patient was in SVT. SVT spontaneously aborted without any intervention. Patient offered no complaints. Patient denied fevers, chills, chest pain, sob, n/v, constipation or diarrhea, and dysuria. Objective - Vital Signs/Intake and Output Vital Signs (last 24 hours): Temp Pulse Resp BP Pulse Ox 97.6 F 138 H 17 118/54 L 93 L 05/16/18 13:30 05/16/18 13:33 05/16/18 13:33 05/16/18 13:33 05/16/18 13:33 Intake and Output: 05/16/18 05/16/18 06:59 18:59 Intake Total 0 Output Total 100 Balance -100 - Medications Medications: Current Medications Amlodipine Besylate (Norvasc) 10 mg PO DAILY [facility] Last Admin: 05/16/18 10:00 Dose: Not Given Clonidine HCl (Catapres Tts1 0.1 Mg/24 Hr) 1 patch TD QWK [facility] Last Admin: 05/11/18 13:29 Dose: 1 patch Dextrose (Dextrose 50% Inj) 0 ml IV STAT PRN; Protocol PRN Reason: Hypoglycemia Protocol Dextrose (Glutose 15) 0 gm PO ONCE PRN; Protocol PRN Reason: Hypoglycemia Protocol Furosemide (Lasix) 80 mg PO MWF [facility] Last Admin: 05/15/18 08:20 Dose: 80 mg Glucagon (Glucagen Diagnostic Kit) 0 mg IM STAT PRN; Protocol PRN Reason: Hypoglycemia Protocol Heparin Sodium (Porcine) (Heparin) 5,000 units SC Q12H [facility] Last Admin: 05/15/18 17:11 Dose: 5,000 units Hydralazine HCl (Apresoline) 100 mg PO BID [facility] Last Admin: 05/16/18 10:00 Dose: Not Given Hydralazine HCl (Apresoline) 25 mg PO Q4 PRN PRN Reason: Other Ferric Sodium Gluconate Complex 125 mg/ Sodium Chloride 110 mls @ 110 mls/hr IVPB DAILY [facility] Stop: 05/20/18 10:01 Last Admin: 05/16/18 14:21 Dose: 110 mls/hr Insulin Aspart (Novolog) 14 unit SC TIDAC [facility] Last Admin: 05/16/18 11:30 Dose: Not Given Insulin Glargine (Lantus) 10 unit SC QAM [facility] Last Admin: 05/15/18 10:26 Dose: 10 unit Insulin Glargine (Lantus) 5 unit SC QAM [facility] Isosorbide Mononitrate (Imdur) 60 mg PO Q24H [facility] Last Admin: 05/16/18 14:00 Dose: Not Given Losartan Potassium (Cozaar) 100 mg PO DAILY [facility] Last Admin: 05/16/18 10:00 Dose: Not Given Mupirocin (Bactroban 2% Nasal) 0.25 gm DELTA BID [facility] Stop: 05/17/18 18:15 Last Admin: 05/16/18 10:00 Dose: 0.25 gm Nebivolol (Bystolic) 20 mg PO DAILY [facility] Last Admin: 05/16/18 10:00 Dose: Not Given Ondansetron HCl (Zofran Inj) 4 mg IVP Q6H PRN PRN Reason: Nausea/Vomiting Last Admin: 05/15/18 08:20 Dose: 4 mg Pantoprazole Sodium (Protonix Ec Tab) 40 mg PO DAILY [facility] Last Admin: 05/16/18 14:29 Dose: 40 mg Sevelamer Carbonate (Renvela) 800 mg PO TIDCC [facility] Last Admin: 05/16/18 14:29 Dose: 800 mg Sitagliptin Phosphate (Januvia) 25 mg PO DAILY [facility] Last Admin: 05/16/18 10:00 Dose: Not Given Vitamin B Complex/Vit C/Folic Acid (Nephro-Monie) 1 tab PO 0800 [facility] Last Admin: 05/16/18 09:27 Dose: Not Given - Labs Labs: 05/16/18 06:05 05/16/18 06:05 PT 11.1 SECONDS (9.7-12.2) 05/10/18 16:56 INR 1.0 05/10/18 16:56 APTT 30 SECONDS (21-34) 05/10/18 16:56 - Constitutional Appears: Non-toxic, No Acute Distress - Head Exam Head Exam: NORMAL INSPECTION, NORMOCEPHALIC - Eye Exam Eye Exam: EOMI, Normal appearance. absent: Nystagmus, Scleral icterus - ENT Exam ENT Exam: Mucous Membranes Moist - Respiratory Exam Respiratory Exam: Clear to Ausculation Bilateral, NORMAL BREATHING PATTERN. absent: Rales, Rhonchi, Wheezes - Cardiovascular Exam Cardiovascular Exam: REGULAR RHYTHM, RRR, +S1, +S2. absent: Tachycardia, JVD - GI/Abdominal Exam GI & Abdominal Exam: Soft, Normal Bowel Sounds. absent: Distended, Firm, Guarding, Rigid, Tenderness - Extremities Exam Extremities Exam: Normal Inspection. absent: Calf Tenderness, Pedal Edema - Neurological Exam Neurological Exam: Awake, Oriented x3 - Psychiatric Exam Psychiatric exam: Normal Affect, Normal Mood - Skin Skin Exam: Intact, Normal Color Additional comments: Right chest permacath Left AVF, no thrill, needs revision Assessment and Plan - Assessment and Plan (Free Text) Assessment: Patient is a 83 yo female w/ PMH of CHF, HTN, DM2, HLD, CKD, gout, hx of breast ca w/ partial lumpectomy admitted to hospital for complaints of SOB and wheezing. 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 Patient was transferred to ICU for emergent dailysis session prior to permacath placement and AVF for medical optimization prior to procedure. Patient is now continued on a regular dialysis scheduled as per nephro. Patient pending AVF revision with vascular surgery team in AM. SOB 2/2 CHF exacerbation Echocardiogram 01/17: LV EF 46.1%, left ventricle is normal in size, borderline LV hypertrophy, Grade 1 abnormal relaxation pattern Lasix 80mg MWF Cozaar 50mg po daily Bystolic 20mg po daily Imdur 60mg po q24h Episode of SVT Echo pending Cardiology Consulted: Dr. Frey- recommendations appreciated Hx of HTN Norvasc 10mg po daily Clonidine 0.1mg TD weekly Hydralazine 100mg po bid; Hydralazine 25mg po q4h prn SBP>170 or DBP>110 Bystolic 20mg po daily Cozaar 50mg po daily Imdur 60mg po q24h IDDM2 Lantus 5 units (decreased for NPO starting at midnight) Aspart 14 units w/ Meals; ACHS; Hypogylcemic protocol Januvia 25mg po daily Hx of ESRD femoral line was used initially; now HD done through permacath HD as per nephorlogy Nephrovite; Renevla 800mg po tid Social work for outpatient HD Repair AVF in AM with vascular surgeon Hx of Breast Cancer s/p partial lumpectomy Anemia Ferric sodium IVPB daily likely anemia of chronic disease 2/2 ESRD hemodynamically stable monitor H&H via daily CBCs Hx of gout (elbow) Continue dialysis MRSA positive in nares Mupriocin nasal spray Constipation Lactulose Glucerna Disposition: pending revision of AVF; continue MRSA tx; PT; continue permacath dialysis; outpatient setup for dialysis, repeat CXR after dialysis pending for medical optimization for procedure in AM GI ppx: protonix po 40 daily DVT ppx: SCDs, heparin will be held for AVF correction, will restart after surgery Glucerna shakes 3x day for constipation PGY-1 [place]legre Case d/w Dr. Farr <Cyndi Farr V - Last Filed: 05/16/18 17:40> Objective - Vital Signs/Intake and Output Vital Signs (last 24 hours): Temp Pulse Resp BP Pulse Ox 97.6 F 138 H 17 118/54 L 93 L 05/16/18 13:30 05/16/18 13:33 05/16/18 13:33 05/16/18 13:33 05/16/18 13:33 Intake and Output: 05/16/18 05/16/18 06:59 18:59 Intake Total 0 Output Total 100 Balance -100 - Medications Medications: Current Medications Amlodipine Besylate (Norvasc) 10 mg PO DAILY [facility] Last Admin: 05/16/18 10:00 Dose: Not Given Clonidine HCl (Catapres Tts1 0.1 Mg/24 Hr) 1 patch TD QWK [facility] Last Admin: 05/11/18 13:29 Dose: 1 patch Dextrose (Dextrose 50% Inj) 0 ml IV STAT PRN; Protocol PRN Reason: Hypoglycemia Protocol Dextrose (Glutose 15) 0 gm PO ONCE PRN; Protocol PRN Reason: Hypoglycemia Protocol Furosemide (Lasix) 80 mg PO MWF [facility] Last Admin: 05/15/18 08:20 Dose: 80 mg Glucagon (Glucagen Diagnostic Kit) 0 mg IM STAT PRN; Protocol PRN Reason: Hypoglycemia Protocol Heparin Sodium (Porcine) (Heparin) 5,000 units SC Q12H [facility] Last Admin: 05/15/18 17:11 Dose: 5,000 units Hydralazine HCl (Apresoline) 100 mg PO BID [facility] Last Admin: 05/16/18 10:00 Dose: Not Given Hydralazine HCl (Apresoline) 25 mg PO Q4 PRN PRN Reason: Other Ferric Sodium Gluconate Complex 125 mg/ Sodium Chloride 110 mls @ 110 mls/hr IVPB DAILY [facility] Stop: 05/20/18 10:01 Last Admin: 05/16/18 14:21 Dose: 110 mls/hr Insulin Aspart (Novolog) 14 unit SC TIDAC [facility] Last Admin: 05/16/18 11:30 Dose: Not Given Insulin Glargine (Lantus) 10 unit SC QAM [facility] Last Admin: 05/15/18 10:26 Dose: 10 unit Insulin Glargine (Lantus) 5 unit SC QAM [facility] Isosorbide Mononitrate (Imdur) 60 mg PO Q24H [facility] Last Admin: 05/16/18 14:00 Dose: Not Given Losartan Potassium (Cozaar) 100 mg PO DAILY [facility] Last Admin: 05/16/18 10:00 Dose: Not Given Metoprolol Tartrate (Lopressor) 2.5 mg IVP ONCE ONE Stop: 05/16/18 17:25 Mupirocin (Bactroban 2% Nasal) 0.25 gm DELTA BID [facility] Stop: 05/17/18 18:15 Last Admin: 05/16/18 10:00 Dose: 0.25 gm Nebivolol (Bystolic) 20 mg PO DAILY [facility] Last Admin: 05/16/18 10:00 Dose: Not Given Ondansetron HCl (Zofran Inj) 4 mg IVP Q6H PRN PRN Reason: Nausea/Vomiting Last Admin: 05/15/18 08:20 Dose: 4 mg Pantoprazole Sodium (Protonix Ec Tab) 40 mg PO DAILY [facility] Last Admin: 05/16/18 14:29 Dose: 40 mg Sevelamer Carbonate (Renvela) 800 mg PO TIDCC [facility] Last Admin: 05/16/18 14:29 Dose: 800 mg Sitagliptin Phosphate (Januvia) 25 mg PO DAILY [facility] Last Admin: 05/16/18 10:00 Dose: Not Given Vitamin B Complex/Vit C/Folic Acid (Nephro-Monie) 1 tab PO 0800 [facility] Last Admin: 05/16/18 09:27 Dose: Not Given - Labs Labs: 05/16/18 06:05 05/16/18 06:05 PT 11.1 SECONDS (9.7-12.2) 05/10/18 16:56 INR 1.0 05/10/18 16:56 APTT 30 SECONDS (21-34) 05/10/18 16:56 Attending/Attestation - Attestation I have personally seen and examined this patient.: Yes I have fully participated in the care of the patient.: Yes I have reviewed all pertinent clinical information, including history, physical exam and plan: Yes Notes (Text): This is an 83-year-old -[place] female with past medical history including hypertension, diabetes, lipid disorder, gout, history of breast cancer status post partial lumpectomy who initially came in for shortness of breath wheezing and diaphoresis. Patient is recommended for repair of the left arm AV fistula which is postponed until tomorrow. We have discussed with Dr. Viola reyes the patient has pulmonary venous congestion on repeat chest x-ray will follow-up for dialysis today and see if that improves symptoms to better optimize for prior OR tomorrow. During the course of the of the day patient has gone into this abnormal tachycardia were and heart rate goes into the 130s 140s and spontaneously resolves. Dialysis was stopped 25 minutes prior to because patient went into this abnormal rhythm for the third time. Cardiology was consulted today. Patient has had a prior echocardiogram and stress test in December when she was going for cardiac clearance with Dr. Hernandez who does not come to [facility], we have consult to Dr. Frey who is aware. Patient does not complain of any weakness, no chest pain, no shortness of breath. She is a very gentle lady. Patient is encouraged to eat. We will follow-up with cardiology in terms of if any further cardiac workup is necessary prior to the OR tomorrow. Echo will be completed tomorrow morning when I discussed with nursing staff. We will continue to follow patient. Assessment/plan updated 1. CHF Exacerbation * Echocardiogram 01/17: LV EF 46.1%, left ventricle is normal in size, borderline LV hypertrophy, Grade 1 abnormal relaxation pattern * Chest xray (05/16/18): mild cardiomegaly and mild pulmonary venous congestion, both similar right permacath terminates in the right atrium * Lasix 80mg MWF * Cozaar 50mg po daily * Bystolic 20mg po daily * Imdur 60mg po q24h 2. Tachy arrhythmia * patient does not report any history of arrhythmia; she has been going in and out of arrhythmia during dialysis and post dialysis which spontaneously converts on own * Cardiology consulted on the case * Patient ordered repeat echocardiogram; will be completed in the morning. 3. Hx of HTN * Norvasc 10mg po daily * Clonidine 0.1mg TD weekly * Hydralazine 100mg po bid; Hydralazine 25mg po q4h prn SBP>170 or DBP>110 * Bystolic 20mg po daily * Cozaar 50mg po daily * Imdur 60mg po q24h 4. IDDM2 * Lantus 10 sub AM * Will reduce to 1/2 tonight for possible OR tomorrow. units (decreased for NPO starting at midnight) * Aspart 14 units w/ Meals; ACHS; Hypogylcemic protocol * Januvia 25mg po daily 5. Hx of ESRD * femoral line was used initially; now HD done through permacath * HD as per nephorlogy * Nephrovite; Renevla 800mg po tid * Social work for outpatient HD * Repair AVF in AM with vascular surgeon tomorrow 05/17/18 6. Hx of Breast Cancer * s/p partial lumpectomy 7. Anemia of Chronic Disease * Ferric sodium IVPB daily * likely anemia of chronic disease 2/2 ESRD * hemodynamically stable * monitor H&H via daily CBCs 8. Hx of gout (elbow) * Continue dialysis * hold Uloric not available on hospital formulary 9.MRSA positive in nares * Mupriocin nasal spray 10. Constipation * Lactulose given one dose today * Obstructive series: no obstruction noted; fecal retention on xray * dvt ppx held for OR for left AVR revision repair Disposition: pending revision of AVF; continue MRSA tx; PT; continue permacath dialysis; outpatient setup for dialycal optimization for procedure in AM; card iology consult on the case
--- NOTE | 2018-05-16 17:18 | CP.PCM.PN ---
<Baldomero Sales - Last Filed: 05/16/18 17:33> Subjective - Date & Time of Evaluation Date of Evaluation: 05/16/18 Time of Evaluation: 17:16 - Subjective Subjective: 83 year old female with a past medical history of hypertension, hyperlipidemia, gout, type 2 diabetes, breast cancer status post lumpectomy and chronic kidney disease status post AVF who initially presented with complaints of shortness of breath upon admission likely secondary to a chf exacerbation. Patient was admitted and subsequently had an episode of SVT on strip. As a result patient Cardiology was consulted. Patient was denies any chest pain, shortness of breath, fevers, chills, nausea, vomiting, headaches, changes in vision, dizziness, syncopal episodes, or any other complaints. PMD: Dr. Macdeo Nephrolology: Dr. Kay Vascular: Dr. Valdez PMHx: HTN, DM2, HLD, breast cancer, CKD, gout PSHx: L sided AVF, partial lumpectomy, left elbow effusion aspiration Social Hx: social alcohol consumption, formal smoker quit 30 years ago. 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 Allergy: Denies Family History: none Objective - Vital Signs/Intake and Output Vital Signs (last 24 hours): Temp Pulse Resp BP Pulse Ox 97.6 F 138 H 17 118/54 L 93 L 05/16/18 13:30 05/16/18 13:33 05/16/18 13:33 05/16/18 13:33 05/16/18 13:33 Intake and Output: 05/16/18 05/16/18 06:59 18:59 Intake Total 0 Output Total 100 Balance -100 - Medications Medications: Current Medications Amlodipine Besylate (Norvasc) 10 mg PO DAILY [facility] Last Admin: 05/16/18 10:00 Dose: Not Given Clonidine HCl (Catapres Tts1 0.1 Mg/24 Hr) 1 patch TD QWK [facility] Last Admin: 05/11/18 13:29 Dose: 1 patch Dextrose (Dextrose 50% Inj) 0 ml IV STAT PRN; Protocol PRN Reason: Hypoglycemia Protocol Dextrose (Glutose 15) 0 gm PO ONCE PRN; Protocol PRN Reason: Hypoglycemia Protocol Furosemide (Lasix) 80 mg PO MWF [facility] Last Admin: 05/15/18 08:20 Dose: 80 mg Glucagon (Glucagen Diagnostic Kit) 0 mg IM STAT PRN; Protocol PRN Reason: Hypoglycemia Protocol Heparin Sodium (Porcine) (Heparin) 5,000 units SC Q12H [facility] Last Admin: 05/15/18 17:11 Dose: 5,000 units Hydralazine HCl (Apresoline) 100 mg PO BID [facility] Last Admin: 05/16/18 10:00 Dose: Not Given Hydralazine HCl (Apresoline) 25 mg PO Q4 PRN PRN Reason: Other Ferric Sodium Gluconate Complex 125 mg/ Sodium Chloride 110 mls @ 110 mls/hr IVPB DAILY [facility] Stop: 05/20/18 10:01 Last Admin: 05/16/18 14:21 Dose: 110 mls/hr Insulin Aspart (Novolog) 14 unit SC TIDAC [facility] Last Admin: 05/16/18 11:30 Dose: Not Given Insulin Glargine (Lantus) 10 unit SC QAM [facility] Last Admin: 05/15/18 10:26 Dose: 10 unit Insulin Glargine (Lantus) 5 unit SC QAM [facility] Isosorbide Mononitrate (Imdur) 60 mg PO Q24H [facility] Last Admin: 05/16/18 14:00 Dose: Not Given Losartan Potassium (Cozaar) 100 mg PO DAILY [facility] Last Admin: 05/16/18 10:00 Dose: Not Given Mupirocin (Bactroban 2% Nasal) 0.25 gm DELTA BID [facility] Stop: 05/17/18 18:15 Last Admin: 05/16/18 10:00 Dose: 0.25 gm Nebivolol (Bystolic) 20 mg PO DAILY [facility] Last Admin: 05/16/18 10:00 Dose: Not Given Ondansetron HCl (Zofran Inj) 4 mg IVP Q6H PRN PRN Reason: Nausea/Vomiting Last Admin: 05/15/18 08:20 Dose: 4 mg Pantoprazole Sodium (Protonix Ec Tab) 40 mg PO DAILY [facility] Last Admin: 05/16/18 14:29 Dose: 40 mg Sevelamer Carbonate (Renvela) 800 mg PO TIDCC [facility] Last Admin: 05/16/18 14:29 Dose: 800 mg Sitagliptin Phosphate (Januvia) 25 mg PO DAILY [facility] Last Admin: 05/16/18 10:00 Dose: Not Given Vitamin B Complex/Vit C/Folic Acid (Nephro-Monie) 1 tab PO 0800 [facility] Last Admin: 05/16/18 09:27 Dose: Not Given - Labs Labs: 05/16/18 06:05 05/16/18 06:05 PT 11.1 SECONDS (9.7-12.2) 05/10/18 16:56 INR 1.0 05/10/18 16:56 APTT 30 SECONDS (21-34) 05/10/18 16:56 - Head Exam Head Exam: ATRAUMATIC, NORMAL INSPECTION - Eye Exam Eye Exam: EOMI, Normal appearance, PERRL Pupil Exam: NORMAL ACCOMODATION, PERRL - ENT Exam ENT Exam: Mucous Membranes Moist. absent: Normal Oropharynx - Respiratory Exam Respiratory Exam: Clear to Ausculation Bilateral, NORMAL BREATHING PATTERN. absent: Respiratory Distress - Cardiovascular Exam Cardiovascular Exam: REGULAR RHYTHM, +S1, +S2 - GI/Abdominal Exam GI & Abdominal Exam: Soft, Normal Bowel Sounds. absent: Hyperactive Bowel Sounds - Extremities Exam Extremities Exam: Full ROM. absent: Pedal Edema - Back Exam Back Exam: NORMAL INSPECTION. absent: paraspinal tenderness - Neurological Exam Neurological Exam: Alert, Awake, CN II-XII Intact, Oriented x3 - Psychiatric Exam Psychiatric exam: Normal Affect, Normal Mood - Additional Findings Additional findings: Right chest permacath Left AVF, no thrill, needs revision Assessment and Plan - Assessment and Plan (Free Text) Assessment: 83 year old female w/ PMH of CHF, HTN, DM2, HLD, CKD, gout, hx of breast ca w/ partial lumpectomy admitted to hospital for complaints of SOB and wheezing. 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 Patient was transferred to ICU for emergent dailysis session prior to permacath placement and AVF for medical optimization prior to procedure. Patient is now continued on a regular dialysis scheduled as per nephro. Patient pending AVF revision with vascular surgery team in AM. Patient had an episode of SVT which resolved spontaneously and Cardiology was called. Plan: 1. Episode of SVT -Resolved. -Patient has multiple comorbidities and has Moderate Cardiac risk for james- operatively. -Detsky Class II Score: 7% risk of cardiovascular events after non-cardiac surgery. 2.SOB 2/2 CHF exacerbation Echocardiogram 01/17: LV EF 46.1%, left ventricle is normal in size, borderline LV hypertrophy, Grade 1 abnormal relaxation pattern Medications: Lasix 80mg MWF Cozaar 50mg po daily Bystolic 20mg po daily Imdur 60mg po q24h 3. Hypertension Medications: Norvasc 10mg po daily Clonidine 0.1mg TD weekly Hydralazine 100mg po bid; Hydralazine 25mg po q4h prn SBP>170 or DBP>110 Bystolic 20mg po daily Cozaar 50mg po daily Imdur 60mg po q24h 4.DM2 Medications: Lantus 5 units (decreased for NPO starting at midnight) Aspart 14 units w/ Meals; ACHS; Hypogylcemic protocol Januvia 25mg po daily 5. ESRD femoral line was used initially; now HD done through permacath HD as per nephorlogy Nephrovite; Renevla 800mg po tid Social work for outpatient HD Repair AVF in AM with vascular surgeon 5. Anemia Ferric sodium IVPB daily likely anemia of chronic disease 2/2 ESRD hemodynamically stable monitor H&H via daily CBCs Plan discussed with Dr. Frey. Baldomero Sales, Pgy-2 <Benjamin Frey - Last Filed: 05/17/18 21:39> Objective - Vital Signs/Intake and Output Vital Signs (last 24 hours): Temp Pulse Resp BP Pulse Ox 98.4 F 72 21 154/52 H 93 L 05/17/18 08:00 05/17/18 20:44 05/17/18 20:44 05/17/18 20:44 05/17/18 20:44 - Medications Medications: Current Medications Amlodipine Besylate (Norvasc) 10 mg PO DAILY [facility] Last Admin: 05/17/18 11:46 Dose: 10 mg Dextrose (Dextrose 50% Inj) 0 ml IV STAT PRN; Protocol PRN Reason: Hypoglycemia Protocol Dextrose (Glutose 15) 0 gm PO ONCE PRN; Protocol PRN Reason: Hypoglycemia Protocol Docusate Sodium (Colace) 100 mg PO BID [facility] Last Admin: 05/17/18 17:46 Dose: 100 mg Furosemide (Lasix) 80 mg PO MWF [facility] Last Admin: 05/17/18 10:04 Dose: 80 mg Glucagon (Glucagen Diagnostic Kit) 0 mg IM STAT PRN; Protocol PRN Reason: Hypoglycemia Protocol Heparin Sodium (Porcine) (Heparin) 5,000 units SC Q12H [facility] Last Admin: 05/15/18 17:11 Dose: 5,000 units Hydralazine HCl (Apresoline) 100 mg PO BID [facility] Last Admin: 05/17/18 17:46 Dose: Not Given Hydralazine HCl (Apresoline) 25 mg PO Q4 PRN PRN Reason: Other Ferric Sodium Gluconate Complex 125 mg/ Sodium Chloride 110 mls @ 110 mls/hr IVPB DAILY [facility] Stop: 05/20/18 10:01 Last Admin: 05/17/18 11:46 Dose: 110 mls/hr Heparin Sodium/Sodium Chloride (Heparin 42950 Units/250ml 1/2 Normal Saline) 25 ,000 units in 250 mls @ 8.6 mls/hr IV .Q24H PRN; Protocol PRN Reason: PROTOCOL Last Admin: 05/17/18 19:35 Dose: 12 units/kg/hr, 8.6 mls/hr Insulin Aspart (Novolog) 14 unit SC TIDAC [facility] Last Admin: 05/17/18 17:36 Dose: Not Given Insulin Glargine (Lantus) 10 unit SC QAM [facility] Last Admin: 05/17/18 13:54 Dose: Not Given Isosorbide Mononitrate (Imdur) 60 mg PO Q24H [facility] Last Admin: 05/17/18 13:52 Dose: 60 mg Losartan Potassium (Cozaar) 100 mg PO DAILY [facility] Last Admin: 05/17/18 13:53 Dose: 100 mg Metoprolol Tartrate (Lopressor) 25 mg PO BID [facility] Last Admin: 05/17/18 17:47 Dose: 25 mg Ondansetron HCl (Zofran Inj) 4 mg IVP Q6H PRN PRN Reason: Nausea/Vomiting Last Admin: 05/17/18 07:58 Dose: 4 mg Pantoprazole Sodium (Protonix Ec Tab) 40 mg PO DAILY [facility] Last Admin: 05/17/18 10:05 Dose: 40 mg Sevelamer Carbonate (Renvela) 1,600 mg PO TIDCC [facility] Last Admin: 05/17/18 17:47 Dose: 1,600 mg Sitagliptin Phosphate (Januvia) 25 mg PO DAILY [facility] Last Admin: 05/17/18 10:05 Dose: 25 mg Vitamin B Complex/Vit C/Folic Acid (Nephro-Monie) 1 tab PO 0800 [facility] Last Admin: 05/17/18 07:56 Dose: Not Given - Labs Labs: 05/17/18 05:47 05/17/18 05:47 PT 11.1 SECONDS (9.7-12.2) 05/10/18 16:56 INR 1.0 05/10/18 16:56 APTT 30 SECONDS (21-34) 05/10/18 16:56 Assessment and Plan - Assessment and Plan (Free Text) Plan: Patient examined and evaluated personally by me. Plan of care d/w the medical equipment technician and as documented
[2018-05-16] MEDS ORDERED: Metoprolol 1 mg/ml Inj IVP ONE (17:24)
[2018-05-16] MEDS ORDERED: Sodium Chloride 0.9% 500 ML IV ONE (17:58)
[2018-05-16 20:53] LABS: ALBUMIN 4.3 g/dL (3.5-5.0); CALCIUM 9.6 mg/dl (8.6-10.4)
--- NOTE | 2018-05-17 05:59 | CARD ---
APPROVED REPORT Date of service: 05/15/2018 EKG Measurement Heart [id number] <Conclusion> Sinus tachycardia Left atrial enlargement Left ventricular hypertrophy with repolarization abnormality Abnormal ECG
[2018-05-17 06:14] LABS: BASO % 0.4 % (0.0-2.0); HEMOGLOBIN 11.7 g/dL (11.0-16.0); LYMPH # 1.6 K/uL (1.0-4.3); LYMPH % 14.1 % (20.0-40.0); MEAN CELL VOLUME 87.6 fL (81.0-99.0); MEAN CORPUSCULAR HEMOGLOBIN 27.7 pg (27.0-31.0); MEAN CORPUSCULAR HGB CONC 31.7 g/dL (33.0-37.0); MEAN PLATELET VOLUME 9.8 fL (7.2-11.7); MONO # 0.9 K/uL (0.0-0.8); MONO % 8.4 % (0.0-10.0); NEUT # 8.5 K/uL (1.8-7.0); NEUT % 77.1 % (50.0-75.0); NRBC % 0.5 % (0.0-2.0); RBC 4.23 Mil/uL (3.80-5.20); RED CELL DISTRIBUTION WIDTH 20.2 % (11.5-14.5)
[2018-05-17 06:25] LABS: ALBUMIN 4.2 g/dL (3.5-5.0); CALCIUM 9.4 mg/dl (8.6-10.4)
--- NOTE | 2018-05-17 07:22 | CP.PCM.PN ---
Subjective - Date & Time of Evaluation Date of Evaluation: 05/17/18 Time of Evaluation: 07:21 - Subjective Subjective: PGY-[address] Farr's service Patient seen and examined at bedside. Patient states she has been feeling nauseated but has not had any actual vomiting since last night dialysis session. Patient denies having bowel movement today. Pending AVF revision today. Patient denies fevers, chills, chest pain, sob, diarrhea, and dysuria. Objective - Vital Signs/Intake and Output Vital Signs (last 24 hours): Temp Pulse Resp BP Pulse Ox 97.6 F 80 22 133/61 94 L 05/16/18 13:30 05/17/18 06:44 05/17/18 06:44 05/17/18 06:44 05/17/18 06:44 - Medications Medications: Current Medications Amlodipine Besylate (Norvasc) 10 mg PO DAILY [facility] Last Admin: 05/16/18 10:00 Dose: Not Given Clonidine HCl (Catapres Tts1 0.1 Mg/24 Hr) 1 patch TD QWK [facility] Last Admin: 05/11/18 13:29 Dose: 1 patch Dextrose (Dextrose 50% Inj) 0 ml IV STAT PRN; Protocol PRN Reason: Hypoglycemia Protocol Dextrose (Glutose 15) 0 gm PO ONCE PRN; Protocol PRN Reason: Hypoglycemia Protocol Furosemide (Lasix) 80 mg PO MWF [facility] Last Admin: 05/15/18 08:20 Dose: 80 mg Glucagon (Glucagen Diagnostic Kit) 0 mg IM STAT PRN; Protocol PRN Reason: Hypoglycemia Protocol Heparin Sodium (Porcine) (Heparin) 5,000 units SC Q12H [facility] Last Admin: 05/15/18 17:11 Dose: 5,000 units Hydralazine HCl (Apresoline) 100 mg PO BID [facility] Last Admin: 05/16/18 17:47 Dose: 100 mg Hydralazine HCl (Apresoline) 25 mg PO Q4 PRN PRN Reason: Other Ferric Sodium Gluconate Complex 125 mg/ Sodium Chloride 110 mls @ 110 mls/hr IVPB DAILY [facility] Stop: 05/20/18 10:01 Last Admin: 05/16/18 14:21 Dose: 110 mls/hr Insulin Aspart (Novolog) 14 unit SC TIDAC [facility] Last Admin: 05/16/18 16:30 Dose: Not Given Insulin Glargine (Lantus) 10 unit SC QAM [facility] Last Admin: 05/15/18 10:26 Dose: 10 unit Insulin Glargine (Lantus) 5 unit SC QAM [facility] Isosorbide Mononitrate (Imdur) 60 mg PO Q24H [facility] Last Admin: 05/16/18 14:00 Dose: Not Given Losartan Potassium (Cozaar) 100 mg PO DAILY [facility] Last Admin: 05/16/18 10:00 Dose: Not Given Mupirocin (Bactroban 2% Nasal) 0.25 gm DELTA BID [facility] Stop: 05/17/18 18:15 Last Admin: 05/16/18 17:43 Dose: 0.25 gm Nebivolol (Bystolic) 20 mg PO DAILY [facility] Last Admin: 05/16/18 10:00 Dose: Not Given Ondansetron HCl (Zofran Inj) 4 mg IVP Q6H PRN PRN Reason: Nausea/Vomiting Last Admin: 05/16/18 23:20 Dose: 4 mg Pantoprazole Sodium (Protonix Ec Tab) 40 mg PO DAILY [facility] Last Admin: 05/16/18 14:29 Dose: 40 mg Sevelamer Carbonate (Renvela) 800 mg PO TIDCC [facility] Last Admin: 05/16/18 17:44 Dose: 800 mg Sitagliptin Phosphate (Januvia) 25 mg PO DAILY [facility] Last Admin: 05/16/18 10:00 Dose: Not Given Vitamin B Complex/Vit C/Folic Acid (Nephro-Monie) 1 tab PO 0800 [facility] Last Admin: 05/16/18 09:27 Dose: Not Given - Labs Labs: 05/17/18 05:47 05/17/18 05:47 PT 11.1 SECONDS (9.7-12.2) 05/10/18 16:56 INR 1.0 05/10/18 16:56 APTT 30 SECONDS (21-34) 05/10/18 16:56 Assessment and Plan - Assessment and Plan (Free Text) Assessment: Patient is a 83 yo female w/ PMH of CHF, HTN, DM2, HLD, CKD, gout, hx of breast ca w/ partial lumpectomy admitted to hospital for complaints of SOB and wheezing. WEALTH MANAGEMENT CONSULTANT was called for elevated blood pressure and hypoxia. Patient was transferred to ICU for emergent dailysis session prior to permacath placement and AVF for medical optimization prior to procedure. Patient is now continued on a regular dialysis scheduled as per nephro. Patient pending AVF revision with vascular surgery team in AM. SOB 2/2 CHF exacerbation Echocardiogram 01/17: LV EF 46.1%, left ventricle is normal in size, borderline LV hypertrophy, Grade 1 abnormal relaxation pattern Lasix 80mg MWF Cozaar 50mg po daily Bystolic 20mg po daily Imdur 60mg po q24h Episode of SVT Echo pending Cardiology Consulted: Dr. Frey- recommendations appreciated Hx of HTN Norvasc 10mg po daily Clonidine 0.1mg TD weekly Hydralazine 100mg po bid; Hydralazine 25mg po q4h prn SBP>170 or DBP>110 Bystolic 20mg po daily Cozaar 50mg po daily Imdur 60mg po q24h IDDM2 Lantus 5 units (decreased for NPO starting at midnight) Aspart 14 units w/ Meals; ACHS; Hypogylcemic protocol Januvia 25mg po daily Hx of ESRD femoral line was used initially; now HD done through permacath HD as per nephorlogy Nephrovite; Renevla 800mg po tid Social work for outpatient HD Repair AVF in AM with vascular surgeon Hx of Breast Cancer s/p partial lumpectomy Anemia Ferric sodium IVPB daily likely anemia of chronic disease 2/2 ESRD hemodynamically stable monitor H&H via daily CBCs Hx of gout (elbow) Continue dialysis MRSA positive in nares Mupriocin nasal spray Constipation Lactulose Glucerna Disposition: pending revision of AVF; continue MRSA tx; PT; continue permacath dialysis; outpatient setup for dialysis, repeat CXR after dialysis pending for medical optimization for procedure in AM GI ppx: protonix po 40 daily DVT ppx: SCDs, heparin will be held for AVF correction, will restart after surgery Glucerna shakes 3x day for constipation PGY-1 Thao Goodman d/w Dr. Farr
--- NOTE | 2018-05-17 07:26 | RAD ---
Date of service: 05/16/2018 HISTORY: please do cxr after patient completes dialysis COMPARISON: Portable chest 05/16/2018. FINDINGS: LUNGS: Right central venous dialysis catheter unchanged in position. No interval infiltrate identified bilaterally. PLEURA: No significant pleural effusion identified, no pneumothorax apparent. CARDIOVASCULAR: Calcific atherosclerotic changes are seen related to the thoracic aorta. Normal cardiac size. No pulmonary vascular congestion. OSSEOUS STRUCTURES: No significant abnormalities. VISUALIZED UPPER ABDOMEN: Normal. OTHER FINDINGS: None. IMPRESSION: Interval acute cardiopulmonary disease appreciable.
[2018-05-17] MEDS: (Novolog) Insulin Aspart, Recombinant 100 u/ml 10 ml vial SC SCH ×3 (07:56→17:36)
[2018-05-17] MEDS: Multivitamin Vitamin B Complex (Nephro-Vite) Tab PO SCH (07:56)
--- NOTE | 2018-05-17 09:32 | CP.PCM.PN ---
Subjective - Date & Time of Evaluation Date of Evaluation: 05/17/18 Time of Evaluation: 09:25 - Subjective Subjective: Medical Attending Note: Patient see at bedside. Patient reports she does not have appetite. She feels nauseous. She reports she threw up yesterday liquid and reports she has not had a bowel movement yet. Patient is NPO. awaiting for Echo. Discussed with anesthesia, patient is set for this afternoon about 2pm for left arm AVF repair. Will need to f/u with cardiology. Addendum: Discussed with Dr. Frey, since patient is back in SVT, recommends to cancel procedure today until further cardiac workup. Start low dose Lopressor 12.5mg PO BID, thyroid, and may discuss in evening for stress or cardiac cath option depending. Discussed with patient nurse as well. Objective - Vital Signs/Intake and Output Vital Signs (last 24 hours): Temp Pulse Resp BP Pulse Ox 98.4 F 77 15 131/56 L 96 05/17/18 08:00 05/17/18 08:00 05/17/18 08:00 05/17/18 07:44 05/17/18 08:00 - Medications Medications: Current Medications Amlodipine Besylate (Norvasc) 10 mg PO DAILY [facility] Last Admin: 05/16/18 10:00 Dose: Not Given Dextrose (Dextrose 50% Inj) 0 ml IV STAT PRN; Protocol PRN Reason: Hypoglycemia Protocol Dextrose (Glutose 15) 0 gm PO ONCE PRN; Protocol PRN Reason: Hypoglycemia Protocol Furosemide (Lasix) 80 mg PO MWF [facility] Last Admin: 05/15/18 08:20 Dose: 80 mg Glucagon (Glucagen Diagnostic Kit) 0 mg IM STAT PRN; Protocol PRN Reason: Hypoglycemia Protocol Heparin Sodium (Porcine) (Heparin) 5,000 units SC Q12H [facility] Last Admin: 05/15/18 17:11 Dose: 5,000 units Hydralazine HCl (Apresoline) 100 mg PO BID [facility] Last Admin: 05/16/18 17:47 Dose: 100 mg Hydralazine HCl (Apresoline) 25 mg PO Q4 PRN PRN Reason: Other Ferric Sodium Gluconate Complex 125 mg/ Sodium Chloride 110 mls @ 110 mls/hr IVPB DAILY [facility] Stop: 05/20/18 10:01 Last Admin: 05/16/18 14:21 Dose: 110 mls/hr Insulin Aspart (Novolog) 14 unit SC TIDAC [facility] Last Admin: 05/17/18 07:56 Dose: Not Given Insulin Glargine (Lantus) 10 unit SC QAM [facility] Last Admin: 05/15/18 10:26 Dose: 10 unit Insulin Glargine (Lantus) 5 unit SC QAM [facility] Isosorbide Mononitrate (Imdur) 60 mg PO Q24H [facility] Last Admin: 05/16/18 14:00 Dose: Not Given Losartan Potassium (Cozaar) 100 mg PO DAILY [facility] Last Admin: 05/16/18 10:00 Dose: Not Given Mupirocin (Bactroban 2% Nasal) 0.25 gm DELTA BID [facility] Stop: 05/17/18 18:15 Last Admin: 05/16/18 17:43 Dose: 0.25 gm Nebivolol (Bystolic) 20 mg PO DAILY [facility] Last Admin: 05/16/18 10:00 Dose: Not Given Ondansetron HCl (Zofran Inj) 4 mg IVP Q6H PRN PRN Reason: Nausea/Vomiting Last Admin: 05/17/18 07:58 Dose: 4 mg Pantoprazole Sodium (Protonix Ec Tab) 40 mg PO DAILY [facility] Last Admin: 05/16/18 14:29 Dose: 40 mg Sevelamer Carbonate (Renvela) 1,600 mg PO TIDCC [facility] Sitagliptin Phosphate (Januvia) 25 mg PO DAILY [facility] Last Admin: 05/16/18 10:00 Dose: Not Given Vitamin B Complex/Vit C/Folic Acid (Nephro-Monie) 1 tab PO 0800 [facility] Last Admin: 05/17/18 07:56 Dose: Not Given - Labs Labs: 05/17/18 05:47 05/17/18 05:47 PT 11.1 SECONDS (9.7-12.2) 05/10/18 16:56 INR 1.0 05/10/18 16:56 APTT 30 SECONDS (21-34) 05/10/18 16:56 - Constitutional Appears: Non-toxic, No Acute Distress - Head Exam Head Exam: NORMAL INSPECTION - Eye Exam Eye Exam: EOMI - ENT Exam ENT Exam: Mucous Membranes Moist - Respiratory Exam Respiratory Exam: Clear to Ausculation Bilateral, NORMAL BREATHING PATTERN. absent: Rales, Rhonchi, Wheezes - Cardiovascular Exam Cardiovascular Exam: Tachycardia, +S1, +S2 - GI/Abdominal Exam GI & Abdominal Exam: Soft, Normal Bowel Sounds. absent: Distended, Firm, Guarding, Rigid, Tenderness, Rebound - Extremities Exam Extremities Exam: absent: Pedal Edema, Tenderness - Neurological Exam Neurological Exam: Alert, Awake, Oriented x3 - Psychiatric Exam Psychiatric exam: Anxious - Skin Skin Exam: Dry, Normal Color, Warm Assessment and Plan - Assessment and Plan (Free Text) Assessment: Assessment/plan updated 1. CHF Exacerbation * Echocardiogram 01/17: LV EF 46.1%, left ventricle is normal in size, borderline LV hypertrophy, Grade 1 abnormal relaxation pattern * Chest xray (05/16/18): mild cardiomegaly and mild pulmonary venous congestion, both similar right permacath terminates in the right atrium * Lasix 80mg MWF * Cozaar 50mg po daily * Bystolic 20mg po daily d/c per cardiology * Start lopressor 25mg PO BID * Imdur 60mg po q24h 2. Tachy arrhythmia * patient does not report any history of arrhythmia; she has been going in and out of arrhythmia during dialysis and post dialysis which spontaneously converts on own * Cardiology consulted on the case * Patient ordered repeat echocardiogram; will be completed in the morning. * Discussed with cardiology, to cancel procedure today for further cardiac workup, check TSH, lopressor 25 mg PO BID; d/c bystolic 3. Hx of HTN * Norvasc 10mg po daily * Clonidine 0.1mg TD weekly * Hydralazine 100mg po bid; Hydralazine 25mg po q4h prn SBP>170 or DBP>110 * d/c Bystolic 20mg po daily * Start lopressor 25mg PO BID * Cozaar 50mg po daily * Imdur 60mg po q24h 4. IDDM2 * Lantus 10 sub QAM * Aspart 14 units w/ Meals; ACHS; Hypogylcemic protocol * Januvia 25mg po daily 5. Hx of ESRD * femoral line was used initially; now HD done through permacath * HD as per nephorlogy * Nephrovite; Renevla 800mg po tid * Social work for outpatient HD * Repair AVF in AM with vascular surgeon tomorrow 05/17/18 6. Hx of Breast Cancer * s/p partial lumpectomy 7. Anemia of Chronic Disease * Ferric sodium IVPB daily * likely anemia of chronic disease 2/2 ESRD * hemodynamically stable * monitor H&H via daily CBCs 8. Hx of gout (elbow) * Continue dialysis * hold Uloric not available on hospital formulary 9.MRSA positive in nares * Mupriocin nasal spray 10. Constipation * Colace 100mg PO BID * Miralax daily * Obstructive series: no obstruction noted; fecal retention on xray * Has not had bowel movement * dvt ppx held for OR for left AVR revision repair; which is cancelled. Disposition: given tachyarrhytmia, further cardiac workup. cardiology recommends to cancel AVR repair today. informed nephrology who is aware.
--- NOTE | 2018-05-17 09:47 | CP.PCM.PCO ---
Physician Communication Note - Physician Communication Note Physician Communication Note: Cardiology recommends to cancel AVR fistula repair for further cardiac work
[2018-05-17] MEDS ORDERED: (Lantus) Insulin Glargine, Recombinant SC SCH (10:00)
[2018-05-17] MEDS ORDERED: POLYETHYLENE GLYCOL 3350 17 GM/Dose PACKET PO SCH (10:00)
[2018-05-17] MEDS: Pantoprazole 40 mg EC Tab PO SCH (10:05)
--- NOTE | 2018-05-17 11:24 | CP.PCM.PN ---
Subjective - Date & Time of Evaluation Date of Evaluation: 05/17/18 Time of Evaluation: 11:22 - Subjective Subjective: Nephrology Consultation Note: Assessment: stable HTN emergency with pulm edema Diabetic chronic Kidney Disease (E11.22) Hypertensive Chronic Kidney Disease (I12.0) CKD 5 now ESRD on HD via PC (TTS) started HD 05/11/18 Anemia (D64.9), Hyperphosphatemia (E83.39), Secondary Hyperparathyroidism (E21.1), HTN (I12.0) CHF LVEF 45% SVT constipation Plan: HD TTS schedule as ordered. Continue with Nephrovite 1 tab/day. PRBC as needed for anemia. not on [place] with dialysis as last Hb 11.6. added IV iron as TSAT 20% ferritin 145 Continue with phos binders, last phos level: 7.4 discontinue with calcitriol as last PTH 45. once monthly vit D supplement as last level 28 BP control with meds as ordered. Patient losartan increased 100/day. change lasix to 80 mg MWF orally. hold clonidine as BP low during HD Glycemic control, Dialysis consistent diet Further work up/management as per primary team Dose meds/antibiotics (if needed) for ESRD status. Avoid fleets enema/magnesium based laxatives. SW for outpt HD placement. meds for constipation as per primary team intermittent episodes of short lived tachycardia d/w primary team. pt on beta blockers already. cardiology following for AVF transposition soon once stable cardiac pavon Thanks for allowing me to participate in care of your patient. Will follow patient with you. Please call if any Qs. had d/w team Dr Dino Paredes Office: [phone] HPI: Pt is a 83 F with hx of CKF 5 with maturing AVF, chronic anemia, hyperphosphatemia, secondary hyperparathyroidism, Diabetes Mellitus, hypertension presented with complaints of worsening SOB and found to have HTN emergency with pulm edema Renal consult requested for CKD 5 management. pt c/o SOB on exertion. has mild cough. able to make urine normal appetite. no fever ROS: had [employer] and transferred to ICU. started HD 05/11/18 with temp access Cardiovascular: No chest pain. Pulmonary: no shortness of breath Gastrointestinal: denies abdominal pain mild nausea. No vomiting. decreased appetite and reports constipation Genitourinary: No pain while urinating. Denies blood in urine. All other negative except as mentioned in HPI Physical Examination: General Appearance: Comfortable, in no acute respiratory distress, co-operative . Vitals reviewed and noted as below Head; Atraumatic, normocephalic ENT: no ulcers no thrush. Tongue is midline. Oropharynx: no rash or ulcers. EYES: Pupils are equal, round and reactive to light accommodation. Eye muscles and extraocular movement intact. Sclera is anicteric. Neck; supple no lymphadenopathy, no thyromegaly or bruit Lungs: normal respiratory rate/effort. Breath sounds bilateral equal and clearer Heart: Increased rate. s1s2 normal. No rub or gallop. Extremities: no edema. No varicose veins Neurological: Patient is alert, awake and oriented to person, place and time. No focal deficit. Strength bilateral appropriate and equal Skin: Warm and dry. Normal turgor. No rash. Palpitation: Normal elasticity for age Abdomen: Abdomen is soft. Bowel sounds +. There is no abdominal tenderness, no guarding/rigidity or organomegaly Psych: normal insight and normal affect/mood MSK: no joint tenderness or swelling. Digits and nails normal, no deformity : kidney or bladder not palpable Access: left arm AVF maturing PC now Labs/imaging reviewed. Past medical history, past surgical history, family history, social history, allergy reviewed and noted as below Family Hx: no hx of CKD. Non contributory Objective - Vital Signs/Intake and Output Vital Signs (last 24 hours): Temp Pulse Resp BP Pulse Ox 98.4 F 77 15 146/66 96 05/17/18 08:00 05/17/18 08:00 05/17/18 08:00 05/17/18 10:04 05/17/18 08:00 - Medications Medications: Current Medications Amlodipine Besylate (Norvasc) 10 mg PO DAILY [facility] Last Admin: 05/16/18 10:00 Dose: Not Given Dextrose (Dextrose 50% Inj) 0 ml IV STAT PRN; Protocol PRN Reason: Hypoglycemia Protocol Dextrose (Glutose 15) 0 gm PO ONCE PRN; Protocol PRN Reason: Hypoglycemia Protocol Docusate Sodium (Colace) 100 mg PO BID [facility] Last Admin: 05/17/18 10:03 Dose: 100 mg Furosemide (Lasix) 80 mg PO MWF [facility] Last Admin: 05/17/18 10:04 Dose: 80 mg Glucagon (Glucagen Diagnostic Kit) 0 mg IM STAT PRN; Protocol PRN Reason: Hypoglycemia Protocol Heparin Sodium (Porcine) (Heparin) 5,000 units SC Q12H [facility] Last Admin: 05/15/18 17:11 Dose: 5,000 units Hydralazine HCl (Apresoline) 100 mg PO BID [facility] Last Admin: 05/16/18 17:47 Dose: 100 mg Hydralazine HCl (Apresoline) 25 mg PO Q4 PRN PRN Reason: Other Ferric Sodium Gluconate Complex 125 mg/ Sodium Chloride 110 mls @ 110 mls/hr IVPB DAILY [facility] Stop: 05/20/18 10:01 Last Admin: 05/16/18 14:21 Dose: 110 mls/hr Insulin Aspart (Novolog) 14 unit SC TIDAC [facility] Last Admin: 05/17/18 07:56 Dose: Not Given Insulin Glargine (Lantus) 10 unit SC QAM [facility] Last Admin: 05/15/18 10:26 Dose: 10 unit Isosorbide Mononitrate (Imdur) 60 mg PO Q24H [facility] Last Admin: 05/16/18 14:00 Dose: Not Given Losartan Potassium (Cozaar) 100 mg PO DAILY [facility] Last Admin: 05/16/18 10:00 Dose: Not Given Metoprolol Tartrate (Lopressor) 25 mg PO BID [facility] Last Admin: 05/17/18 10:04 Dose: 25 mg Mupirocin (Bactroban 2% Nasal) 0.25 gm DELTA BID [facility] Stop: 05/17/18 18:15 Last Admin: 05/16/18 17:43 Dose: 0.25 gm Ondansetron HCl (Zofran Inj) 4 mg IVP Q6H PRN PRN Reason: Nausea/Vomiting Last Admin: 05/17/18 07:58 Dose: 4 mg Pantoprazole Sodium (Protonix Ec Tab) 40 mg PO DAILY [facility] Last Admin: 05/17/18 10:05 Dose: 40 mg Sevelamer Carbonate (Renvela) 1,600 mg PO TIDCC [facility] Sitagliptin Phosphate (Januvia) 25 mg PO DAILY [facility] Last Admin: 05/17/18 10:05 Dose: 25 mg Vitamin B Complex/Vit C/Folic Acid (Nephro-Monie) 1 tab PO 0800 [facility] Last Admin: 05/17/18 07:56 Dose: Not Given - Labs Labs: 05/17/18 05:47 05/17/18 05:47 PT 11.1 SECONDS (9.7-12.2) 05/10/18 16:56 INR 1.0 05/10/18 16:56 APTT 30 SECONDS (21-34) 05/10/18 16:56
[2018-05-17] MEDS: Ferric Sodium Gluconat Complex 125 MG in Sodium Chloride 0.9% 100 ML IVPB SCH (11:46)
[2018-05-17] MEDS: Mupirocin 2% Ointment (NASAL) NAS SCH ×2 (11:59→17:47)
--- NOTE | 2018-05-17 12:19 | CP.PCM.PN ---
Subjective - Date & Time of Evaluation Date of Evaluation: 05/17/18 Time of Evaluation: 11:10 - Subjective Subjective: Vascular Surgery Progress note. Dr. White Pt seen and examined at bedside. Pt noted to have tachycardia overnight. Cardiology aware and would like to perform further work up prior to clearance for OR. Patient is aware of plan and is agreeable. Currently denies any CP/SOB. No new complaints. Objective - Vital Signs/Intake and Output Vital Signs (last 24 hours): Temp Pulse Resp BP Pulse Ox 98.4 F 77 15 140/53 L 94 L 05/17/18 08:00 05/17/18 11:44 05/17/18 11:44 05/17/18 11:44 05/17/18 11:44 - Medications Medications: Current Medications Amlodipine Besylate (Norvasc) 10 mg PO DAILY [facility] Last Admin: 05/17/18 11:46 Dose: 10 mg Dextrose (Dextrose 50% Inj) 0 ml IV STAT PRN; Protocol PRN Reason: Hypoglycemia Protocol Dextrose (Glutose 15) 0 gm PO ONCE PRN; Protocol PRN Reason: Hypoglycemia Protocol Docusate Sodium (Colace) 100 mg PO BID [facility] Last Admin: 05/17/18 10:03 Dose: 100 mg Furosemide (Lasix) 80 mg PO MWF [facility] Last Admin: 05/17/18 10:04 Dose: 80 mg Glucagon (Glucagen Diagnostic Kit) 0 mg IM STAT PRN; Protocol PRN Reason: Hypoglycemia Protocol Heparin Sodium (Porcine) (Heparin) 5,000 units SC Q12H [facility] Last Admin: 05/15/18 17:11 Dose: 5,000 units Hydralazine HCl (Apresoline) 100 mg PO BID [facility] Last Admin: 05/17/18 11:43 Dose: Not Given Hydralazine HCl (Apresoline) 25 mg PO Q4 PRN PRN Reason: Other Ferric Sodium Gluconate Complex 125 mg/ Sodium Chloride 110 mls @ 110 mls/hr IVPB DAILY [facility] Stop: 05/20/18 10:01 Last Admin: 05/17/18 11:46 Dose: 110 mls/hr Insulin Aspart (Novolog) 14 unit SC TIDAC [facility] Last Admin: 05/17/18 07:56 Dose: Not Given Insulin Glargine (Lantus) 10 unit SC QAM [facility] Last Admin: 05/15/18 10:26 Dose: 10 unit Isosorbide Mononitrate (Imdur) 60 mg PO Q24H [facility] Last Admin: 05/16/18 14:00 Dose: Not Given Losartan Potassium (Cozaar) 100 mg PO DAILY [facility] Last Admin: 05/16/18 10:00 Dose: Not Given Metoprolol Tartrate (Lopressor) 25 mg PO BID [facility] Last Admin: 05/17/18 10:04 Dose: 25 mg Mupirocin (Bactroban 2% Nasal) 0.25 gm DELTA BID [facility] Stop: 05/17/18 18:15 Last Admin: 05/17/18 11:59 Dose: 0.25 gm Ondansetron HCl (Zofran Inj) 4 mg IVP Q6H PRN PRN Reason: Nausea/Vomiting Last Admin: 05/17/18 07:58 Dose: 4 mg Pantoprazole Sodium (Protonix Ec Tab) 40 mg PO DAILY [facility] Last Admin: 05/17/18 10:05 Dose: 40 mg Sevelamer Carbonate (Renvela) 1,600 mg PO TIDCC [facility] Sitagliptin Phosphate (Januvia) 25 mg PO DAILY [facility] Last Admin: 05/17/18 10:05 Dose: 25 mg Vitamin B Complex/Vit C/Folic Acid (Nephro-Monie) 1 tab PO 0800 [facility] Last Admin: 05/17/18 07:56 Dose: Not Given - Labs Labs: 05/17/18 05:47 05/17/18 05:47 PT 11.1 SECONDS (9.7-12.2) 05/10/18 16:56 INR 1.0 05/10/18 16:56 APTT 30 SECONDS (21-34) 05/10/18 16:56 - Constitutional Appears: Non-toxic - Head Exam Head Exam: ATRAUMATIC, NORMAL INSPECTION, NORMOCEPHALIC - Eye Exam Eye Exam: EOMI - Respiratory Exam Respiratory Exam: NORMAL BREATHING PATTERN. absent: Accessory Muscle Use, Respiratory Distress - Cardiovascular Exam Cardiovascular Exam: absent: JVD - GI/Abdominal Exam GI & Abdominal Exam: Soft. absent: Distended, Firm, Guarding, Tenderness - Extremities Exam Additional comments: left AVF with palpable thrill - Neurological Exam Neurological Exam: Alert, Awake, Oriented x3 Assessment and Plan - Assessment and Plan (Free Text) Assessment: 83yo F with ESRD on HD Plan: - Continue permacath for HD for now. - Awaiting Cardiology clearance for left AVF revision/superficialization. Further recs as per Dr. Courtney Azar PGY2 surgery
[2018-05-17] MEDS: (Lantus) Insulin Glargine, Recombinant SC SCH (13:54)
--- NOTE | 2018-05-17 13:57 | CARD ---
APPROVED REPORT Date of service: 05/16/2018 EKG Measurement Heart [id number] <Conclusion> Normal sinus rhythm Left ventricular hypertrophy with repolarization abnormality Abnormal ECG
--- NOTE | 2018-05-17 15:19 | CP.PCM.PN ---
<Baldomero Sales - Last Filed: 05/17/18 17:15> Subjective - Date & Time of Evaluation Date of Evaluation: 05/17/18 Time of Evaluation: 15:19 - Subjective Subjective: PGY-2 Progress Note: Dr. Frey Cardiology Service Patient seen and examined at bedside. Per nursing patient had a couple more instances of SVT since yesterday. Patient does admit to some nausea during todays visit. She denies any chest pain, fevers, chills, headache, abdominal pain, syncopal episodes, or any other complaints. Objective - Vital Signs/Intake and Output Vital Signs (last 24 hours): Temp Pulse Resp BP Pulse Ox 98.4 F 134 H 22 174/87 H 96 05/17/18 08:00 05/17/18 13:44 05/17/18 13:44 05/17/18 13:44 05/17/18 13:44 - Medications Medications: Current Medications Amlodipine Besylate (Norvasc) 10 mg PO DAILY [facility] Last Admin: 05/17/18 11:46 Dose: 10 mg Dextrose (Dextrose 50% Inj) 0 ml IV STAT PRN; Protocol PRN Reason: Hypoglycemia Protocol Dextrose (Glutose 15) 0 gm PO ONCE PRN; Protocol PRN Reason: Hypoglycemia Protocol Docusate Sodium (Colace) 100 mg PO BID [facility] [place] Last Admin: 05/17/18 10:03 Dose: 100 mg Furosemide (Lasix) 80 mg PO MWF [facility] [place] Last Admin: 05/17/18 10:04 Dose: 80 mg Glucagon (Glucagen Diagnostic Kit) 0 mg IM STAT PRN; Protocol PRN Reason: Hypoglycemia Protocol Heparin Sodium (Porcine) (Heparin) 5,000 units SC Q12H [facility] [place] Last Admin: 05/15/18 17:11 Dose: 5,000 units Hydralazine HCl (Apresoline) 100 mg PO BID [facility] [place] Last Admin: 05/17/18 11:43 Dose: Not Given Hydralazine HCl (Apresoline) 25 mg PO Q4 PRN PRN Reason: Other Ferric Sodium Gluconate Complex 125 mg/ Sodium Chloride 110 mls @ 110 mls/hr IVPB DAILY [facility] [place] Stop: 05/20/18 10:01 Last Admin: 05/17/18 11:46 Dose: 110 mls/hr Insulin Aspart (Novolog) 14 unit SC TIDAC [facility] [place] Last Admin: 05/17/18 13:54 Dose: Not Given Insulin Glargine (Lantus) 10 unit SC QAM [facility] [place] Last Admin: 05/17/18 13:54 Dose: Not Given Isosorbide Mononitrate (Imdur) 60 mg PO Q24H [facility] [place] Last Admin: 05/17/18 13:52 Dose: 60 mg Losartan Potassium (Cozaar) 100 mg PO DAILY [facility] [place] Last Admin: 05/17/18 13:53 Dose: 100 mg Metoprolol Tartrate (Lopressor) 25 mg PO BID [facility] [place] Last Admin: 05/17/18 10:04 Dose: 25 mg Mupirocin (Bactroban 2% Nasal) 0.25 gm DELTA BID [facility] [place] Stop: 05/17/18 18:15 Last Admin: 05/17/18 11:59 Dose: 0.25 gm Ondansetron HCl (Zofran Inj) 4 mg IVP Q6H PRN PRN Reason: Nausea/Vomiting Last Admin: 05/17/18 07:58 Dose: 4 mg Pantoprazole Sodium (Protonix Ec Tab) 40 mg PO DAILY [facility] [place] Last Admin: 05/17/18 10:05 Dose: 40 mg Sevelamer Carbonate (Renvela) 1,600 mg PO TIDCC [facility] [place] Last Admin: 05/17/18 13:53 Dose: 1,600 mg Sitagliptin Phosphate (Januvia) 25 mg PO DAILY [facility] [place] Last Admin: 05/17/18 10:05 Dose: 25 mg Vitamin B Complex/Vit C/Folic Acid (Nephro-Monie) 1 tab PO 0800 [facility] [place] Last Admin: 05/17/18 07:56 Dose: Not Given - Labs Labs: 05/17/18 05:47 05/17/18 05:47 PT 11.1 SECONDS (9.7-12.2) 05/10/18 16:56 INR 1.0 05/10/18 16:56 APTT 30 SECONDS (21-34) 05/10/18 16:56 - Head Exam Head Exam: ATRAUMATIC, NORMAL INSPECTION, NORMOCEPHALIC - Eye Exam Eye Exam: EOMI, Normal appearance, PERRL Pupil Exam: NORMAL ACCOMODATION, PERRL. absent: Unequal - ENT Exam ENT Exam: Mucous Membranes Moist, Normal Oropharynx - Neck Exam Neck Exam: absent: Lymphadenopathy, Thyromegaly - Respiratory Exam Respiratory Exam: Clear to Ausculation Bilateral, NORMAL BREATHING PATTERN. absent: Prolonged Expiratory Phase, Respiratory Distress - Cardiovascular Exam Cardiovascular Exam: REGULAR RHYTHM, +S1, +S2 - GI/Abdominal Exam GI & Abdominal Exam: Soft, Normal Bowel Sounds. absent: Rigid, Hyperactive Bowel Sounds - Extremities Exam Extremities Exam: Full ROM. absent: Joint Swelling, Pedal Edema, Tenderness - Back Exam Back Exam: NORMAL INSPECTION. absent: paraspinal tenderness - Neurological Exam Neurological Exam: Alert, Awake, CN II-XII Intact, Oriented x3 - Psychiatric Exam Psychiatric exam: Normal Affect, Normal Mood - Skin Skin Exam: Dry, Intact, Normal Color Assessment and Plan - Assessment and Plan (Free Text) Assessment: 83 year old female w/ PMH of CHF, HTN, DM2, HLD, CKD, gout, hx of breast ca w/ partial lumpectomy admitted to hospital for complaints of SOB and wheezing. MANAGER PUBLIC was called for elevated blood pressure and hypoxia. Patient was transferred to ICU for emergent dailysis session prior to permacath placement and AVF for medical optimization prior to procedure. Patient is now continued on a regular dialysis scheduled as per nephro. Patient pending AVF revision with vascular surgery team in AM. Patient had an episode of SVT which resolved spontaneously and Cardiology was consulted. Patient had a recurrent episode of SVT subsequently. Plan: 1. Episode of SVT -Recurrent -Bystolic discontinued. -Lopressor started -Troponins ordered. If results are abnormal patient will go for a stress test. Will f/u with results. 2.SOB 2/2 CHF exacerbation Echocardiogram 01/17: LV EF 46.1%, left ventricle is normal in size, borderline LV hypertrophy, Grade 1 abnormal relaxation pattern Medications: Lasix 80mg MWF Cozaar 100mg po daily Imdur 60mg po q24h 3. Hypertension Medications: Norvasc 10mg po daily Hydralazine 100mg po bid; Hydralazine 25mg po q4h prn SBP>170 or DBP>110 Lopressor 25mg PO BID [facility] Cozaar 100mg PO Daily Imdur 60mg po q24h 4.DM2 Medications: Lantus 10 units (decreased for NPO starting at midnight) Aspart 14 units w/ Meals; ACHS; Hypogylcemic protocol Januvia 25mg po daily 5. ESRD femoral line was used initially; now HD done through permacath HD as per nephorlogy Nephrovite; Renevla 1600mg po tid Social work for outpatient HD 5. Anemia Ferric sodium IVPB daily likely anemia of chronic disease 2/2 ESRD Plan discussed with Dr. Frey. Baldoem[employer] Sales, Pgy-2 <Benjamin Frey - Last Filed: 05/17/18 21:40> Objective - Vital Signs/Intake and Output Vital Signs (last 24 hours): Temp Pulse Resp BP Pulse Ox 98.4 F 72 21 154/52 H 93 L 05/17/18 08:00 05/17/18 20:44 05/17/18 20:44 05/17/18 20:44 05/17/18 20:44 - Medications Medications: Current Medications Amlodipine Besylate (Norvasc) 10 mg PO DAILY [facility] Last Admin: 05/17/18 11:46 Dose: 10 mg Dextrose (Dextrose 50% Inj) 0 ml IV STAT PRN; Protocol PRN Reason: Hypoglycemia Protocol Dextrose (Glutose 15) 0 gm PO ONCE PRN; Protocol PRN Reason: Hypoglycemia Protocol Docusate Sodium (Colace) 100 mg PO BID [facility] [place] Last Admin: 05/17/18 17:46 Dose: 100 mg Furosemide (Lasix) 80 mg PO MWF [facility] [place] Last Admin: 05/17/18 10:04 Dose: 80 mg Glucagon (Glucagen Diagnostic Kit) 0 mg IM STAT PRN; Protocol PRN Reason: Hypoglycemia Protocol Heparin Sodium (Porcine) (Heparin) 5,000 units SC Q12H [facility] [place] Last Admin: 05/15/18 17:11 Dose: 5,000 units Hydralazine HCl (Apresoline) 100 mg PO BID [facility] [place] Last Admin: 05/17/18 17:46 Dose: Not Given Hydralazine HCl (Apresoline) 25 mg PO Q4 PRN PRN Reason: Other Ferric Sodium Gluconate Complex 125 mg/ Sodium Chloride 110 mls @ 110 mls/hr IVPB DAILY [facility] [place] Stop: 05/20/18 10:01 Last Admin: 05/17/18 11:46 Dose: 110 mls/hr Heparin Sodium/Sodium Chloride (Heparin 50662 Units/250ml 1/2 Normal Saline) 25,000 units in 250 mls @ 8.6 mls/hr IV .Q24H PRN; Protocol PRN Reason: PROTOCOL Last Admin: 05/17/18 19:35 Dose: 12 units/kg/hr, 8.6 mls/hr Insulin Aspart (Novolog) 14 unit SC TIDAC [facility] [place] Last Admin: 05/17/18 17:36 Dose: Not Given Insulin Glargine (Lantus) 10 unit SC QAM [facility] Last Admin: 05/17/18 13:54 Dose: Not Given Isosorbide Mononitrate (Imdur) 60 mg PO Q24H [facility] Last Admin: 05/17/18 13:52 Dose: 60 mg Losartan Potassium (Cozaar) 100 mg PO DAILY [facility] Last Admin: 05/17/18 13:53 Dose: 100 mg Metoprolol Tartrate (Lopressor) 25 mg PO BID [facility] Last Admin: 05/17/18 17:47 Dose: 25 mg Ondansetron HCl (Zofran Inj) 4 mg IVP Q6H PRN PRN Reason: Nausea/Vomiting Last Admin: 05/17/18 07:58 Dose: 4 mg Pantoprazole Sodium (Protonix Ec Tab) 40 mg PO DAILY [facility] Last Admin: 05/17/18 10:05 Dose: 40 mg Sevelamer Carbonate (Renvela) 1,600 mg PO TIDCC [facility] [place] Last Admin: 05/17/18 17:47 Dose: 1,600 mg Sitagliptin Phosphate (Januvia) 25 mg PO DAILY [facility] [place] Last Admin: 05/17/18 10:05 Dose: 25 mg Vitamin B Complex/Vit C/Folic Acid (Nephro-Monie) 1 tab PO 0800 [facility] [place] Last Admin: 05/17/18 07:56 Dose: Not Given - Labs Labs: 05/17/18 05:47 05/17/18 05:47 PT 11.1 SECONDS (9.7-12.2) 05/10/18 16:56 INR 1.0 05/10/18 16:56 APTT 30 SECONDS (21-34) 05/10/18 16:56 Assessment and Plan - Assessment and Plan (Free Text) Plan: Patient examined and evaluated personally by me. Plan of care d/w the medical supervisor and as documented
--- NOTE | 2018-05-17 15:21 | CARD ---
APPROVED REPORT Date of service: 05/16/2018 EKG Measurement Heart [id number] AR [id number] <Conclusion> Normal sinus rhythm Left ventricular hypertrophy with repolarization abnormality Possible lateral ischemia Abnormal ECG
--- NOTE | 2018-05-17 16:30 | CARD ---
APPROVED REPORT Date of service: 05/17/2018 EXAM: Two-dimensional and M-mode echocardiogram with Doppler and color Doppler. Other Information Quality : Rhythm : Tachycardia INDICATION Congestive Heart Failure RISK FACTORS Diabetes 2D DIMENSIONS IVSd0.9 (0.7-1.1cm)Aortic Root (2D)3.0 (2.0-3.7cm) LVDd5.2 (3.9-5.9cm)PWd1.3 (0.7-1.1cm) LA Cnpzcf19 (18-58mL)LVDs4.2 (2.5-4.0cm) FS (%) 19.5 %LVEF (%)56.0 (>50%) LVEF (Ohlland's)55.42 %IVC0.00 cm M-Mode DIMENSIONS Left Atrium (MM)3.45 (2.5-4.0cm)IVSd0.81 (0.7-1.1cm) Aortic Root2.90 (2.2-3.7cm)LVDd6.70 (4.0-5.6cm) Aortic Cusp Exc.1.30 (1.5-2.0cm)PWd0.65 (0.7-1.1cm) FS (%) 17 %LVDs5.56 (2.0-3.8cm) TAPSE11.43 cmLVEF (%)55 (>50%) Mitral Valve MV E Tpsysxxa37.3cm/sMV A Pkjoubtt54.0cm/sE/A ratio2.6 TDI Lateral E' Peak V20.27cm/sMedial E' Peak V8.74cm/sE/Lateral E'4.5 E/Medial E'10.3 Tricuspid Valve TR Peak Oaenspqp449rk/sTR Peak Gr.[id number] LEFT VENTRICLE The left ventricle is normal size. There is borderline to mild concentric left ventricular hypertrophy. The left ventricular ejection fraction is within the normal range. Ángel-septal hypokinesis No left ventricle thrombus noted on this study. RIGHT VENTRICLE The right ventricle is normal size. There is normal right ventricular wall thickness. The right ventricular systolic function is normal. ATRIA The left atrium size is normal. The right atrium size is normal. AORTIC VALVE The aortic valve is mildly to moderately sclerotic. No aortic regurgitation is present. There is no aortic valvular stenosis. MITRAL VALVE The mitral valve is moderately thickened. There is no mitral valve stenosis. There is no mitral valve regurgitation noted. TRICUSPID VALVE The tricuspid valve is normal in structure. There is no tricuspid valve regurgitation noted. PULMONIC VALVE The pulmonary valve is normal in structure. There is no pulmonic valvular regurgitation. GREAT VESSELS The aortic root is normal in size. The IVC is normal in size and collapses >50% with inspiration. PERICARDIAL EFFUSION There is no pericardial effusion. <Conclusion> There is borderline to mild concentric left ventricular hypertrophy. The left ventricular ejection fraction is within the normal range. Ángel-septal hypokinesis
[2018-05-17] MEDS ORDERED: Heparin25000 units/250ml 1/2NS 25,000 UNITS/250 ML BAG IV PRN (18:55)
--- NOTE | 2018-05-17 20:48 | CP.PCM.CON ---
History of Present Illness - History of Present Illness History of Present Illness: [id number] yo black female with hx CHF /HTN /DM /CKD /HLD /Gout /Breast CA /Anemia adm. with CHF. Pt had [facility] for HTN and desat. and improved with HD. She has been on Telemetry and today having SVT and started on lopressor. +trop and followed by Cardiology who requested transfer to ICU level care. Pt may have stress test tolu. Pt denied pain /sob. Had nausea and palpitations earlier. ROS- as noted All-NKDA Hchsuq-xe-tbn/ occ etoh/ no drugs Meds-reviewed FH- Unknown PE T- P73 R-19 BP- 154/52 Alert, nad Neck- no jvdklungs- bilat bs Heart-rr aBd- bs+, soft, nontender Ext- no edema Labs-reviewed A&P NSTEMI s/p SVT CHF CKD HTN DM HLD Hx Breast Ca Anemia cont monitoring cont meds & Beta Esther HD as per Nephrology Cardiology following BP control DVT prophylaxis Past Patient History - Infectious Disease Hx of Infectious Diseases: None - Past Medical History & Family History Past Medical History?: Yes - Past Social History Smoking Status: Never Smoked - CARDIAC Hx Hypercholesterolemia: Yes Hx Hypertension: Yes - PULMONARY Hx Respiratory Disorders: No - NEUROLOGICAL Hx Neurological Disorder: No - HEENT Hx HEENT Problems: Yes - RENAL Hx Renal Failure: Yes - ENDOCRINE/METABOLIC Hx Diabetes Mellitus Type 2: Yes - HEMATOLOGICAL/ONCOLOGICAL Hx Cancer: Yes (right breast cancer) Hx Chemotherapy: (+ radiation tx) - INTEGUMENTARY Hx Dermatological Problems: Yes Other/Comment: HX: "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." - MUSCULOSKELETAL/RHEUMATOLOGICAL Hx Falls: No Hx Gout: Yes (great toe) - GASTROINTESTINAL Hx Gastrointestinal Disorders: No - GENITOURINARY/GYNECOLOGICAL Hx Genitourinary Disorders: No - PSYCHIATRIC Hx Psychophysiologic Disorder: No Hx Substance Use: No - SURGICAL HISTORY Hx Arteriovenous Shunt: Yes (left arm 02-15-2018) Hx Cataract Extraction: Yes Other/Comment: right breast lumpectomy - ANESTHESIA Hx Anesthesia: Yes Hx Anesthesia Reactions: No Hx Malignant Hyperthermia: No Meds Allergies/Adverse Reactions: Allergies Allergy/AdvReac Type Severity Reaction Status Date / Time No Known Allergies Allergy Verified 05/10/18 18:45 - Medications Medications: Current Medications Amlodipine Besylate (Norvasc) 10 mg PO DAILY [facility] Last Admin: 05/17/18 11:46 Dose: 10 mg Dextrose (Dextrose 50% Inj) 0 ml IV STAT PRN; Protocol PRN Reason: Hypoglycemia Protocol Dextrose (Glutose 15) 0 gm PO ONCE PRN; Protocol PRN Reason: Hypoglycemia Protocol Docusate Sodium (Colace) 100 mg PO BID [facility] Last Admin: 05/17/18 17:46 Dose: 100 mg Furosemide (Lasix) 80 mg PO MWF [facility] Last Admin: 05/17/18 10:04 Dose: 80 mg Glucagon (Glucagen Diagnostic Kit) 0 mg IM STAT PRN; Protocol PRN Reason: Hypoglycemia Protocol Heparin Sodium (Porcine) (Heparin) 5,000 units SC Q12H [facility] Last Admin: 05/15/18 17:11 Dose: 5,000 units Hydralazine HCl (Apresoline) 100 mg PO BID [facility] Last Admin: 05/17/18 17:46 Dose: Not Given Hydralazine HCl (Apresoline) 25 mg PO Q4 PRN PRN Reason: Other Ferric Sodium Gluconate Complex 125 mg/ Sodium Chloride 110 mls @ 110 mls/hr IVPB DAILY [facility] Stop: 05/20/18 10:01 Last Admin: 05/17/18 11:46 Dose: 110 mls/hr Heparin Sodium/Sodium Chloride (Heparin 51272 Units/250ml 1/2 Normal Saline) 25,000 units in 250 mls @ 8.6 mls/hr IV .Q24H PRN; Protocol PRN Reason: PROTOCOL Last Admin: 05/17/18 19:35 Dose: 12 units/kg/hr, 8.6 mls/hr Insulin Aspart (Novolog) 14 unit SC TIDAC [facility] Last Admin: 05/17/18 17:36 Dose: Not Given Insulin Glargine (Lantus) 10 unit SC QAM [facility] Last Admin: 05/17/18 13:54 Dose: Not Given Isosorbide Mononitrate (Imdur) 60 mg PO Q24H [facility] Last Admin: 05/17/18 13:52 Dose: 60 mg Losartan Potassium (Cozaar) 100 mg PO DAILY [facility] Last Admin: 05/17/18 13:53 Dose: 100 mg Metoprolol Tartrate (Lopressor) 25 mg PO BID [facility] Last Admin: 05/17/18 17:47 Dose: 25 mg Ondansetron HCl (Zofran Inj) 4 mg IVP Q6H PRN PRN Reason: Nausea/Vomiting Last Admin: 05/17/18 07:58 Dose: 4 mg Pantoprazole Sodium (Protonix Ec Tab) 40 mg PO DAILY [facility] Last Admin: 05/17/18 10:05 Dose: 40 mg Sevelamer Carbonate (Renvela) 1,600 mg PO TIDCC [facility] Last Admin: 05/17/18 17:47 Dose: 1,600 mg Sitagliptin Phosphate (Januvia) 25 mg PO DAILY [facility] Last Admin: 05/17/18 10:05 Dose: 25 mg Vitamin B Complex/Vit C/Folic Acid (Nephro-Monie) 1 tab PO 0800 [facility] Last Admin: 05/17/18 07:56 Dose: Not Given Results - Vital Signs Recent Vital Signs: Last Vital Signs Temp 98.4 F 05/17/18 08:00 Pulse 75 05/17/18 18:00 Resp 17 05/17/18 18:00 BP 100/41 L 05/17/18 17:47 Pulse Ox 94 L 05/17/18 18:00 - Labs Result Diagrams: 05/17/18 05:47 05/17/18 05:47 Labs: Laboratory Results - last 24 hr 05/16/18 05/16/18 05/17/18 20:23 21:28 05:47 WBC 11.0 H RBC 4.23 Hgb 11.7 Hct 37.1 MCV 87.6 MCH 27.7 MCHC 31.7 L RDW 20.2 H Plt Count 302 MPV 9.8 Neut % (Auto) 77.1 H Lymph % (Auto) 14.1 L [place] % (Auto) 8.4 Eos % (Auto) 0.0 Baso % (Auto) 0.4 Neut # (Auto) 8.5 H Lymph # (Auto) 1.6 [place] # (Auto) 0.9 H Eos # (Auto) 0.0 Baso # (Auto) 0.0 Sodium 137 Potassium 5.2 Chloride 101 Carbon Dioxide 21 L Anion Gap 20 BUN 36 H Creatinine 5.4 H Est GFR ( Amer) 9 Est GFR (Non-Af Amer) 8 POC Glucose (mg/dL) 119 H Random Glucose 118 H Calcium 9.6 Phosphorus 5.7 H Magnesium 2.2 Total Bilirubin 0.9 AST 44 H D ALT 12 Alkaline Phosphatase 84 Troponin I Total Protein 8.9 H Albumin 4.3 Globulin 4.6 H Albumin/Globulin Ratio 1.0 Free T4 TSH 3rd Generation 05/17/18 05/17/18 05/17/18 05:47 07:17 10:33 WBC RBC Hgb Hct MCV MCH MCHC RDW Plt Count MPV Neut % (Auto) Lymph % (Auto) [place] % (Auto) Eos % (Auto) Baso % (Auto) Neut # (Auto) Lymph # (Auto) [place] # (Auto) Eos # (Auto) Baso # (Auto) Sodium 136 Potassium 4.9 Chloride 98 Carbon Dioxide 21 L Anion Gap 23 H BUN 48 H Creatinine 6.5 H Est GFR ( Amer) 7 Est GFR (Non-Af Amer) 6 POC Glucose (mg/dL) 159 H Random Glucose 150 H D Calcium 9.4 Phosphorus 7.4 H Magnesium 2.2 Total Bilirubin 0.6 AST 31 ALT 13 Alkaline Phosphatase 86 Troponin I Total Protein 8.6 H Albumin 4.2 Globulin 4.4 H Albumin/Globulin Ratio 1.0 Free T4 1.64 TSH 3rd Generation 1.70 05/17/18 05/17/18 05/17/18 11:19 16:24 16:35 WBC RBC Hgb Hct MCV MCH MCHC RDW Plt Count MPV Neut % (Auto) Lymph % (Auto) [place] % (Auto) Eos % (Auto) Baso % (Auto) Neut # (Auto) Lymph # (Auto) [place] # (Auto) Eos # (Auto) Baso # (Auto) Sodium Potassium Chloride Carbon Dioxide Anion Gap BUN Creatinine Est GFR ( Amer) Est GFR (Non-Af Amer) POC Glucose (mg/dL) 158 H 159 H Random Glucose Calcium Phosphorus Magnesium Total Bilirubin AST ALT Alkaline Phosphatase Troponin I 0.2480 H* Total Protein Albumin Globulin Albumin/Globulin Ratio Free T4 TSH 3rd Generation Assessment & Plan (1) Acute CHF (congestive heart failure) Status: Acute (2) SVT (supraventricular tachycardia) Status: Acute (3) CKD (chronic kidney disease) Status: Chronic (4) HTN (hypertension) Status: Chronic (5) Diabetes Status: Chronic (6) Anemia Status: Chronic (7) HLD (hyperlipidemia) Status: Chronic
[2018-05-17 23:10] LABS: CK-MB 0.42 ng/mL (0.0-3.38)
[2018-05-18 05:29] LABS: BASO # 0.1 K/uL (0.0-0.2); BASO % 0.6 % (0.0-2.0); EOS % 0.4 % (0.0-4.0); HEMOGLOBIN 11.5 g/dL (11.0-16.0); LYMPH # 1.7 K/uL (1.0-4.3); MEAN CELL VOLUME 88.2 fL (81.0-99.0); MEAN CORPUSCULAR HEMOGLOBIN 27.7 pg (27.0-31.0); MEAN CORPUSCULAR HGB CONC 31.4 g/dL (33.0-37.0); NEUT # 8.5 K/uL (1.8-7.0); NRBC % 0.6 % (0.0-2.0); RBC 4.16 Mil/uL (3.80-5.20); RED CELL DISTRIBUTION WIDTH 20.8 % (11.5-14.5); WHITE BLOOD COUNT 11.3 K/uL (4.8-10.8)
[2018-05-18 05:53] LABS: ALBUMIN 4.1 g/dL (3.5-5.0); CALCIUM 9.8 mg/dl (8.6-10.4)
[2018-05-18] MEDS: (Novolog) Insulin Aspart, Recombinant 100 u/ml 10 ml vial SC SCH ×3 (07:19→16:14)
[2018-05-18] MEDS ORDERED: Iodixanol 320 MG/ML 100 ML BOTTLE IV ONE (07:35)
[2018-05-18] MEDS ORDERED: Midazolam 2 MG/2 ML VIAL ONE (08:17)
[2018-05-18] MEDS: Multivitamin Vitamin B Complex (Nephro-Vite) Tab PO SCH (08:35)
--- NOTE | 2018-05-18 08:55 | CP.PCM.PN ---
Subjective - Date & Time of Evaluation Date of Evaluation: 05/18/18 Time of Evaluation: 08:53 - Subjective Subjective: Patient s/p cath Non Obstructive coronaries Normal EF Hx of SVT responds well to cardizem Moderate risk for cardiac events for AV fistula surgery under general anaesthesia Give cardizem 10-20mg IV pushes if patient develops SVT james opretaively Will follow Objective - Vital Signs/Intake and Output Vital Signs (last 24 hours): Temp Pulse Resp BP Pulse Ox 98.4 F 74 17 111/55 L 95 05/17/18 08:00 05/18/18 06:00 05/18/18 06:00 05/18/18 05:44 05/18/18 06:00 Intake and Output: 05/18/18 05/18/18 06:59 18:59 Intake Total 168.8 8.6 Output Total 0 0 Balance 168.8 8.6 - Medications Medications: Current Medications Amlodipine Besylate (Norvasc) 10 mg PO DAILY [facility] Last Admin: 05/17/18 11:46 Dose: 10 mg Aspirin (Aspirin Chewable) 81 mg PO DAILY [facility] Dextrose (Dextrose 50% Inj) 0 ml IV STAT PRN; Protocol PRN Reason: Hypoglycemia Protocol Diltiazem HCl (Cardizem) 60 mg PO QID [facility] Docusate Sodium (Colace) 100 mg PO BID [facility] Last Admin: 05/17/18 17:46 Dose: 100 mg Furosemide (Lasix) 80 mg PO MWF [facility] Last Admin: 05/17/18 10:04 Dose: 80 mg Glucagon (Glucagen Diagnostic Kit) 0 mg IM STAT PRN; Protocol PRN Reason: Hypoglycemia Protocol Hydralazine HCl (Apresoline) 100 mg PO BID [facility] Last Admin: 05/17/18 17:46 Dose: Not Given Hydralazine HCl (Apresoline) 25 mg PO Q4 PRN PRN Reason: Other Ferric Sodium Gluconate Complex 125 mg/ Sodium Chloride 110 mls @ 110 mls/hr IVPB DAILY [facility] Stop: 05/20/18 10:01 Last Admin: 05/17/18 11:46 Dose: 110 mls/hr Heparin Sodium/Sodium Chloride (Heparin 45387 Units/250ml 1/2 Normal Saline) 25,000 units in 250 mls @ 8.6 mls/hr IV .Q24H PRN; Protocol PRN Reason: PROTOCOL Last Admin: 05/17/18 19:35 Dose: 12 units/kg/hr, 8.6 mls/hr Insulin Aspart (Novolog) 14 unit SC TIDAC [facility] Last Admin: 05/18/18 07:19 Dose: Not Given Insulin Glargine (Lantus) 5 unit SC QAM [facility] Losartan Potassium (Cozaar) 100 mg PO DAILY [facility] Last Admin: 05/17/18 13:53 Dose: 100 mg Ondansetron HCl (Zofran Inj) 4 mg IVP Q6H PRN PRN Reason: Nausea/Vomiting Last Admin: 05/17/18 07:58 Dose: 4 mg Pantoprazole Sodium (Protonix Ec Tab) 40 mg PO DAILY [facility] Last Admin: 05/17/18 10:05 Dose: 40 mg Sevelamer Carbonate (Renvela) 1,600 mg PO TIDCC [facility] Last Admin: 05/18/18 08:35 Dose: Not Given Sitagliptin Phosphate (Januvia) 25 mg PO DAILY [facility] Last Admin: 05/17/18 10:05 Dose: 25 mg Vitamin B Complex/Vit C/Folic Acid (Nephro-Monie) 1 tab PO 0800 [facility] Last Admin: 05/18/18 08:35 Dose: Not Given - Labs Labs: 05/18/18 05:18 05/18/18 05:21 PT 11.1 SECONDS (9.7-12.2) 05/10/18 16:56 INR 1.0 05/10/18 16:56 APTT 95 SECONDS (21-34) H D 05/18/18 05:18
[2018-05-18] MEDS: Pantoprazole 40 mg EC Tab PO SCH (09:43)
[2018-05-18] MEDS: (Lantus) Insulin Glargine, Recombinant SC SCH (09:51)
[2018-05-18] MEDS: Ferric Sodium Gluconat Complex 125 MG in Sodium Chloride 0.9% 100 ML IVPB SCH (09:55)
--- NOTE | 2018-05-18 15:07 | CP.PCM.PN ---
Subjective - Date & Time of Evaluation Date of Evaluation: 05/18/18 Time of Evaluation: 15:06 - Subjective Subjective: Nephrology Consultation Note: Assessment: stable HTN emergency with pulm edema Diabetic chronic Kidney Disease (E11.22) Hypertensive Chronic Kidney Disease (I12.0) CKD 5 now ESRD on HD via PC (TTS) started HD 05/11/18 Anemia (D64.9), Hyperphosphatemia (E83.39), Secondary Hyperparathyroidism (E21.1), HTN (I12.0) CHF LVEF 45% SVT constipation Plan: HD TTS schedule as ordered. Continue with Nephrovite 1 tab/day. PRBC as needed for anemia. not on [facility] with dialysis as last Hb 11.6. added IV iron as TSAT 20% ferritin 145 Continue with phos binders, last phos level: 7.4 discontinue with calcitriol as last PTH 45. once monthly vit D supplement as last level 28 BP control with meds as ordered. Patient losartan 100/day. change lasix to 80 mg MWF orally. Glycemic control, Dialysis consistent diet Further work up/management as per primary team Dose meds/antibiotics (if needed) for ESRD status. Avoid fleets enema/magnesium based laxatives. SW for outpt HD placement, d/w ICU staff. for AVF transposition soon once stable cardiac pavon Thanks for allowing me to participate in care of your patient. Will follow patient with you. Please call if any Qs. had d/w team Dr Dino Paredes Office: [phone] HPI: Pt is a 83 F with hx of CKF 5 with maturing AVF, chronic anemia, hyperphosphatemia, secondary hyperparathyroidism, Diabetes Mellitus, hypertension presented with complaints of worsening SOB and found to have HTN emergency with pulm edema Renal consult requested for CKD 5 management. pt c/o SOB on exertion. has mild cough. able to make urine normal appetite. no fever ROS: started HD 05/11/18 with temp access. cardiac cath 05/18/18 done Cardiovascular: No chest pain. Pulmonary: no shortness of breath Gastrointestinal: denies abdominal pain no nausea. No vomiting. better appetite and reports constipation resolved Genitourinary: No pain while urinating. Denies blood in urine. All other negative except as mentioned in HPI Physical Examination: General Appearance: Comfortable, in no acute respiratory distress, co-operative . Vitals reviewed and noted as below Head; Atraumatic, normocephalic ENT: no ulcers no thrush. Tongue is midline. Oropharynx: no rash or ulcers. EYES: Pupils are equal, round and reactive to light accommodation. Eye muscles and extraocular movement intact. Sclera is anicteric. Neck; supple no lymphadenopathy, no thyromegaly or bruit Lungs: normal respiratory rate/effort. Breath sounds bilateral equal and clearer Heart: normald rate. s1s2 normal. No rub or gallop. Extremities: no edema. No varicose veins Neurological: Patient is alert, awake and oriented to person, place and time. No focal deficit. Strength bilateral appropriate and equal Skin: Warm and dry. Normal turgor. No rash. Palpitation: Normal elasticity for age Abdomen: Abdomen is soft. Bowel sounds +. There is no abdominal tenderness, no guarding/rigidity or organomegaly Psych: normal insight and normal affect/mood MSK: no joint tenderness or swelling. Digits and nails normal, no deformity : kidney or bladder not palpable Access: left arm AVF maturing PC now Labs/imaging reviewed. Past medical history, past surgical history, family history, social history, allergy reviewed and noted as below Family Hx: no hx of CKD. Non contributory Objective - Vital Signs/Intake and Output Vital Signs (last 24 hours): Temp Pulse Resp BP Pulse Ox 97.7 F 68 14 143/55 L 96 05/18/18 12:00 05/18/18 14:56 05/18/18 14:47 05/18/18 14:47 05/18/18 14:22 Intake and Output: 05/18/18 05/18/18 06:59 18:59 Intake Total 168.8 768.6 Output Total 0 0 Balance 168.8 768.6 - Medications Medications: Current Medications Aspirin (Aspirin Chewable) 81 mg PO DAILY [facility] Last Admin: 05/18/18 09:44 Dose: 81 mg Dextrose (Dextrose 50% Inj) 0 ml IV STAT PRN; Protocol PRN Reason: Hypoglycemia Protocol Diltiazem HCl (Cardizem) 60 mg PO QID [facility] Last Admin: 05/18/18 14:13 Dose: 60 mg Docusate Sodium (Colace) 100 mg PO BID [facility] Last Admin: 01/17/19 09:43 Dose: 100 mg Furosemide (Lasix) 80 mg PO MWF [facility] Last Admin: 05/17/18 10:04 Dose: 80 mg Glucagon (Glucagen Diagnostic Kit) 0 mg IM STAT PRN; Protocol PRN Reason: Hypoglycemia Protocol Heparin Sodium (Porcine) (Heparin) 5,000 units SC Q8 [facility] Last Admin: 05/18/18 14:13 Dose: 5,000 units Hydralazine HCl (Apresoline) 100 mg PO BID [facility] Last Admin: 05/18/18 09:43 Dose: 100 mg Hydralazine HCl (Apresoline) 25 mg PO Q4 PRN PRN Reason: Other Ferric Sodium Gluconate Complex 125 mg/ Sodium Chloride 110 mls @ 110 mls/hr IVPB DAILY [facility] Stop: 05/20/18 10:01 Last Admin: 05/18/18 09:55 Dose: 110 mls/hr Insulin Aspart (Novolog) 14 unit SC TIDAC [facility] Last Admin: 05/18/18 12:01 Dose: 14 unit Insulin Glargine (Lantus) 5 unit SC QAM [facility] Last Admin: 05/18/18 09:51 Dose: 5 u Losartan Potassium (Cozaar) 100 mg PO DAILY [facility] Last Admin: 05/18/18 09:45 Dose: 100 mg Ondansetron HCl (Zofran Inj) 4 mg IVP Q6H PRN PRN Reason: Nausea/Vomiting Last Admin: 05/17/18 07:58 Dose: 4 mg Pantoprazole Sodium (Protonix Ec Tab) 40 mg PO DAILY [facility] Last Admin: 05/18/18 09:43 Dose: 40 mg Rosuvastatin Calcium (Crestor) 5 mg PO HS [facility] Sevelamer Carbonate (Renvela) 1,600 mg PO TIDCC [facility] Last Admin: 05/18/18 12:11 Dose: 1,600 mg Sitagliptin Phosphate (Januvia) 25 mg PO DAILY [facility] Last Admin: 05/18/18 09:46 Dose: 25 mg Vitamin B Complex/Vit C/Folic Acid (Nephro-Monie) 1 tab PO 0800 [facility] Last Admin: 05/18/18 08:35 Dose: Not Given - Labs Labs: 05/18/18 05:18 05/18/18 05:21 PT 11.1 SECONDS (9.7-12.2) 01/09/19 16:56 INR 1.0 05/10/18 16:56 APTT 95 SECONDS (21-34) H D 05/18/18 05:18
--- NOTE | 2018-05-18 19:10 | CP.PCM.PN ---
Subjective - Date & Time of Evaluation Date of Evaluation: 05/18/18 Time of Evaluation: 10:30 - Subjective Subjective: Medical Attending Note: Patient seen and examined. Patient reports she is tolerating liquids and had a bowel movement yesterday. Denies other acute complaints. I spoke with patient's this afternoon updated regarding cardiac cath result and wish for rehab upon discharge for the patient. Discussed with cardiology regarding cath and discussed with surgery resident for possible left arm fistula repair for tomorrow if possible. Objective - Vital Signs/Intake and Output Vital Signs (last 24 hours): Temp Pulse Resp BP Pulse Ox 97.4 F L 70 22 95/44 L 95 05/18/18 18:15 05/18/18 18:15 05/18/18 18:15 05/18/18 18:15 05/18/18 18:15 Intake and Output: 05/18/18 05/18/18 06:59 18:59 Intake Total 168.8 828.6 Output Total 0 0 Balance 168.8 828.6 - Medications Medications: Current Medications Aspirin (Aspirin Chewable) 81 mg PO DAILY [facility] Last Admin: 05/18/18 09:44 Dose: 81 mg Dextrose (Dextrose 50% Inj) 0 ml IV STAT PRN; Protocol PRN Reason: Hypoglycemia Protocol Diltiazem HCl (Cardizem) 60 mg PO QID [facility] Last Admin: 05/18/18 18:33 Dose: 60 mg Docusate Sodium (Colace) 100 mg PO BID [facility] Last Admin: 05/18/18 18:33 Dose: 100 mg Furosemide (Lasix) 80 mg PO MWF [facility] Last Admin: 05/17/18 10:04 Dose: 80 mg Glucagon (Glucagen Diagnostic Kit) 0 mg IM STAT PRN; Protocol PRN Reason: Hypoglycemia Protocol Heparin Sodium (Porcine) (Heparin) 5,000 units SC Q8 [facility] Last Admin: 05/18/18 14:13 Dose: 5,000 units Hydralazine HCl (Apresoline) 100 mg PO BID [facility] Last Admin: 05/18/18 18:33 Dose: 100 mg Hydralazine HCl (Apresoline) 25 mg PO Q4 PRN PRN Reason: Other Ferric Sodium Gluconate Complex 125 mg/ Sodium Chloride 110 mls @ 110 mls/hr IVPB DAILY [facility] Stop: 05/20/18 10:01 Last Admin: 05/18/18 09:55 Dose: 110 mls/hr Insulin Aspart (Novolog) 14 unit SC TIDAC [facility] Last Admin: 05/18/18 16:14 Dose: 14 unit Insulin Glargine (Lantus) 5 unit SC QAM [facility] Last Admin: 05/18/18 09:51 Dose: 5 u Losartan Potassium (Cozaar) 100 mg PO DAILY [facility] Last Admin: 05/18/18 09:45 Dose: 100 mg Ondansetron HCl (Zofran Inj) 4 mg IVP Q6H PRN PRN Reason: Nausea/Vomiting Last Admin: 05/17/18 07:58 Dose: 4 mg Pantoprazole Sodium (Protonix Ec Tab) 40 mg PO DAILY [facility] Last Admin: 05/18/18 09:43 Dose: 40 mg Rosuvastatin Calcium (Crestor) 5 mg PO HS [facility] Sevelamer Carbonate (Renvela) 1,600 mg PO TIDCC [facility] Last Admin: 05/18/18 16:07 Dose: 1,600 mg Sitagliptin Phosphate (Januvia) 25 mg PO DAILY [facility] Last Admin: 05/18/18 09:46 Dose: 25 mg Vitamin B Complex/Vit C/Folic Acid (Nephro-Monie) 1 tab PO 0800 [facility] Last Admin: 05/18/18 08:35 Dose: Not Given - Labs Labs: 05/18/18 05:18 05/18/18 05:21 PT 11.1 SECONDS (9.7-12.2) 05/10/18 16:56 INR 1.0 05/10/18 16:56 APTT 95 SECONDS (21-34) H D 05/18/18 05:18 - Constitutional Appears: Non-toxic, No Acute Distress - Head Exam Head Exam: NORMAL INSPECTION - Eye Exam Eye Exam: EOMI - ENT Exam ENT Exam: Mucous Membranes Moist - Respiratory Exam Respiratory Exam: Clear to Ausculation Bilateral, Wheezes, NORMAL BREATHING PATTERN. absent: Rales, Rhonchi - Cardiovascular Exam Cardiovascular Exam: REGULAR RHYTHM, +S1, +S2 - GI/Abdominal Exam GI & Abdominal Exam: Soft, Normal Bowel Sounds. absent: Distended, Firm, Guarding, Rigid, Tenderness, Rebound - Neurological Exam Neurological Exam: Alert, Awake, Oriented x3 - Psychiatric Exam Psychiatric exam: Normal Affect, Normal Mood - Skin Skin Exam: Dry, Normal Color, Warm Attending/Attestation - Attestation I have personally seen and examined this patient.: Yes I have fully participated in the care of the patient.: Yes I have reviewed all pertinent clinical information, including history, physical exam and plan: Yes Notes (Text): 1. CHF Exacerbation * Echocardiogram 01/17: LV EF 46.1%, left ventricle is normal in size, borderline LV hypertrophy, Grade 1 abnormal relaxation pattern * Chest xray (05/16/18): mild cardiomegaly and mild pulmonary venous congestion, both similar right permacath terminates in the right atrium * Lasix 80mg MWF * Cozaar 50mg po daily * Bystolic 20mg po daily d/c per cardiology; d/c Lopressor; recommend for Cardizem * Imdur 60mg po q24h * Aspirin 81mg PO daily * Crestor 2.5mg POqHS 2. Tachy arrhythmia; Elevated Troponin * patient does not report any history of arrhythmia; she has been going in and out of arrhythmia during dialysis and post dialysis which spontaneously converts on own * Cardiology consulted on the case * Patient ordered repeat echocardiogram; will be completed in the morning. * Discussed with cardiology, to cancel procedure 05/17/18 * Patient has completed cardiac cath 05/18/18; patient has nonobstructive coronaries; * Moderate risk for cardiac events for AV fistula surgery under general anaesthesia * Recommend to give cardizem 10-20mg IV pushes if patient develops SVT james opretaively 3. Hx of HTN * Norvasc 10mg po daily * Clonidine 0.1mg TD weekly * Hydralazine 100mg po bid; Hydralazine 25mg po q4h prn SBP>170 or DBP>110 * d/c Bystolic 20mg po daily * Cozaar 50mg po daily * Imdur 60mg po q24h * Cardizem 60mg PO QID 4. IDDM2 * Lantus 10 sub QAM * Aspart 14 units w/ Meals; ACHS; Hypogylcemic protocol * Januvia 25mg po daily 5. Hx of ESRD * femoral line was used initially; now HD done through permacath * HD as per nephorlogy * Nephrovite; Renevla 800mg po tid * Social work for outpatient HD * Repair AVF in AM with vascular surgeon tomorrow 05/18/18 6. Hx of Breast Cancer * s/p partial lumpectomy 7. Anemia of Chronic Disease * Ferric sodium IVPB daily * likely anemia of chronic disease 2/2 ESRD * hemodynamically stable * monitor H&H via daily CBCs 8. Hx of gout (elbow) * Continue dialysis * hold Uloric not available on hospital formulary 9.MRSA positive in nares * Mupriocin nasal spray 10. Constipation * Colace 100mg PO BID * Miralax daily * Obstructive series: no obstruction noted; fecal retention on xray * Has not had bowel movement * Heparin 5000 units subq8 * Hold prior to possible left avr repair. Disposition: Patient is moderate cardiac risk for left AVR revision repair; recommend Cardizem 10-20mg IVP if patient has SVT per cardiology. Patient is medically optimized prior to left AVR repair. Surgery and anesthesia to explain risk and benefits of procedure.
--- NOTE | 2018-05-18 22:29 | CP.PCM.CON ---
History of Present Illness - History of Present Illness History of Present Illness: Cardiac-Electrophysiology consult Chart imaging EKG and telemetry were reviewed Seen and examined bedside in the ICU while being transferred to the floor Ms. White presented with shortness of breath 1.9.18; subsequent course marked by recurrent narrow complex regular tachycardia ~130-160 beats per minute with sudden onset and offset; work up showed a normal left ventricular systolic function left ventricular hypertrophy non obstructive coronaries The index tachycardia is likely a re-entrant supraventricular tachycardia; the long RP relation suggests an atypical AV emeka reentrant tachycardia or an atrial tachycardia Given recurrence and the potential to precipitate heart failure options should entail a rhythm management strategy beyond the AV emeka blockers This should include an anti-arrhythmic (renal failure LVH limits options) versus an ablation (rare risks of an AV block and tamponade) Past Patient History - Infectious Disease Hx of Infectious Diseases: None - Past Medical History & Family History Past Medical History?: Yes - Past Social History Smoking Status: Never Smoked - CARDIAC Hx Hypercholesterolemia: Yes Hx Hypertension: Yes - PULMONARY Hx Respiratory Disorders: No - NEUROLOGICAL Hx Neurological Disorder: No - HEENT Hx HEENT Problems: Yes - RENAL Hx Renal Failure: Yes - ENDOCRINE/METABOLIC Hx Diabetes Mellitus Type 2: Yes - HEMATOLOGICAL/ONCOLOGICAL Hx Cancer: Yes (right breast cancer) Hx Chemotherapy: (+ radiation tx) - INTEGUMENTARY Hx Dermatological Problems: Yes Other/Comment: HX: "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." - MUSCULOSKELETAL/RHEUMATOLOGICAL Hx Falls: No Hx Gout: Yes (great toe) - GASTROINTESTINAL Hx Gastrointestinal Disorders: No - GENITOURINARY/GYNECOLOGICAL Hx Genitourinary Disorders: No - PSYCHIATRIC Hx Psychophysiologic Disorder: No Hx Substance Use: No - SURGICAL HISTORY Hx Arteriovenous Shunt: Yes (left arm 02-15-2018) Hx Cataract Extraction: Yes Other/Comment: right breast lumpectomy - ANESTHESIA Hx Anesthesia: Yes Hx Anesthesia Reactions: No Hx Malignant Hyperthermia: No Meds Allergies/Adverse Reactions: Allergies Allergy/AdvReac Type Severity Reaction Status Date / Time No Known Allergies Allergy Verified 05/10/18 18:45 - Medications Medications: Current Medications Aspirin (Aspirin Chewable) 81 mg PO DAILY [facility] Last Admin: 05/18/18 09:44 Dose: 81 mg Dextrose (Dextrose 50% Inj) 0 ml IV STAT PRN; Protocol PRN Reason: Hypoglycemia Protocol Diltiazem HCl (Cardizem) 60 mg PO QID [facility] Last Admin: 05/18/18 21:09 Dose: 60 mg Docusate Sodium (Colace) 100 mg PO BID [facility] Last Admin: 05/18/18 18:33 Dose: 100 mg Furosemide (Lasix) 80 mg PO MWF [facility] Last Admin: 05/17/18 10:04 Dose: 80 mg Glucagon (Glucagen Diagnostic Kit) 0 mg IM STAT PRN; Protocol PRN Reason: Hypoglycemia Protocol Heparin Sodium (Porcine) (Heparin) 5,000 units SC Q8 [facility] Last Admin: 05/18/18 14:13 Dose: 5,000 units Hydralazine HCl (Apresoline) 100 mg PO BID [facility] Last Admin: 05/18/18 18:33 Dose: 100 mg Hydralazine HCl (Apresoline) 25 mg PO Q4 PRN PRN Reason: Other Ferric Sodium Gluconate Complex 125 mg/ Sodium Chloride 110 mls @ 110 mls/hr IVPB DAILY [facility] Stop: 05/20/18 10:01 Last Admin: 05/18/18 09:55 Dose: 110 mls/hr Insulin Aspart (Novolog) 14 unit SC TIDAC [facility] Last Admin: 05/18/18 16:14 Dose: 14 unit Insulin Glargine (Lantus) 5 unit SC QAM [facility] Last Admin: 05/18/18 09:51 Dose: 5 u Losartan Potassium (Cozaar) 100 mg PO DAILY [facility] Last Admin: 05/18/18 09:45 Dose: 100 mg Ondansetron HCl (Zofran Inj) 4 mg IVP Q6H PRN PRN Reason: Nausea/Vomiting Last Admin: 05/17/18 07:58 Dose: 4 mg Pantoprazole Sodium (Protonix Ec Tab) 40 mg PO DAILY [facility] Last Admin: 05/18/18 09:43 Dose: 40 mg Rosuvastatin Calcium (Crestor) 5 mg PO HS [facility] Last Admin: 05/18/18 21:10 Dose: 5 mg Sevelamer Carbonate (Renvela) 1,600 mg PO TIDCC [facility] Last Admin: 05/18/18 16:07 Dose: 1,600 mg Sitagliptin Phosphate (Januvia) 25 mg PO DAILY [facility] Last Admin: 05/18/18 09:46 Dose: 25 mg Vitamin B Complex/Vit C/Folic Acid (Nephro-Monie) 1 tab PO 0800 [facility] Last Admin: 05/18/18 08:35 Dose: Not Given Results - Vital Signs Recent Vital Signs: Last Vital Signs Temp 97.9 F 05/18/18 22:10 Pulse 75 05/18/18 22:10 Resp 20 05/18/18 22:10 BP 100/54 L 05/18/18 22:10 Pulse Ox 95 05/18/18 22:10 - Labs Result Diagrams: 05/18/18 05:18 05/18/18 05:21 Labs: Laboratory Results - last 24 hr 05/17/18 05/18/18 05/18/18 22:38 01:39 05:18 WBC 11.3 H RBC 4.16 Hgb 11.5 Hct 36.7 MCV 88.2 MCH 27.7 MCHC 31.4 L RDW 20.8 H Plt Count 282 MPV 10.0 Neut % (Auto) 75.0 Lymph % (Auto) 15.0 L [place] % (Auto) 9.0 Eos % (Auto) 0.4 Baso % (Auto) 0.6 Neut # (Auto) 8.5 H Lymph # (Auto) 1.7 [place] # (Auto) 1.0 H Eos # (Auto) 0.0 Baso # (Auto) 0.1 APTT 82 H Sodium Potassium Chloride Carbon Dioxide Anion Gap BUN Creatinine Est GFR ( Amer) Est GFR (Non-Af Amer) POC Glucose (mg/dL) Random Glucose Calcium Phosphorus Magnesium Total Bilirubin AST ALT Alkaline Phosphatase Total Creatine Kinase < 20 L CK-MB (Mass) 0.42 Troponin I 0.2270 H* Total Protein Albumin Globulin Albumin/Globulin Ratio 05/18/18 05/18/18 05/18/18 05:18 05:21 08:52 WBC RBC Hgb Hct MCV MCH MCHC RDW Plt Count MPV Neut % (Auto) Lymph % (Auto) [place] % (Auto) Eos % (Auto) Baso % (Auto) Neut # (Auto) Lymph # (Auto) [place] # (Auto) Eos # (Auto) Baso # (Auto) APTT 95 H D Sodium 137 Potassium 5.0 Chloride 98 Carbon Dioxide 20 L Anion Gap 24 H BUN 73 H Creatinine 8.7 H* D Est GFR ( Amer) 5 Est GFR (Non-Af Amer) 4 POC Glucose (mg/dL) 137 H Random Glucose 129 H Calcium 9.8 Phosphorus 9.0 H Magnesium 2.4 H Total Bilirubin 0.7 AST 31 ALT 18 Alkaline Phosphatase 88 Total Creatine Kinase CK-MB (Mass) Troponin I Total Protein 8.2 Albumin 4.1 Globulin 4.1 H Albumin/Globulin Ratio 1.0 05/18/18 05/18/18 05/18/18 11:11 16:14 21:27 WBC RBC Hgb Hct MCV MCH MCHC RDW Plt Count MPV Neut % (Auto) Lymph % (Auto) [place] % (Auto) Eos % (Auto) Baso % (Auto) Neut # (Auto) Lymph # (Auto) [place] # (Auto) Eos # (Auto) Baso # (Auto) APTT Sodium Potassium Chloride Carbon Dioxide Anion Gap BUN Creatinine Est GFR ( Amer) Est GFR (Non-Af Amer) POC Glucose (mg/dL) 140 H 101 72 Random Glucose Calcium Phosphorus Magnesium Total Bilirubin AST ALT Alkaline Phosphatase Total Creatine Kinase CK-MB (Mass) Troponin I Total Protein Albumin Globulin Albumin/Globulin Ratio
[2018-05-19 07:45] LABS: BASO % 0.2 % (0.0-2.0); HEMOGLOBIN 11.8 g/dL (11.0-16.0); LYMPH # 1.1 K/uL (1.0-4.3); LYMPH % 8.1 % (20.0-40.0); MEAN CORPUSCULAR HEMOGLOBIN 27.8 pg (27.0-31.0); MEAN CORPUSCULAR HGB CONC 31.6 g/dL (33.0-37.0); MEAN PLATELET VOLUME 9.4 fL (7.2-11.7); MONO # 0.9 K/uL (0.0-0.8); MONO % 6.5 % (0.0-10.0); NEUT # 11.2 K/uL (1.8-7.0); NEUT % 85.2 % (50.0-75.0); NRBC % 0.3 % (0.0-2.0); PLATELET COUNT 273 K/uL (130-400); RBC 4.23 Mil/uL (3.80-5.20); WHITE BLOOD COUNT 13.2 K/uL (4.8-10.8)
[2018-05-19] MEDS: (Novolog) Insulin Aspart, Recombinant 100 u/ml 10 ml vial SC SCH ×3 (07:57→17:03)
[2018-05-19 07:59] LABS: INR 1.1; PROTHROMBIN TIME 11.6 SECONDS (9.7-12.2)
[2018-05-19 08:05] LABS: ALBUMIN 4.1 g/dL (3.5-5.0); CALCIUM 9.7 mg/dl (8.6-10.4)
[2018-05-19] MEDS: Multivitamin Vitamin B Complex (Nephro-Vite) Tab PO SCH (08:17)
[2018-05-19] MEDS ORDERED: Ferric Sodium Gluconat Complex 62.5 mg/5 ml Vial ONE (09:37)
[2018-05-19] MEDS: Ferric Sodium Gluconat Complex 125 MG in Sodium Chloride 0.9% 100 ML IVPB SCH (09:46)
[2018-05-19] MEDS: Pantoprazole 40 mg EC Tab PO SCH (09:48)
[2018-05-19] MEDS: (Lantus) Insulin Glargine, Recombinant SC SCH (09:48)
[2018-05-19 11:35] LABS: ANISOCYTOSIS MODERATE; BANDS 5 % (0-2); LYMPHOCYTE 6 % (20-40); MONOCYTE 7 % (0-10); NEUTROPHIL 82 % (50-75); PLATELET ESTIMATE NORMAL (NORMAL); TOTAL CELLS COUNTED 100
[2018-05-19 11:37] LABS: LARGE PLATELETS PRESENT; OVALOCYTES SLIGHT; POIKILOCYTOSIS SLIGHT; TARGET CELLS SLIGHT
[2018-05-19] MEDS ORDERED: HEPARIN-NS 5,000 UNITS/500 ML 5,000 UNIT/500 ML BAG IV ONE (11:39)
[2018-05-19] MEDS ORDERED: Lidocaine Hydrochloride 0 ML INJ ONE (11:39)
[2018-05-19] MEDS ORDERED: ceFAZolin 1 gm in NS 1 GM/100 ML BAG IVPB ONE (11:39)
[2018-05-19] MEDS ORDERED: Propofol 10 mg/ml Inj (20 ML) ONE (11:54)
[2018-05-19] MEDS ORDERED: Phenylephrine 10 mg/ml Inj ONE (12:05)
[2018-05-19] MEDS ORDERED: ePHEDrine 50 mg/ml Inj ONE (12:05)
[2018-05-19] MEDS ORDERED: Thrombin Topical 20,000 Intl Units Spray Kit TOP ONE (14:02)
[2018-05-19] MEDS ORDERED: Morphine 4 MG/ML VIAL IVP PRN (14:34)
--- NOTE | 2018-05-19 14:38 | PCM.SURG1 ---
Surgeon's Initial Post Op Note - Surgeon's Notes Surgeon: Dr. Valdez Port Captain: Nissa PGY2 Type of Anesthesia: General LMA Anesthesia Administered By: Dr. Llanos Pre-Operative Diagnosis: End Stage Renal Disease Operative Findings: See operative report. Small vessel caliber AV fistula Post-Operative Diagnosis: same Operation Performed: AV fistula revision with bovine graft Specimen/Specimens Removed: none Estimated Blood Loss: EBL {In ML}: 150 Blood Products Given: N/A Drains Used: No Drains Post-Op Condition: Fair Date of Surgery/Procedure: 05/19/18 Time of Surgery/Procedure: 14:38
--- NOTE | 2018-05-19 15:05 | CP.PCM.PN ---
<Thao Alegre - Last Filed: 05/19/18 15:00> Subjective - Date & Time of Evaluation Date of Evaluation: 05/19/18 Time of Evaluation: 15:00 - Subjective Subjective: PGY-[address] Farr's service Patient seen and examined at bedside. Patient states she feels better. Pending AVF revision today. Patient denies fevers, chills, chest pain, sob, n/v, constipation or diarrhea, and dysuria. Objective - Vital Signs/Intake and Output Vital Signs (last 24 hours): Temp Pulse Resp BP Pulse Ox 97.9 F 74 20 117/68 96 05/19/18 07:00 05/19/18 08:00 05/19/18 07:00 05/19/18 07:00 05/19/18 07:00 Intake and Output: 05/19/18 05/19/18 06:59 18:59 Intake Total 150 550 Balance 150 550 - Medications Medications: Current Medications Aspirin (Aspirin Chewable) 81 mg PO DAILY [facility] Last Admin: 05/19/18 09:47 Dose: Not Given Dextrose (Dextrose 50% Inj) 0 ml IV STAT PRN; Protocol PRN Reason: Hypoglycemia Protocol Diltiazem HCl (Cardizem) 60 mg PO QID [facility] Last Admin: 05/19/18 14:54 Dose: Not Given Docusate Sodium (Colace) 100 mg PO BID [facility] Last Admin: 05/19/18 09:47 Dose: Not Given Glucagon (Glucagen Diagnostic Kit) 0 mg IM STAT PRN; Protocol PRN Reason: Hypoglycemia Protocol Heparin Sodium (Porcine) (Heparin) 5,000 units SC Q8 [facility] Last Admin: 05/18/18 14:13 Dose: 5,000 units Hydralazine HCl (Apresoline) 100 mg PO BID [facility] Last Admin: 05/19/18 09:47 Dose: Not Given Hydralazine HCl (Apresoline) 25 mg PO Q4 PRN PRN Reason: Other Ferric Sodium Gluconate Complex 125 mg/ Sodium Chloride 110 mls @ 110 mls/hr IVPB TTS [facility] Stop: 05/28/18 10:01 Insulin Aspart (Novolog) 14 unit SC TIDAC [facility] Last Admin: 05/19/18 12:05 Dose: Not Given Insulin Glargine (Lantus) 5 unit SC QAM [facility] Last Admin: 05/19/18 09:48 Dose: Not Given Losartan Potassium (Cozaar) 100 mg PO DAILY [facility] Last Admin: 05/19/18 09:48 Dose: Not Given Morphine Sulfate (Morphine) 1 mg IVP Q10M PRN PRN Reason: Pain, moderate (4-7) Stop: 05/19/18 16:35 Ondansetron HCl (Zofran Inj) 4 mg IVP Q6H PRN PRN Reason: Nausea/Vomiting Last Admin: 05/19/18 01:51 Dose: 4 mg Pantoprazole Sodium (Protonix Ec Tab) 40 mg PO DAILY [facility] Last Admin: 05/19/18 09:48 Dose: Not Given Rosuvastatin Calcium (Crestor) 5 mg PO HS [facility] Last Admin: 05/18/18 21:10 Dose: 5 mg Sevelamer Carbonate (Renvela) 1,600 mg PO TIDCC [facility] Last Admin: 05/19/18 12:05 Dose: Not Given Sitagliptin Phosphate (Januvia) 25 mg PO DAILY [facility] Last Admin: 05/19/18 09:48 Dose: Not Given Vitamin B Complex/Vit C/Folic Acid (Nephro-Monie) 1 tab PO 0800 [facility] Last Admin: 05/19/18 08:17 Dose: Not Given - Labs Labs: 05/19/18 07:36 05/19/18 07:36 PT 11.6 SECONDS (9.7-12.2) 05/19/18 07:36 INR 1.1 05/19/18 07:36 APTT 32 SECONDS (21-34) D 05/19/18 07:36 - Additional Findings Additional findings: - Constitutional Appears: Non-toxic, No Acute Distress - Head Exam Head Exam: NORMAL INSPECTION, NORMOCEPHALIC - Eye Exam Eye Exam: EOMI, Normal appearance. absent: Nystagmus, Scleral icterus - ENT Exam ENT Exam: Mucous Membranes Moist - Respiratory Exam Respiratory Exam: Clear to Ausculation Bilateral, NORMAL BREATHING PATTERN. absent: Rales, Rhonchi, Wheezes - Cardiovascular Exam Cardiovascular Exam: REGULAR RHYTHM, RRR, +S1, +S2. absent: Tachycardia, JVD - GI/Abdominal Exam GI & Abdominal Exam: Soft, Normal Bowel Sounds. absent: Distended, Firm, Guarding, Rigid, Tenderness - Extremities Exam Extremities Exam: Normal Inspection. absent: Calf Tenderness, Pedal Edema - Neurological Exam Neurological Exam: Awake, Oriented x3 - Psychiatric Exam Psychiatric exam: Normal Affect, Normal Mood - Skin Skin Exam: Intact, Normal Color Additional comments: Right chest permacath Left AVF, s/p revision Assessment and Plan - Assessment and Plan (Free Text) Assessment: Patient is a 83 yo female w/ PMH of CHF, HTN, DM2, HLD, CKD, gout, hx of breast ca w/ partial lumpectomy admitted to hospital for complaints of SOB and wheezing. 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 Patient was transferred to ICU for emergent dailysis session prior to permacath placement and AVF for medical optimization prior to procedure. Patient is now continued on a regular dialysis scheduled as per nephro. Patient pending AVF revision with vascular surgery team in AM. Acute CHF exacerbation Echocardiogram 01/17: LV EF 46.1%, left ventricle is normal in size, borderline LV hypertrophy, Grade 1 abnormal relaxation pattern Lasix 80mg MWF Cozaar 50mg po daily Bystolic 20mg po daily Imdur 60mg po q24h Aspirin 81mg po daily Crestor 2.5mg po HS Episode of SVT Echo pending Cardiology Consulted: Dr. Frey- cardiac cath shows non-obstructive clean arteries Pearl Stringer Consulted: Dr. Holm- considering av ablation vs additional emeka blockers to prevent reentrant SVT Hx of HTN Norvasc 10mg po daily Clonidine 0.1mg TD weekly Hydralazine 100mg po bid; Hydralazine 25mg po q4h prn SBP>170 or DBP>110 Cozaar 50mg po daily Imdur 60mg po q24h Cardizem 60mg po qid [id number] Lantus 10 units Aspart 14 units w/ Meals; ACHS; Hypogylcemic protocol Januvia 25mg po daily Hx of ESRD femoral line was used initially; now HD done through permacath HD as per nephorlogy Nephrovite; Renevla 800mg po tid Social work for outpatient HD Repair AVF in AM with vascular surgeon Hx of Breast Cancer s/p partial lumpectomy Anemia Ferric sodium IVPB daily likely anemia of chronic disease 2/2 ESRD hemodynamically stable monitor H&H via daily CBCs Hx of gout (elbow) Continue dialysis MRSA positive in nares Mupriocin nasal spray Constipation(resolved) Lactulose Glucerna Miralax daily Disposition: s/p revision of AVF; continue MRSA tx; PT; continue permacath dialysis; outpatient setup for dialysis prior to discharge GI ppx: protonix po 40 daily DVT ppx: SCDs, heparin 5000 sc daily Glucerna shakes 3x day for constipation PGY-1 [place]re Case d/w Dr. Farr <Cyndi Farr V - Last Filed: 05/22/18 08:53> Objective - Vital Signs/Intake and Output Vital Signs (last 24 hours): Temp Pulse Resp BP Pulse Ox 97.3 F L 43 L 20 163/130 H 81 L 05/21/18 21:23 05/22/18 02:02 05/22/18 02:02 05/22/18 02:02 05/22/18 02:02 Intake and Output: 05/22/18 05/22/18 06:59 18:59 Intake Total 3205.7 Output Total 0 Balance 3205.7 - Labs Labs: 05/21/18 21:43 05/21/18 21:43 PT 35.2 SECONDS (9.7-12.2) H 05/21/18 21:43 INR 3.2 H* 05/21/18 21:43 APTT 86 SECONDS (21-34) H D 05/21/18 21:43 Assessment and Plan (1) Status: Acute (2) DNR (do not resuscitate) Status: Acute (3) Metabolic acidosis Status: Acute (4) Hyperkalemia Status: Acute (5) Abdominal pain Status: Acute (6) Mesenteric ischemia due to arterial insufficiency Status: Acute (7) ESRD (end stage renal disease) on dialysis Status: Acute (8) Acute CHF (congestive heart failure) Status: Acute (9) SVT (supraventricular tachycardia) Status: Acute (10) CKD (chronic kidney disease) Status: Chronic (11) HLD (hyperlipidemia) Status: Chronic (12) HTN (hypertension) Status: Chronic (13) Prophylactic measure Status: Acute Attending/Attestation - Attestation I have personally seen and examined this patient.: Yes I have fully participated in the care of the patient.: Yes I have reviewed all pertinent clinical information, including history, physical exam and plan: Yes
--- NOTE | 2018-05-19 16:13 | CP.PCM.PN ---
Subjective - Date & Time of Evaluation Date of Evaluation: 05/19/18 Time of Evaluation: 16:12 - Subjective Subjective: Nephrology Consultation Note: Assessment: stable HTN emergency with pulm edema Diabetic chronic Kidney Disease (E11.22) Hypertensive Chronic Kidney Disease (I12.0) CKD 5 now ESRD on HD via PC (TTS) started HD 05/11/18 Anemia (D64.9), Hyperphosphatemia (E83.39), Secondary Hyperparathyroidism (E21.1), HTN (I12.0) CHF LVEF 45% SVT constipation Plan: HD TTS schedule as ordered. Continue with Nephrovite 1 tab/day. PRBC as needed for anemia. not on [place] with dialysis as last Hb 11.6. added IV iron as TSAT 20% ferritin 145 Continue with phos binders, last phos level: 6.7 discontinue with calcitriol as last PTH 45. once monthly vit D supplement as last level 28 BP control with meds as ordered. Patient losartan 100/day. Glycemic control, Dialysis consistent diet Further work up/management as per primary team Dose meds/antibiotics (if needed) for ESRD status. Avoid fleets enema/magnesium based laxatives. SW for outpt HD placement. Thanks for allowing me to participate in care of your patient. Will follow patient with you. Please call if any Qs. had d/w team and family Dr Dino Paredes Office: [phone] HPI: Pt is a 83 F with hx of CKF 5 with maturing AVF, chronic anemia, hyperphos phatemia, secondary hyperparathyroidism, Diabetes Mellitus, hypertension presented with complaints of worsening SOB and found to have HTN emergency with pulm edema Renal consult requested for CKD 5 management. pt c/o SOB on exertion. has mild cough. able to make urine normal appetite. no fever ROS: started HD 05/11/18 with temp access. cardiac cath 05/18/18 done. s/p AVF revision with AVG 05/19/18 c/o arm pain Cardiovascular: No chest pain. Pulmonary: no shortness of breath Gastrointestinal: denies abdominal pain no nausea. No vomiting. Genitourinary: No pain while urinating. Denies blood in urine. All other negative except as mentioned in HPI Physical Examination: General Appearance: Comfortable, in no acute respiratory distress, co-operative . Vitals reviewed and noted as below Head; Atraumatic, normocephalic ENT: no ulcers no thrush. Tongue is midline. Oropharynx: no rash or ulcers. EYES: Pupils are equal, round and reactive to light accommodation. Eye muscles and extraocular movement intact. Sclera is anicteric. Neck; supple no lymphadenopathy, no thyromegaly or bruit Lungs: normal respiratory rate/effort. Breath sounds bilateral equal and clearer Heart: normald rate. s1s2 normal. No rub or gallop. Extremities: no edema. No varicose veins Neurological: Patient is alert, awake and oriented to person, place and time. No focal deficit. Strength bilateral appropriate and equal Skin: Warm and dry. Normal turgor. No rash. Palpitation: Normal elasticity for age Abdomen: Abdomen is soft. Bowel sounds +. There is no abdominal tenderness, no guarding/rigidity or organomegaly Psych: normal insight and normal affect/mood MSK: no joint tenderness or swelling. Digits and nails normal, no deformity : kidney or bladder not palpable Access: left arm AVF maturing PC now Labs/imaging reviewed. Past medical history, past surgical history, family history, social history, allergy reviewed and noted as below Family Hx: no hx of CKD. Non contributory Objective - Vital Signs/Intake and Output Vital Signs (last 24 hours): Temp Pulse Resp BP Pulse Ox 97.6 F 82 22 123/53 L 100 05/19/18 15:30 05/19/18 15:30 05/19/18 15:30 05/19/18 15:30 05/19/18 15:30 Intake and Output: 05/19/18 05/19/18 06:59 18:59 Intake Total 150 600 Balance 150 600 - Medications Medications: Current Medications Aspirin (Aspirin Chewable) 81 mg PO DAILY [facility] Last Admin: 05/19/18 09:47 Dose: Not Given Dextrose (Dextrose 50% Inj) 0 ml IV STAT PRN; Protocol PRN Reason: Hypoglycemia Protocol Diltiazem HCl (Cardizem) 60 mg PO QID [facility] Last Admin: 05/19/18 14:54 Dose: Not Given Docusate Sodium (Colace) 100 mg PO BID [facility] Last Admin: 05/19/18 09:47 Dose: Not Given Glucagon (Glucagen Diagnostic Kit) 0 mg IM STAT PRN; Protocol PRN Reason: Hypoglycemia Protocol Heparin Sodium (Porcine) (Heparin) 5,000 units SC Q8 [facility] Last Admin: 05/18/18 14:13 Dose: 5,000 units Hydralazine HCl (Apresoline) 100 mg PO BID [facility] Last Admin: 05/19/18 09:47 Dose: Not Given Hydralazine HCl (Apresoline) 25 mg PO Q4 PRN PRN Reason: Other Ferric Sodium Gluconate Complex 125 mg/ Sodium Chloride 110 mls @ 110 mls/hr IVPB TTS [facility] Stop: 05/28/18 10:01 Insulin Aspart (Novolog) 14 unit SC TIDAC [facility] Last Admin: 05/19/18 12:05 Dose: Not Given Insulin Glargine (Lantus) 5 unit SC QAM [facility] Last Admin: 05/19/18 09:48 Dose: Not Given Losartan Potassium (Cozaar) 100 mg PO DAILY [facility] Last Admin: 05/19/18 09:48 Dose: Not Given Morphine Sulfate (Morphine) 1 mg IVP Q10M PRN PRN Reason: Pain, moderate (4-7) Stop: 05/19/18 16:35 Ondansetron HCl (Zofran Inj) 4 mg IVP Q6H PRN PRN Reason: Nausea/Vomiting Last Admin: 05/19/18 01:51 Dose: 4 mg Pantoprazole Sodium (Protonix Ec Tab) 40 mg PO DAILY [facility] Last Admin: 05/19/18 09:48 Dose: Not Given Rosuvastatin Calcium (Crestor) 5 mg PO HS [facility] Last Admin: 05/18/18 21:10 Dose: 5 mg Sevelamer Carbonate (Renvela) 1,600 mg PO TIDCC [facility] Last Admin: 05/19/18 12:05 Dose: Not Given Sitagliptin Phosphate (Januvia) 25 mg PO DAILY [facility] Last Admin: 05/19/18 09:48 Dose: Not Given Vitamin B Complex/Vit C/Folic Acid (Nephro-Monie) 1 tab PO 0800 [facility] Last Admin: 05/19/18 08:17 Dose: Not Given - Labs Labs: 05/19/18 07:36 05/19/18 07:36 PT 11.6 SECONDS (9.7-12.2) 05/19/18 07:36 INR 1.1 05/19/18 07:36 APTT 32 SECONDS (21-34) D 05/19/18 07:36
--- NOTE | 2018-05-19 20:53 | CP.PCM.PN ---
Subjective - Date & Time of Evaluation Date of Evaluation: 05/19/18 Time of Evaluation: 09:25 - Subjective Subjective: Patient seen and examined at bedside. denies chest pain and dyspnea Physical Examination - Head Exam Head Exam: ATRAUMATIC, NORMAL INSPECTION, NORMOCEPHALIC - Eye Exam Eye Exam: EOMI, Normal appearance, PERRL Pupil Exam: NORMAL ACCOMODATION, PERRL. absent: Unequal - ENT Exam ENT Exam: Mucous Membranes Moist, Normal Oropharynx - Neck Exam Neck Exam: absent: Lymphadenopathy, Thyromegaly - Respiratory Exam Respiratory Exam: Clear to Ausculation Bilateral, NORMAL BREATHING PATTERN. absent: Prolonged Expiratory Phase, Respiratory Distress - Cardiovascular Exam Cardiovascular Exam: REGULAR RHYTHM, +S1, +S2 - GI/Abdominal Exam GI & Abdominal Exam: Soft, Normal Bowel Sounds. absent: Rigid, Hyperactive Bowel Sounds - Extremities Exam Extremities Exam: Full ROM. absent: Joint Swelling, Pedal Edema, Tenderness - Back Exam Back Exam: NORMAL INSPECTION. absent: paraspinal tenderness - Neurological Exam Neurological Exam: Alert, Awake, CN II-XII Intact, Oriented x3 - Psychiatric Exam Psychiatric exam: Normal Affect, Normal Mood - Skin Skin Exam: Dry, Intact, Normal Color Assessment and Plan - Assessment and Plan (Free Text) Assessment: 83 year old female w/ PMH of CHF, HTN, DM2, HLD, CKD, gout, hx of breast ca w/ partial lumpectomy admitted to hospital for complaints of SOB and wheezing. 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 Patient was transferred to ICU for emergent dailysis session prior to permacath placement and AVF for medical optimization prior to procedure. Patient is now continued on a regular dialysis scheduled as per nephro. Patient pending AVF revision with vascular surgery team in AM. Patient had an episode of SVT which resolved spontaneously and Cardiology was consulted. Patient had a recurrent episode of SVT subsequently. Plan: 1. Episode of SVT -Recurrent On cardizem EP consult with Dr. Holm Cardiac Cath: Non Obstructive coronaries and normal EF 2.SOB 2/2 CHF exacerbation Echocardiogram 01/17: LV EF 46.1%, left ventricle is normal in size, borderline LV hypertrophy, Grade 1 abnormal relaxation pattern Medications: Lasix 80mg MWF Cozaar 100mg po daily Imdur 60mg po q24h 3. Hypertension Medications: Norvasc 10mg po daily Hydralazine 100mg po bid; Hydralazine 25mg po q4h prn SBP>170 or DBP>110 Lopressor 25mg PO BID [facility] Cozaar 100mg PO Daily Imdur 60mg po q24h 4.DM2 Medications: Lantus 10 units (decreased for NPO starting at midnight) Aspart 14 units w/ Meals; ACHS; Hypogylcemic protocol Januvia 25mg po daily 5. ESRD femoral line was used initially; now HD done through permacath HD as per nephorlogy Nephrovite; Renevla 1600mg po tid Social work for outpatient HD 5. Anemia Ferric sodium IVPB daily likely anemia of chronic disease 2/2 ESRD Objective - Vital Signs/Intake and Output Vital Signs (last 24 hours): Temp Pulse Resp BP Pulse Ox 97.6 F 82 22 123/53 L 100 05/19/18 15:30 05/19/18 20:00 05/19/18 15:30 05/19/18 15:30 05/19/18 15:30 Intake and Output: 05/19/18 05/20/18 18:59 06:59 Intake Total 600 Balance 600 - Medications Medications: Current Medications Acetaminophen (Tylenol 325mg Tab) 650 mg PO Q6 PRN PRN Reason: pain+fever Last Admin: 05/19/18 19:57 Dose: 650 mg Aspirin (Aspirin Chewable) 81 mg PO DAILY [facility] Last Admin: 05/19/18 09:47 Dose: Not Given Dextrose (Dextrose 50% Inj) 0 ml IV STAT PRN; Protocol PRN Reason: Hypoglycemia Protocol Diltiazem HCl (Cardizem) 60 mg PO QID [facility] Last Admin: 05/19/18 17:03 Dose: 60 mg Docusate Sodium (Colace) 100 mg PO BID [facility] Last Admin: 05/19/18 17:03 Dose: 100 mg Glucagon (Glucagen Diagnostic Kit) 0 mg IM STAT PRN; Protocol PRN Reason: Hypoglycemia Protocol Heparin Sodium (Porcine) (Heparin) 5,000 units SC Q8 [facility] Last Admin: 05/18/18 14:13 Dose: 5,000 units Hydralazine HCl (Apresoline) 100 mg PO BID [facility] Last Admin: 05/19/18 17:03 Dose: 100 mg Hydralazine HCl (Apresoline) 25 mg PO Q4 PRN PRN Reason: Other Ferric Sodium Gluconate Complex 125 mg/ Sodium Chloride 110 mls @ 110 mls/hr IVPB TTS [facility] Stop: 05/28/18 10:01 Insulin Aspart (Novolog) 14 unit SC TIDAC [facility] Last Admin: 05/19/18 17:03 Dose: 14 unit Insulin Glargine (Lantus) 5 unit SC QAM [facility] Last Admin: 05/19/18 09:48 Dose: Not Given Losartan Potassium (Cozaar) 100 mg PO DAILY [facility] Last Admin: 05/19/18 09:48 Dose: Not Given Ondansetron HCl (Zofran Inj) 4 mg IVP Q6H PRN PRN Reason: Nausea/Vomiting Last Admin: 05/19/18 01:51 Dose: 4 mg Pantoprazole Sodium (Protonix Ec Tab) 40 mg PO DAILY [facility] Last Admin: 05/19/18 09:48 Dose: Not Given Rosuvastatin Calcium (Crestor) 5 mg PO HS [facility] Last Admin: 05/18/18 21:10 Dose: 5 mg Sevelamer Carbonate (Renvela) 1,600 mg PO TIDCC [facility] Last Admin: 05/19/18 17:03 Dose: 1,600 mg Sitagliptin Phosphate (Januvia) 25 mg PO DAILY [facility] Last Admin: 05/19/18 09:48 Dose: Not Given Vitamin B Complex/Vit C/Folic Acid (Nephro-Monie) 1 tab PO 0800 [facility] Last Admin: 05/19/18 08:17 Dose: Not Given - Labs Labs: 05/19/18 07:36 05/19/18 07:36 PT 11.6 SECONDS (9.7-12.2) 05/19/18 07:36 INR 1.1 05/19/18 07:36 APTT 32 SECONDS (21-34) D 05/19/18 07:36
--- NOTE | 2018-05-20 03:58 | CP.PCM.PN ---
<Leny Galeana - Last Filed: 05/20/18 03:58> Subjective - Date & Time of Evaluation Date of Evaluation: 05/20/18 Time of Evaluation: 03:56 - Subjective Subjective: Medicine Progress Note Patient seen and examined by family. Patient without any acute complaints. Now POD1 of revision of AVF. However later RN paged that patient w/ post op pain. Tylenol PRN given for pain and fever afterwards. Objective - Vital Signs/Intake and Output Vital Signs (last 24 hours): Temp Pulse Resp BP Pulse Ox 98.6 F 85 20 121/58 L 94 L 05/20/18 00:00 05/20/18 01:00 05/20/18 00:00 05/20/18 00:00 05/20/18 00:00 Intake and Output: 05/19/18 05/20/18 18:59 06:59 Intake Total 600 200 Balance 600 200 - Medications Medications: Current Medications Acetaminophen (Tylenol 325mg Tab) 650 mg PO Q6 PRN PRN Reason: pain+fever Last Admin: 05/19/18 19:57 Dose: 650 mg Aspirin (Aspirin Chewable) 81 mg PO DAILY [facility] Last Admin: 05/19/18 09:47 Dose: Not Given Dextrose (Dextrose 50% Inj) 0 ml IV STAT PRN; Protocol PRN Reason: Hypoglycemia Protocol Diltiazem HCl (Cardizem) 60 mg PO QID [facility] Last Admin: 05/19/18 21:08 Dose: 60 mg Docusate Sodium (Colace) 100 mg PO BID [facility] Last Admin: 05/19/18 17:03 Dose: 100 mg Glucagon (Glucagen Diagnostic Kit) 0 mg IM STAT PRN; Protocol PRN Reason: Hypoglycemia Protocol Heparin Sodium (Porcine) (Heparin) 5,000 units SC Q8 [facility] Last Admin: 05/19/18 21:09 Dose: 5,000 units Hydralazine HCl (Apresoline) 100 mg PO BID [facility] Last Admin: 05/19/18 17:03 Dose: 100 mg Hydralazine HCl (Apresoline) 25 mg PO Q4 PRN PRN Reason: Other Ferric Sodium Gluconate Complex 125 mg/ Sodium Chloride 110 mls @ 110 mls/hr IVPB TTS [facility] Stop: 05/28/18 10:01 Insulin Aspart (Novolog) 14 unit SC TIDAC [facility] Last Admin: 05/19/18 17:03 Dose: 14 unit Insulin Glargine (Lantus) 5 unit SC QAM [facility] Last Admin: 05/19/18 09:48 Dose: Not Given Losartan Potassium (Cozaar) 100 mg PO DAILY [facility] Last Admin: 05/19/18 09:48 Dose: Not Given Ondansetron HCl (Zofran Inj) 4 mg IVP Q6H PRN PRN Reason: Nausea/Vomiting Last Admin: 05/19/18 01:51 Dose: 4 mg Pantoprazole Sodium (Protonix Ec Tab) 40 mg PO DAILY [facility] Last Admin: 05/19/18 09:48 Dose: Not Given Rosuvastatin Calcium (Crestor) 5 mg PO HS [facility] Last Admin: 05/19/18 21:08 Dose: 5 mg Sevelamer Carbonate (Renvela) 1,600 mg PO TIDCC [facility] Last Admin: 05/19/18 17:03 Dose: 1,600 mg Sitagliptin Phosphate (Januvia) 25 mg PO DAILY [facility] Last Admin: 05/19/18 09:48 Dose: Not Given Vitamin B Complex/Vit C/Folic Acid (Nephro-Monie) 1 tab PO 0800 [facility] Last Admin: 05/19/18 08:17 Dose: Not Given - Labs Labs: 05/19/18 07:36 05/19/18 07:36 PT 11.6 SECONDS (9.7-12.2) 05/19/18 07:36 INR 1.1 05/19/18 07:36 APTT 32 SECONDS (21-34) D 05/19/18 07:36 - Constitutional Appears: Well, Non-toxic - Head Exam Head Exam: ATRAUMATIC, NORMAL INSPECTION - Eye Exam Eye Exam: EOMI, Normal appearance - Neck Exam Neck Exam: Normal Inspection - Respiratory Exam Respiratory Exam: Clear to Ausculation Bilateral, NORMAL BREATHING PATTERN - Cardiovascular Exam Cardiovascular Exam: REGULAR RHYTHM - GI/Abdominal Exam GI & Abdominal Exam: Soft, Normal Bowel Sounds - Extremities Exam Extremities Exam: Normal Inspection - Neurological Exam Neurological Exam: Alert, Awake - Psychiatric Exam Psychiatric exam: Normal Affect, Normal Mood - Skin Skin Exam: Dry, Intact, Normal Color, Warm Assessment and Plan - Assessment and Plan (Free Text) Assessment: Patient is a 83 yo female w/ PMH of CHF, HTN, DM2, HLD, CKD, gout, hx of breast ca w/ partial lumpectomy admitted to hospital for complaints of SOB and wheezing. 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 Emergent dialysis done. Patient is now continued on a regular dialysis scheduled as per nephro. Acute CHF exacerbation Echocardiogram 01/17: LV EF 46.1%, left ventricle is normal in size, borderline LV hypertrophy, Grade 1 abnormal relaxation pattern Lasix 80mg MWF Cozaar 50mg po daily Bystolic 20mg po daily Imdur 60mg po q24h Aspirin 81mg po daily Crestor 2.5mg po HS Episode of SVT Echo pending Cardiology Consulted: Dr. Frey- cardiac cath shows non-obstructive clean arteries Newspaper Editor Managing Consulted: Dr. Holm- considering av ablation vs additional emeka blockers to prevent reentrant SVT Hx of ESRD femoral line was used initially; now HD done through permacath HD as per nephorlogy Nephrovite; Renevla 800mg po tid Social work for outpatient HD s/p Repair AVF with vascular surgeon. Done 05/19 Hx of Breast Cancer s/p partial lumpectomy Anemia Ferric sodium IVPB daily likely anemia of chronic disease 2/2 ESRD hemodynamically stable monitor H&H via daily CBCs Hx of gout (elbow) Continue dialysis MRSA positive in nares Mupriocin nasal spray GI ppx: protonix po 40 daily DVT ppx: SCDs, heparin 5000 sc daily Glucerna shakes 3x day for constipation <Cyndi Farr V - Last Filed: 05/21/18 00:08> Objective - Vital Signs/Intake and Output Vital Signs (last 24 hours): Temp Pulse Resp BP Pulse Ox 97.9 F 89 22 106/33 L 100 05/20/18 16:33 05/20/18 23:03 05/20/18 23:03 05/20/18 23:03 05/20/18 23:03 - Medications Medications: Current Medications Aspirin (Aspirin Chewable) 81 mg PO DAILY [facility] Last Admin: 05/20/18 09:31 Dose: 81 mg Dextrose (Dextrose 50% Inj) 0 ml IV STAT PRN; Protocol PRN Reason: Hypoglycemia Protocol Glucagon (Glucagen Diagnostic Kit) 0 mg IM STAT PRN; Protocol PRN Reason: Hypoglycemia Protocol Ferric Sodium Gluconate Complex 125 mg/ Sodium Chloride 110 mls @ 110 mls/hr IVPB TTS [facility] Stop: 05/28/18 10:01 Last Admin: 05/20/18 12:47 Dose: 110 mls/hr Dextrose/Sodium Chloride (Dextrose 5%/0.45% Ns 1000 Ml) 1,000 mls @ 50 mls/hr IV .Q20H [facility] Last Admin: 05/20/18 15:13 Dose: 50 mls/hr Norepinephrine Bitartrate 8 mg (/ Sodium Chloride) 250 mls @ 7.5 mls/hr IV .Q24H PRN; Protocol PRN Reason: TITRATE PER MD ORDER Sodium Bicarbonate 150 meq/ (Dextrose) 1,150 mls @ 75 mls/hr IV .[id number] [facility] Piperacillin Sod/Tazobactam (Sod 2.25 gm/ Sodium Chloride) 100 mls @ 200 mls/hr IVPB Q8H [facility]; Protocol Dexmedetomidine HCl 200 mcg/ (Sodium Chloride) 50 mls @ 3.61 mls/hr IV TITR PRN; Protocol PRN Reason: Agitation Argatroban 250 mg/ Dextrose 252.5 mls @ 8.74 mls/hr IV .Q24H [facility]; Protocol Insulin Aspart (Novolog) 0 unit SC Q6H [facility]; Protocol Last Admin: 05/20/18 22:46 Dose: Not Given Ondansetron HCl (Zofran Inj) 4 mg IVP Q6H PRN PRN Reason: Nausea/Vomiting Last Admin: 05/20/18 09:46 Dose: 4 mg Pantoprazole Sodium (Protonix Inj) 40 mg IVP Q12H [facility] Sevelamer Carbonate (Renvela) 1,600 mg PO TIDCC [facility] Last Admin: 05/20/18 12:06 Dose: Not Given Sodium Bicarbonate (Sodium Bicarbonate Tab) 1,300 mg NG Q6 [facility] Vitamin B Complex/Vit C/Folic Acid (Nephro-Monie) 1 tab PO 0800 [facility] Last Admin: 05/20/18 09:15 Dose: 1 tab - Labs Labs: 05/20/18 22:20 05/20/18 22:20 PT 23.6 SECONDS (9.7-12.2) H D 05/20/18 22:20 INR 2.2 D 05/20/18 22:20 APTT 68 SECONDS (21-34) H D 05/20/18 22:20 Attending/Attestation - Attestation I have personally seen and examined this patient.: Yes I have fully participated in the care of the patient.: Yes I have reviewed all pertinent clinical information, including history, physical exam and plan: Yes Notes (Text): Patient seen at bedside this afternoon at bedside post dialysis. Patient unable to tolerate her medications reports nausea and abdominal pain. On my exam, patient's abdomen is soft, positive bowel sounds but is tender to the lower quadrants, has had prior appendectomy and hysterectomy per discussion with . Patient ordered for general surgery consult given abdominal pain, discussed with surgery resident, Yolie Estrada, noted patient had been seen by valdez espinoza earlier in the day while she was at dialysis; continue to observe. Patient ordered for lipase, lactic acid, CT abdomen/Pelvis PO contrast, in addition to stool studies. Patient is postoperative day for left AVR repair. Patient had dialysis today but was stopped early given severity of pain. Patient had noted SHEET METAL WORKER SUPERVISOR in the evening; patient appeared in agonal breathing, lethargic, non responsive, pulse present, she had received Morphine 2mg iVX1, and Tramadol 25mg PO for abdominal pain; code blue was called, patient was bagged by anesthesia, patient given 1 D50 Ampule line appeared infiltrated; Switched to D10 to reverse hypoglycemia, patient receive total of Narcan 0.4mg X3 to reverse narcotic medication; momentarily mental status improvement. Patient is moving all extremities. However given painful stimulation such as ABG, setting up peripheral line she is less responsive. Icu consulted at bedside given respiratory distress and mental status change; accepted to the unit. ABG shock at end rapid noted for metabolic acidosis; further management per ICU. Resident Alegre called family in to inform of change in mental status and patient requiring critical care. In the ICU, patient was intubated, placed on vent, recieved multiple bicarbonate pushes X3, 1 Calcium chloride ampule, fe moral line placed by ICU for access. Patient requiring pressor, bicarbonate drip. Patient noted to be called code sepsis; given empiric IV abx per ICU, ordered for CT head, Ct angio chest/abdomen/pelvis given change in mental status, and prior complaints of nausea/vomitting/abdominal pain.
[2018-05-20] MEDS: Multivitamin Vitamin B Complex (Nephro-Vite) Tab PO SCH (09:15)
[2018-05-20] MEDS: (Novolog) Insulin Aspart, Recombinant 100 u/ml 10 ml vial SC SCH ×3 (09:15→22:46)
[2018-05-20] MEDS: Pantoprazole 40 mg EC Tab PO SCH (09:32)
[2018-05-20] MEDS: (Lantus) Insulin Glargine, Recombinant SC SCH (09:33)
[2018-05-20] MEDS ORDERED: Ferric Sodium Gluconat Complex 125 MG in Sodium Chloride 0.9% 100 ML IVPB SCH (10:00)
[2018-05-20 11:11] LABS: ALBUMIN 3.7 g/dL (3.5-5.0); CALCIUM 9.4 mg/dl (8.6-10.4)
[2018-05-20 11:14] LABS: BASO % 0.3 % (0.0-2.0); EOS % 0.1 % (0.0-4.0); HEMOGLOBIN 11.3 g/dL (11.0-16.0); LYMPH % 7.2 % (20.0-40.0); MEAN CELL VOLUME 87.7 fL (81.0-99.0); MEAN CORPUSCULAR HEMOGLOBIN 28.2 pg (27.0-31.0); MEAN CORPUSCULAR HGB CONC 32.2 g/dL (33.0-37.0); MEAN PLATELET VOLUME 9.7 fL (7.2-11.7); MONO # 0.5 K/uL (0.0-0.8); MONO % 3.6 % (0.0-10.0); NEUT # 11.9 K/uL (1.8-7.0); NEUT % 88.8 % (50.0-75.0); NRBC % 0.5 % (0.0-2.0); PLATELET COUNT 263 K/uL (130-400); RBC 4.02 Mil/uL (3.80-5.20); RED CELL DISTRIBUTION WIDTH 20.9 % (11.5-14.5); WHITE BLOOD COUNT 13.3 K/uL (4.8-10.8)
[2018-05-20 11:46] LABS: BANDS 9 % (0-2); LYMPHOCYTE 6 % (20-40); MONOCYTE 2 % (0-10); NEUTROPHIL 83 % (50-75); NUCLEATED RED BLOOD CELL 1 % (0-0); PLATELET ESTIMATE NORMAL (NORMAL); TOTAL CELLS COUNTED 100
[2018-05-20 11:47] LABS: ANISOCYTOSIS MODERATE; HYPOCHROMIC SLIGHT; MICROCYTOSIS SLIGHT; POIKILOCYTOSIS SLIGHT
[2018-05-20 11:48] LABS: ACANTHOCYTES SLIGHT; BURR CELLS SLIGHT; OVALOCYTES SLIGHT; POLYCHROMIC SLIGHT; SCHISTOCYTES SLIGHT; SPHEROCYTES SLIGHT; TARGET CELLS SLIGHT; TEARDROP CELLS SLIGHT
--- NOTE | 2018-05-20 12:59 | CP.PCM.PN ---
Subjective - Date & Time of Evaluation Date of Evaluation: 05/20/18 Time of Evaluation: 12:58 - Subjective Subjective: Nephrology Consultation Note: Assessment: stable HTN emergency with pulm edema Diabetic chronic Kidney Disease (E11.22) Hypertensive Chronic Kidney Disease (I12.0) CKD 5 now ESRD on HD via PC (TTS) started HD 05/11/18 Anemia (D64.9), Hyperphosphatemia (E83.39), Secondary Hyperparathyroidism (E21.1), HTN (I12.0) CHF LVEF 45% SVT constipation Plan: HD TTS Continue with Nephrovite 1 tab/day. hgb stable monitor Continue with phos binders off calcitriol bp stable Glycemic control, Dialysis consistent diet Further work up/management as per primary team Dose meds/antibiotics (if needed) for ESRD status. Avoid fleets enema/magnesium based laxatives. SW for outpt HD placement. S: seen and examined, still w/ some naussea and lack of appetite Physical Examination: General Appearance: Comfortable, in no acute respiratory distress, co-operative . Vitals reviewed and noted as below Head; Atraumatic, normocephalic ENT: no ulcers no thrush. Tongue is midline. Oropharynx: no rash or ulcers. EYES: Pupils are equal, round and reactive to light accommodation. Eye muscles and extraocular movement intact. Sclera is anicteric. Neck; supple no lymphadenopathy, no thyromegaly or bruit Lungs: normal respiratory rate/effort. Breath sounds bilateral equal and clearer Heart: normald rate. s1s2 normal. No rub or gallop. Extremities: no edema. No varicose veins Neurological: Patient is alert, awake and oriented to person, place and time. No focal deficit. Strength bilateral appropriate and equal Skin: Warm and dry. Normal turgor. No rash. Palpitation: Normal elasticity for age Abdomen: Abdomen is soft. Bowel sounds +. There is no abdominal tenderness, no guarding/rigidity or organomegaly Psych: normal insight and normal affect/mood MSK: no joint tenderness or swelling. Digits and nails normal, no deformity : kidney or bladder not palpable Access: left arm AVF maturing Labs/imaging reviewed. Past medical history, past surgical history, family history, social history, allergy reviewed and noted as below Family Hx: no hx of CKD. Non contributory Objective - Vital Signs/Intake and Output Vital Signs (last 24 hours): Temp Pulse Resp BP Pulse Ox 98.3 F 158 H 20 97/50 L 96 05/20/18 10:20 05/20/18 10:20 05/20/18 10:20 05/20/18 12:45 05/20/18 10:20 Intake and Output: 05/20/18 05/20/18 06:59 18:59 Intake Total 200 Balance 200 - Medications Medications: Current Medications Acetaminophen (Tylenol 325mg Tab) 650 mg PO Q6 PRN PRN Reason: pain+fever Last Admin: 05/19/18 19:57 Dose: 650 mg Aspirin (Aspirin Chewable) 81 mg PO DAILY [facility] Last Admin: 05/20/18 09:31 Dose: 81 mg Dextrose (Dextrose 50% Inj) 0 ml IV STAT PRN; Protocol PRN Reason: Hypoglycemia Protocol Diltiazem HCl (Cardizem) 60 mg PO QID [facility] Last Admin: 05/20/18 09:32 Dose: 60 mg Docusate Sodium (Colace) 100 mg PO BID [facility] Last Admin: 05/20/18 09:33 Dose: Not Given Glucagon (Glucagen Diagnostic Kit) 0 mg IM STAT PRN; Protocol PRN Reason: Hypoglycemia Protocol Heparin Sodium (Porcine) (Heparin) 5,000 units SC Q8 [facility] Last Admin: 05/20/18 05:34 Dose: 5,000 units Hydralazine HCl (Apresoline) 100 mg PO BID [facility] Last Admin: 05/20/18 09:32 Dose: Not Given Hydralazine HCl (Apresoline) 25 mg PO Q4 PRN PRN Reason: Other Ferric Sodium Gluconate Complex 125 mg/ Sodium Chloride 110 mls @ 110 mls/hr IVPB TTS [facility] Stop: 05/28/18 10:01 Last Admin: 05/20/18 12:47 Dose: 110 mls/hr Insulin Aspart (Novolog) 14 unit SC TIDAC [facility] Last Admin: 05/20/18 12:06 Dose: Not Given Insulin Glargine (Lantus) 5 unit SC QAM [facility] Last Admin: 05/20/18 09:33 Dose: Not Given Losartan Potassium (Cozaar) 100 mg PO DAILY [facility] Last Admin: 05/19/18 09:48 Dose: Not Given Ondansetron HCl (Zofran Inj) 4 mg IVP Q6H PRN PRN Reason: Nausea/Vomiting Last Admin: 05/20/18 09:46 Dose: 4 mg Pantoprazole Sodium (Protonix Ec Tab) 40 mg PO DAILY [facility] Last Admin: 05/20/18 09:32 Dose: 40 mg Rosuvastatin Calcium (Crestor) 5 mg PO HS [facility] Last Admin: 05/19/18 21:08 Dose: 5 mg Sevelamer Carbonate (Renvela) 1,600 mg PO TIDCC [facility] Last Admin: 05/20/18 12:06 Dose: Not Given Sitagliptin Phosphate (Januvia) 25 mg PO DAILY [facility] Last Admin: 05/20/18 09:33 Dose: Not Given Vitamin B Complex/Vit C/Folic Acid (Nephro-Monie) 1 tab PO 0800 [facility] Last Admin: 05/20/18 09:15 Dose: 1 tab - Labs Labs: 05/20/18 11:07 05/20/18 10:33 PT 11.6 SECONDS (9.7-12.2) 05/19/18 07:36 INR 1.1 05/19/18 07:36 APTT 32 SECONDS (21-34) D 05/19/18 07:36
[2018-05-20] MEDS ORDERED: Dextrose 5%/0.45% NS 1,000 ML IV SCH (15:00)
[2018-05-20] MEDS ORDERED: Tramadol 25 mg PO PRN (15:01)
[2018-05-20] MEDS ORDERED: Morphine 4 MG/ML VIAL IVP ONE (16:00)
[2018-05-20] MEDS ORDERED: Dextrose 50% VIAL Inj (50 ml) IV ONE (18:12)
[2018-05-20] MEDS ORDERED: Naloxone 0.4 mg/ml Inj (Adult) IVP STA (18:13)
[2018-05-20] MEDS ORDERED: Dextrose 50% SYRINGE Inj (50 ml) IV STA (18:14)
[2018-05-20] MEDS ORDERED: Naloxone 0.4 mg/ml Inj (Adult) ONE ×2 (18:18→18:31)
[2018-05-20] MEDS ORDERED: Naloxone 0.4 mg/ml Inj (Adult) IVP ONE (18:23)
[2018-05-20] MEDS ORDERED: Naloxone 0.4 mg/ml Inj (Adult) IM STA (18:27)
--- NOTE | 2018-05-20 18:34 | CP.PCM.PN ---
Subjective - Date & Time of Evaluation Date of Evaluation: 05/20/18 Time of Evaluation: 07:00 - Subjective Subjective: Vascular Surgery: Dr. Valdez Pt seen and examined. No acute overnight events. States she feels ok but admits to post-op pain in left arm & some abdominal pain that started this morning. Denies nausea/vomiting, denies fevers/chills. Objective - Vital Signs/Intake and Output Vital Signs (last 24 hours): Temp Pulse Resp BP Pulse Ox 97.9 F 111 H 20 115/70 97 05/20/18 16:33 05/20/18 16:33 05/20/18 16:33 05/20/18 16:33 05/20/18 16:33 Intake and Output: 05/20/18 05/20/18 06:59 18:59 Intake Total 200 Balance 200 - Medications Medications: Current Medications Acetaminophen (Tylenol 325mg Tab) 650 mg PO Q6 PRN PRN Reason: pain+fever Last Admin: 05/19/18 19:57 Dose: 650 mg Aspirin (Aspirin Chewable) 81 mg PO DAILY [facility] Last Admin: 05/20/18 09:31 Dose: 81 mg Dextrose (Dextrose 50% Inj) 0 ml IV STAT PRN; Protocol PRN Reason: Hypoglycemia Protocol Diltiazem HCl (Cardizem) 60 mg PO QID [facility] Last Admin: 05/20/18 15:12 Dose: 60 mg Docusate Sodium (Colace) 100 mg PO BID [facility] Last Admin: 05/20/18 09:33 Dose: Not Given Glucagon (Glucagen Diagnostic Kit) 0 mg IM STAT PRN; Protocol PRN Reason: Hypoglycemia Protocol Heparin Sodium (Porcine) (Heparin) 5,000 units SC Q8 [facility] Last Admin: 05/20/18 15:18 Dose: Not Given Hydralazine HCl (Apresoline) 100 mg PO BID [facility] Last Admin: 05/20/18 09:32 Dose: Not Given Hydralazine HCl (Apresoline) 25 mg PO Q4 PRN PRN Reason: Other Ferric Sodium Gluconate Complex 125 mg/ Sodium Chloride 110 mls @ 110 mls/hr IVPB TTS [facility] Stop: 05/28/18 10:01 Last Admin: 05/20/18 12:47 Dose: 110 mls/hr Dextrose/Sodium Chloride (Dextrose 5%/0.45% Ns 1000 Ml) 1,000 mls @ 50 mls/hr IV .Q20H [facility] Last Admin: 05/20/18 15:13 Dose: 50 mls/hr Insulin Aspart (Novolog) 14 unit SC TIDAC [facility] Last Admin: 05/20/18 12:06 Dose: Not Given Insulin Glargine (Lantus) 5 unit SC QAM [facility] Last Admin: 05/20/18 09:33 Dose: Not Given Losartan Potassium (Cozaar) 100 mg PO DAILY [facility] Last Admin: 05/20/18 09:33 Dose: Not Given Naloxone HCl (Narcan) 0.4 mg IM STAT STA Stop: 05/20/18 18:28 Ondansetron HCl (Zofran Inj) 4 mg IVP Q6H PRN PRN Reason: Nausea/Vomiting Last Admin: 05/20/18 09:46 Dose: 4 mg Pantoprazole Sodium (Protonix Ec Tab) 40 mg PO DAILY [facility] Last Admin: 05/20/18 09:32 Dose: 40 mg Rosuvastatin Calcium (Crestor) 5 mg PO HS [facility] Last Admin: 05/19/18 21:08 Dose: 5 mg Sevelamer Carbonate (Renvela) 1,600 mg PO TIDCC [facility] Last Admin: 05/20/18 12:06 Dose: Not Given Sitagliptin Phosphate (Januvia) 25 mg PO DAILY [facility] Last Admin: 05/20/18 09:33 Dose: Not Given Vitamin B Complex/Vit C/Folic Acid (Nephro-Monie) 1 tab PO 0800 [facility] Last Admin: 05/20/18 09:15 Dose: 1 tab - Labs Labs: 05/20/18 11:07 05/20/18 10:33 PT 11.6 SECONDS (9.7-12.2) 05/19/18 07:36 INR 1.1 05/19/18 07:36 APTT 32 SECONDS (21-34) D 05/19/18 07:36 - Constitutional Appears: Well, No Acute Distress - Head Exam Head Exam: ATRAUMATIC, NORMOCEPHALIC - ENT Exam ENT Exam: Mucous Membranes Moist - Respiratory Exam Respiratory Exam: NORMAL BREATHING PATTERN - Cardiovascular Exam Cardiovascular Exam: RRR - GI/Abdominal Exam GI & Abdominal Exam: Soft. absent: Distended - Extremities Exam Additional comments: Left arm AVF dressing C/D/I - Neurological Exam Neurological Exam: Alert, Awake, Oriented x3 - Skin Skin Exam: Dry, Warm Assessment and Plan - Assessment and Plan (Free Text) Assessment: 83F s/p L arm AVF creation; POD#1 Plan: - cont using permacath for HD while AVF matures - no further surgical intervention at this time - f/u with Dr. Courtney Estrada
[2018-05-20 18:41] LABS: ABG ALLEN TEST P; ARTERIAL BLOOD GAS HCO3 3.9 mmol/L (21-28); ARTERIAL BLOOD GAS O2 SAT 100.2 % (95-98); ARTERIAL BLOOD GAS PCO2 17 mm/Hg (35-45); ARTERIAL BLOOD GAS PH 6.95 (7.35-7.45); ARTERIAL BLOOD GAS PO2 169 mm/Hg (80-100); ARTERIAL BLOOD GAS TCO2 4.2 mmol/L (22-28)
--- NOTE | 2018-05-20 18:43 | PCM.RRT ---
<EdvinDixonsatish - Last Filed: 05/20/18 18:51> DIRECTOR PAYER Nurses Assessment - Situation Date: 05/20/18 Time DIRECTOR PAYER was called: 18:10 DIRECTOR PAYER Responder Arrival Time:: 18:10 DIRECTOR PAYER Location:: Med/Surg Room Number: 558A DIRECTOR PAYER Reason for Call: Hypotension, Change in Mental Status DIRECTOR PAYER Called By: RN - IV IV Inserted during DIRECTOR PAYER?: Yes - Respiratory DIRECTOR PAYER Delivery Method: Nasal Cannula @L/min Received Nebulizer Treatments: No Was the Patient Ventilated with Bag/Mask 100% O2?: No Secretions Suctioned?: No Was the Patient Intubated?: No Was the Patient Placed on a Ventilator?: No - Medication Medications Administered During DIRECTOR PAYER: clonidine patch - Vital Signs Vital Signs: Rapid Response Vital Sign Blood Pressure 229/149 Pulse Rate 78 Respiratory Rate 28 - Recommendations 5) DIRECTOR PAYER Level of Care Recommendations: Transfer to ICU Notifications: Attending Physician I.Reason for DIRECTOR PAYER - A) Acute Change in Patient: Subjective: Rapid response was called overhead at 18:10 to room 564B to patient found unresponsive. Vital at the beginning of the rapid was BP 55/39, HR 72bpm with agonal breathing. Glucose was 51. Patient was give D50 and Narcan 0.4mg IV. Patient shortly became minimally responsive to verbal stimulus but still very somnolent. Second and third dose of Narcan were given in IM due to infiltrated IV access. Critical care was consulted. Soon after patient can follow verbal commends. Vital at the end of DIRECTOR PAYER BP:100/60, HR 74bpm. Patient was then transported to ICU, endorsed to attending Dr. Chavarria. - Respiratory Oxygen Delivery Method: BiPAP @% - Constitutional Appears: Unkempt, Confused - Head Head Exam: ATRAUMATIC, NORMAL INSPECTION - Eyes Eye Exam: EOMI, PERRL - Respiratory Exam Respiratory Exam: absent: Wheezes Additional comments: agonal breathing - Cardiovascular Exam Cardiovascular Exam: +S1 - GI/Abdominal Exam GI & Abdominal Exam: Soft. absent: Distended - Neurological Exam Neurological Exam: Awake <Cyndi Farr V - Last Filed: 05/21/18 00:13> DIRECTOR PAYER Nurses Assessment - Vital Signs Vital Signs: Rapid Response Vital Sign Blood Pressure 55/39 Pulse Rate 72 Respiratory Rate 10 - Vital Signs at end of DIRECTOR PAYER Vital Signs at end of DIRECTOR PAYER: Rapid Response End Vital Sign Blood Pressure 104/53 Pulse Rate 82 Respiratory Rate 16 Attending/Attestation - Attestation I have personally seen and examined this patient.: Yes I have fully participated in the care of the patient.: Yes I have reviewed all pertinent clinical information, including history, physical exam and plan: Yes Notes (Text): Brief Hospitalist Note: Patient found unresponsive, hypotensive, and agonal breathing. Patient recieved amp D50 for suspected hypoglycemia; respiratory therapy proceeded to bag valve mask, code blue called given possible respiratory arrest, pulse remained palpable and intact, mental status mildly improved after starting D10 IV fluids and given 3 (Narcan 0.4mg IM X2 and one IV) but patient remained somnolent and not at her baseline. Patient moving all extremities but is slow to respond. ICU consulted given respiratory distress and mental status change; ABG noted significant change: metabolic acidosis; patient transferred to the ICU immediately, intubated, started on pressor, bicarbonate drip. Further management per ICU.
[2018-05-20] MEDS ORDERED: Sodium Bicarbonate (8.4%) 50 Meq Syringe ONE ×2 (19:00→20:03)
[2018-05-20] MEDS ORDERED: Calcium Chloride 1000 mg/10 ml Syringe ONE (19:00)
[2018-05-20] MEDS: Norepinephrine 8 MG in Sodium Chloride 0.9% 242 ML IV PRN (19:00)
[2018-05-20] MEDS ORDERED: Vancomycin 1 gm/NS 200 ml 1 GM/200 ML BAG IVPB STA (19:33)
--- NOTE | 2018-05-20 19:42 | CP.PCM.PN ---
Subjective - Date & Time of Evaluation Date of Evaluation: 05/20/18 Time of Evaluation: 19:39 - Subjective Subjective: Patient brought to ICU with AMS, not able to protect airway. Intubated in ER. ABG reveals severe mwetabolic acidosis. PAtient AMS. unable to obtain any history. ROS limited. INtubated Objective - Vital Signs/Intake and Output Vital Signs (last 24 hours): Temp Pulse Resp BP Pulse Ox 97.9 F 84 20 115/70 97 05/20/18 16:33 05/20/18 19:00 05/20/18 16:33 05/20/18 16:33 05/20/18 16:33 - Medications Medications: Current Medications Acetaminophen (Tylenol 325mg Tab) 650 mg PO Q6 PRN PRN Reason: pain+fever Last Admin: 05/19/18 19:57 Dose: 650 mg Aspirin (Aspirin Chewable) 81 mg PO DAILY [facility] Last Admin: 05/20/18 09:31 Dose: 81 mg Dextrose (Dextrose 50% Inj) 0 ml IV STAT PRN; Protocol PRN Reason: Hypoglycemia Protocol Diltiazem HCl (Cardizem) 60 mg PO QID [facility] Last Admin: 05/20/18 15:12 Dose: 60 mg Docusate Sodium (Colace) 100 mg PO BID [facility] Last Admin: 05/20/18 09:33 Dose: Not Given Glucagon (Glucagen Diagnostic Kit) 0 mg IM STAT PRN; Protocol PRN Reason: Hypoglycemia Protocol Heparin Sodium (Porcine) (Heparin) 5,000 units SC Q8 [facility] Last Admin: 05/20/18 15:18 Dose: Not Given Hydralazine HCl (Apresoline) 100 mg PO BID [facility] Last Admin: 05/20/18 09:32 Dose: Not Given Hydralazine HCl (Apresoline) 25 mg PO Q4 PRN PRN Reason: Other Ferric Sodium Gluconate Complex 125 mg/ Sodium Chloride 110 mls @ 110 mls/hr IVPB TTS [facility] Stop: 05/28/18 10:01 Last Admin: 05/20/18 12:47 Dose: 110 mls/hr Dextrose/Sodium Chloride (Dextrose 5%/0.45% Ns 1000 Ml) 1,000 mls @ 50 mls/hr IV .Q20H [facility] Last Admin: 05/20/18 15:13 Dose: 50 mls/hr Norepinephrine Bitartrate 8 mg (/ Sodium Chloride) 250 mls @ 7.5 mls/hr IV .Q24H PRN; Protocol PRN Reason: TITRATE PER MD ORDER Vancomycin/Sodium Chloride (Vancomycin 1 Gm/Ns 200 Ml) 1 gm in 200 mls @ 166.7 mls/hr IVPB STAT STA; Protocol Stop: 05/20/18 20:44 Sodium Bicarbonate 150 meq/ (Dextrose) 1,150 mls @ 75 mls/hr IV .[id number] [facility] Piperacillin Sod/Tazobactam (Sod 2.25 gm/ Sodium Chloride) 100 mls @ 200 mls/hr IVPB Q8H [facility]; Protocol Insulin Aspart (Novolog) 14 unit SC TIDAC [facility] Last Admin: 05/20/18 12:06 Dose: Not Given Insulin Glargine (Lantus) 5 unit SC QAM [facility] Last Admin: 05/20/18 09:33 Dose: Not Given Losartan Potassium (Cozaar) 100 mg PO DAILY [facility] Last Admin: 05/20/18 09:33 Dose: Not Given Ondansetron HCl (Zofran Inj) 4 mg IVP Q6H PRN PRN Reason: Nausea/Vomiting Last Admin: 05/20/18 09:46 Dose: 4 mg Pantoprazole Sodium (Protonix Ec Tab) 40 mg PO DAILY [facility] Last Admin: 05/20/18 09:32 Dose: 40 mg Rosuvastatin Calcium (Crestor) 5 mg PO HS [facility] Last Admin: 05/19/18 21:08 Dose: 5 mg Sevelamer Carbonate (Renvela) 1,600 mg PO TIDCC [facility] Last Admin: 05/20/18 12:06 Dose: Not Given Sitagliptin Phosphate (Januvia) 25 mg PO DAILY [facility] Last Admin: 05/20/18 09:33 Dose: Not Given Sodium Bicarbonate (Sodium Bicarbonate Tab) 1,300 mg NG Q6 [facility] Vitamin B Complex/Vit C/Folic Acid (Nephro-Monie) 1 tab PO 0800 [facility] Last Admin: 05/20/18 09:15 Dose: 1 tab - Labs Labs: 05/20/18 11:07 05/20/18 10:33 PT 11.6 SECONDS (9.7-12.2) 05/19/18 07:36 INR 1.1 05/19/18 07:36 APTT 32 SECONDS (21-34) D 05/19/18 07:36 - Constitutional Appears: In Acute Distress - Head Exam Head Exam: ATRAUMATIC - Eye Exam Eye Exam: PERRL - Respiratory Exam Respiratory Exam: Clear to Ausculation Bilateral, NORMAL BREATHING PATTERN. absent: Rales, Wheezes - Cardiovascular Exam Cardiovascular Exam: Irregular Rhythm, +S1, +S2, Murmur - GI/Abdominal Exam GI & Abdominal Exam: Soft, Hypoactive Bowel Sounds. absent: Guarding, Rigid, Tenderness - Extremities Exam Extremities Exam: absent: Pedal Edema Additional comments: distal pulses 1+ b/l c/w PVD - Neurological Exam Neurological Exam: Altered. absent: Alert, CN II-XII Intact, Normal Gait, Oriented x3 - Skin Skin Exam: Normal Color. absent: Warm Assessment and Plan - Assessment and Plan (Free Text) Assessment: -AMS: obtain CT head, obtain Utox -Sepsis: etiology unknown, goff culture, start vanco + zosyn -High lactic aniongap matabolic acidosis: obtain CT abd/pelvis with IV contrast r/o ischemic event (A-fib currently) -A-fib: will benefit from IV heaprin rate controlled -NG tube -BGM q6hrs -DVT ppx heparin -PUD ppx protonix Prognosis guarded as multiple diagnostic tests pending Above clinical situation d/w patient's daughter. Patient's daughter provided verbal consent over the phone for CT angio and central line placement. cc time 45 minutes
[2018-05-20] MEDS ORDERED: Sodium Bicarbonate 8.4% 150 MEQ in Dextrose 5% In Water 1,000 ML IV SCH (19:45)
[2018-05-20] MEDS ORDERED: Heparin25000 units/250ml 1/2NS 25,000 UNITS/250 ML BAG IV PRN (19:48)
[2018-05-20 19:55] LABS: ARTERIAL BLOOD GAS HCO3 9.6 mmol/L (21-28); ARTERIAL BLOOD GAS O2 SAT 100.8 % (95-98); ARTERIAL BLOOD GAS PCO2 18 mm/Hg (35-45); ARTERIAL BLOOD GAS PH 7.17 (7.35-7.45); ARTERIAL BLOOD GAS PO2 377 mm/Hg (80-100); ARTERIAL BLOOD GAS TCO2 7.2 mmol/L (22-28)
[2018-05-20] MEDS ORDERED: Iodixanol 320 MG/ML 100 ML BOTTLE IV ONE (20:17)
[2018-05-20] MEDS ORDERED: Dexmedetomidine Hydrochloride 200 MCG in Sodium Chloride 0.9% 48 ML IV PRN (20:18)
--- NOTE | 2018-05-20 20:34 | PCM.PROC ---
Procedures Attestation:: I certify that I have explained the specified Operation(s) or Procedure(s), risks, benefits and reasonable alternatives to the Patient and/or other person responsible. The opportunity was given to ask questions and all questions answered - Central Line Placement Left Femoral Triple Lumen Catheter Aseptic technique was employed throughout the procedure: Full sterile barriers (mask, hair cover, sterile gown, sterile gloves), Chloraprep Antiseptic: 2 minute prep for Femoral CVP Time Out Performed: Yes Pt. Placed on Pulse Ox Monitor: Yes Central Line Prep: Chlorhexidine-Alcohol Combination Local Anesthesia Used: Lidocaine 1% Amount of Anesthesia Used (mls): 2 Ultrasound Used for Placement: No Central Line Lumen Inserted: triple Central Line Length: 20 cm Post Procedure: Sutured in Place, Good Blood Return, All Ports Aspirated, Flushe d, Capped, Sterile Dressing Applied Secured by: Suture Post procedure dressing: Gauze, Clear vapor permeable, Chlorhexidine disc (Biopatch) Post Procedure X-Ray: No Patient Tolerated Procedure: Well Immediate Complications: None
[2018-05-20] MEDS: Piperacillin/Tazobact 2.25 GM in Sodium Chloride 100 ML IVPB SCH (21:00)
--- NOTE | 2018-05-20 22:11 | PCM.SEPTIC ---
Sepsis Progress Note - Reassessment Type Date of Evaluation: 05/20/18 Time of Evaluation: 22:10 Reassessment Type: Non-invasive reassessment - Non Invasive Reassessment Were the most recent vital sign reviewed: Yes Vital Sign (Latest): Temp Pulse Resp BP Pulse Ox 97.9 F 84 20 115/70 97 05/20/18 16:33 05/20/18 19:00 05/20/18 16:33 05/20/18 16:33 05/20/18 16:33 Cardiovascular: Yes: Murmur, Tachycardia. No: Regular Rate, Rhythm Respiratory: Yes: Normal Breath Sounds. No: Accessory Muscle Use, Crackles, Rales, Stridor Capillary Refill: Normal (Less than 2 sec) Skin: Warm - Invasive Reassessment (complete 2 of 4) Was a Central Venous Pressure Measurement obtained within 6 Hours after the presentation of septic shock: No Was a central venous oxygen measurement obtained within 6 hours after the presentation of septic shock: No Was a bedside cardiovascular ultrasound performed within 6 hours after the presentation of septic shock: No Was a passive leg raise performed or was a fluid challenge performed within 6 hrs of the initial fluid bolus: No
[2018-05-20 22:35] LABS: BASO # 0.1 K/uL (0.0-0.2); BASO % 0.4 % (0.0-2.0); EOS # 0.1 K/uL (0.0-0.7); EOS % 0.6 % (0.0-4.0); LYMPH # 1.6 K/uL (1.0-4.3); LYMPH % 10.6 % (20.0-40.0); MEAN CORPUSCULAR HEMOGLOBIN 27.4 pg (27.0-31.0); MEAN CORPUSCULAR HGB CONC 29.1 g/dL (33.0-37.0); MEAN PLATELET VOLUME 10.5 fL (7.2-11.7); MONO # 0.6 K/uL (0.0-0.8); MONO % 3.7 % (0.0-10.0); NEUT # 12.7 K/uL (1.8-7.0); NEUT % 84.7 % (50.0-75.0); NRBC % 2.6 % (0.0-2.0); PLATELET COUNT 186 K/uL (130-400); RBC 3.34 Mil/uL (3.80-5.20); RED CELL DISTRIBUTION WIDTH 21.7 % (11.5-14.5)
[2018-05-20 22:38] LABS: INR 2.2; PROTHROMBIN TIME 23.6 SECONDS (9.7-12.2)
[2018-05-20 22:55] LABS: HEMOGLOBIN 9.2 g/dL (11.0-16.0)
[2018-05-20 22:56] LABS: MEAN CELL VOLUME 94.1 fL (81.0-99.0)
[2018-05-20 22:58] LABS: ALBUMIN 2.8 g/dL (3.5-5.0); CALCIUM 9.6 mg/dl (8.6-10.4)
[2018-05-20] MEDS ORDERED: Argatroban 250 MG in Dextrose 5% In Water 250 ML IV SCH (23:15)
[2018-05-20] MEDS ORDERED: Sod Polystyrene Sulf 15 gm/60 ml Susp PO ONE (23:37)
[2018-05-20 23:44] LABS: PLATELET ESTIMATE DECREASED (NORMAL)
[2018-05-20 23:46] LABS: ANISOCYTOSIS SLIGHT; BANDS 9 % (0-2); LYMPHOCYTE 10 % (20-40); MICROCYTOSIS SLIGHT; MONOCYTE 3 % (0-10); NEUTROPHIL 78 % (50-75); NUCLEATED RED BLOOD CELL 3 % (0-0); POIKILOCYTOSIS SLIGHT; TOTAL CELLS COUNTED 100
[2018-05-20 23:47] LABS: HYPERSEGMENTATION PRESENT; HYPOCHROMIC SLIGHT; LARGE PLATELETS PRESENT; SMUDGE CELLS PRESENT; SPHEROCYTES SLIGHT; TEARDROP CELLS SLIGHT; TOXIC GRANULATION PRESENT
[2018-05-20 23:54] LABS: TROPONIN I 0.347 ng/mL (0.00-0.120)
--- NOTE | 2018-05-20 23:59 | CP.PCM.PN ---
Subjective - Date & Time of Evaluation Date of Evaluation: 05/20/18 Time of Evaluation: 17:20 - Subjective Subjective: Patient seen and examined at bedside. denies chest pain and dyspnea Physical Examination - Head Exam Head Exam: ATRAUMATIC, NORMAL INSPECTION, NORMOCEPHALIC - Eye Exam Eye Exam: EOMI, Normal appearance, PERRL Pupil Exam: NORMAL ACCOMODATION, PERRL. absent: Unequal - ENT Exam ENT Exam: Mucous Membranes Moist, Normal Oropharynx - Neck Exam Neck Exam: absent: Lymphadenopathy, Thyromegaly - Respiratory Exam Respiratory Exam: Clear to Ausculation Bilateral, NORMAL BREATHING PATTERN. absent: Prolonged Expiratory Phase, Respiratory Distress - Cardiovascular Exam Cardiovascular Exam: REGULAR RHYTHM, +S1, +S2 - GI/Abdominal Exam GI & Abdominal Exam: Soft, Normal Bowel Sounds. absent: Rigid, Hyperactive Bowel Sounds - Extremities Exam Extremities Exam: Full ROM. absent: Joint Swelling, Pedal Edema, Tenderness - Back Exam Back Exam: NORMAL INSPECTION. absent: paraspinal tenderness - Neurological Exam Neurological Exam: Alert, Awake, CN II-XII Intact, Oriented x3 - Psychiatric Exam Psychiatric exam: Normal Affect, Normal Mood - Skin Skin Exam: Dry, Intact, Normal Color Assessment and Plan - Assessment and Plan (Free Text) Assessment: 83 year old female w/ PMH of CHF, HTN, DM2, HLD, CKD, gout, hx of breast ca w/ partial lumpectomy admitted to hospital for complaints of SOB and wheezing. [employer] was called for elevated blood pressure and hypoxia. Patient was transferred to ICU for emergent dailysis session prior to permacath placement and AVF for medical optimization prior to procedure. Patient is now continued on a regular dialysis scheduled as per nephro. Patient pending AVF revision with vascular surgery team in AM. Patient had an episode of SVT which resolved spontaneously and Cardiology was consulted. Patient had a recurrent episode of SVT subsequently. Plan: 1. Episode of SVT -Recurrent On cardizem EP consult with Dr. Holm Cardiac Cath: Non Obstructive coronaries and normal EF 2.SOB 2/2 CHF exacerbation Echocardiogram 01/17: LV EF 46.1%, left ventricle is normal in size, borderline LV hypertrophy, Grade 1 abnormal relaxation pattern Medications: Lasix 80mg MWF Cozaar 100mg po daily Imdur 60mg po q24h 3. Hypertension Medications: Norvasc 10mg po daily Hydralazine 100mg po bid; Hydralazine 25mg po q4h prn SBP>170 or DBP>110 Lopressor 25mg PO BID [facility] Cozaar 100mg PO Daily Imdur 60mg po q24h 4.DM2 Medications: Lantus 10 units (decreased for NPO starting at midnight) Aspart 14 units w/ Meals; ACHS; Hypogylcemic protocol Januvia 25mg po daily 5. ESRD femoral line was used initially; now [facility] as per nephorlogy Nephrovite; Renevla 1600mg po tid Social work for outpatient HD 5. Anemia Ferric sodium IVPB daily likely anemia of chronic disease 2/2 ESRD Objective - Vital Signs/Intake and Output Vital Signs (last 24 hours): Temp Pulse Resp BP Pulse Ox 97.9 F 89 22 106/33 L 100 05/20/18 16:33 05/20/18 23:03 05/20/18 23:03 05/20/18 23:03 05/20/18 23:03 - Medications Medications: Current Medications Aspirin (Aspirin Chewable) 81 mg PO DAILY [facility] Last Admin: 05/20/18 09:31 Dose: 81 mg Dextrose (Dextrose 50% Inj) 0 ml IV STAT PRN; Protocol PRN Reason: Hypoglycemia Protocol Glucagon (Glucagen Diagnostic Kit) 0 mg IM STAT PRN; Protocol PRN Reason: Hypoglycemia Protocol Ferric Sodium Gluconate Complex 125 mg/ Sodium Chloride 110 mls @ 110 mls/hr IVPB TTS [facility] Stop: 05/28/18 10:01 Last Admin: 05/20/18 12:47 Dose: 110 mls/hr Dextrose/Sodium Chloride (Dextrose 5%/0.45% Ns 1000 Ml) 1,000 mls @ 50 mls/hr IV .Q20H [facility] Last Admin: 05/20/18 15:13 Dose: 50 mls/hr Norepinephrine Bitartrate 8 mg (/ Sodium Chloride) 250 mls @ 7.5 mls/hr IV .Q24H PRN; Protocol PRN Reason: TITRATE PER MD ORDER Sodium Bicarbonate 150 meq/ (Dextrose) 1,150 mls @ 75 mls/hr IV .[id number] [facility] Piperacillin Sod/Tazobactam (Sod 2.25 gm/ Sodium Chloride) 100 mls @ 200 mls/hr IVPB Q8H [facility]; Protocol Dexmedetomidine HCl 200 mcg/ (Sodium Chloride) 50 mls @ 3.61 mls/hr IV TITR PRN; Protocol PRN Reason: Agitation Argatroban 250 mg/ Dextrose 252.5 mls @ 8.74 mls/hr IV .Q24H [facility]; Protocol Insulin Aspart (Novolog) 0 unit SC Q6H [facility]; Protocol Last Admin: 05/20/18 22:46 Dose: Not Given Ondansetron HCl (Zofran Inj) 4 mg IVP Q6H PRN PRN Reason: Nausea/Vomiting Last Admin: 05/20/18 09:46 Dose: 4 mg Pantoprazole Sodium (Protonix Inj) 40 mg IVP Q12H [facility] Sevelamer Carbonate (Renvela) 1,600 mg PO TIDCC [facility] Last Admin: 05/20/18 12:06 Dose: Not Given Sodium Bicarbonate (Sodium Bicarbonate Tab) 1,300 mg NG Q6 [facility] Vitamin B Complex/Vit C/Folic Acid (Nephro-Monie) 1 tab PO 0800 [facility] Last Admin: 05/20/18 09:15 Dose: 1 tab - Labs Labs: 05/20/18 22:20 05/20/18 22:20 PT 23.6 SECONDS (9.7-12.2) H D 05/20/18 22:20 INR 2.2 D 05/20/18 22:20 APTT 68 SECONDS (21-34) H D 05/20/18 22:20
--- NOTE | 2018-05-21 00:02 | CP.PCM.PN ---
Subjective - Date & Time of Evaluation Date of Evaluation: 05/20/18 Time of Evaluation: 17:20 - Subjective Subjective: Patient seen and examined at bedside. denies chest pain and dyspnea Physical Examination - Head Exam Head Exam: ATRAUMATIC, NORMAL INSPECTION, NORMOCEPHALIC - Eye Exam Eye Exam: EOMI, Normal appearance, PERRL Pupil Exam: NORMAL ACCOMODATION, PERRL. absent: Unequal - ENT Exam ENT Exam: Mucous Membranes Moist, Normal Oropharynx - Neck Exam Neck Exam: absent: Lymphadenopathy, Thyromegaly - Respiratory Exam Respiratory Exam: Clear to Ausculation Bilateral, NORMAL BREATHING PATTERN. absent: Prolonged Expiratory Phase, Respiratory Distress - Cardiovascular Exam Cardiovascular Exam: REGULAR RHYTHM, +S1, +S2 - GI/Abdominal Exam GI & Abdominal Exam: Soft, Normal Bowel Sounds. absent: Rigid, Hyperactive Bowel Sounds - Extremities Exam Extremities Exam: Full ROM. absent: Joint Swelling, Pedal Edema, Tenderness - Back Exam Back Exam: NORMAL INSPECTION. absent: paraspinal tenderness - Neurological Exam Neurological Exam: Alert, Awake, CN II-XII Intact, Oriented x3 - Psychiatric Exam Psychiatric exam: Normal Affect, Normal Mood - Skin Skin Exam: Dry, Intact, Normal Color Assessment and Plan - Assessment and Plan (Free Text) Assessment: 83 year old female w/ PMH of CHF, HTN, DM2, HLD, CKD, gout, hx of breast ca w/ partial lumpectomy admitted to hospital for complaints of SOB and wheezing. 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 Patient was transferred to ICU for emergent dailysis session prior to permacath placement and AVF for medical optimization prior to procedure. Patient is now continued on a regular dialysis scheduled as per nephro. Patient pending AVF revision with vascular surgery team in AM. Patient had an episode of SVT which resolved spontaneously and Cardiology was consulted. Patient had a recurrent episode of SVT subsequently. Plan: 1. Episode of SVT -Recurrent On cardizem EP consult with Dr. Holm Cardiac Cath: Non Obstructive coronaries and normal EF 2.SOB 2/2 CHF exacerbation Echocardiogram 01/17: LV EF 46.1%, left ventricle is normal in size, borderline LV hypertrophy, Grade 1 abnormal relaxation pattern Medications: Lasix 80mg MWF Cozaar 100mg po daily Imdur 60mg po q24h 3. Hypertension Medications: Norvasc 10mg po daily Hydralazine 100mg po bid; Hydralazine 25mg po q4h prn SBP>170 or DBP>110 Lopressor 25mg PO BID [facility] Cozaar 100mg PO Daily Imdur 60mg po q24h 4.DM2 Medications: Lantus 10 units (decreased for NPO starting at midnight) Aspart 14 units w/ Meals; ACHS; Hypogylcemic protocol Januvia 25mg po daily 5. ESRD femoral line was used initially; [facility]y Nephrovite; Renevla 1600mg po tid Social work for outpatient HD 5. Anemia Ferric sodium IVPB daily likely anemia of chronic disease 2/2 ESRD Objective - Vital Signs/Intake and Output Vital Signs (last 24 hours): Temp Pulse Resp BP Pulse Ox 97.9 F 89 22 106/33 L 100 05/20/18 16:33 05/20/18 23:03 05/20/18 23:03 05/20/18 23:03 05/20/18 23:03 - Medications Medications: Current Medications Aspirin (Aspirin Chewable) 81 mg PO DAILY [facility] Last Admin: 05/20/18 09:31 Dose: 81 mg Dextrose (Dextrose 50% Inj) 0 ml IV STAT PRN; Protocol PRN Reason: Hypoglycemia Protocol Glucagon (Glucagen Diagnostic Kit) 0 mg IM STAT PRN; Protocol PRN Reason: Hypoglycemia Protocol Ferric Sodium Gluconate Complex 125 mg/ Sodium Chloride 110 mls @ 110 mls/hr IVPB TTS [facility] Stop: 05/28/18 10:01 Last Admin: 05/20/18 12:47 Dose: 110 mls/hr Dextrose/Sodium Chloride (Dextrose 5%/0.45% Ns 1000 Ml) 1,000 mls @ 50 mls/hr IV .Q20H [facility] Last Admin: 05/20/18 15:13 Dose: 50 mls/hr Norepinephrine Bitartrate 8 mg (/ Sodium Chloride) 250 mls @ 7.5 mls/hr IV .Q24H PRN; Protocol PRN Reason: TITRATE PER MD ORDER Sodium Bicarbonate 150 meq/ (Dextrose) 1,150 mls @ 75 mls/hr IV .[id number] [facility] Piperacillin Sod/Tazobactam (Sod 2.25 gm/ Sodium Chloride) 100 mls @ 200 mls/hr IVPB Q8H [facility]; Protocol Dexmedetomidine HCl 200 mcg/ (Sodium Chloride) 50 mls @ 3.61 mls/hr IV TITR PRN; Protocol PRN Reason: Agitation Argatroban 250 mg/ Dextrose 252.5 mls @ 8.74 mls/hr IV .Q24H [facility]; Protocol Insulin Aspart (Novolog) 0 unit SC Q6H [facility]; Protocol Last Admin: 05/20/18 22:46 Dose: Not Given Ondansetron HCl (Zofran Inj) 4 mg IVP Q6H PRN PRN Reason: Nausea/Vomiting Last Admin: 05/20/18 09:46 Dose: 4 mg Pantoprazole Sodium (Protonix Inj) 40 mg IVP Q12H [facility] Sevelamer Carbonate (Renvela) 1,600 mg PO TIDCC [facility] Last Admin: 05/20/18 12:06 Dose: Not Given Sodium Bicarbonate (Sodium Bicarbonate Tab) 1,300 mg NG Q6 [facility] Vitamin B Complex/Vit C/Folic Acid (Nephro-Monie) 1 tab PO 0800 [facility] Last Admin: 05/20/18 09:15 Dose: 1 tab - Labs Labs: 05/20/18 22:20 05/20/18 22:20 PT 23.6 SECONDS (9.7-12.2) H D 05/20/18 22:20 INR 2.2 D 05/20/18 22:20 APTT 68 SECONDS (21-34) H D 05/20/18 22:20
[2018-05-21] MEDS: Sodium Bicarbonate (8.4%) 50 Meq Syringe IVP SCH ×3 (01:45→04:59)
[2018-05-21] MEDS: Pantoprazole 80 MG in Sodium Chloride 0.9% 100 ML IVP SCH ×2 (02:00→11:26)
[2018-05-21] MEDS: Norepinephrine 8 MG in Sodium Chloride 0.9% 242 ML IV PRN ×2 (03:00→10:10)
[2018-05-21 03:29] LABS: VENOUS BLOOD GAS BASE EXCESS -20.5 mmol/L (0.0-2.0); VENOUS BLOOD GAS PCO2 23 mmHg (40-60); VENOUS BLOOD GAS PO2 77 mm/Hg (30-55); VENOUS BLOOD PH 7.11 (7.32-7.43)
[2018-05-21] MEDS ORDERED: Dextrose 50% SYRINGE Inj (50 ml) IV STA (03:36)
[2018-05-21] MEDS: Albuterol 0.083% Inhal Sol (2.5 mg/3 mL) UD INH SCH ×6 (03:57→19:47)
[2018-05-21] MEDS: (Novolog) Insulin Aspart, Recombinant 100 u/ml 10 ml vial SC SCH ×4 (04:58→17:49)
[2018-05-21] MEDS: Piperacillin/Tazobact 2.25 GM in Sodium Chloride 100 ML IVPB SCH ×3 (05:00→18:45)
[2018-05-21 05:17] LABS: BASO # 0.2 K/uL (0.0-0.2); EOS # 6.1 K/uL (0.0-0.7); HEMOGLOBIN 9.2 g/dL (11.0-16.0); LYMPH # 0.7 K/uL (1.0-4.3); MEAN CELL VOLUME 95.9 fL (81.0-99.0); MEAN CORPUSCULAR HEMOGLOBIN 27.9 pg (27.0-31.0); MEAN CORPUSCULAR HGB CONC 29.1 g/dL (33.0-37.0); MEAN PLATELET VOLUME 9.9 fL (7.2-11.7); MONO # 0.2 K/uL (0.0-0.8); NEUT # 4.3 K/uL (1.8-7.0); NRBC % 7.1 % (0.0-2.0); RBC 3.29 Mil/uL (3.80-5.20); RED CELL DISTRIBUTION WIDTH 19.8 % (11.5-14.5); WHITE BLOOD COUNT 11.6 K/uL (4.8-10.8)
[2018-05-21 05:26] LABS: PLATELET COUNT 112 K/uL (130-400)
[2018-05-21 06:00] LABS: ALB/GLOB RATIO 0.8 (1.0-2.1); CALCIUM 8.4 mg/dl (8.6-10.4); CK-MB 4.96 ng/mL (0.0-3.38); TROPONIN I 0.307 ng/mL (0.00-0.120)
[2018-05-21] MEDS ORDERED: (Novolin R) Insulin Human Regular 100 units/ml vial IVP ONE (06:07)
[2018-05-21] MEDS ORDERED: Sodium Bicarbonate (8.4%) 50 Meq Syringe IVP ONE ×2 (06:09→06:21)
[2018-05-21] MEDS ORDERED: Phytonadione 10 mg/ml Inj (Adult) IV STA (06:12)
[2018-05-21 06:50] LABS: BANDS 18 % (0-2); BLASTS 1 % (0-0); LYMPHOCYTE 15 % (20-40); METAMYELOCYTE 1 % (0-0); MONOCYTE 8 % (0-10); MYELOCYTE 2 % (0-0); NEUTROPHIL 54 % (50-75); NUCLEATED RED BLOOD CELL 8 % (0-0); PLATELET ESTIMATE DECREASED (NORMAL); REACTIVE LYMPHOCYTES 1 % (0-0); TOTAL CELLS COUNTED 100
[2018-05-21 06:51] LABS: ANISOCYTOSIS MODERATE; HYPOCHROMIC MODERATE; MICROCYTOSIS MODERATE; OVALOCYTES MODERATE; POIKILOCYTOSIS MARKED; POLYCHROMIC MODERATE; SCHISTOCYTES MODERATE; SPHEROCYTES SLIGHT; TARGET CELLS SLIGHT
[2018-05-21] MEDS ORDERED: Gentamicin 80 mg/2mL Inj. IVPB ONE (06:51)
[2018-05-21 06:52] LABS: ACANTHOCYTES MARKED; TEARDROP CELLS MODERATE
[2018-05-21] MEDS: Vasopressin 40 UNITS in Dextrose 5% In Water 40 ML IV SCH ×3 (06:56→23:38)
[2018-05-21] MEDS ORDERED: Phytonadione 10 MG in Sodium Chloride 0.9% 50 ML IV ONE (07:15)
[2018-05-21] MEDS ORDERED: Gentamicin 180 MG in Sodium Chloride 0.9% 100 ML IVPB ONE (07:15)
[2018-05-21] MEDS ORDERED: Sodium Bicarbonate 8.4% 150 MEQ in Dextrose 5% In Water 850 ML IV SCH (07:56)
--- NOTE | 2018-05-21 08:11 | CP.PCM.PN ---
Subjective - Date & Time of Evaluation Date of Evaluation: 05/21/18 Time of Evaluation: 08:11 - Subjective Subjective: Nephrology Consultation Note: Assessment: critical cardiac arrest VDRF hyperkalemia acidosis HTN Diabetic chronic Kidney Disease (E11.22) Hypertensive Chronic Kidney Disease (I12.0) CKD 5 now ESRD on HD via PC (TTS) started HD 05/11/18 Anemia (D64.9), Hyperphosphatemia (E83.39), Secondary Hyperparathyroidism (E21.1), HTN (I12.0) CHF LVEF 45% SVT constipation Plan: will trial HD today - hemodynamically unstable however given the severe acidosis and life threatening hyperkalemia - options are limited. Discussed w/ ICU team and surgical housestaff - the degree of lactic acidosis and severe hyperk/hyperphos/acidosis is suggestive of some sort of ischemic/necrosis process and would be certainly concerned about ? bowel ischemia given the tenderness present on her examination Continue with Nephrovite 1 tab/day. prbc per primary phos binders Further work up/management as per primary team Dose meds/antibiotics (if needed) for ESRD status. Avoid fleets enema/magnesium based laxatives. pt is critically ill S: critically ill, events overnight noted, pt now intubated and sedated, w/ severe acidosis and hyperkalemia etiology of which not clear, now on pressors and hypotensive Physical Examination: General Appearance: intubated Vitals reviewed and noted as below Head; Atraumatic, normocephalic et tube ENT: no ulcers no thrush. Tongue is midline. Oropharynx: et tube EYES: anicteric Neck; supple no lymphadenopathy, no thyromegaly or bruit Lungs: normal respiratory rate/effort. Breath sounds bilateral equal and clearer Heart: +s1+s2 Extremities: trace edema Neurological: intubated and sedated Skin: Warm and dry. Normal turgor. No rash. Palpitation: Normal elasticity for age Abdomen: Abdomen is soft, + TTP lower quadrant, mild guarding Psych: intubated and sedated MSK: dressing ALICIA : kidney or bladder not palpable Access: left arm AVF maturing Labs/imaging reviewed. Past medical history, past surgical history, family history, social history, allergy reviewed and noted as below Family Hx: no hx of CKD. Non contributory Objective - Vital Signs/Intake and Output Vital Signs (last 24 hours): Temp Pulse Resp BP Pulse Ox 98.0 F 65 27 H 120/30 L 99 05/21/18 04:00 05/21/18 07:24 05/21/18 07:24 05/21/18 07:24 05/21/18 07:24 Intake and Output: 05/21/18 05/21/18 06:59 18:59 Intake Total 2524.5 188 Balance 2524.5 188 - Medications Medications: Current Medications Albuterol Sulfate (Albuterol 0.083% Inhal Ayesha (2.5 Mg/3 Ml) Ud) 2.5 mg INH RQ4 [facility] Last Admin: 05/21/18 04:03 Dose: 2.5 mg Dextrose (Dextrose 50% Inj) 0 ml IV STAT PRN; Protocol PRN Reason: Hypoglycemia Protocol Glucagon (Glucagen Diagnostic Kit) 0 mg IM STAT PRN; Protocol PRN Reason: Hypoglycemia Protocol Hydrocortisone Sodium Succinate (Solu-Cortef) 100 mg IV Q8H [facility] Last Admin: 05/21/18 06:57 Dose: Not Given Ferric Sodium Gluconate Complex 125 mg/ Sodium Chloride 110 mls @ 110 mls/hr IVPB TTS [facility] Stop: 05/28/18 10:01 Last Admin: 05/20/18 12:47 Dose: 110 mls/hr Dextrose/Sodium Chloride (Dextrose 5%/0.45% Ns 1000 Ml) 1,000 mls @ 50 mls/hr IV .Q20H [facility] Last Admin: 05/20/18 15:13 Dose: 50 mls/hr Norepinephrine Bitartrate 8 mg (/ Sodium Chloride) 250 mls @ 7.5 mls/hr IV .Q24H PRN; Protocol PRN Reason: TITRATE PER MD ORDER Last Titration: 05/21/18 08:06 Dose: 15 mcg/min, 28.13 mls/hr Piperacillin Sod/Tazobactam (Sod 2.25 gm/ Sodium Chloride) 100 mls @ 200 mls/hr IVPB Q8H [facility]; Protocol Last Admin: 05/21/18 05:00 Dose: 200 mls/hr Dexmedetomidine HCl 200 mcg/ (Sodium Chloride) 50 mls @ 3.61 mls/hr IV TITR PRN; Protocol PRN Reason: Agitation Last Titration: 05/21/18 02:30 Dose: 0 mcg/kg/hr, 0 mls/hr Pantoprazole Sodium 80 mg/ (Sodium Chloride) 100 mls @ 10 mls/hr IVP .Q10H [facility] Last Admin: 05/21/18 02:00 Dose: 10 mls/hr Vasopressin 40 units/ Dextrose 42 mls @ 2.52 mls/hr IV .[id number] [facility] Last Admin: 05/21/18 06:56 Dose: 2.52 mls/hr Sodium Bicarbonate 150 meq/ (Dextrose) 1,000 mls @ 150 mls/hr IV .Q6H40M [facility] Insulin Aspart (Novolog) 0 unit SC Q6H [facility]; Protocol Last Admin: 05/21/18 07:03 Dose: Not Given Ondansetron HCl (Zofran Inj) 4 mg IVP Q6H PRN PRN Reason: Nausea/Vomiting Last Admin: 05/20/18 09:46 Dose: 4 mg Sevelamer Carbonate (Renvela) 1,600 mg PO TIDCC [facility] Last Admin: 05/20/18 12:06 Dose: Not Given Sodium Bicarbonate (Sodium Bicarbonate Tab) 1,300 mg NG Q6 [facility] Last Admin: 05/21/18 05:00 Dose: 1,300 mg Vitamin B Complex/Vit C/Folic Acid (Nephro-Monie) 1 tab PO 0800 [facility] Last Admin: 05/20/18 09:15 Dose: 1 tab - Labs Labs: 05/21/18 05:12 05/21/18 05:12 PT 23.6 SECONDS (9.7-12.2) H D 05/20/18 22:20 INR 2.2 D 05/20/18 22:20 APTT 68 SECONDS (21-34) H D 05/20/18 22:20
[2018-05-21] MEDS: Multivitamin Vitamin B Complex (Nephro-Vite) Tab PO SCH (08:25)
[2018-05-21] MEDS ORDERED: Iodixanol 320 MG/ML 100 ML BOTTLE IV ONE (09:00)
--- NOTE | 2018-05-21 09:29 | RAD ---
Date of service: 05/20/2018 HISTORY: s/p intubation COMPARISON: No prior. FINDINGS: In situ ETT, tip of which lies approximately 4.1 cm above naeem. There is also in situ right IJ dialysis catheter with tips in the SVC LUNGS: Mild bibasilar atelectasis. Previously noted cavitary lesion seen in the posterior superior aspect left upper lobe with a eccentric elliptical shaped opacity not appreciated on this study. And PLEURA: No significant pleural effusion identified, no pneumothorax apparent. CARDIOVASCULAR: No aortic atherosclerotic calcification present. Normal cardiac size. No pulmonary vascular congestion. OSSEOUS STRUCTURES: No significant abnormalities. VISUALIZED UPPER ABDOMEN: Normal. OTHER FINDINGS: None. IMPRESSION: Sub ETT and right IJ at central line as above. Mild bibasilar atelectasis.
--- NOTE | 2018-05-21 09:33 | CP.PCM.PN ---
Subjective - Date & Time of Evaluation Date of Evaluation: 05/21/18 Time of Evaluation: 09:30 - Subjective Subjective: Medical attending Note: Patient seen this morning. unable to ROS secondary to clinical condition. Patient completed CT chest/abdomen/pelvis with IV contrast; brought to her room. She is awaiting dialysis this morning. No family present at bedside. patient is off sedation. on pressor, she is guarding over the left/right lower quadrants. Objective - Vital Signs/Intake and Output Vital Signs (last 24 hours): Temp Pulse Resp BP Pulse Ox 98.0 F 68 18 156/52 H 100 05/21/18 04:00 05/21/18 08:24 05/21/18 08:24 05/21/18 08:24 05/21/18 08:24 Intake and Output: 05/21/18 05/21/18 06:59 18:59 Intake Total 2524.5 188 Balance 2524.5 188 - Medications Medications: Current Medications Albuterol Sulfate (Albuterol 0.083% Inhal Ayesha (2.5 Mg/3 Ml) Ud) 2.5 mg INH RQ4 [facility] Last Admin: 05/21/18 08:21 Dose: 2.5 mg Dextrose (Dextrose 50% Inj) 0 ml IV STAT PRN; Protocol PRN Reason: Hypoglycemia Protocol Glucagon (Glucagen Diagnostic Kit) 0 mg IM STAT PRN; Protocol PRN Reason: Hypoglycemia Protocol Hydrocortisone Sodium Succinate (Solu-Cortef) 100 mg IV Q8H [facility] Last Admin: 05/21/18 06:57 Dose: Not Given Ferric Sodium Gluconate Complex 125 mg/ Sodium Chloride 110 mls @ 110 mls/hr IVPB TTS [facility] Stop: 05/28/18 10:01 Last Admin: 05/20/18 12:47 Dose: 110 mls/hr Dextrose/Sodium Chloride (Dextrose 5%/0.45% Ns 1000 Ml) 1,000 mls @ 50 mls/hr IV .Q20H [facility] Last Admin: 05/20/18 15:13 Dose: 50 mls/hr Norepinephrine Bitartrate 8 mg (/ Sodium Chloride) 250 mls @ 7.5 mls/hr IV .Q24H PRN; Protocol PRN Reason: TITRATE PER MD ORDER Last Titration: 05/21/18 08:06 Dose: 15 mcg/min, 28.13 mls/hr Piperacillin Sod/Tazobactam (Sod 2.25 gm/ Sodium Chloride) 100 mls @ 200 mls/hr IVPB Q8H [facility]; Protocol Last Admin: 05/21/18 05:00 Dose: 200 mls/hr Dexmedetomidine HCl 200 mcg/ (Sodium Chloride) 50 mls @ 3.61 mls/hr IV TITR PRN; Protocol PRN Reason: Agitation Last Titration: 05/21/18 02:30 Dose: 0 mcg/kg/hr, 0 mls/hr Pantoprazole Sodium 80 mg/ (Sodium Chloride) 100 mls @ 10 mls/hr IVP .Q10H [facility] Last Admin: 05/21/18 02:00 Dose: 10 mls/hr Vasopressin 40 units/ Dextrose 42 mls @ 2.52 mls/hr IV .[id number] [facility] Last Admin: 05/21/18 06:56 Dose: 2.52 mls/hr Sodium Bicarbonate 150 meq/ (Dextrose) 1,000 mls @ 150 mls/hr IV .Q6H40M [facility] Insulin Aspart (Novolog) 0 unit SC Q6H [facility]; Protocol Last Admin: 05/21/18 07:03 Dose: Not Given Ondansetron HCl (Zofran Inj) 4 mg IVP Q6H PRN PRN Reason: Nausea/Vomiting Last Admin: 05/20/18 09:46 Dose: 4 mg Sevelamer Carbonate (Renvela) 1,600 mg PO TIDCC [facility] Last Admin: 05/21/18 08:25 Dose: Not Given Sodium Bicarbonate (Sodium Bicarbonate Tab) 1,300 mg NG Q6 [facility] Last Admin: 05/21/18 05:00 Dose: 1,300 mg Vitamin B Complex/Vit C/Folic Acid (Nephro-Monie) 1 tab PO 0800 [facility] Last Admin: 05/21/18 08:25 Dose: Not Given - Labs Labs: 05/21/18 05:12 05/21/18 05:12 PT 23.6 SECONDS (9.7-12.2) H D 05/20/18 22:20 INR 2.2 D 05/20/18 22:20 APTT 68 SECONDS (21-34) H D 05/20/18 22:20 - Constitutional Appears: Non-toxic, In Acute Distress, Chronically Ill - Head Exam Head Exam: NORMAL INSPECTION Additional comments: intubated TLC in left groin HD permcatch (right side of chest) AVF fistula left upper extremity - Eye Exam Eye Exam: EOMI Additional comments: acrcus sensilis - ENT Exam ENT Exam: Mucous Membranes Dry - Respiratory Exam Respiratory Exam: Decreased Breath Sounds. absent: Rales, Rhonchi Additional comments: on vent intubated - Cardiovascular Exam Cardiovascular Exam: REGULAR RHYTHM, +S1, +S2 - GI/Abdominal Exam GI & Abdominal Exam: Soft, Tenderness (right lower quadrant/left lower quadrant) Additional comments: + positive bowel sounds in the upper quadrants hypoactive bowel sounds in the left and right lower quadrant; patient visibly flinches and guards when I press - Extremities Exam Extremities Exam: absent: Pedal Edema, Tenderness - Neurological Exam Neurological Exam: Awake - Psychiatric Exam Psychiatric exam: Agitated - Skin Skin Exam: Dry, Normal Color, Warm Assessment and Plan (1) Metabolic acidosis Status: Acute (2) Hyperkalemia Status: Acute (3) Abdominal pain Status: Acute (4) Mesenteric ischemia due to arterial insufficiency Status: Acute (5) ESRD (end stage renal disease) on dialysis Status: Acute (6) Acute CHF (congestive heart failure) Status: Acute (7) SVT (supraventricular tachycardia) Status: Acute (8) CKD (chronic kidney disease) Status: Chronic (9) HLD (hyperlipidemia) Status: Chronic (10) HTN (hypertension) Status: Chronic (11) Prophylactic measure Status: Acute Attending/Attestation - Attestation I have personally seen and examined this patient.: Yes I have fully participated in the care of the patient.: Yes I have reviewed all pertinent clinical information, including history, physical exam and plan: Yes Notes (Text): 1. Metabolic Acidosis, Severe; Hyperkalemia * Patient was called for dialysis this morning; awaiting dialysis * Patient has ESRD, off agents with side effect of hyperkalemia; suspected underlying ischemia contributing; origin likely belly * Patient transferred back to ICU 05/20/18. Surgery and critical care on board * Patient called as code sepsis given lactic acidosis, white count, elevated INR. and has received IV abx. Lactic acidosis increasing * blood culture (05/20/18) * Urine culture (05/20/18) * Given Zosyn and Vancomycin 2. Abdominal Pain * suspecting underlying bowel ischemia * Surgery has ordered for this morning repeat CT chest/abdomen/pelvis with IV contrast; possible OR per discussion with my colleague * Patient had completed CT chest/abdomen/pelvis last night; official read not available; noted SMA and celiac are patent further finding per prelim * Patient received 2 units of PRBC overnight * noted possible GI bleed when NGT tube was inserted by nursing note--?patient i s off anticoagulation, off aspirin 3. Thrombocytopenia * secondary to sepsis/shock * Heparin d/c attempted to Argobactran; pending HIT/RUBÉN per ICU * off aspirin 4. CHF Exacerbation * Cardiology (Dr. Frey) on the case-->help appreciated * Echocardiogram 01/17: LV EF 46.1%, left ventricle is normal in size, borderline LV hypertrophy, Grade 1 abnormal relaxation pattern * Chest xray (05/16/18): mild cardiomegaly and mild pulmonary venous congestion, both similar right permacath terminates in the right atrium * Patient is off antihypertensives * Lasix 80mg MWF * Cozaar 50mg po daily * Bystolic 20mg po daily d/c per cardiology; d/c Lopressor; recommend for Cardizem * Imdur 60mg po q24h * Aspirin 81mg PO daily * Crestor 2.5mg POqHS 5. Possible GI bleed * per noted NGT insertion in nursing note * ICU has consult GI (Dr. Lozada) who was operations officer afloat * off aspirin/off anticoagulation * will getting FFP this morning for elevated INR * s/p 2 units of PRBC overnight 6. Shock Liver * given vitamin K overnight * increasing LFTS * pending underlying ischemia * will be getting FFP 7. Tachy arrhythmia; Elevated Troponin * patient does not report any history of arrhythmia; she has been going in and out of arrhythmia during dialysis and post dialysis which spontaneously co nverts on own during hospitalization * Cardiology consulted on the case * Patient ordered repeat echocardiogram; will be completed in the morning. * Patient has completed cardiac cath 05/18/18; patient has nonobstructive coronaries; * Moderate risk for cardiac events for AV fistula surgery under general anaesthesia * Recommend to give cardizem 10-20mg IV pushes if patient develops SVT james opretaively; patient's antihypertensives held secondary to shock 8. Hx of HTN * Patient is off anti-hypertensives * Norvasc 10mg po daily * Clonidine 0.1mg TD weekly * Hydralazine 100mg po bid; Hydralazine 25mg po q4h prn SBP>170 or DBP>110 * Cozaar 50mg po daily * Imdur 60mg po q24h * Cardizem 60mg PO QID 9. IDDM2 * Lantus 10 sub QAM * Aspart 14 units w/ Meals; ACHS; Hypogylcemic protocol * Januvia 25mg po daily 10. Hx of ESRD * femoral line was used initially; now HD done through permacath; left AVR fistula repairted * HD as per nephorlogy * Nephrovite; Renevla 800mg po tid * Social work for outpatient HD * Repaired AVF 05/18/18 11. Hx of Breast Cancer * s/p partial lumpectomy 12. 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 Hx of gout (elbow) * Continue dialysis * hold Uloric not available on hospital formulary 14.MRSA positive in nares * d/dc Mupriocin nasal spray 15. prior history of Constipation * Colace 100mg PO BID * Miralax daily * had had a bowel movement on 05/17/18 * Obstructive series: no obstruction noted; fecal retention on xray * Changed in nature of bowel movement 05/20/18 16. Prophylactic measure * off anticoagulation * On protonix drip * on bicarbonate drip * on 2 pressors * on gentle iv fluid * was on precedex * intubated * on ventilator Critical status No family present at bedside. surgery on board CT Chest/abdomen/pelvis w iv contrast s/p transfusion given Pressors bicarbonate drip IV hydration pending dialysis
--- NOTE | 2018-05-21 11:38 | CT ---
Date of service: 05/21/2018 PROCEDURE: CT Chest, Abdomen and Pelvis with intravenous contrast HISTORY: Rule out ischemic process. Acidosis COMPARISON: Comparison made with prior CT scan of the chest abdomen and pelvis 05/20/2017 TECHNIQUE: Contiguous helical/transaxial sections of the chest abdomen pelvis performed following intravenous injection of approximately 100 cc Visipaque 320 contrast material. Additional 2D sagittal and coronal reformats generated. The a Radiation dose: Total exam DLP = 1633.83 mGy-cm. This CT exam was performed using one or more of the following dose reduction techniques: Automated exposure control, adjustment of the mA and/or kV according to patient size, and/or use of iterative reconstruction technique. FINDINGS: CT CHEST WITH CONTRAST: LUNGS: Mild atelectasis both posterior lower lung welch. Trace effusions not completely excluded. Redemonstrated is an elliptical shaped bulla posterior aspect right upper lobe which contains an elliptical shaped soft tissue density which exhibits Hounsfield units in the low 80s. Mid.. There is also a an adjacent localized nodular on infiltrate in the superior segment left lower lobe abutting the pleural surface. There is a small blebs abutting the lateral pleural surface in the lingular region unchanged. Minimal linear scarring noted in the left upper and lower lobes as well. MEDIASTINUM: Heart remains enlarged. No significant pericardial effusion. The ascending thoracic aorta measures approximately 3.0 cm and descending thoracic aorta measures approximately 2.5 cm. Pulmonary trunk measures approximately 3.2 cm. Partially calcified atherosclerotic plaque seen along the thoracic aorta. In there is an in situ endotracheal tube, tip of which lies approximately 4.1 cm above naeem. Trachea midline and otherwise patent with no large central endoluminal lesions. Midline in situ NGT, the tip of which lies in the lumen of the stomach. Small hiatal hernia. LYMPH NODES: Few small nonspecific mediastinal lymph nodes. No significant hilar adenopathy. PLEURA: Trace bilateral effusions not completely excluded no evidence of pneumothorax BONES: Minor multilevel degenerative spondylosis of the thoracic spine. The clinical a OTHER FINDINGS: Low-attenuation nodular densities seen in the both lobes of the thyroid gland and isthmus as well. CT ABDOMEN AND PELVIS: LIVER: Liver is upper limits of normal measuring over 18 cm in CC dimension. Fatty hepatic infiltration.. Portal and splenic veins are opacified. GALLBLADDER AND BILE DUCTS: Gallbladder is distended with hyperdense material likely related to vicarious excretion of contrast material. PANCREAS: The pancreas is atrophic and fatty replaced. No obvious pancreatic masses or collections. SPLEEN: Spleen is somewhat diminutive in overall size are otherwise unremarkable. ADRENALS: Apparent left adrenal mass measuring approximately 2.9 cm in greatest dimension. Enlarged nodular appearing right adrenal gland. Follow-up noncontrast MRI of the adrenal glands recommended for further evaluation.. KIDNEYS AND URETERS: Kidneys demonstrate relatively delayed nephrograms. Multiple low-attenuation foci both, many of which the largest of which is located in the upper pole exhibiting Hounsfield units in the low to mid teens consistent with cyst.. The other lesions are smaller in size some of which exhibit Hounsfield units excluding simple cyst possibly representing hyperdense cysts; follow-up ultrasound could be performed to exclude any solid components. On the right, the largest on low-attenuation lesion anteromedial cortex mid pole right kidney measures 2.1 cm and exhibits Hounsfield units in the low 40s also excluding simple cysts. Again ultrasound follow-up could confirm and exclude any solid components. Small nonobstructing calculus midpole right kidney again noted. Measuring approximately 2.7 cm and the largest anteromedial cortex mid pole right kidney measuring approximately 2.1 cm. VASCULATURE: Atherosclerotic aortic atherosclerotic calcification or mural plaque present. . There is minimal localized on dilatation of the distal abdominal aorta just above the level of the bifurcation which measures approximately 2.4 cm in greatest dimension. The abdominal aorta just above this level measures approximately 1.8 cm.. BOWEL: Evaluation of the bowel is limited due to the lack of oral contrast material. The stomach is distended with a mixture of a hyperdense and hypodense fluid and air. Multiple nondistended fluid-filled proximal small bowel loops are noted which exhibit slight thick-walled appearance. These findings are of uncertain etiology however rule out enteritis; ischemia cannot be excluded. Clinical correlation recommended. Multiple loops of mid small bowel minimally dilated and also contain fluid.. There is a moderate amount of stool seen in the cecum and ascending colon consistent with mild localized fecal retention/constipation. Air and small amount of stool present within the transverse colon. Most of the descending colon is relatively collapsed. APPENDIX: Appendix is not seen with complete certainty on this study however no obvious inflammatory changes right lower quadrant of the abdomen. PERITONEUM: Unremarkable. No free fluid. No free air. LYMPH NODES: Unremarkable. No enlarged lymph nodes. BLADDER: The urinary bladder is physiologically distended. No evidence of intraluminal gallbladder calculi. REPRODUCTIVE: Unremarkable as visualized. BONES: Mild multilevel degenerative spondylosis of the thoracic spine. OTHER FINDINGS: None. IMPRESSION: In situ ETT and NGT. Mild atelectasis both posterior lower lung welch. Trace effusions not completely excluded. Redemonstrated is an elliptical shaped bulla posterior aspect right upper lobe which contains an elliptical shaped soft tissue density which exhibits Hounsfield units in the low 80s. Mid.. There is also a an adjacent localized nodular on infiltrate in the superior segment left lower lobe abutting the pleural surface. There is a small blebs abutting the lateral pleural surface in the lingular region unchanged. Minimal linear scarring noted in the left upper and lower lobes as well. No evidence of acute mechanical bowel obstruction. Multiple loops of proximal small bowel in the left abdomen small exhibit mild thick-walled appearance. Findings may represent nonspecific enteritis; bowel ischemia less likely however not completely excluded Left adrenal mass. Heterogeneous fatty infiltration of the liver. Multiple low-attenuation foci both kidneys some of which a consistent with cyst though others exhibit on hyperdense attenuation not compatible with simple cysts and could represent hyperdense cyst. Follow-up ultrasound could be performed to confirm. Nonobstructing calculus midpole right kidney. These findings discussed with Dr. Azar at approximately following completion
[2018-05-21 11:40] LABS: CALCIUM 8.2 mg/dl (8.6-10.4)
[2018-05-21 11:49] LABS: INR 4.9
[2018-05-21] MEDS ORDERED: Albuterol 0.083% Inhal Sol (2.5 mg/3 mL) UD INH STA (12:00)
--- NOTE | 2018-05-21 12:21 | CP.PCM.PN ---
Subjective - Date & Time of Evaluation Date of Evaluation: 05/21/18 Time of Evaluation: 12:14 - Subjective Subjective: Intubated, pain tenderness on abdominal palpation with guarding as response, getting hd currently, overnight gradually reducing levphed to 5mg and vasopressin 0.4mg, getting FFP, s/p prbc, bloody esophageal contents, no active bleeding now, surgery planning to take her to OR as INR and hyperkalemia corrects. Objective - Vital Signs/Intake and Output Vital Signs (last 24 hours): Temp Pulse Resp BP Pulse Ox 98.4 F 82 16 145/112 H 100 05/21/18 11:30 05/21/18 11:30 05/21/18 11:20 05/21/18 11:45 05/21/18 11:30 Intake and Output: 05/21/18 05/21/18 06:59 18:59 Intake Total 2524.5 1458.0 Output Total 0 Balance 2524.5 1458.0 - Medications Medications: Current Medications Albuterol Sulfate (Albuterol 0.083% Inhal Ayesha (2.5 Mg/3 Ml) Ud) 2.5 mg INH RQ4 ESTEBAN Last Admin: 05/21/18 08:21 Dose: 2.5 mg Dextrose (Dextrose 50% Inj) 0 ml IV STAT PRN; Protocol PRN Reason: Hypoglycemia Protocol Glucagon (Glucagen Diagnostic Kit) 0 mg IM STAT PRN; Protocol PRN Reason: Hypoglycemia Protocol Hydrocortisone Sodium Succinate (Solu-Cortef) 100 mg IV Q8H ESTEBAN Last Admin: 05/21/18 06:57 Dose: Not Given Ferric Sodium Gluconate Complex 125 mg/ Sodium Chloride 110 mls @ 110 mls/hr IVPB TTS ESTEBAN Stop: 05/28/18 10:01 Last Admin: 05/20/18 12:47 Dose: 110 mls/hr Norepinephrine Bitartrate 8 mg (/ Sodium Chloride) 250 mls @ 7.5 mls/hr IV .Q24H PRN; Protocol PRN Reason: TITRATE PER MD ORDER Last Titration: 05/21/18 10:28 Dose: 5 mcg/min, 9.38 mls/hr Piperacillin Sod/Tazobactam (Sod 2.25 gm/ Sodium Chloride) 100 mls @ 200 mls/hr IVPB Q8H ESTEBAN; Protocol Last Admin: 05/21/18 11:01 Dose: 200 mls/hr Dexmedetomidine HCl 200 mcg/ (Sodium Chloride) 50 mls @ 3.61 mls/hr IV TITR PRN; Protocol PRN Reason: Agitation Last Titration: 05/21/18 02:30 Dose: 0 mcg/kg/hr, 0 mls/hr Pantoprazole Sodium 80 mg/ (Sodium Chloride) 100 mls @ 10 mls/hr IVP .Q10H ESTEBAN Last Admin: 05/21/18 11:26 Dose: 10 mls/hr Vasopressin 40 units/ Dextrose 42 mls @ 2.52 mls/hr IV .[id number] [facility] Last Admin: 05/21/18 06:56 Dose: 2.52 mls/hr Sodium Bicarbonate 150 meq/ (Dextrose) 1,000 mls @ 150 mls/hr IV .[id number] [facility] Last Admin: 05/21/18 09:42 Dose: 150 mls/hr Insulin Aspart (Novolog) 0 unit SC Q6H [facility]; Protocol Last Admin: 05/21/18 07:03 Dose: Not Given Ondansetron HCl (Zofran Inj) 4 mg IVP Q6H PRN PRN Reason: Nausea/Vomiting Last Admin: 05/20/18 09:46 Dose: 4 mg Sevelamer Carbonate (Renvela) 1,600 mg PO TIDCC [facility] Last Admin: 05/21/18 11:33 Dose: Not Given Sodium Bicarbonate (Sodium Bicarbonate Tab) 1,300 mg NG Q6 [facility] Last Admin: 05/21/18 11:33 Dose: Not Given Vitamin B Complex/Vit C/Folic Acid (Nephro-Monie) 1 tab PO 0800 [facility] Last Admin: 05/21/18 08:25 Dose: Not Given - Labs Labs: 05/21/18 05:12 05/21/18 11:07 PT 54.0 SECONDS (9.7-12.2) H D 05/21/18 11:07 INR 4.9 H* D 05/21/18 11:07 APTT 167 SECONDS (21-34) H* D 05/21/18 11:07 - Additional Findings Additional findings: * HEENT JAYE * neck supple * Chest clear * CVS regular, * PA tenderness in abd generalized * Ext no edema * Skin turgor lower * [employer] no focal weakness. Assessment and Plan - Assessment and Plan (Free Text) Assessment: * Severe lacticacidosis with abd as suspected source, repeat CT slight increase in fluid in small intestine. * Shock liver, elevated INR * CRI, getting hd to clear k and acidosis * Low in volume ffp, prbc, bicarb drip as fluids * H/o htn, CRI Plan: * Supportive care * Correcting acidosis, fluid status, potassium * Surgery expolration as above stablized * Surgery team d/w family * See orders for detail.
--- NOTE | 2018-05-21 12:22 | CP.PCM.CON ---
History of Present Illness - History of Present Illness History of Present Illness: ICU Evaluation 83 yo AA female with a long medical history noted yesterday to have a 2g drop in Hgb without any evidence of overt bleeding. Patient has coffee grounds in her NGT and is on a Pantoprazole IV drip. Has been having diffuse lower abdominal pain. Also developed elevation of LFT's and severe metabolic acidosis. Consult requested from medical team for "r/o GI bleed" but suspicion is now for mesenteric ischemia and possible ischemic bowel. Case discussed with Dr Valdez and exporatory Lap is pending acute dialysis for hyperkalemia this morning. Patient is on pressors, intubated and multiple antibiotics, not responsive to commands. Had been in good state of health until several weeks ago and dialysis for CKD was recently started on this admission. Lactate=31 and AST>1000 with normal bilirubin and mildly elevated ALT. No known h/o chronic liver disease or hepatitis. Review of Systems - Review of Systems Systems not reviewed;Unavailable: Intubated Past Patient History - Infectious Disease Hx of Infectious Diseases: None - Past Medical History & Family History Past Medical History?: Yes - Past Social History Smoking Status: Never Smoked - CARDIAC Hx Hypercholesterolemia: Yes Hx Hypertension: Yes - PULMONARY Hx Respiratory Disorders: No - NEUROLOGICAL Hx Neurological Disorder: No - HEENT Hx HEENT Problems: Yes - RENAL Hx Renal Failure: Yes - ENDOCRINE/METABOLIC Hx Diabetes Mellitus Type 2: Yes - HEMATOLOGICAL/ONCOLOGICAL Hx Cancer: Yes (right breast cancer) Hx Chemotherapy: (+ radiation tx) Hx Cirrhosis: No Hx Hepatitis A: No Hx Hepatitis B: No Hx Hepatitis C: No Hx Human Immunodeficiency Virus (HIV): No - INTEGUMENTARY Hx Dermatological Problems: Yes Other/Comment: HX: "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." - MUSCULOSKELETAL/RHEUMATOLOGICAL Hx Falls: No Hx Gout: Yes (great toe) - GASTROINTESTINAL Hx Gastrointestinal Disorders: No Hx Bowel Surgery: No Hx Clostridium Difficile: No Hx Colitis: No Hx Colostomy: No Hx Constipation: No Hx Crohn's Disease: No Hx Diarrhea: No Hx Diverticulitis: No Hx Esophageal Varices: No Hx Fatty Liver Disease: No Hx Gall Bladder Disease: No Hx Gastritis: No Hx Gastroesophageal Reflux: No Hx Hemorrhoids: No Hx Ileostomy: No Hx Irritable Bowel: No Hx Liver Failure: No Hx Nausea: No Hx Pancreatitis: No HX Swallowing Problems: No Hx Ulcer: No Hx Vomiting: No - GENITOURINARY/GYNECOLOGICAL Hx Genitourinary Disorders: No - PSYCHIATRIC Hx Psychophysiologic Disorder: No Hx Substance Use: No - SURGICAL HISTORY Hx Arteriovenous Shunt: Yes (left arm 02-15-2018) Hx Cataract Extraction: Yes Other/Comment: right breast lumpectomy - ANESTHESIA Hx Anesthesia: Yes Hx Anesthesia Reactions: No Hx Malignant Hyperthermia: No Meds Allergies/Adverse Reactions: Allergies Allergy/AdvReac Type Severity Reaction Status Date / Time No Known Allergies Allergy Verified 05/10/18 18:45 - Medications Medications: Current Medications Albuterol Sulfate (Albuterol 0.083% Inhal Ayesha (2.5 Mg/3 Ml) Ud) 2.5 mg INH RQ4 ESTEBAN Last Admin: 05/21/18 08:21 Dose: 2.5 mg Dextrose (Dextrose 50% Inj) 0 ml IV STAT PRN; Protocol PRN Reason: Hypoglycemia Protocol Glucagon (Glucagen Diagnostic Kit) 0 mg IM STAT PRN; Protocol PRN Reason: Hypoglycemia Protocol Hydrocortisone Sodium Succinate (Solu-Cortef) 100 mg IV Q8H ESTEBAN Last Admin: 05/21/18 06:57 Dose: Not Given Ferric Sodium Gluconate Complex 125 mg/ Sodium Chloride 110 mls @ 110 mls/hr IVPB TTS ESTEBAN Stop: 05/28/18 10:01 Last Admin: 05/20/18 12:47 Dose: 110 mls/hr Norepinephrine Bitartrate 8 mg (/ Sodium Chloride) 250 mls @ 7.5 mls/hr IV .Q24H PRN; Protocol PRN Reason: TITRATE PER MD ORDER Last Titration: 05/21/18 10:28 Dose: 5 mcg/min, 9.38 mls/hr Piperacillin Sod/Tazobactam (Sod 2.25 gm/ Sodium Chloride) 100 mls @ 200 mls/hr IVPB Q8H ESTEBAN; Protocol Last Admin: 05/21/18 11:01 Dose: 200 mls/hr Dexmedetomidine HCl 200 mcg/ (Sodium Chloride) 50 mls @ 3.61 mls/hr IV TITR PRN; Protocol PRN Reason: Agitation Last Titration: 05/21/18 02:30 Dose: 0 mcg/kg/hr, 0 mls/hr Pantoprazole Sodium 80 mg/ (Sodium Chloride) 100 mls @ 10 mls/hr IVP .Q10H ESTEBAN Last Admin: 05/21/18 11:26 Dose: 10 mls/hr Vasopressin 40 units/ Dextrose 42 mls @ 2.52 mls/hr IV .[id number] [facility] Last Admin: 05/21/18 06:56 Dose: 2.52 mls/hr Sodium Bicarbonate 150 meq/ (Dextrose) 1,000 mls @ 150 mls/hr IV .Q6H40M [facility] Last Admin: 05/21/18 09:42 Dose: 150 mls/hr Insulin Aspart (Novolog) 0 unit SC Q6H [facility]; Protocol Last Admin: 05/21/18 07:03 Dose: Not Given Ondansetron HCl (Zofran Inj) 4 mg IVP Q6H PRN PRN Reason: Nausea/Vomiting Last Admin: 05/20/18 09:46 Dose: 4 mg Sevelamer Carbonate (Renvela) 1,600 mg PO TIDCC [facility] Last Admin: 05/21/18 11:33 Dose: Not Given Sodium Bicarbonate (Sodium Bicarbonate Tab) 1,300 mg NG Q6 [facility] Last Admin: 05/21/18 11:33 Dose: Not Given Vitamin B Complex/Vit C/Folic Acid (Nephro-Monie) 1 tab PO 0800 [facility] Last Admin: 05/21/18 08:25 Dose: Not Given Physical Exam - Constitutional Appears: No Acute Distress Additional comments: Intubated and not responding to commands. Dialysis in progress acutely. - Head Exam Head Exam: ATRAUMATIC, NORMOCEPHALIC Additional comments: NGT with coffee grounds and ET tubes in place - Respiratory Exam Respiratory Exam: Decreased Breath Sounds, Rhonchi - Cardiovascular Exam Cardiovascular Exam: Tachycardia - GI/Abdominal Exam GI & Abdominal Exam: Distended, Hypoactive Bowel Sounds, Soft. absent: Mass, Rebound Additional comments: Morbidly obese. - Rectal Exam Additional comments: dark stool - Extremities Exam Extremities exam: Positive for: pedal edema - Neurological Exam Additional comments: not responsive to commands Results - Vital Signs Recent Vital Signs: Last Vital Signs Temp 98.4 F 05/21/18 11:30 Pulse 82 05/21/18 11:30 Resp 16 05/21/18 11:20 BP 145/112 H 05/21/18 11:45 Pulse Ox 100 05/21/18 11:30 - Labs Result Diagrams: 05/21/18 05:12 05/21/18 11:07 Labs: Laboratory Results - last 24 hr 05/20/18 05/20/18 05/20/18 16:00 16:02 17:03 WBC RBC Hgb Hct MCV MCH MCHC RDW Plt Count MPV Neut % (Auto) Lymph % (Auto) [place] % (Auto) Eos % (Auto) Baso % (Auto) Neut # (Auto) Lymph # (Auto) [place] # (Auto) Eos # (Auto) Baso # (Auto) Neutrophils % (Manual) Band Neutrophils % Lymphocytes % (Manual) Reactive Lymphs % Monocytes % (Manual) Metamyelocytes % Myelocytes % Blast Cells % Nucleated RBC % Hypersegmented Polys Smudge Cells Toxic Granulation Platelet Estimate Large Platelets Polychromasia Hypochromasia (manual) Poikilocytosis (manual Anisocytosis (manual) Microcytosis (manual) Spherocytes Target Cells Tear Drop Cells Ovalocytes Acanthocytes (Spur) Schistocytes PT INR APTT Fibrinogen Puncture Site pCO2 pO2 HCO3 ABG pH ABG Total CO2 ABG O2 Saturation ABG Base Excess Trent Test ABG Potassium VBG pH VBG pCO2 VBG HCO3 VBG Total CO2 VBG O2 Sat (Calc) VBG Base Excess VBG Potassium A-a O2 Difference Respiratory Index Sodium Chloride Glucose Lactate Liter Flow Vent Mode Mechanical Rate FiO2 Tidal Volume PEEP Crit Value Called To Crit Value Called By Crit Value Read Back Blood Gas Notified Time Potassium Carbon Dioxide Anion Gap BUN Creatinine Est GFR ( Amer) Est GFR (Non-Af Amer) POC Glucose (mg/dL) 55 L 91 Random Glucose Lactic Acid Calcium Phosphorus Magnesium Total Bilirubin AST ALT Alkaline Phosphatase Total Creatine Kinase CK-MB (Mass) Troponin I Total Protein Albumin Globulin Albumin/Globulin Ratio Lipase 63 Arterial Blood Potassium Venous Blood Potassium Blood Type Antibody Screen 05/20/18 05/20/18 05/20/18 18:08 18:09 18:18 WBC RBC Hgb Hct MCV MCH MCHC RDW Plt Count MPV Neut % (Auto) Lymph % (Auto) [place] % (Auto) Eos % (Auto) Baso % (Auto) Neut # (Auto) Lymph # (Auto) [place] # (Auto) Eos # (Auto) Baso # (Auto) Neutrophils % (Manual) Band Neutrophils % Lymphocytes % (Manual) Reactive Lymphs % Monocytes % (Manual) Metamyelocytes % Myelocytes % Blast Cells % Nucleated RBC % Hypersegmented Polys Smudge Cells Toxic Granulation Platelet Estimate Large Platelets Polychromasia Hypochromasia (manual) Poikilocytosis (manual Anisocytosis (manual) Microcytosis (manual) Spherocytes Target Cells Tear Drop Cells Ovalocytes Acanthocytes (Spur) Schistocytes PT INR APTT Fibrinogen Puncture Site pCO2 pO2 HCO3 ABG pH ABG Total CO2 ABG O2 Saturation ABG Base Excess Trent Test ABG Potassium VBG pH VBG pCO2 VBG HCO3 VBG Total CO2 VBG O2 Sat (Calc) VBG Base Excess VBG Potassium A-a O2 Difference Respiratory Index Sodium Chloride Glucose Lactate Liter Flow Vent Mode Mechanical Rate FiO2 Tidal Volume PEEP Crit Value Called To Crit Value Called By Crit Value Read Back Blood Gas Notified Time Potassium Carbon Dioxide Anion Gap BUN Creatinine Est GFR ( Amer) Est GFR (Non-Af Amer) POC Glucose (mg/dL) 58 L 66 124 H Random Glucose Lactic Acid Calcium Phosphorus Magnesium Total Bilirubin AST ALT Alkaline Phosphatase Total Creatine Kinase CK-MB (Mass) Troponin I Total Protein Albumin Globulin Albumin/Globulin Ratio Lipase Arterial Blood Potassium Venous Blood Potassium Blood Type Antibody Screen 05/20/18 05/20/18 05/20/18 18:30 18:57 19:52 WBC RBC Hgb Hct MCV MCH MCHC RDW Plt Count MPV Neut % (Auto) Lymph % (Auto) [place] % (Auto) Eos % (Auto) Baso % (Auto) Neut # (Auto) Lymph # (Auto) [place] # (Auto) Eos # (Auto) Baso # (Auto) Neutrophils % (Manual) Band Neutrophils % Lymphocytes % (Manual) Reactive Lymphs % Monocytes % (Manual) Metamyelocytes % Myelocytes % Blast Cells % Nucleated RBC % Hypersegmented Polys Smudge Cells Toxic Granulation Platelet Estimate Large Platelets Polychromasia Hypochromasia (manual) Poikilocytosis (manual Anisocytosis (manual) Microcytosis (manual) Spherocytes Target Cells Tear Drop Cells Ovalocytes Acanthocytes (Spur) Schistocytes PT INR APTT Fibrinogen Puncture Site Rr Rba pCO2 17 L* 18 L* pO2 169 H 377 H HCO3 3.9 L* 9.6 L* ABG pH 6.95 L* 7.17 L* ABG Total CO2 4.2 L 7.2 L ABG O2 Saturation 100.2 H 100.8 H ABG Base Excess -27.0 L -19.8 L Trent Test P Na ABG Potassium 5.3 H 5.5 H VBG pH VBG pCO2 VBG HCO3 VBG Total CO2 VBG O2 Sat (Calc) VBG Base Excess VBG Potassium A-a O2 Difference 314.0 Respiratory Index 0.8 Sodium 142.0 Chloride 97.0 L 96.0 L Glucose 350 H 253 H Lactate > 20.0 H* > 20.0 H* Liter Flow 4.0 Vent Mode Prvc Mechanical Rate 20 FiO2 100.0 Tidal Volume 500 PEEP 5 Crit Value Called To Dr ruddy Callaway horticulture instructor Crit Value Called By Ga.rt Lendl Crit Value Read Back Y Y Blood Gas Notified Time 1839 1954 Potassium Carbon Dioxide Anion Gap BUN Creatinine Est GFR ( Amer) Est GFR (Non-Af Amer) POC Glucose (mg/dL) 300 H Random Glucose Lactic Acid Calcium Phosphorus Magnesium Total Bilirubin AST ALT Alkaline Phosphatase Total Creatine Kinase CK-MB (Mass) Troponin I Total Protein Albumin Globulin Albumin/Globulin Ratio Lipase Arterial Blood Potassium 5.3 H 5.5 H Venous Blood Potassium Blood Type Antibody Screen 05/20/18 05/20/18 05/20/18 22:20 22:20 22:20 WBC 15.0 H RBC 3.34 L Hgb 9.2 L D Hct 31.5 L MCV 94.1 D MCH 27.4 MCHC 29.1 L RDW 21.7 H Plt Count 186 MPV 10.5 Neut % (Auto) 84.7 H Lymph % (Auto) 10.6 L [place] % (Auto) 3.7 Eos % (Auto) 0.6 Baso % (Auto) 0.4 Neut # (Auto) 12.7 H Lymph # (Auto) 1.6 [place] # (Auto) 0.6 Eos # (Auto) 0.1 Baso # (Auto) 0.1 Neutrophils % (Manual) 78 H Band Neutrophils % 9 H Lymphocytes % (Manual) 10 L Reactive Lymphs % Monocytes % (Manual) 3 Metamyelocytes % Myelocytes % Blast Cells % Nucleated RBC % 3 H Hypersegmented Polys Present Smudge Cells Present Toxic Granulation Present Platelet Estimate Decreased L Large Platelets Present Polychromasia Hypochromasia (manual) Slight Poikilocytosis (manual Slight Anisocytosis (manual) Slight Microcytosis (manual) Slight Spherocytes Slight Target Cells Tear Drop Cells Slight Ovalocytes Acanthocytes (Spur) Schistocytes PT 23.6 H D INR 2.2 D APTT 68 H D Fibrinogen Puncture Site pCO2 pO2 HCO3 ABG pH ABG Total CO2 ABG O2 Saturation ABG Base Excess Trent Test ABG Potassium VBG pH VBG pCO2 VBG HCO3 VBG Total CO2 VBG O2 Sat (Calc) VBG Base Excess VBG Potassium A-a O2 Difference Respiratory Index Sodium 143 Chloride 95 L Glucose Lactate Liter Flow Vent Mode Mechanical Rate FiO2 Tidal Volume PEEP Crit Value Called To Crit Value Called By Crit Value Read Back Blood Gas Notified Time Potassium 5.4 H Carbon Dioxide 8 L* D Anion Gap 45 H BUN 24 H Creatinine 5.0 H Est GFR ( Amer) 10 Est GFR (Non-Af Amer) 8 POC Glucose (mg/dL) Random Glucose 207 H Lactic Acid Calcium 9.6 Phosphorus 14.4 H Magnesium 2.7 H Total Bilirubin 1.0 AST 06354 H ALT 3783 H Alkaline Phosphatase 80 Total Creatine Kinase CK-MB (Mass) Troponin I 0.3470 H* Total Protein 5.7 L Albumin 2.8 L D Globulin 2.9 Albumin/Globulin Ratio 1.0 Lipase Arterial Blood Potassium Venous Blood Potassium Blood Type Antibody Screen 05/20/18 05/21/18 05/21/18 22:21 00:01 00:01 WBC RBC Hgb Hct MCV MCH MCHC RDW Plt Count MPV Neut % (Auto) Lymph % (Auto) [place] % (Auto) Eos % (Auto) Baso % (Auto) Neut # (Auto) Lymph # (Auto) [place] # (Auto) Eos # (Auto) Baso # (Auto) Neutrophils % (Manual) Band Neutrophils % Lymphocytes % (Manual) Reactive Lymphs % Monocytes % (Manual) Metamyelocytes % Myelocytes % Blast Cells % Nucleated RBC % Hypersegmented Polys Smudge Cells Toxic Granulation Platelet Estimate Large Platelets Polychromasia Hypochromasia (manual) Poikilocytosis (manual Anisocytosis (manual) Microcytosis (manual) Spherocytes Target Cells Tear Drop Cells Ovalocytes Acanthocytes (Spur) Schistocytes PT INR APTT Fibrinogen Puncture Site pCO2 pO2 HCO3 ABG pH ABG Total CO2 ABG O2 Saturation ABG Base Excess Trent Test ABG Potassium VBG pH VBG pCO2 VBG HCO3 VBG Total CO2 VBG O2 Sat (Calc) VBG Base Excess VBG Potassium A-a O2 Difference Respiratory Index Sodium Chloride Glucose Lactate Liter Flow Vent Mode Mechanical Rate FiO2 Tidal Volume PEEP Crit Value Called To Crit Value Called By Crit Value Read Back Blood Gas Notified Time Potassium Carbon Dioxide Anion Gap BUN Creatinine Est GFR ( Amer) Est GFR (Non-Af Amer) POC Glucose (mg/dL) 191 H Random Glucose Lactic Acid 27.5 H* Calcium Phosphorus Magnesium Total Bilirubin AST ALT Alkaline Phosphatase Total Creatine Kinase CK-MB (Mass) Troponin I Total Protein Albumin Globulin Albumin/Globulin Ratio Lipase Arterial Blood Potassium Venous Blood Potassium Blood Type O POSITIVE Antibody Screen Negative 05/21/18 05/21/18 05/21/18 03:25 05:12 05:12 WBC 11.6 H RBC 3.29 L Hgb 9.2 L Hct 31.6 L MCV 95.9 MCH 27.9 MCHC 29.1 L RDW 19.8 H Plt Count 112 L D MPV 9.9 Neut % (Auto) Lymph % (Auto) [place] % (Auto) Eos % (Auto) Baso % (Auto) Neut # (Auto) 4.3 Lymph # (Auto) 0.7 L [place] # (Auto) 0.2 Eos # (Auto) 6.1 H Baso # (Auto) 0.2 Neutrophils % (Manual) 54 Band Neutrophils % 18 H* Lymphocytes % (Manual) 15 L Reactive Lymphs % 1 H Monocytes % (Manual) 8 Metamyelocytes % 1 H Myelocytes % 2 H Blast Cells % 1 H Nucleated RBC % 8 H Hypersegmented Polys Smudge Cells Toxic Granulation Platelet Estimate Decreased L Large Platelets Polychromasia Moderate Hypochromasia (manual) Moderate Poikilocytosis (manual Marked Anisocytosis (manual) Moderate Microcytosis (manual) Moderate Spherocytes Slight Target Cells Slight Tear Drop Cells Moderate Ovalocytes Moderate Acanthocytes (Spur) Marked Schistocytes Moderate PT INR APTT Fibrinogen Puncture Site pCO2 pO2 77 H HCO3 ABG pH ABG Total CO2 ABG O2 Saturation ABG Base Excess Trent Test ABG Potassium VBG pH 7.11 L* VBG pCO2 23 L VBG HCO3 8.7 VBG Total CO2 8.0 L VBG O2 Sat (Calc) 94.1 H VBG Base Excess -20.5 L VBG Potassium 6.9 H* A-a O2 Difference Respiratory Index Sodium 146.0 Chloride 96.0 L Glucose 146 H Lactate > 20.0 H* Liter Flow Vent Mode Mechanical Rate FiO2 100.0 Tidal Volume PEEP 5 Crit Value Called To Crit Value Called By Mahad director of enterprise strategy Crit Value Read Back Y Blood Gas Notified Time 329 Potassium Carbon Dioxide Anion Gap BUN Creatinine Est GFR ( Amer) Est GFR (Non-Af Amer) POC Glucose (mg/dL) Random Glucose Lactic Acid 31.1 H* Calcium Phosphorus Magnesium Total Bilirubin AST ALT Alkaline Phosphatase Total Creatine Kinase CK-MB (Mass) Troponin I Total Protein Albumin Globulin Albumin/Globulin Ratio Lipase Arterial Blood Potassium Venous Blood Potassium 6.9 H* Blood Type Antibody Screen 05/21/18 05/21/18 05/21/18 05:12 06:05 11:07 WBC RBC Hgb Hct MCV MCH MCHC RDW Plt Count MPV Neut % (Auto) Lymph % (Auto) [place] % (Auto) Eos % (Auto) Baso % (Auto) Neut # (Auto) Lymph # (Auto) [place] # (Auto) Eos # (Auto) Baso # (Auto) Neutrophils % (Manual) Band Neutrophils % Lymphocytes % (Manual) Reactive Lymphs % Monocytes % (Manual) Metamyelocytes % Myelocytes % Blast Cells % Nucleated RBC % Hypersegmented Polys Smudge Cells Toxic Granulation Platelet Estimate Large Platelets Polychromasia Hypochromasia (manual) Poikilocytosis (manual Anisocytosis (manual) Microcytosis (manual) Spherocytes Target Cells Tear Drop Cells Ovalocytes Acanthocytes (Spur) Schistocytes PT 54.0 H D INR 4.9 H* D APTT 167 H* D Fibrinogen 165 L Puncture Site pCO2 pO2 HCO3 ABG pH ABG Total CO2 ABG O2 Saturation ABG Base Excess Trent Test ABG Potassium VBG pH VBG pCO2 VBG HCO3 VBG Total CO2 VBG O2 Sat (Calc) VBG Base Excess VBG Potassium A-a O2 Difference Respiratory Index Sodium 143 Chloride 94 L Glucose Lactate Liter Flow Vent Mode Mechanical Rate FiO2 Tidal Volume PEEP Crit Value Called To Crit Value Called By Crit Value Read Back Blood Gas Notified Time Potassium 7.0 H* D Carbon Dioxide 9 L* Anion Gap 47 H BUN 26 H Creatinine 5.0 H Est GFR ( Amer) 10 Est GFR (Non-Af Amer) 8 POC Glucose (mg/dL) 302 H Random Glucose 369 H D Lactic Acid Calcium 8.4 L Phosphorus 16.4 H Magnesium 2.4 H Total Bilirubin 1.0 AST 62287 H ALT 4728 H Alkaline Phosphatase 75 Total Creatine Kinase 369 H CK-MB (Mass) 4.96 H Troponin I 0.3070 H* Total Protein 4.5 L Albumin 2.0 L D Globulin 2.5 Albumin/Globulin Ratio 0.8 L Lipase Arterial Blood Potassium Venous Blood Potassium Blood Type Antibody Screen 05/21/18 05/21/18 11:07 11:28 WBC RBC Hgb Hct MCV MCH MCHC RDW Plt Count MPV Neut % (Auto) Lymph % (Auto) [place] % (Auto) Eos % (Auto) Baso % (Auto) Neut # (Auto) Lymph # (Auto) [place] # (Auto) Eos # (Auto) Baso # (Auto) Neutrophils % (Manual) Band Neutrophils % Lymphocytes % (Manual) Reactive Lymphs % Monocytes % (Manual) Metamyelocytes % Myelocytes % Blast Cells % Nucleated RBC % Hypersegmented Polys Smudge Cells Toxic Granulation Platelet Estimate Large Platelets Polychromasia Hypochromasia (manual) Poikilocytosis (manual Anisocytosis (manual) Microcytosis (manual) Spherocytes Target Cells Tear Drop Cells Ovalocytes Acanthocytes (Spur) Schistocytes PT INR APTT Fibrinogen Puncture Site pCO2 pO2 HCO3 ABG pH ABG Total CO2 ABG O2 Saturation ABG Base Excess Trent Test ABG Potassium VBG pH VBG pCO2 VBG HCO3 VBG Total CO2 VBG O2 Sat (Calc) VBG Base Excess VBG Potassium A-a O2 Difference Respiratory Index Sodium 145 Chloride 92 L Glucose Lactate Liter Flow Vent Mode Mechanical Rate FiO2 Tidal Volume PEEP Crit Value Called To Crit Value Called By Crit Value Read Back Blood Gas Notified Time Potassium 6.4 H* Carbon Dioxide 11 L* D Anion Gap 48 H BUN 29 H Creatinine 4.9 H Est GFR ( Amer) 10 Est GFR (Non-Af Amer) 8 POC Glucose (mg/dL) 284 H Random Glucose 298 H Lactic Acid Calcium 8.2 L Phosphorus Magnesium Total Bilirubin AST ALT Alkaline Phosphatase Total Creatine Kinase CK-MB (Mass) Troponin I Total Protein Albumin Globulin Albumin/Globulin Ratio Lipase Arterial Blood Potassium Venous Blood Potassium Blood Type Antibody Screen - Imaging and Cardiology CT scan - abdomen Status: Image reviewed by me, Report reviewed by me Assessment & Plan (1) Acute GI bleeding Assessment and Plan: Occult coffee ground in association with 2g drop in Hgb may be due to acute ischemic bowel, gastritis/ulceration due to hypotension and shock. Supportive care including transfusion of blood products IV Protonix drip Surgical consultation awaiting Laparotomy for exploration for ischemic bowel. Status: Acute (2) Shock liver Assessment and Plan: Due to hypotension, shock and likely bowel ischemia. No prior h/o liver disease noted. Status: Acute (3) Abnormal transaminases Assessment and Plan: as above. Status: Acute (4) Anemia due to acute blood loss Assessment and Plan: Supportive care with blood products and Protonix drip. Status: Acute (5) Mesenteric ischemia due to arterial insufficiency Assessment and Plan: For OR today following acute dialysis. Prognosis guarded. Status: Acute (6) Lactic acidosis Assessment and Plan: Due to shock and likely ischemic bowel. Supportive care per ICU team. Status: Acute
--- NOTE | 2018-05-21 12:49 | CT ---
Date of service: 05/20/2018 PROCEDURE: CT HEAD WITHOUT CONTRAST. HISTORY: AMS COMPARISON: None available. TECHNIQUE: Axial computed tomography images were obtained through the head/brain without intravenous contrast. Radiation dose: Total exam DLP = 1337.61 mGy-cm. This CT exam was performed using one or more of the following dose reduction techniques: Automated exposure control, adjustment of the mA and/or kV according to patient size, and/or use of iterative reconstruction technique. FINDINGS: HEMORRHAGE: No intracranial hemorrhage. BRAIN: No mass effect or edema. Atrophy. Chronic microvascular ischemic changes. VENTRICLES: Unremarkable. No hydrocephalus. CALVARIUM: Unremarkable. PARANASAL SINUSES: Unremarkable as visualized. No significant inflammatory changes. MASTOID AIR CELLS: Unremarkable as visualized. No inflammatory changes. OTHER FINDINGS: Partially imaged endotracheal tube. IMPRESSION: Limited evaluation due to motion artifact. No acute intracranial pathology.
[2018-05-21 15:00] VITALS: RESP 20
--- NOTE | 2018-05-21 15:42 | PCM.SURG1 ---
Surgeon's Initial Post Op Note - Surgeon's Notes Surgeon: Dr. Valdez Director Of Golf: Nissa PGY2 Type of Anesthesia: General Endo Anesthesia Administered By: Dr. Sibley Pre-Operative Diagnosis: Messenteric Ischemia Operative Findings: See operative report. Mid-Jejunum to Transverse colon ischemia with patchy dusky areas of bowel. Areas of ischemia noted on Liver parenchyma. Palpable Hepatic artery pulse. Palpable SMA pulse. Fascia left open and Green Fish left in abdomen for planned re-look operation tomorrow. Post-Operative Diagnosis: Messenteric Ischemia due Low Flow State. Operation Performed: Exploratory Laparotomy. Lysis of adhesions. Examination of entire bowel. Specimen/Specimens Removed: none Estimated Blood Loss: EBL {In ML}: 0 Blood Products Given: N/A Drains Used: No Drains Post-Op Condition: Poor Date of Surgery/Procedure: 05/21/18 Time of Surgery/Procedure: 15:50
[2018-05-21] MEDS ORDERED: Sodium Chloride 0.9% 1,000 ML IV ONE (15:45)
[2018-05-21 15:59] LABS: VENOUS BLOOD GAS BASE EXCESS -13.2 mmol/L (0.0-2.0); VENOUS BLOOD GAS PCO2 42 mmHg (40-60); VENOUS BLOOD GAS PO2 57 mm/Hg (30-55); VENOUS BLOOD PH 7.16 (7.32-7.43)
[2018-05-21 16:35] LABS: INR 2.9; PROTHROMBIN TIME 32.3 SECONDS (9.7-12.2)
[2018-05-21 16:42] LABS: EOS # 1.2 K/uL (0.0-0.7); EOS % 11.8 % (0.0-4.0); LYMPH # 0.9 K/uL (1.0-4.3); MONO # 0.2 K/uL (0.0-0.8); NEUT # 7.7 K/uL (1.8-7.0); WHITE BLOOD COUNT 9.9 K/uL (4.8-10.8)
[2018-05-21 16:47] LABS: ALB/GLOB RATIO 1.1 (1.0-2.1); ALBUMIN 2.9 g/dL (3.5-5.0); CALCIUM 7.6 mg/dl (8.6-10.4)
[2018-05-21] MEDS: Sodium Bicarbonate 8.4% 150 MEQ in Dextrose 5% In Water 850 ML IV SCH ×3 (16:52→20:20)
[2018-05-21 17:14] LABS: BASO % 0.2 % (0.0-2.0); HEMOGLOBIN 8.4 g/dL (11.0-16.0); MEAN CELL VOLUME 93.4 fL (81.0-99.0); MEAN CORPUSCULAR HEMOGLOBIN 27.6 pg (27.0-31.0); MEAN CORPUSCULAR HGB CONC 29.5 g/dL (33.0-37.0); MONO % 1.8 % (0.0-10.0); NEUT % 77.2 % (50.0-75.0); NRBC % 14.1 % (0.0-2.0); PLATELET COUNT 91 K/uL (130-400); RBC 3.05 Mil/uL (3.80-5.20); RED CELL DISTRIBUTION WIDTH 19.3 % (11.5-14.5)
--- NOTE | 2018-05-21 17:35 | CT ---
PROCEDURE: CT Angiography Chest, Abdomen and Pelvis with and without intravenous contrast HISTORY: Elevated lactate, abdominal pain, concern for ischemia.. ESRD COMPARISON: No prior study available for comparison TECHNIQUE: Contiguous axial images of the chest, abdomen and pelvis were obtained in the phase of aortic enhancement. A noncontrast enhanced CT of the chest was also obtained to evaluate for possible intramural thrombus. Coronal and sagittal reformats were generated. IV dose administered: 100 cc Visipaque 320 contrast Radiation dose: Total exam DLP = 1119.18 mGy-cm. This CT exam was performed using one or more of the following dose reduction techniques: Automated exposure control, adjustment of the mA and/or kV according to patient size, and/or use of iterative reconstruction technique. FINDINGS: CT ANGIOGRAPHY OF THE CHEST WITH & WITHOUT CONTRAST: AORTA (CHEST AND ABDOMEN): The thoracic aorta are unremarkable, without aneurysm, dissection or rupture.. Ascending thoracic aorta measures approximately 2.84 cm and descending thoracic aorta measures approximate 2.54 cm... Calcified atherosclerotic plaque seen along the thoracic aorta.. There is the abdominal aorta exhibits atherosclerotic plaque throughout extending into the iliac arteries. There is mild localized dilatation of the distal abdominal aorta measuring approximately 2.4 cm in greatest diameter. .There are atherosclerotic plaque changes seen at the origins of the celiac axis, SMA, both renal arteries. The visualized proximal and mid margins of these vessels are patent so far as can be seen. LA also appears patent along its proximal margin of in river distally cannot be adequately evaluated. The pelvic arteries are unremarkable. Pulmonary trunk measures approximately 3.3 cm. Visualized pulmonary trunk, right and left main, lobar, segmental and proximal subsegmental branches of the pulmonary arteries are well opacified with no definitive filling defects seen to suggest acute central pulmonary embolus... Note made of some reflux into the IVC and hepatic veins; rule out right heart dysfunction. LUNGS: There is a small to medium sized bulla seen in the posterior inferior aspect right upper lobe bordering the pleural surface with a an eccentric curvilinear density left posteriorly located within this bulla that could represent some old clot or granulation tissue.. Mild atelectasis both posterior lower lung welch. Appears to be some mild bronchiectasis both lower lobes. Questionable trace effusions. MEDIASTINUM: In situ ETT, the tip of which lies approximately 3.2 cm above naeem. Right IJ dialysis catheter in place with tips in the SVC/RA junction. There are multiple relatively small mediastinal lymph nodes. No significant hilar adenopathy. Trachea midline and otherwise patent with no large central endoluminal lesions. Air is seen throughout the esophagus. Heart size is normal/upper limits of in size. There LYMPH NODES: As above. PLEURA: No evidence of pneumothorax. BONES: Multilevel degenerative spondylosis of the thoracic spine. Apparent skin closure lani proximal medial surface left upper extremity OTHER FINDINGS: There are multiple low-attenuation foci scattered throughout both lobes of the thyroid gland including the isthmus. Follow-up thyroid ultrasound recommended. CT ANGIOGRAPHY OF THE ABDOMEN AND PELVIS WITH CONTRAST: LIVER: Liver exhibits some upper limits of normal in size measuring over 18 cm. Fatty hepatic infiltration felt be present. There is reflux contrast material into the and hepatic IVC and hepatic veins; rule out right heart dysfunction. GALLBLADDER AND BILE DUCTS: Gallbladder contains hyperdense material likely representing vicarious excretion of contrast material. PANCREAS: Pancreas atrophic and fatty replaced. SPLEEN: Spleen exhibits normal size. ADRENALS: Left adrenal mass measuring approximately 2.9 cm. Nodular appearing right adrenal gland. KIDNEYS AND URETERS: Kidneys demonstrate relatively symmetric size. No significant contrast enhancement identified at this time. Bilateral low-attenuation lesions likely represent cysts however correlation with ultrasound could be performed to confirm and exclude any solid components. VASCULATURE: Unremarkable. No aortic aneurysm. No aortic atherosclerotic calcification or mural plaque present. STOMACH AND BOWEL: Evaluation of the bowel is somewhat limited due to the lack of oral contrast material the stomach is distended with food debris-liquid and air there are multiple loops of proximal small bowel in the left abdomen which exhibit minimal wall thickening possibly representing enteritis. Multiple on slightly distended fluid-filled loops of distal small bowel present with no significant wall thickening. Moderate amount of stool is seen within the cecum and at ascending as well as proximal transverse colon consistent with fecal retention/constipation. Wall thickening of the mid and distal descending colon likely due to collapse however the possibility of a inflammatory process of the wall cannot be excluded.. There is an occasional colonic diverticula APPENDIX: Appendix is not seen with complete certainty. PERITONEUM: Unremarkable. No free fluid. No free air. LYMPH NODES: Unremarkable. No enlarged lymph nodes. BLADDER: Urinary bladder is physiologically distended. REPRODUCTIVE: Unremarkable as visualized BONES: Multilevel degenerative spondylosis of the lumbar spine OTHER FINDINGS: None. IMPRESSION: No definitive evidence of thoracic aortic dissection or aneurysm. There is localized mild dilatation of the distal abdominal aorta as described. There are atherosclerotic plaque changes seen along the entire length of the thoracic and abdominal aorta with calcified plaque changes at the origins of the celiac axis, SMA both renal arteries however proximal margins of these vessels are patent. The LA is faintly seen in appears patent so far as can be seen. No evidence of acute central pulmonary embolus. Reflux of contrast material into the hepatic IVC and hepatic veins suggesting right heart dysfunction. Left upper lobe bulla containing a hyperdense curvilinear density possibly representing scar or old clot. Clinical correlation recommended... Mild bibasilar atelectasis and scarring changes. Bronchiectasis seen both lower lung welch. Localized wall thickening of multiple loops of proximal small bowel left abdomen possibly representing an enteritis. Multiple low-attenuation lesions both kidneys; findings likely represent renal cysts however follow-up renal ultrasound could confirm and exclude any solid components. Left adrenal mass. Multiple low-attenuation lesions within the thyroid gland. Follow-up thyroid ultrasound recommended. Fatty infiltration.
[2018-05-21 18:40] LABS: PLATELET ESTIMATE DECREASED (NORMAL)
[2018-05-21 18:43] LABS: BANDS 9 % (0-2); LYMPHOCYTE 11 % (20-40); METAMYELOCYTE 1 % (0-0); MONOCYTE 4 % (0-10); MYELOCYTE 5 % (0-0); NEUTROPHIL 63 % (50-75); NUCLEATED RED BLOOD CELL 14 % (0-0); PROMYELOCYTE 2 % (0-0); REACTIVE LYMPHOCYTES 5 % (0-0); TOTAL CELLS COUNTED 100
[2018-05-21 18:44] LABS: ACANTHOCYTES SLIGHT; ANISOCYTOSIS SLIGHT; BURR CELLS SLIGHT; HYPOCHROMIC SLIGHT; MICROCYTOSIS SLIGHT; POIKILOCYTOSIS SLIGHT; SCHISTOCYTES SLIGHT; SPHEROCYTES SLIGHT; TEARDROP CELLS SLIGHT
[2018-05-21 18:45] LABS: GIANT PLATELETS PRESENT; HYPERSEGMENTATION PRESENT; LARGE PLATELETS PRESENT; SMUDGE CELLS PRESENT; TOXIC GRANULATION PRESENT
[2018-05-21 21:19] VITALS: TEMP 97.3
[2018-05-21] MEDS ORDERED: SODIUM CHLORIDE 0.9% IV PRN (21:38)
[2018-05-21] MEDS ORDERED: EPINEPHRINE IV PRN (21:38)
[2018-05-21 21:49] LABS: HEMOGLOBIN 8.6 g/dL (11.0-16.0); MEAN CORPUSCULAR HEMOGLOBIN 27.9 pg (27.0-31.0); WHITE BLOOD COUNT 10.9 K/uL (4.8-10.8)
--- NOTE | 2018-05-21 21:55 | CP.PCM.PN ---
Subjective - Date & Time of Evaluation Date of Evaluation: 05/21/18 Time of Evaluation: 17:25 - Subjective Subjective: Patient seen and evaluated S/P Laporotomy On Mechanical ventilator Physical Exam - Constitutional Appears: No Acute Distress Additional comments: Intubated and not responding to commands. Dialysis in progress acutely. - Head Exam Head Exam: ATRAUMATIC, NORMOCEPHALIC Additional comments: NGT with coffee grounds and ET tubes in place - Respiratory Exam Respiratory Exam: Decreased Breath Sounds, Rhonchi - Cardiovascular Exam Cardiovascular Exam: Tachycardia - GI/Abdominal Exam GI & Abdominal Exam: Distended, Hypoactive Bowel Sounds, Soft. absent: Mass, Rebound Additional comments: Morbidly obese. - Rectal Exam Additional comments: dark stool - Extremities Exam Extremities exam: Positive for: pedal edema - Neurological Exam Additional comments: not responsive to commands Objective - Vital Signs/Intake and Output Vital Signs (last 24 hours): Temp Pulse Resp BP Pulse Ox 97.3 F L 52 L 20 120/15 L 100 05/21/18 21:23 05/21/18 21:23 05/21/18 21:23 05/21/18 21:18 05/21/18 15:44 Intake and Output: 05/21/18 05/22/18 18:59 06:59 Intake Total 5487.4 456.4 Output Total 0 0 Balance 5487.4 456.4 - Medications Medications: Current Medications Albuterol Sulfate (Albuterol 0.083% Inhal Ayesha (2.5 Mg/3 Ml) Ud) 2.5 mg INH RQ4 [facility] Last Admin: 05/21/18 19:47 Dose: 2.5 mg Dextrose (Dextrose 50% Inj) 0 ml IV STAT PRN; Protocol PRN Reason: Hypoglycemia Protocol Glucagon (Glucagen Diagnostic Kit) 0 mg IM STAT PRN; Protocol PRN Reason: Hypoglycemia Protocol Hydrocortisone Sodium Succinate (Solu-Cortef) 100 mg IV Q8H [facility] Last Admin: 05/21/18 13:52 Dose: 100 mg Ferric Sodium Gluconate Complex 125 mg/ Sodium Chloride 110 mls @ 110 mls/hr IVPB TTS [facility] Stop: 05/28/18 10:01 Last Admin: 05/20/18 12:47 Dose: 110 mls/hr Norepinephrine Bitartrate 8 mg (/ Sodium Chloride) 250 mls @ 7.5 mls/hr IV .Q24H PRN; Protocol PRN Reason: TITRATE PER MD ORDER Last Titration: 05/21/18 20:16 Dose: 20 mcg/min, 37.5 mls/hr Piperacillin Sod/Tazobactam (Sod 2.25 gm/ Sodium Chloride) 100 mls @ 200 mls/hr IVPB Q8H [facility]; Protocol Last Admin: 05/21/18 18:45 Dose: 200 mls/hr Dexmedetomidine HCl 200 mcg/ (Sodium Chloride) 50 mls @ 3.61 mls/hr IV TITR PRN; Protocol PRN Reason: Agitation Last Titration: 05/21/18 02:30 Dose: 0 mcg/kg/hr, 0 mls/hr Pantoprazole Sodium 80 mg/ (Sodium Chloride) 100 mls @ 10 mls/hr IVP .Q10H [facility] Last Admin: 05/21/18 11:26 Dose: 10 mls/hr Vasopressin 40 units/ Dextrose 42 mls @ 2.52 mls/hr IV .[id number] [facility] Last Admin: 05/21/18 13:26 Dose: 2.52 mls/hr Sodium Bicarbonate 150 meq/ (Dextrose) 1,000 mls @ 300 mls/hr IV .Q3H20M [facility] Stop: 05/21/18 23:39 Last Admin: 05/21/18 16:52 Dose: 300 mls/hr Epinephrine HCl 1 mg/ Sodium (Chloride) 250 mls @ 15 mls/hr IV .[id number] PRN; Protocol PRN Reason: TITRATE PER MD ORDER Insulin Aspart (Novolog) 0 unit SC Q6H [facility]; Protocol Last Admin: 05/21/18 17:49 Dose: Not Given Ondansetron HCl (Zofran Inj) 4 mg IVP Q6H PRN PRN Reason: Nausea/Vomiting Last Admin: 05/20/18 09:46 Dose: 4 mg Sevelamer Carbonate (Renvela) 1,600 mg PO TIDCC [facility] Last Admin: 05/21/18 16:57 Dose: Not Given Sodium Bicarbonate (Sodium Bicarbonate Tab) 1,300 mg NG Q6 [facility] Last Admin: 05/21/18 18:18 Dose: Not Given Vitamin B Complex/Vit C/Folic Acid (Nephro-Monie) 1 tab PO 0800 [facility] Last Admin: 05/21/18 08:25 Dose: Not Given - Labs Labs: 05/21/18 16:24 05/21/18 16:24 PT 32.3 SECONDS (9.7-12.2) H D 05/21/18 16:24 INR 2.9 D 05/21/18 16:24 APTT 93 SECONDS (21-34) H D 05/21/18 16:24 Assessment and Plan - Assessment and Plan (Free Text) Assessment: Assessment & Plan (1) Acute GI bleeding Assessment and Plan: Occult coffee ground in association with 2g drop in Hgb may be due to acute ischemic bowel, gastritis/ulceration due to hypotension and shock. Supportive care including transfusion of blood products IV Protonix drip S/P Laparotomy for exploration for ischemic bowel. Status: Acute (2) Shock liver Assessment and Plan: Due to hypotension, shock and likely bowel ischemia. No prior h/o liver disease noted. Status: Acute (3) Abnormal transaminases Assessment and Plan: as above. Status: Acute (4) Anemia due to acute blood loss Assessment and Plan: Supportive care with blood products and Protonix drip. Status: Acute (5) Mesenteric ischemia due to arterial insufficiency Assessment and Plan: For OR today following acute dialysis. Prognosis guarded. Status: Acute (6) Lactic acidosis Assessment and Plan: Due to shock and likely ischemic bowel. Supportive care per ICU team. Status: Acute
[2018-05-21] MEDS ORDERED: Sodium Bicarbonate (8.4%) 50 Meq Syringe ONE (22:00)
[2018-05-21] MEDS ORDERED: Calcium Chloride 1000 mg/10 ml Syringe ONE (22:00)
[2018-05-21 22:21] LABS: ALBUMIN 2.5 g/dL (3.5-5.0); BLOOD UREA NITROGEN 18 mg/dL (7-17); CALCIUM 6.9 mg/dl (8.6-10.4)
[2018-05-21 22:28] LABS: PROTHROMBIN TIME 35.2 SECONDS (9.7-12.2)
[2018-05-21 22:29] LABS: ALT/SGPT 4768 U/L (9-52); AST/SGOT 23366 U/L (14-36); GFR NON-AFRICAN AMERICAN 10
[2018-05-21 22:30] LABS: BASO % 0.2 % (0.0-2.0); EOS # 0.9 K/uL (0.0-0.7); EOS % 7.8 % (0.0-4.0); LYMPH # 1.2 K/uL (1.0-4.3); LYMPH % 11.3 % (20.0-40.0); MEAN CELL VOLUME 94.4 fL (81.0-99.0); MEAN CORPUSCULAR HGB CONC 29.6 g/dL (33.0-37.0); MEAN PLATELET VOLUME 10.3 fL (7.2-11.7); MONO # 0.3 K/uL (0.0-0.8); MONO % 2.5 % (0.0-10.0); NEUT # 8.6 K/uL (1.8-7.0); NEUT % 78.2 % (50.0-75.0); NRBC % 17.8 % (0.0-2.0); PLATELET COUNT 80 K/uL (130-400); RBC 3.07 Mil/uL (3.80-5.20)
[2018-05-21 22:31] LABS: INR 3.2
[2018-05-21 23:00] LABS: PLATELET ESTIMATE DECREASED (NORMAL)
[2018-05-21 23:06] LABS: BANDS 7 % (0-2); LYMPHOCYTE 15 % (20-40); METAMYELOCYTE 1 % (0-0); MONOCYTE 2 % (0-10); MYELOCYTE 3 % (0-0); NEUTROPHIL 69 % (50-75); NUCLEATED RED BLOOD CELL 30 % (0-0); REACTIVE LYMPHOCYTES 3 % (0-0); TOTAL CELLS COUNTED 100
[2018-05-21 23:07] LABS: ACANTHOCYTES SLIGHT; ANISOCYTOSIS SLIGHT; BURR CELLS SLIGHT; HYPOCHROMIC SLIGHT; MICROCYTOSIS SLIGHT; OVALOCYTES SLIGHT; POIKILOCYTOSIS SLIGHT; SCHISTOCYTES SLIGHT; SMUDGE CELLS PRESENT; SPHEROCYTES SLIGHT; TEARDROP CELLS SLIGHT
[2018-05-21 23:08] LABS: HYPERSEGMENTATION PRESENT; LARGE PLATELETS PRESENT
[2018-05-22] MEDS: Albuterol 0.083% Inhal Sol (2.5 mg/3 mL) UD INH SCH ×2 (00:29→04:29)
--- NOTE | 2018-05-22 00:43 | CARDCATH ---
PROCEDURE DATE: 05/18/2018 PROCEDURES: 1. Left heart catheterization. 2. Coronary angiogram. PERFORMING PHYSICIAN: Benjamin Frey MD CLINICAL INDICATIONS: 1. Chest pain. 2. [id number]-[id number] myocardial infarction. 3. Supraventricular tachycardia. 4. Hypertension. 5. Hyperlipidemia. 6. Chronic kidney disease, on hemodialysis. DESCRIPTION OF PROCEDURE: After informed consent, the patient was prepped and draped in the usual sterile fashion. A 2% lidocaine was given in the left groin for local anesthesia. Using micropuncture technique, a 6-Bahamian sheath was introduced into the left common femoral artery. A JL4 6-Bahamian diagnostic catheter was engaged into left main coronary artery. Contrast injected, and left coronary angiogram was done. The catheter was exchanged to JR4 6-Bahamian diagnostic catheter. The catheter was inserted into left ventricle across the aortic valve. LVEDP measured. Contrast injected, and LV angiogram was done. The catheter was pulled back across the aortic valve. Gradient across the aortic valve was measured. Then, the same catheter engaged into right coronary artery. Contrast injected, and right coronary angiogram was done. The patient tolerated the procedure well. Postprocedure, Mynx closure device was deployed in the left groin with excellent hemostasis. Radiological supervision and radiological interpretation of the coronary imaging was done. FINDINGS: 1. Left main coronary artery is patent. 2. LAD and diagonal branches are patent. 3. Left circumflex coronary artery is patent. Obtuse marginal 3 artery has a proximal 50% nonobstructive stenosis. 4. Right coronary artery is dominant. 5. Proximal right coronary artery has a 50% to 60% nonobstructive stenosis. 6. LV ejection fraction is approximately 60%. No wall motion abnormalities noted. EDP is 18. No gradient across the aortic valve. IMPRESSION: 1. Nonobstructive coronaries as described above. Right coronary and obtuse marginal 3 branch has 50- 60% nonobstructive lesions. 2. Normal left ventricular systolic function. RECOMMENDATIONS: Recommend medical management including risk factor modification. Benjamin Frey MD
[2018-05-22] MEDS: Pantoprazole 80 MG in Sodium Chloride 0.9% 100 ML IVP SCH (01:07)
[2018-05-22] MEDS: (Novolog) Insulin Aspart, Recombinant 100 u/ml 10 ml vial SC SCH (01:08)
[2018-05-22 02:30] VITALS: BP 163/130; PULSE 43; O2SAT 81
--- NOTE | 2018-05-22 03:33 | OP ---
PROCEDURE DATE: 05/21/2018 PREOPERATIVE DIAGNOSIS: Possible mesenteric ischemia. POSTOPERATIVE DIAGNOSIS: Possible mesenteric ischemia. PROCEDURE CARRIED OUT: Exploratory laparotomy and lysis of adhesion. SURGEON: Demarcus Valdez Jr., MD. SHUTTLE TRUCK DRIVER: Donnell Azar DO. ANESTHESIOLOGIST: Елена Polo MD DESCRIPTION OF PROCEDURE: The patient is an elderly woman who has multiple other medical problems including renal failure who developed acidosis and suspected mesenteric ischemia. OPERATIVE FINDINGS: The proximal 40% of the bowel was normal. Distally, it was patchy throughout its entire course. Some areas appearing normal and other areas appearing pregangrenous but not gangrenous yet or even close to that yet. The transverse colon also had multiple patchy areas as well as the liver having multiple patchy areas. Nonetheless, this was not through and through and it appearedonly in locations. In addition, there was an easily palpable pulse in the hepatic artery, and there was an easily palpable pulse in the superior mesenteric artery. Because of these findings, we did not resect any bowel and plan to carry out a second look procedure in 24 hours. This is based on the patient's condition. The fact that so much of the bowel has to be resected and possibly marginal but possibly improving quality of the distal portion of the bowel, I discussed with the research manufacturing operator and the other doctors involved and our plan is aggressive hydration and then reexploration in the near future. This was reviewed extensively with the family. Demarcus Valdez Jr., MD MTDMegan
--- NOTE | 2018-05-22 04:03 | CP.PCM.PRO ---
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 [id number]
--- NOTE | 2018-05-22 08:21 | OP ---
PROCEDURE DATE: 05/19/2018 PREOPERATIVE DIAGNOSIS: Renal failure. POSTOPERATIVE DIAGNOSIS: Renal failure. PROCEDURE: Revision of arteriovenous fistula, placement of bovine graft. SURGEON: Demarcus Valdez Jr., MD HAM FACER: Donnell Azar DO ANESTHESIOLOGISTS: Dr. Llanos, and the staff. INDICATIONS OF PROCEDURE: The patient is an 83-year-old woman with renal failure, admitted to the hospital. Previously had had a fistula created as an outpatient which was a brachial vein fistula. This was planned to be mobilized However doing mobilization, the vein became quite small, and I felt it was going to be unsatisfactory for use. Because of this, we then changed our plan, and placed a bovine graft. DESCRIPTION OF PROCEDURE: The patient was given general anesthesia, intravenous antibiotics. The vein was marked with ultrasound. The vein was dissected from the elbow to the axilla. On tying with some of the branches, the vein became quite small. There was concern regarding its patency. Because of this reason, we then interposed an interposition bovine graft 6 mm anastomosing and using loop magnification, heparin anticoagulation to the venous side and then bring it to the subcutaneous tunnel and anastomosing it to the fistula at the arterial side. This resulted in good flow. There were no operative complications or problems. The venous site admitted a 5 mm dilator, and the procedure was then terminated. There was more oozing than usual because we heparinized the patient for the anastomosis and the entire wound had to be mobilized. We had mobilized the entire brachial vein. Because of this, the wound was a little puffy and oozy, and we had a blood loss of 150 mL. There were no other complications or problems. At the end of the procedure, we had a palpable pulse of the wrist and good flow to the fistula. Operation carried out was revision of AV fistula and placement of a bovine graft, left upper extremity. Demarcus Valdez Jr., MD cc: Dino Paredes MD YOLY
--- NOTE | 2018-05-22 08:48 | CP.PCM.DIS ---
Provider - Provider Date of Admission: 05/10/18 19:24 Attending physician: Cyndi Farr DO Primary care physician: Dr. Macedo Consults: 05/11/18 08:24 Nephrology Consult Routine Comment: Consulting Provider: Shashank Kay Consulting Physician: Shashank Kay Reason for Consult: CKD 05/11/18 12:20 Vascular Surgery Routine Comment: Consulting Provider: Demarcus Valdez Jr. 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] Routine Comment: outpatient HD placement Physician Instructions: Reason For Exam: Reason for Referral: Discharge Planning 05/16/18 11:09 Cardiology Consult Routine Comment: Consulting Provider: Benjamin Frey Consulting Physician: Benjamin Frey Reason for Consult: episode of SVT on tele strip 05/17/18 19:55 Critical Care Consult Routine Comment: Consulting Provider: Osvaldo Gloria Consulting Physician: Osvaldo Gloria Reason for Consult: s/p cardiac cath 05/18/18 08:56 Cardiology Consult Routine Comment: Please notify attending Consulting Provider: Rahul Holm Consulting Physician: Rahul Holm Reason for Consult: SVT 05/18/18 14:15 Case Management Referral Routine Comment: Physician Instructions: Reason For Exam: rehab placement, dialysis placement Reason for Referral: Discharge Planning 05/20/18 15:43 General Surgery Consult Routine Comment: Consulting Provider: Demarcus Valdez Jr. Consulting Physician: Demarcus Valdez Jr. Reason for Consult: abdominal pain 05/20/18 18:28 Critical Care Consult Routine Comment: Consulting Provider: Jose Chavarria Consulting Physician: Jose Chavarria Reason for Consult: CENSUS TAKER, hypotensive 05/20/18 21:30 General Surgery Consult Routine Comment: Consulting Provider: Demarcus Valdez Jr. Consulting Physician: Demarcus Valdez Jr. Reason for Consult: high lactic, r/o ischemic gut h/o A-fib 05/21/18 06:22 Gastroenterology Consult Routine Comment: Consulting Provider: Thien oLzada Consulting Physician: Thien Lozada Reason for Consult: likely Gi bleed r/o Go bleed Time Spent in preparation of Discharge (in minutes): 15 Diagnosis - Discharge Diagnosis (1) Status: Acute (2) DNR (do not resuscitate) Status: Acute (3) Metabolic acidosis Status: Acute (4) Hyperkalemia Status: Acute (5) Abdominal pain Status: Acute (6) Mesenteric ischemia due to arterial insufficiency Status: Acute (7) ESRD (end stage renal disease) on dialysis Status: Acute (8) Acute CHF (congestive heart failure) Status: Acute (9) SVT (supraventricular tachycardia) Status: Acute (10) CKD (chronic kidney disease) Status: Chronic (11) HLD (hyperlipidemia) Status: Chronic (12) HTN (hypertension) Status: Chronic (13) Prophylactic measure Status: Acute Hospital Course - Lab Results Lab Results: Micro Results 05/20/18 19:34 Blood-Venous Blood Culture - Preliminary NO GROWTH AFTER 24 HOURS 05/20/18 19:34 Blood-Venous Blood Culture - Preliminary NO GROWTH AFTER 24 HOURS 05/18/18 21:55 Naris MRSA Culture - Final MRSA NOT DETECTED 05/11/18 14:15 Nose MRSA Culture (Admit) - Final Most Recent Lab Values WBC 10.9 K/uL (4.8-10.8) H 05/21/18 21:43 RBC 3.07 Mil/uL (3.80-5.20) L 05/21/18 21:43 Hgb 8.6 g/dL (11.0-16.0) L 05/21/18 21:43 Hct 29.0 % (34.0-47.0) L 05/21/18 21:43 MCV 94.4 fL (81.0-99.0) 05/21/18 21:43 MCH 27.9 pg (27.0-31.0) 05/21/18 21:43 MCHC 29.6 g/dL (33.0-37.0) L 05/21/18 21:43 RDW 18.0 % (11.5-14.5) H 05/21/18 21:43 Plt Count 80 K/uL (130-400) L 05/21/18 21:43 MPV 10.3 fL (7.2-11.7) 05/21/18 21:43 Neut % (Auto) 78.2 % (50.0-75.0) H 05/21/18 21:43 Lymph % (Auto) 11.3 % (20.0-40.0) L 05/21/18 21:43 [place] % (Auto) 2.5 % (0.0-10.0) 05/21/18 21:43 Eos % (Auto) 7.8 % (0.0-4.0) H 05/21/18 21:43 Baso % (Auto) 0.2 % (0.0-2.0) 05/21/18 21:43 Neut # (Auto) 8.6 K/uL (1.8-7.0) H 05/21/18 21:43 Lymph # (Auto) 1.2 K/uL (1.0-4.3) 05/21/18 21:43 [place] # (Auto) 0.3 K/uL (0.0-0.8) 05/21/18 21:43 Eos # (Auto) 0.9 K/uL (0.0-0.7) H 05/21/18 21:43 Baso # (Auto) 0.0 K/uL (0.0-0.2) 05/21/18 21:43 Neutrophils % (Manual) 69 % (50-75) 05/21/18 21:43 Band Neutrophils % 7 % (0-2) H 05/21/18 21:43 Lymphocytes % (Manual) 15 % (20-40) L 05/21/18 21:43 Reactive Lymphs % 3 % (0-0) H 05/21/18 21:43 Monocytes % (Manual) 2 % (0-10) 05/21/18 21:43 Metamyelocytes % 1 % (0-0) H 05/21/18 21:43 Myelocytes % 3 % (0-0) H 05/21/18 21:43 Promyelocytes % 2 % (0-0) H 05/21/18 16:24 Blast Cells % 1 % (0-0) H 05/21/18 05:12 Nucleated RBC % 30 % (0-0) H 05/21/18 21:43 Differential Comment 05/15/18 06:15 Hypersegmented Polys Present 05/21/18 21:43 Smudge Cells Present 05/21/18 21:43 Toxic Granulation Present 05/21/18 16:24 Platelet Estimate Decreased (NORMAL) L 05/21/18 21:43 Large Platelets Present 05/21/18 21:43 Giant Platelets Present 05/21/18 16:24 Polychromasia Moderate 05/21/18 05:12 Hypochromasia (manual) Slight 05/21/18 21:43 Poikilocytosis (manual Slight 05/21/18 21:43 Anisocytosis (manual) Slight 05/21/18 21:43 Microcytosis (manual) Slight 05/21/18 21:43 Macrocytosis (manual) Slight 05/20/18 11:07 Spherocytes Slight 05/21/18 21:43 Target Cells Slight 05/21/18 05:12 Tear Drop Cells Slight 05/21/18 21:43 Ovalocytes Slight 05/21/18 21:43 Lloyd Cells Slight 05/21/18 21:43 Acanthocytes (Spur) Slight 05/21/18 21:43 Schistocytes Slight 05/21/18 21:43 PT 35.2 SECONDS (9.7-12.2) H 05/21/18 21:43 INR 3.2 H* 05/21/18 21:43 APTT 86 SECONDS (21-34) H D 05/21/18 21:43 Fibrinogen 165 mg/dL (200-400) L 05/21/18 11:07 Puncture Site Rba 05/20/18 19:52 pCO2 18 mm/Hg (35-45) L* 05/20/18 19:52 pO2 57 mm/Hg (30-55) H 05/21/18 15:55 HCO3 9.6 mmol/L (21-28) L* 05/20/18 19:52 ABG pH 7.17 (7.35-7.45) L* 05/20/18 19:52 ABG Total CO2 7.2 mmol/L (22-28) L 05/20/18 19:52 ABG O2 Saturation 100.8 % (95-98) H 05/20/18 19:52 ABG Base Excess -19.8 mmol/L (-2.0-3.0) L 05/20/18 19:52 Trent Test Na 05/20/18 19:52 ABG Potassium 5.5 mmol/L (3.6-5.2) H 05/20/18 19:52 VBG pH 7.16 (7.32-7.43) L* 05/21/18 15:55 VBG pCO2 42 mmHg (40-60) 05/21/18 15:55 VBG HCO3 14.1 mmol/L 05/21/18 15:55 VBG Total CO2 16.3 mmol/L (22-28) L 05/21/18 15:55 VBG O2 Sat (Calc) 83.6 % (40-65) H 05/21/18 15:55 VBG Base Excess -13.2 mmol/L (0.0-2.0) L 05/21/18 15:55 VBG Potassium 5.8 mmol/L (3.6-5.2) H 05/21/18 15:55 A-a O2 Difference 314.0 mm/Hg 05/20/18 19:52 Respiratory Index 0.8 05/20/18 19:52 Sodium 143.0 mmol/l (132-148) 05/21/18 15:55 Chloride 95.0 mmol/L (98-107) L 05/21/18 15:55 Glucose 136 mg/dl (65-105) H 05/21/18 15:55 Lactate > 20.0 mmol/L (0.7-2.1) H* 05/21/18 15:55 Liter Flow 4.0 05/20/18 18:30 Vent Mode Prvc 05/20/18 19:52 Mechanical Rate 20 05/20/18 19:52 FiO2 100.0 % 05/21/18 03:25 Tidal Volume 500 05/20/18 19:52 PEEP 5 05/21/18 03:25 Inspiratory BiPAP 12 05/10/18 17:11 Expiratory BiPAP 6 05/10/18 17:11 Crit Value Called To Senait rn neonatal icu 05/21/18 15:55 Crit Value Called By Kaylin 05/21/18 15:55 Crit Value Read Back Y 05/21/18 15:55 Blood Gas Notified Time 155 05/21/18 15:55 Sodium 140 mmol/L (132-148) 05/21/18 21:43 Potassium 6.9 mmol/L (3.6-5.2) H* D 05/21/18 21:43 Chloride 91 mmol/L (98-107) L 05/21/18 21:43 Carbon Dioxide 11 mmol/L (22-30) L* D 05/21/18 21:43 Anion Gap 44 (10-20) H 05/21/18 21:43 BUN 18 mg/dL (7-17) H 05/21/18 21:43 Creatinine 4.2 mg/dL (0.7-1.2) H 05/21/18 21:43 Est GFR ( Amer) 12 05/21/18 21:43 Est GFR (Non-Af Amer) 10 05/21/18 21:43 POC Glucose (mg/dL) 134 mg/dL (65-110) H 05/22/18 00:06 Random Glucose 103 mg/dL (65-105) D 05/21/18 21:43 Lactic Acid 31.1 mmol/L (0.7-2.1) H* 05/21/18 05:12 Calcium 6.9 mg/dl (8.6-10.4) L 05/21/18 21:43 Phosphorus > 13.0 mg/dL (2.5-4.5) H 05/21/18 21:43 Magnesium 2.3 mg/dL (1.6-2.3) 05/21/18 21:43 Total Bilirubin 2.3 mg/dL (0.2-1.3) H 05/21/18 21:43 AST 32982 U/L (14-36) H 05/21/18 21:43 ALT 4768 U/L (9-52) H 05/21/18 21:43 Alkaline Phosphatase 177 U/L (38-126) H 05/21/18 21:43 Total Creatine Kinase 369 U/L (30-135) H 05/21/18 05:12 CK-MB (Mass) 4.96 ng/mL (0.0-3.38) H 05/21/18 05:12 Troponin I 0.3070 ng/mL (0.00-0.120) H* 05/21/18 05:12 NT-Pro-B Natriuret Pep 87796 pg/mL (0-900) H 05/10/18 16:56 Total Protein 5.0 g/dL (6.3-8.3) L 05/21/18 21:43 Albumin 2.5 g/dL (3.5-5.0) L 05/21/18 21:43 Globulin 2.5 gm/dL (2.2-3.9) 05/21/18 21:43 Albumin/Globulin Ratio 1.0 (1.0-2.1) 05/21/18 21:43 Lipase 63 U/L (23-300) 05/20/18 17:03 Free T4 1.64 ng/dL (0.78-2.19) 05/17/18 10:33 TSH 3rd Generation 1.70 mIU/L (0.46-4.68) 05/17/18 05:47 Arterial Blood Potassium 5.5 mmol/L (3.6-5.2) H 05/20/18 19:52 Venous Blood Potassium 5.8 mmol/L (3.6-5.2) H 05/21/18 15:55 Hep Bs Antigen Negative (NEGATIVE) 05/11/18 21:05 Hep Bs Antibody Negative (NEGATIVE) 05/11/18 21:05 Hep B Core IgM Ab Negative (NEGATIVE) 05/11/18 21:05 Hepatitis C Antibody Negative (NEGATIVE) 05/11/18 21:05 Blood Type O POSITIVE 05/21/18 00:01 Antibody Screen Negative 05/21/18 00:01 - Hospital Course Hospital Course: per H&P, CC: SOB Patient is an 83 year old female with medical history of HTN, DM2, HLD, gout, breast cancer s/p partial lumpectomy, CKD s/p AVF not on dialysis, who presents to ED with complaints of SOB, wheezing, diaphoresis. Patient reports symptom onset this morning, after having a flare of gout in her left elbow. Symptoms progressed throughout the day, prompting her to seek evaluation and treatment. Pt denies headache, dizziness, chest pain, recent illness, cough, nausea, diarrhea. Pt is s/p left elbow aspiration of effusion on 04/14 PMD: Dr. Macedo, Nephro: Dr. Kay, Vascular: Dr. Valdez PMHx: HTN, DM2, HLD, breast cancer, CKD, gout PSHx: L sided AVF, partial lumpectomy, left elbow effusion aspiration Social Hx: social alcohol consumption, formal smoker quit 30 years ago. 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 Allergy: NKDA Family History: none Medication: Lasix 40mg, clonidine 0.2mg TID, januvia 50mg, lantus solo star 10u daily, protonix 40mg Discharge Diagnoses: Code status changed to DNR. (1) Metabolic acidosis Status: Acute (2) Hyperkalemia Status: Acute (3) Abdominal pain Status: Acute (4) Mesenteric ischemia due to arterial insufficiency Status: Acute (5) ESRD (end stage renal disease) on dialysis Status: Acute (6) Acute CHF (congestive heart failure) Status: Acute (7) SVT (supraventricular tachycardia) Status: Acute (8) CKD (chronic kidney disease) Status: Chronic (9) HLD (hyperlipidemia) Status: Chronic (10) HTN (hypertension) Status: Chronic (11) Prophylactic measure Status: Acute 1. Metabolic Acidosis, Severe; Hyperkalemia secondary to Bowel Ischemia * Patient has ESRD, off agents with side effect of hyperkalemia; suspected underlying ischemia contributing; origin likely belly; underwent dialysis during hospitalization * Patient transferred back to ICU 05/20/18. Surgery and critical care on board * Patient underwent exploratory laparatomy; noted evidence of patchy bowel ischemia; attempt to optimize hydration for second surgery * Patient called as code sepsis given lactic acidosis, white count, elevated INR. and has received IV abx. Lactic acidosis increasing on empiric antibiotics * blood culture (05/20/18): pending * Urine culture (05/20/18): pending * Given Zosyn and Vancomycin 2. Abdominal Pain, Bowel Ischemia * suspecting underlying bowel ischemia * General surgery on board * Repeat CT chest/abdomen/pelvis with IV contrast official report available in the EMR * CT chest/abdomen/pelvis 05/19/18; official read not available; noted SMA and celiac are patent further finding per prelim * Patient received multiple blood products * noted possible GI bleed when NGT tube was inserted by nursing note--?patient is off anticoagulation, off aspirin * General surgery aware; decision to take to the OR * Operative note: proximal 40% of the bowel was normal. Distally, it was patchy throughout its entire course, some area appearing normal and other areas appearing pregangrenous but not gangrenous yet, or even close to that. Transverse colon has multiple patchy areas as well as liver. palpable pulse in hepatic artery, easily palpable pulse in SMA; did not resect attempt second procedure in 24 hour-->aggressive hydration given much of the bowel would need to be removed 3. Thrombocytopenia * secondary to sepsis/shock * Heparin d/c attempted to Argobactran; pending HIT/RUBÉN per ICU * off aspirin 4. CHF Exacerbation * Cardiology (Dr. Frey) on the case-->help appreciated * Echocardiogram 01/17: LV EF 46.1%, left ventricle is normal in size, borderline LV hypertrophy, Grade 1 abnormal relaxation pattern * Chest xray (05/16/18): mild cardiomegaly and mild pulmonary venous congestion, both similar right permacath terminates in the right atrium * Patient is off antihypertensives in light of shock secondary to bowel ischemia , lactic acidosis * Lasix 80mg MWF * Cozaar 50mg po daily * Bystolic 20mg po daily d/c per cardiology; d/c Lopressor; recommend for Cardizem * Imdur 60mg po q24h * Aspirin 81mg PO daily * Crestor 2.5mg POqHS 5. Possible GI bleed secondary to bowel ischemia * per noted NGT insertion in nursing note * ICU has consult GI (Dr. Lozada) who was division order analyst * off aspirin/off anticoagulation * will getting FFP this morning for elevated INR * s/p 2 units of PRBC overnight 6. Shock Liver secondary to bowel ischemia and associated hypotension * given vitamin K overnight * increasing LFTS * pending underlying ischemia 7. Tachy arrhythmia; Elevated Troponin * patient does not report any history of arrhythmia; she has been going in and out of arrhythmia during dialysis and post dialysis which spontaneously converts on own during hospitalization * Cardiology consulted on the case * Patient ordered repeat echocardiogram; will be completed in the morning. * Patient has completed cardiac cath 05/18/18; patient has nonobstructive coronaries; * Moderate risk for cardiac events for AV fistula surgery under general anaesthesia * Recommend to give cardizem 10-20mg IV pushes if patient develops SVT james opretaively; patient's antihypertensives held secondary to shock 8. Hx of HTN * Patient is off anti-hypertensives * Norvasc 10mg po daily * Clonidine 0.1mg TD weekly * Hydralazine 100mg po bid; Hydralazine 25mg po q4h prn SBP>170 or DBP>110 * Cozaar 50mg po daily * Imdur 60mg po q24h * Cardizem 60mg PO QID 9. IDDM2 * adjusted 10. Hx of ESRD * femoral line was used initially; now HD done through permacath; left AVR fistula repaired * HD as per nephorlogy * Nephrovite; Renevla 800mg po tid * Social work for outpatient HD * Repaired AVF 05/18/18 * Additional dialysis given persistent hyperkalemia, lactic acidosis 11. Hx of Breast Cancer * s/p partial lumpectomy 12. Anemia of Chronic Disease * Ferric sodium IVPB daily * likely anemia of chronic disease 2/2 ESRD prior to CENSUS TAKER event 05/20/18 13. Hx of gout (elbow) * Continue dialysis * hold Uloric not available on hospital formulary 14.MRSA positive in nares * d/dc Mupriocin nasal spray 15. prior history of Constipation * Colace 100mg PO BID * Miralax daily * had had a bowel movement on 05/17/18 * Obstructive series: no obstruction noted; fecal retention on xray * Changed in nature of bowel movement noted abdominal pain05/20/18 16. Prophylactic measure * off anticoagulation * On protonix drip * on bicarbonate drip * on 2 pressors * on gentle iv fluid * was on precedex * intubated * on ventilator * dialysis * Poor prognosis * DNR, per family Patient's family decided on DNR following results of exploratory laparatomy noted for bowel ischemia. Discussion noted in the nursing notes. Resident pronounce expiration on patient on05/21/18. EDRS completed and certified. - Date & Time of H&P Date of H&P: 05/10/18 Time of H&P: 19:37 Discharge Plan - Follow Up Plan Condition: Disposition: WITH WITHOUT AUTOPSY
--- NOTE | 2018-05-22 20:51 | CARD ---
APPROVED REPORT Date of service: 05/21/2018 EKG Measurement Heart [id number] <Conclusion> Marked sinus bradycardia with 1st degree AV block ST & T wave abnormality, consider anterolateral ischemia V/S motion artifact Abnormal ECG
== END 2018-05-22 04:00 | DRG 252 ==
LOC: C.ER 16:14 → C.9E 19:24 → C.5S 05-11 09:15 → C.9I 05-11 13:38 → C.5S 05-18 22:12 → C.9I 05-20 19:13
PROVIDERS: ADMIT Hospitalist; ATTEND Hospitalist
PROC: 5A09557 Assistance with Respiratory Ventilation, Greater than 96 Consecutive Hours, Continuous Positive Airway Pressure (ICD-10-PCS; 2018-05-10)
PROC: 5A1D70Z Performance of Urinary Filtration, Intermittent, Less than 6 Hours Per Day (ICD-10-PCS; 2018-05-11)
PROC: 06HM33Z Insertion of Infusion Device into Right Femoral Vein, Percutaneous Approach (ICD-10-PCS; 2018-05-11)
PROC: 0JH63XZ Insertion of Tunneled Vascular Access Device into Chest Subcutaneous Tissue and Fascia, Percutaneous Approach (ICD-10-PCS; 2018-05-12)
PROC: 02HV33Z Insertion of Infusion Device into Superior Vena Cava, Percutaneous Approach (ICD-10-PCS; 2018-05-12)
PROC: 06PYX3Z Removal of Infusion Device from Lower Vein, External Approach (ICD-10-PCS; 2018-05-12)
PROC: B518ZZA Fluoroscopy of Superior Vena Cava, Guidance (ICD-10-PCS; 2018-05-12)
PROC: B543ZZA Ultrasonography of Right Jugular Veins, Guidance (ICD-10-PCS; 2018-05-12)
PROC: 5A1D70Z Performance of Urinary Filtration, Intermittent, Less than 6 Hours Per Day (ICD-10-PCS; 2018-05-12)
PROC: 5A1D70Z Performance of Urinary Filtration, Intermittent, Less than 6 Hours Per Day (ICD-10-PCS; 2018-05-13)
PROC: 5A1D70Z Performance of Urinary Filtration, Intermittent, Less than 6 Hours Per Day (ICD-10-PCS; 2018-05-16)
PROC: 4A023N7 Measurement of Cardiac Sampling and Pressure, Left Heart, Percutaneous Approach (ICD-10-PCS; 2018-05-18)
PROC: B2151ZZ Fluoroscopy of Left Heart using Low Osmolar Contrast (ICD-10-PCS; 2018-05-18)
PROC: B2111ZZ Fluoroscopy of Multiple Coronary Arteries using Low Osmolar Contrast (ICD-10-PCS; 2018-05-18)
PROC: 5A1D70Z Performance of Urinary Filtration, Intermittent, Less than 6 Hours Per Day (ICD-10-PCS; 2018-05-18)
PROC: 05R Upper Veins, Replacement (ICD-10-PCS; principal; 2018-05-19 14:00)
PROC: 5A1945Z Respiratory Ventilation, 24-96 Consecutive Hours (ICD-10-PCS; 2018-05-20)
PROC: 0BH17EZ Insertion of Endotracheal Airway into Trachea, Via Natural or Artificial Opening (ICD-10-PCS; 2018-05-20)
PROC: 30233N1 Transfusion of Nonautologous Red Blood Cells into Peripheral Vein, Percutaneous Approach (ICD-10-PCS; 2018-05-20)
PROC: 06HN33Z Insertion of Infusion Device into Left Femoral Vein, Percutaneous Approach (ICD-10-PCS; 2018-05-20)
PROC: 5A1D70Z Performance of Urinary Filtration, Intermittent, Less than 6 Hours Per Day (ICD-10-PCS; 2018-05-20)
PROC: 0WJG0ZZ Inspection of Peritoneal Cavity, Open Approach (ICD-10-PCS; 2018-05-21)
PROC: 30233K1 Transfusion of Nonautologous Frozen Plasma into Peripheral Vein, Percutaneous Approach (ICD-10-PCS; 2018-05-21)
PROC: 5A1D70Z Performance of Urinary Filtration, Intermittent, Less than 6 Hours Per Day (ICD-10-PCS; 2018-05-21)
DX: I13.2 Hypertensive heart and chronic kidney disease with heart failure and with stage 5 chronic kidney disease, or end stage renal disease (principal); I50.23 Acute on chronic systolic (congestive) heart failure; I21.4 Non-ST elevation (NSTEMI) myocardial infarction; N18.6 End stage renal disease; J96.91 Respiratory failure, unspecified with hypoxia; K55.059 Acute (reversible) ischemia of intestine, part and extent unspecified; K72.00 Acute and subacute hepatic failure without coma; N25.81 Secondary hyperparathyroidism of renal origin; I16.1 Hypertensive emergency; D62 Acute posthemorrhagic anemia; E87.2 Acidosis; I47.1 Supraventricular tachycardia; R57.9 Shock, unspecified; T82.598A Other mechanical complication of other cardiac and vascular devices and implants, initial encounter; I46.9 Cardiac arrest, cause unspecified; K92.2 Gastrointestinal hemorrhage, unspecified; E11.22 Type 2 diabetes mellitus with diabetic chronic kidney disease; D63.1 Anemia in chronic kidney disease; R06.03 Acute respiratory distress; E83.39 Other disorders of phosphorus metabolism; E87.5 Hyperkalemia; D69.6 Thrombocytopenia, unspecified; I77.1 Stricture of artery; E11.649 Type 2 diabetes mellitus with hypoglycemia without coma; I48.91 Unspecified atrial fibrillation; Z66 Do not resuscitate; E21.1 Secondary hyperparathyroidism, not elsewhere classified; E78.5 Hyperlipidemia, unspecified; E78.00 Pure hypercholesterolemia, unspecified; K59.09 Other constipation; Y83.2 Surgical operation with anastomosis, bypass or graft as the cause of abnormal reaction of the patient, or of later complication, without mention of misadventure at the time of the procedure; Z79.4 Long term (current) use of insulin; Z85.3 Personal history of malignant neoplasm of breast; Z87.891 Personal history of nicotine dependence; Z90.49 Acquired absence of other specified parts of digestive tract; Z90.710 Acquired absence of both cervix and uterus; Z22.322 Carrier or suspected carrier of Methicillin resistant Staphylococcus aureus; Z90.11 Acquired absence of right breast and nipple; Z92.3 Personal history of irradiation; Z92.21 Personal history of antineoplastic chemotherapy